=== PATIENT | female | born 1935 | race Caucasian/White ===

== ENCOUNTER 2016-05-22 21:12 | Inpatient (IN) ==
[2016-05-22] MEDS ORDERED: 0.9 % Sodium Chloride 500 ML IV ONE (21:53)
--- NOTE | 2016-05-22 22:15 | Emergency Department Note ---
Disposition Clinical Impression: Dehydration, Acute renal insufficiency Disposition: Admitted As Inpatient Referrals: Keyonna Giron MD [Primary Care Provider] - Forms: ED Satisfaction Letter, Work/School Release Nausea/Vomiting/Diarrhea HPI - General Chief complaint: ED Abdominal Pain Stated complaint: NVD Time Seen by Provider: 05/22/16 21:36 Source: patient Limitations: no limitations Nursing Notes Reviewed: Yes Vital Signs Reviewed: Yes - History of Present Illness HPI Narrative: Patient presents with complaint of nausea vomiting and diarrhea for a few days. Patient denies any sick contacts but she was recently started on Purinol which she feels is contributing to her symptoms. Patient has fevers or chills denies pain or shortness of breath. Patient denies any sick contacts. Patient states she took 4 doses allopurinol as well as been having the symptoms. Patient has not had any vomiting for the past 2 days but she continues to have about 4 bouts of diarrhea per day. Patient is able to tolerate by mouth currently. - Related Data Allergies Allergy/AdvReac Type Severity Reaction Status Date / Time Sulfa (Sulfonamide Allergy Hives Verified 05/22/16 21:28 Antibiotics) All systems ED: reviewed and negative except as stated. Past Medical History - Past Medical History Source: patient Medical history: Reports: hypertension Psychiatric history: Reports: anxiety - Social History Smoking Status: Never smoker Alcohol use: Reports: none Drug use: Reports: none Physical Exam - General Limitations: no limitations General appearance: alert - Head Head exam: atraumatic, normocephalic, normal inspection - Eye Eye exam: Present: normal appearance, PERRL, EOMI - ENT ENT exam: normal exam, normal oropharynx, mucous membranes moist - Neck Neck exam: Present: normal inspection, full ROM, trachea midline - Chest Chest inspection: Present: normal inspection, symmetric chest wall rise - Respiratory Respiratory exam: Present: normal lung sounds bilaterally - Cardiovascular Cardiovascular exam: Present: regular rate, normal rhythm, normal heart sounds - Abdominal Exam Abdominal exam: Present: soft, Non-Tender. Absent: tenderness, distention, guarding, rebound, rigidity - Extremities Exam Extremities exam: Present: normal inspection, full ROM. Absent: tenderness, pedal edema - Back Exam Back exam: Present: normal inspection, full ROM. Absent: tenderness - Neurological Exam Neurological exam: Present: alert, oriented X3 - Psychiatric Psychiatric exam: Present: normal affect, normal mood - Skin Skin exam: Present: warm, dry, intact, normal color Course Vital Signs Temperature 98.2 F 05/22/16 21:22 Pulse Rate 84 05/22/16 21:22 Respiratory Rate 16 05/22/16 21:22 Blood Pressure 87/48 05/22/16 21:22 O2 Sat by Pulse Oximetry 99 05/22/16 21:22 Temperature 98.2 F 05/22/16 21:22 Pulse Rate 69 05/22/16 22:17 Respiratory Rate 20 05/22/16 22:17 Blood Pressure 93/48 05/22/16 22:17 O2 Sat by Pulse Oximetry 94 L 05/22/16 22:17 Oxygen Delivery Oxygen Delivery Room Air Nausea/Vomiting/Diarrhea - Differential Diagnosis Likely: traveler's diarrhea, food poisoning, gastroenteritis, clostridium difficile infection, drug-induced nausea and vomitting, dehydration - Lab Data Lab results reviewed: Yes I reviewed the patient's lab results. Result diagrams: 05/22/16 22:11 05/22/16 22:11 Lab Results 05/22/16 05/22/16 Range/Units 22:11 22:11 WBC 9.4 (4.3-11.1) K/mcL RBC 4.34 (3.82-4.97) M/mcL Hgb 11.6 (11.5-15.4) g/dL Hct 36.1 (35.3-44.9) % MCV 83.2 (83.0-100.0) fL MCH 26.7 L (28.0-33.3) pg MCHC 32.1 (31.6-35.5) g/dL RDW 15.0 H (11.5-14.5) % Plt Count 319 (140-400) K/mcL MPV 10.3 (9.4-12.4) fL Immature Gran % 0.2 (0-4) % Seg Neutrophils % 69.3 % Lymphocytes % 15.5 % Monocytes % 13.2 % Eosinophils % 1.4 % Basophils % 0.4 % Neutrophils # 6.5 (1.6-8.9) K/mcL Lymphocytes # 1.5 (0.6-4.6) K/mcL Monocytes # 1.2 (0.0-1.3) K/mcL Eosinophils # 0.1 (0.0-0.6) K/mcL Basophils # 0.0 (0.0-0.2) K/mcL Sodium 131 L (136-145) mEq/L Potassium 3.8 (3.5-4.5) mEq/L Chloride 101 (98-109) mEq/L Carbon Dioxide 19 (19-29) mEq/L BUN 51 H (7-20) mg/dL Creatinine 2.25 H (0.57-1.11) mg/dL Est GFR ( Amer) 25 L (> 60) Est GFR (Non-Af Amer) 21 L (> 60) BUN/Creatinine Ratio 23 (6-26) Glucose 114 H (70-99) mg/dL Calculated Osmolality 287 (280-300) Calcium 8.9 (8.6-10.8) mg/dL Total Bilirubin 1.0 (0.2-1.2) mg/dL AST 26 (5-34) Units/L ALT 26 (0-55) Units/L Alkaline Phosphatase 78 (38-126) Units/L Serum Total Protein 7.3 (6.0-8.3) g/dL Albumin 3.7 (3.5-5.0) g/dL Globulin 3.6 H (2.4-3.5) g/dL Albumin/Globulin Ratio 1.0 L (1.1-2.2) Critical Care Time Total Critical Care Time: 30 Attestation: Critical care performed: Time is exclusive of separately billable procedures. Time includes: direct patient care, patient reassessment, coordination of patient care, interpretation of data (laboratory data, radiology data, and respiratory data), review of patient's medical records, medical consultation and documentation of patient care. Procedures included in critical care time: Procedures excluded from critical care time:
[2016-05-22 22:21] LABS: Basophils % 0.4 %; Eosinophils # 0.1 K/mcL (0.0-0.6); Eosinophils % 1.4 %; Hematocrit 36.1 % (35.3-44.9); Hemoglobin 11.6 g/dL (11.5-15.4); Immature Granulocytes % 0.2 % (0-4); Lymphocytes # 1.5 K/mcL (0.6-4.6); Lymphocytes % 15.5 %; Mean Corpuscular HGB Conc 32.1 g/dL (31.6-35.5); Mean Corpuscular Hemoglobin 26.7 pg (28.0-33.3); Mean Corpuscular Volume 83.2 fL (83.0-100.0); Mean Platelet Volume 10.3 fL (9.4-12.4); Monocytes # 1.2 K/mcL (0.0-1.3); Monocytes % 13.2 %; Neutrophils # 6.5 K/mcL (1.6-8.9); Platelet Count 319 K/mcL (140-400); Red Blood Count 4.34 M/mcL (3.82-4.97); Segmented Neutrophils % 69.3 %
[2016-05-22 22:32] LABS: Albumin 3.7 g/dL (3.5-5.0); Calcium 8.9 mg/dL (8.6-10.8); Globulin 3.6 g/dL (2.4-3.5); Potassium 3.8 mEq/L (3.5-4.5); Total Protein 7.3 g/dL (6.0-8.3)
[2016-05-23] MEDS ORDERED: Ondansetron 4 MG/2 ML VIAL IVP PRN (04:16)
[2016-05-23] MEDS ORDERED: Acetaminophen 325 MG TABLET PO PRN (04:16)
[2016-05-23] MEDS ORDERED: Naloxone 0.4 MG/ML INJ IVP PRN (04:16)
--- NOTE | 2016-05-23 04:27 | Internal Med History&Physical ---
Date of Encounter: 05/23/16 Time of Encounter: 04:27 Assessment and Plan (1) Dehydration Current visit: Yes Status: Acute 1. Will start IVF and allow oral hydration as patient tolerates. 2. Discharge will hinge upon patient 's ability to maintain hydration orally. 3. Monitor I/O. 4. Stop allopurinol for now. 5. Will check AAS given non-specific abdominal pain. (2) Acute kidney injury Current visit: Yes Status: Acute 1. Monitor renal function. 2. Consult nephrology if necessary. (3) DVT prophylaxis Current visit: Yes Status: Acute 1. Heparin SQ. Internal Medicine - H&P: HPI Chief complaint: vomitning and diarrhea Admitted From: Emergency Dept Plans for Post Hospital Care: Home History of present illness: Ms. Acevedo is an 80 year old female who presented to the ER with a five-day history of protracted nausea, vomiting, and liquid/watery diarrhea. She was hoping her symptoms would go away, but after 5 days of persistence, she came to the ER for evaluation. She was found to have evidence of acute kidney injury, moderate to severe dehydration, and generalized weakness. She was subsequently admitted to the hospitalist service. Upon my assessment of the patient, she looks dehydrated, but otherwise in no acute distress. She states she feels well other than some mild/vague abdominal pain. She denies any fevers, cough, congestion, body aches, headache, bloody stools, mucus in her stools, and/or dysuria. She denies any recent use of antibiotics and has not been hospitalized in many years. She recently started allopurinol for prevention of gout. She states that her GI symptoms started shortly after starting allopurinol. She denies any ill contacts, such as influenza. She lives alone and cares for herself. Other than the last 5 days, she has had no problems at home caring for herself. Past Med Surg Social Fam HX - Past Medical History Source: patient, old records reviewed Medical history: hypertension Psychiatric history: anxiety - Past Surgical History Surgical History: no surgical history - Social History Smoking Status: Never smoker Smokeless Tobacco Status: No Alcohol use: none Drug use: none Current living situation: Home - Independent Activity Level: Independent ambulation, Very active Recent Out of Country Travel Within the Last 8 Weeks: No - Family History Mother Living Status: Hx Family Musculoskeletal Disorders: Yes (arthritis) Hx Family Medical Disorders: Yes (CVA) Father History Unknown: Yes Living Status: Internal Medicine - H&P: Meds Allopurinol [Zyloprim 100 MG] 100 mg PO DAILY 05/23/16 [History] Amlodipine [Norvasc] 10 mg PO DAILY 05/23/16 [History] Atenolol [Tenormin] 50 mg PO BID 05/23/16 [History] LORazepam [Ativan] 1 mg PO TID 05/23/16 [History] Oxycodone HCl/Acetaminophen [Percocet 5-325 mg Tablet] 1 each PO TID PRN [History] Valsartan/Hydrochlorothiazide [Diovan Hct 320-12.5 mg Tab] 1 each PO DAILY 05/23 [History] Allergies Sulfa (Sulfonamide Antibiotics) Allergy (Verified 05/22/16 21:28) Hives - Constitutional Constitutional: no chills, no fever(s), no night sweats - EENT Eyes: no blurry vision, no change in vision Ears: no ear pain, no tinnitus Nose, mouth and throat: no nasal congestion, no sinus pressure, no sore throat - Cardiovascular Cardiovascular ROS IM: no chest pain, no diaphoresis, no dyspnea, no dyspnea on exertion, no edema - Respiratory Respiratory: no cough, no wheezing, no chest congestion, no excessive phlegm production, no change in phlegm color - Gastrointestinal Gastrointestinal: abdominal pain, diarrhea, nausea, vomiting, no heartburn, no hematemesis, no hematochezia - Genitourinary Genitourinary: no dysuria, no flank pain, no hematuria - Musculoskeletal Musculoskeletal ROS IM: no arthralgias, no back pain, no myalgias - Integumentary Integumentary IM: no rash, no unusual bruising, no jaundice - Neurological Neurological ROS: weakness, no dizziness, no focal weakness, no frequent falls - Psychiatric Psychiatric: no anxiety, no depression - Endocrine Endocrine IM: no polydipsia, no polyuria - Hematologic/Lymphatic Hematologic/Lymphatic: no lymphadenopathy - Allergic/Immunologic Allergic/Immunologic: GI upset with certain foods - Constitutional Vitals: Temp Pulse Resp BP Pulse Ox 97.8 F 79 16 122/54 95 05/23/16 00:08 05/23/16 00:08 05/23/16 00:08 05/23/16 00:08 05/23/16 00:58 General appearance: Present: cooperative, A&O X 3, pleasant, no acute distress, answers questions appropriately Exam: looks dry - Head Head exam: Present: atraumatic, normal inspection - Expanded Head Exam Head exam expanded: Absent: abrasion, contusion, general tenderness - Eye Eye exam: Present: EOMI, normal appearance, PERRL. Absent: scleral icterus Pupils: Present: normal accommodation - ENT ENT exam: Present: mucous membranes dry, normal exam, normal oropharynx - Neck Neck exam general surgery: Present: full ROM, supple. Absent: lymphadenopathy, tenderness, nuchal rigidity - Respiratory Respiratory exam: Present: CTAB. Absent: chest wall tenderness, rales, rhonchi , wheezes - Cardiovascular Cardiovascular exam: Present: RRR, +S1, +S2. Absent: diastolic murmur, systolic murmur - GI/Abdominal GI/Abdominal exam: Present: normal bowel sounds, soft, tenderness (mild diffuse tenderness; no rebound or guarding). Absent: guarding, hepatomegaly, mass, rebound, splenomegaly, no peritoneal signs - Extremities Exam Extremities exam: Present: full ROM, warm. Absent: calf tenderness, joint swelling, pedal edema - Back Exam Back exam: Present: normal inspection. Absent: CVA tenderness (L), CVA tenderness (R) - Neurological Exam Neurological exam: Present: alert, CN II-XII intact, oriented X3, no focal deficits - Psychiatric Psychiatric exam: Present: normal affect, normal mood - Skin Skin exam: Present: dry, warm. Absent: rash Additional comments: + skin tenting Internal Med - H&P Results - Labs CBC & Chem 7: 05/22/16 22:11 05/22/16 22:11
[2016-05-23] MEDS: 0.9 % Sodium Chloride 1,000 ML IVC SCH ×3 (04:45→22:36)
[2016-05-23 05:12] LABS: Basophils # 0.1 K/mcL (0.0-0.2); Basophils % 0.9 %; Eosinophils # 0.2 K/mcL (0.0-0.6); Eosinophils % 2.8 %; Hemoglobin 12.2 g/dL (11.5-15.4); Immature Granulocytes % 0.2 % (0-4); Lymphocytes # 2.7 K/mcL (0.6-4.6); Lymphocytes % 30.6 %; Mean Corpuscular HGB Conc 31.3 g/dL (31.6-35.5); Mean Corpuscular Hemoglobin 26.6 pg (28.0-33.3); Mean Corpuscular Volume 85.2 fL (83.0-100.0); Mean Platelet Volume 10.7 fL (9.4-12.4); Monocytes # 1.3 K/mcL (0.0-1.3); Monocytes % 14.6 %; Neutrophils # 4.4 K/mcL (1.6-8.9); Platelet Count 299 K/mcL (140-400); Red Blood Count 4.58 M/mcL (3.82-4.97); Red Cell Distribution Width 15.1 % (11.5-14.5); Segmented Neutrophils % 50.9 %
[2016-05-23 05:32] LABS: Albumin 3.7 g/dL (3.5-5.0); Bilirubin,Total 0.7 mg/dL (0.2-1.2); Calcium 8.6 mg/dL (8.6-10.8); Globulin 3.8 g/dL (2.4-3.5); Magnesium 1.9 mg/dL (1.6-2.6); Potassium 3.3 mEq/L (3.5-4.5); Total Protein 7.5 g/dL (6.0-8.3)
[2016-05-23] MEDS: *HR* Heparin 5,000 UNIT/ML VIAL SQ SCH ×2 (05:55→17:47)
[2016-05-23] MEDS: amLODIPine 5 MG TABLET PO SCH (09:11)
[2016-05-23] MEDS: Pantoprazole 40 MG VIAL IVP SCH (09:12)
[2016-05-23] MEDS: *HR* LORazepam 1 MG TABLET PO PRN ×2 (09:16→22:32)
[2016-05-23] MEDS: *HR* OxyCODONE/APAP 5/325 TABLET PO PRN ×2 (09:16→22:32)
--- NOTE | 2016-05-23 18:55 | Internal Med Progress Note ---
Date of Encounter: 05/23/16 Time of Encounter: 08:00 - Assessment and plan (1) Dehydration Current Visit: Yes Status: Acute Assessment and plan: Patient was admitted for dehydration from the ER after 6 day history of nausea vomiting and diarrhea. Diarrhea continues today however. On patient's arrival she was hypotensive and has CARMELINA from dehydration from nausea and vomiting. Patient's potassium and sodium were both low and were replenished during the day. Recheck labs in the morning Continue IV hydration Monitor vital signs Hold blood pressure medications for hypotension (2) Nausea vomiting and diarrhea Current Visit: Yes Status: Acute Assessment and plan: Patient has 6 day history of nausea vomiting and diarrhea. Plan as above. Anti-emetics when necessary nausea (3) Acute kidney injury Current Visit: Yes Status: Acute Assessment and plan: Creatinine 2.25 on arrival, after IV hydration 1.6. We will continue to hydrate and monitor labs in the morning. (4) DVT prophylaxis Current Visit: Yes Status: Acute Assessment and plan: Heparin SQ (5) Hypotension Current Visit: Yes Status: Acute Assessment and plan: Hypotension due to hypovolemia. Blood pressure medications have been held today due to continued hypotension. We will continue to monitor vital signs and medications as needed. We will also continue IV hydration. Qualifiers: Hypotension type: other hypotension type Qualified Code(s): I95.89 - Other hypotension - Time Spent With Patient less than 15 minutes - Subjective Interval history: Patient states that she has been having nausea, vomiting, and diarrhea for the last 6 days. She states that she could drinks Sprite and eat some crackers occasionally. Patient reports that she is still having diarrhea today. She also states that she did not take her home medications for 2 days due to dizziness and vomiting. Patient states the only way she made it here was her grandson found her and made her come to the hospital. Patient denies any abdominal pain and it is also nontender to palpation despite x-ray seeing there are moderately dilated bowel loops, potentially related to ileus or small partial bowel obstruction - Constitutional Vitals: Temp Pulse Resp BP Pulse Ox 97.6 F 74 16 96/58 95 05/23/16 15:15 05/23/16 15:15 05/23/16 15:15 05/23/16 15:15 05/23/16 15:15 General appearance: Present: cooperative, A&O X 3, pleasant, no acute distress, answers questions appropriately - Head Head exam: Present: normal inspection - Eye Eye exam: Present: normal appearance, conjuntiva pink - ENT ENT exam: Present: mucous membranes moist, normal exam - Neck Neck exam general surgery: Present: normal inspection. Absent: lymphadenopathy , tenderness - Respiratory Respiratory exam: Absent: chest wall tenderness, rales, respiratory distress, stridor, wheezes - Cardiovascular Cardiovascular exam: Present: RRR, +S1, +S2 - GI/Abdominal GI/Abdominal exam: Present: hyperactive bowel sounds, soft. Absent: distended, firm, mass, tenderness - Extremities Exam Extremities exam: Present: full ROM, normal inspection, mottling, warm, radial pulses palpable and symetrical. Absent: calf tenderness, pedal edema, tenderness - Neurological Exam Neurological exam: Present: alert, oriented X3, no focal deficits. Absent: facial droop, speech deficit Internal Medicine: Result - Labs CBC & Chem 7: 05/23/16 04:35 05/23/16 04:35 Labs: Short CBC 05/23/16 Range/Units 04:35 WBC 8.7 (4.3-11.1) K/mcL Hgb 12.2 (11.5-15.4) g/dL Hct 39.0 (35.3-44.9) % Plt Count 299 (140-400) K/mcL Neutrophils # 4.4 (1.6-8.9) K/mcL BMP 05/23/16 04:35 Sodium 135 L Potassium 3.3 L Chloride 103 Carbon Dioxide 18 L BUN 46 H Creatinine 1.60 H Glucose 88 Calcium 8.6 Liver Function 05/23/16 Range/Units 04:35 Total Bilirubin 0.7 (0.2-1.2) mg/dL AST 27 (5-34) Units/L ALT 23 (0-55) Units/L Alkaline Phosphatase 84 (38-126) Units/L Albumin 3.7 (3.5-5.0) g/dL - Impressions Impressions Chest/Abdomen X-ray 05/23/16 04:22 IMPRESSION: 1. Mildly to mildly dilated small bowel loops, potentially related to ileus or partial small bowel obstruction. 2. Pulmonary vascular congestion. D/ / Matt Bo MD / Matt Bo MD Interpreting Provider: Matt Bo MD Consult Discharge Plan - Plan Referrals: Keyonna Giron MD [Primary Care Provider] - 05/29/16 10:00 am
[2016-05-24] MEDS ORDERED: Potassium Chloride Elixir 20 MEQ/15 ML UDC PO ONE (00:49)
[2016-05-24 05:11] LABS: Basophils # 0.1 K/mcL (0.0-0.2); Basophils % 0.9 %; Eosinophils # 0.1 K/mcL (0.0-0.6); Hematocrit 33.1 % (35.3-44.9); Immature Granulocytes % 0.2 % (0-4); Lymphocytes # 1.4 K/mcL (0.6-4.6); Lymphocytes % 24.1 %; Mean Corpuscular HGB Conc 31.7 g/dL (31.6-35.5); Mean Corpuscular Hemoglobin 27.2 pg (28.0-33.3); Mean Corpuscular Volume 85.8 fL (83.0-100.0); Mean Platelet Volume 10.7 fL (9.4-12.4); Monocytes % 17.2 %; Neutrophils # 3.3 K/mcL (1.6-8.9); Platelet Count 231 K/mcL (140-400); Red Blood Count 3.86 M/mcL (3.82-4.97); Segmented Neutrophils % 56.6 %
[2016-05-24 05:26] LABS: BUN/Creatinine Ratio 28 (6-26); Calcium 8.6 mg/dL (8.6-10.8); Carbon Dioxide 18 mEq/L (19-29); Chloride 110 mEq/L (98-109); Glucose 107 mg/dL (70-99); Osmolality,Calculated 285 (280-300); Sodium 135 mEq/L (136-145); eGFR For African Americans > 60 (> 60); eGFR For Non-African Americans > 60 (> 60)
[2016-05-24 05:35] LABS: Blood Urea Nitrogen 24 mg/dL (7-20); Potassium 4.8 mEq/L (3.5-4.5)
[2016-05-24 05:40] LABS: Hemoglobin 10.5 g/dL (11.5-15.4)
[2016-05-24 05:45] LABS: Platelet Estimate Normal (Normal); Toxic Granulation Present (Not Present)
[2016-05-24] MEDS: *HR* Heparin 5,000 UNIT/ML VIAL SQ SCH ×2 (06:07→20:41)
[2016-05-24] MEDS: 0.9 % Sodium Chloride 1,000 ML IVC SCH ×3 (06:08→22:26)
[2016-05-24] MEDS: *HR* LORazepam 1 MG TABLET PO PRN ×2 (09:12→22:21)
[2016-05-24] MEDS: *HR* OxyCODONE/APAP 5/325 TABLET PO PRN ×2 (09:12→20:40)
[2016-05-24] MEDS: Pantoprazole 40 MG VIAL IVP SCH (09:13)
[2016-05-24] MEDS: amLODIPine 5 MG TABLET PO SCH (09:13)
--- NOTE | 2016-05-24 16:19 | Internal Med Progress Note ---
Date of Encounter: 05/24/16 Time of Encounter: 12:00 - Assessment and plan (1) Dehydration Current Visit: Yes Status: Acute Assessment and plan: Renal function has returned to baseline BUN/creatinine 0.87 today. Patient is slightly hyponatremic at 135 and slightly hyperkalemic at 4.8. Patient has had multiple episodes of diarrhea this morning, but no nausea or vomiting. We will redraw labs in the morning. We will continue to monitor patient and vital signs. (2) Nausea vomiting and diarrhea Current Visit: Yes Status: Acute Assessment and plan: Patient denies any nausea or vomiting today however she has had multiple episodes of diarrhea this morning. Dehydration has been corrected we will continue to monitor the patient. CT today does show small bowel obstruction. Patient has been made nothing by mouth and surgical consult has been made. (3) Acute kidney injury Current Visit: Yes Status: Resolved Assessment and plan: Creatinine has returned to baseline. (4) DVT prophylaxis Current Visit: Yes Status: Acute Assessment and plan: Heparin SQ (5) Hypotension Current Visit: Yes Status: Resolved Assessment and plan: Dehydration has been corrected patient's pressure has returned to within normal limits.We will continue to monitor patient's vitals. Qualifiers: Hypotension type: other hypotension type Qualified Code(s): I95.89 - Other hypotension (6) SBO (small bowel obstruction) Current Visit: Yes Status: Acute Assessment and plan: KUB done this morning showed progressive small bowel distention within the mid abdomen suggesting a worsening small bowel obstruction. CT scan showed acute distal small bowel obstruction with trace reactive interloop bowel fluid. Surgical consult entered, Dr. Frias will see patient today. Patient was made NPO. - Subjective Interval history: Patient still denies abdominal pain and states that she feels better today, but states that she has had diarrhea multiple times today. Patient denies nausea or vomiting today. Patient's abdomen is distended today however she states it is better than it was last night. - Constitutional Vitals: Temp Pulse Resp BP Pulse Ox 99.1 F 84 16 113/71 98 05/24/16 15:26 05/24/16 15:26 05/24/16 15:26 05/24/16 15:26 05/24/16 15:26 General appearance: Present: cooperative, A&O X 3, pleasant, no acute distress, answers questions appropriately - Head Head exam: Present: normal inspection - Eye Eye exam: Present: normal appearance, PERRL - ENT ENT exam: Present: mucous membranes moist, normal exam - Neck Neck exam general surgery: Present: normal inspection. Absent: lymphadenopathy , tenderness - Respiratory Respiratory exam: Present: CTAB. Absent: rales, rhonchi, wheezes - Cardiovascular Cardiovascular exam: Present: RRR, +S1, +S2 - Expanded Cardiovascular Exam Peripheral pulses: 2+: Dorsalis Pedis (L) PM, Dorsalis Pedis (R) PM - GI/Abdominal GI/Abdominal exam: Present: distended, hyperactive bowel sounds. Absent: hepatomegaly, tenderness Additional comments: Patient has hyper active bowel sounds in all quadrants, and denies abdominal tenderness with palpation - Extremities Exam Extremities exam: Present: full ROM, normal inspection, warm, radial pulses palpable and symetrical. Absent: joint swelling, pedal edema, tenderness - Neurological Exam Neurological exam: Present: alert, oriented X3 Internal Medicine: Result - Labs CBC & Chem 7: 05/24/16 04:30 05/24/16 04:30 Labs: Short CBC 05/24/16 Range/Units 04:30 WBC 5.8 (4.3-11.1) K/mcL Hgb 10.5 L D (11.5-15.4) g/dL Hct 33.1 L (35.3-44.9) % Plt Count 231 (140-400) K/mcL Neutrophils # 3.3 (1.6-8.9) K/mcL BMP 05/24/16 04:30 Sodium 135 L Potassium 4.8 H D Chloride 110 H Carbon Dioxide 18 L BUN 24 H D Creatinine 0.87 Glucose 107 H Calcium 8.6 - Impressions Impressions KUB X-Ray 05/24/16 09:30 IMPRESSION: Worsening small bowel distention suggesting a small bowel obstruction. Consider CT of the abdomen and pelvis further evaluation. The findings were sent to the Radiology Results Communication [facility] at 10:53 am on 05/24/2016to be communicated to a licensed caregiver. D/ / 05/24/2016 10:54:39 Irwin Hagen MD / [email or web address] Interpreting Provider: Irwin Hagen MD Abdomen/Pelvis CT 05/24/16 11:09 IMPRESSION: Findings of acute distal small-bowel obstruction with trace reactive interloop bowel fluid. D/ / Galo Camarena MD / Galo Camarena MD Interpreting Provider: Galo Camarena MD Consult Discharge Plan - Plan Referrals: Keyonna Giron MD [Primary Care Provider] - 05/29/16 10:00 am
--- NOTE | 2016-05-24 17:57 | General Surgery Progress Note ---
Date of Encounter: 05/24/16 Time of Encounter: 17:51 - Assessment and Plan (1) Partial small bowel obstruction Current Visit: Yes Status: Acute Mechanical SBO vs. Ileus Pt. with protracted nausea and vomiting x 7 days. She is also having persistent diarrhea CT abd/pel revealed dilated proximal small bowel and collapsed distal small bowel loops. NPO SBFT antiemetics IVF pain control NG to suction if persistent nausea or vomiting Subjective Patient reports: flatus, diarrhea Narrative: Ms. Acevedo is an 80 year old female who presented to the ER with a five-day history of protracted nausea, vomiting, and liquid/watery diarrhea. She was hoping her symptoms would go away, but after 5 days of persistence, she came to the ER for evaluation. She was found to have evidence of acute kidney injury, moderate to severe dehydration, and generalized weakness. She has continued to have diarrhea since admission. A c.diff screen was negative. A CT-Abd/pelvis revealed dilated small bowel loops in left upper quadrant with distal collapsed small bowel loops. These findings are consistent with a sbo. Objective Vital Signs - Last 8 Hours Temp Pulse Resp BP Pulse Ox 05/24/16 15:26 99.1 F 84 16 113/71 98 05/24/16 10:48 98.3 F 75 16 82/47 91 L Intake and Output 05/24/16 05/24/16 05/24/16 07:59 15:59 23:59 Intake Total 1005 / 1005 Output Total 240 / 240 Balance 1005 / 1005 -240 / -240 Intake: IV Fluids 1005 / 1005 0.9 % Sodium Chloride 1, 1000 / 1000 000 ML @ 125 mls/hr IVC . Q8H REID Rx#:[id number] Potassium Chloride 10 mEq 5 / 5 /100mL 10 meq In 100 ml @ 100 mls/hr IVPB Q1H RE[facility] Rx#:[id number] Output: Urine 140 / 140 Stool 100 / 100 Other: Meal Breakfast Percent of Meal Consumed 5% Stool Size Small Moderate Stool Consistency liquid loose soft Stool Color Yellow Yellow # Voids 1 # Bowel Movements 1 1 Weight 74.843 kg Patient Weight 05/24/16 23:59 Weight 74.843 kg - General physical appearance well nourished, moderate distress - Eyes normal ocular movement - Neck Neck exam: trachea midline - Respiratory normal expansion, clear to auscultation - Cardiovascular Cardiovascular exam: Present: RRR - Abdomen Abdomen: Present: bowel sounds present, soft, tender. Absent: guarding, rebound , rigid Abdominal Tenderness: diffusely - Neurologic CN 2-12 grossly intact - Psychiatric oriented to person, oriented to place - Labs 05/25/16 04:08 05/25/16 04:08 Diabetes panel 05/24/16 Range/Units 04:30 Sodium 135 L (136-145) mEq/L Potassium 4.8 H D (3.5-4.5) mEq/L Chloride 110 H (98-109) mEq/L Carbon Dioxide 18 L (19-29) mEq/L BUN 24 H D (7-20) mg/dL Creatinine 0.87 (0.57-1.11) mg/dL Glucose 107 H (70-99) mg/dL Calcium 8.6 (8.6-10.8) mg/dL Calcium panel 05/24/16 Range/Units 04:30 Calcium 8.6 (8.6-10.8) mg/dL Pituitary panel 05/24/16 Range/Units 04:30 Sodium 135 L (136-145) mEq/L Potassium 4.8 H D (3.5-4.5) mEq/L Chloride 110 H (98-109) mEq/L Carbon Dioxide 18 L (19-29) mEq/L BUN 24 H D (7-20) mg/dL Creatinine 0.87 (0.57-1.11) mg/dL Glucose 107 H (70-99) mg/dL Calcium 8.6 (8.6-10.8) mg/dL Adrenal panel 05/24/16 Range/Units 04:30 Sodium 135 L (136-145) mEq/L Potassium 4.8 H D (3.5-4.5) mEq/L Chloride 110 H (98-109) mEq/L Carbon Dioxide 18 L (19-29) mEq/L BUN 24 H D (7-20) mg/dL Creatinine 0.87 (0.57-1.11) mg/dL Glucose 107 H (70-99) mg/dL Calcium 8.6 (8.6-10.8) mg/dL Consult Discharge Plan - Plan Referrals: Keyonna Giron MD [Primary Care Provider] - 05/29/16 10:00 am - Attending Attestation I examined this patient and my medical decision-making was reviewed with the REGULATOR ASSEMBLER/PA/Advanced Practice Nurse/Resident Physician. I agree with the documented findings, disposition and treatment plan as described except to the extent set forth below. The patient is seen and evaluated with rest and on morning rounds. The patient clinically does not appear to have mechanical valve obstruction. We will glad to follow along with you as her bowel function improves. Continue supportive care and clinical surveillance. Xiang Frias MD FACS
[2016-05-25] MEDS: 0.9 % Sodium Chloride 1,000 ML IVC SCH ×2 (04:00→17:38)
[2016-05-25 04:49] LABS: Basophils # 0.1 K/mcL (0.0-0.2); Basophils % 1.2 %; Eosinophils # 0.1 K/mcL (0.0-0.6); Eosinophils % 1.5 %; Hematocrit 35.6 % (35.3-44.9); Immature Granulocytes % 0.5 % (0-4); Lymphocytes # 2.1 K/mcL (0.6-4.6); Lymphocytes % 34.8 %; Mean Corpuscular HGB Conc 30.9 g/dL (31.6-35.5); Mean Corpuscular Volume 87.5 fL (83.0-100.0); Mean Platelet Volume 10.6 fL (9.4-12.4); Monocytes # 1.3 K/mcL (0.0-1.3); Monocytes % 20.8 %; Neutrophils # 2.5 K/mcL (1.6-8.9); Platelet Count 233 K/mcL (140-400); Red Blood Count 4.07 M/mcL (3.82-4.97); Red Cell Distribution Width 15.3 % (11.5-14.5); Segmented Neutrophils % 41.2 %
[2016-05-25 05:03] LABS: BUN/Creatinine Ratio 24 (6-26); Blood Urea Nitrogen 19 mg/dL (7-20); Calcium 8.9 mg/dL (8.6-10.8); Carbon Dioxide 17 mEq/L (19-29); Chloride 112 mEq/L (98-109); Glucose 80 mg/dL (70-99); Osmolality,Calculated 289 (280-300); Sodium 139 mEq/L (136-145); eGFR For African Americans > 60 (> 60); eGFR For Non-African Americans > 60 (> 60)
[2016-05-25 05:15] LABS: Platelet Estimate Normal (Normal)
[2016-05-25 05:16] LABS: Reactive Lymphocytes Present (Not Present)
[2016-05-25] MEDS: *HR* Heparin 5,000 UNIT/ML VIAL SQ SCH ×2 (06:54→17:00)
[2016-05-25] MEDS: Pantoprazole 40 MG VIAL IVP SCH (09:43)
[2016-05-25] MEDS: *HR* OxyCODONE/APAP 5/325 TABLET PO PRN ×3 (09:43→23:47)
[2016-05-25] MEDS: *HR* LORazepam 1 MG TABLET PO PRN ×3 (09:43→23:48)
[2016-05-25] MEDS: amLODIPine 5 MG TABLET PO SCH (09:43)
--- NOTE | 2016-05-25 14:29 | Internal Med Progress Note ---
Date of Encounter: 05/25/16 Time of Encounter: 10:00 - Assessment and plan (1) SBO (small bowel obstruction) Current Visit: Yes Status: Acute Assessment and plan: Patient up walking around room this morning, states she feels better. Abdomen slightly distended, better than yesterday. Hyperactive bowel sounds 4 quadrants. Patient had small bowel follow-through last night, showed possible low-grade partial obstruction or possible adynamic ileus. There was no complete obstruction or perforation. Patient was seen by Dr. Frias this morning , she does not appear to have a mechanical valve obstruction, continue supportive care and clinical surveillance. Monitor labs Monitor patient condition Imaging as needed IV fluids as needed K (2) Dehydration Current Visit: Yes Status: Acute Assessment and plan: Labs have returned to normal values. Appears to be well hydrated and not in overload. Mucous membranes are moist skin is pink Continue to monitor labs I and O Monitor VS (3) Nausea vomiting and diarrhea Current Visit: Yes Status: Acute Assessment and plan: Patient denies nausea or vomiting, however she is still having diarrhea and some intermittent abdominal cramping. She remained nothing by mouth for today. Antiemetics when necessary IV fluids (4) Acute kidney injury Current Visit: Yes Status: Resolved Assessment and plan: Creatinine remains at baseline. (5) DVT prophylaxis Current Visit: Yes Status: Acute Assessment and plan: Heparin SQ (6) Hypotension Current Visit: Yes Status: Resolved Assessment and plan: Dehydration has been corrected patient's pressure has returned to within normal limits. Monitor vital signs Qualifiers: Hypotension type: other hypotension type Qualified Code(s): I95.89 - Other hypotension - Time Spent With Patient less than 15 minutes - Subjective Interval history: Today patient reports intermittent abdominal cramping. She states the diarrhea has continued today but is less in frequency than yesterday. Patient is up walking around in room and says she feels better. - Constitutional Vitals: Temp Pulse Resp BP Pulse Ox 97.6 F 67 16 92/51 92 L 05/25/16 11:57 05/25/16 11:57 05/25/16 11:57 05/25/16 11:57 05/25/16 11:57 General appearance: Present: cooperative, A&O X 3, pleasant, no acute distress, answers questions appropriately - Head Head exam: Present: normal inspection - Eye Eye exam: Present: normal appearance, conjuntiva pink - ENT ENT exam: Present: mucous membranes moist, normal exam - Neck Neck exam general surgery: Present: normal inspection. Absent: lymphadenopathy , tenderness - Respiratory Respiratory exam: Present: CTAB. Absent: chest wall tenderness, decreased breath sounds, respiratory distress, rhonchi, wheezes - Cardiovascular Cardiovascular exam: Present: RRR, +S1, +S2. Absent: diastolic murmur, systolic murmur - GI/Abdominal GI/Abdominal exam: Present: distended, hyperactive bowel sounds, soft, tenderness. Absent: hernia Additional comments: Patient reports tenderness to palpation in left lower quadrant - Extremities Exam Extremities exam: Present: full ROM, normal capillary refill, warm, radial pulses palpable and symetrical. Absent: pedal edema, tenderness - Neurological Exam Neurological exam: Present: alert, oriented X3, strengths equal and symetr throughout. Absent: no focal deficits, facial droop, speech deficit Internal Medicine: Result - Labs CBC & Chem 7: 05/25/16 04:08 05/25/16 04:08 Labs: Short CBC 05/25/16 Range/Units 04:08 WBC 6.1 (4.3-11.1) K/mcL Hgb 11.0 L (11.5-15.4) g/dL Hct 35.6 (35.3-44.9) % Plt Count 233 (140-400) K/mcL Neutrophils # 2.5 (1.6-8.9) K/mcL BMP 05/25/16 04:08 Sodium 139 Potassium 4.0 Chloride 112 H Carbon Dioxide 17 L BUN 19 Creatinine 0.80 Glucose 80 Calcium 8.9 Consult Discharge Plan - Plan Referrals: Keyonna Giron MD [Primary Care Provider] - 05/29/16 10:00 am
[2016-05-25] MEDS ORDERED: 0.9 % Sodium Chloride 500 ML IVC ONE (14:43)
--- NOTE | 2016-05-25 17:16 | General Surgery Progress Note ---
Date of Encounter: 05/25/16 Time of Encounter: 17:12 - Assessment and Plan (1) Partial small bowel obstruction Current Visit: Yes Status: Acute Mechanical SBO vs. Ileus CT abd/pel revealed dilated proximal small bowel and collapsed distal small bowel loops. Small bowel follow thru revealed low-grade partial obstruction vs. adynamic ileus. Pt. that is having high volume diarrhea correlates with a very low risk of a bowel obstruction. Surgery will sign off at this time. Thank you for allowing us to assist in the care of your patient. Please re-consult PRN. Subjective Patient reports: feels better, diarrhea Narrative: Patient seen and examined. Has had multiple watery and small formed bowel movements. Denies abdominal pain at this time. Objective Vital Signs - Last 8 Hours Temp Pulse Resp BP Pulse Ox 05/25/16 15:07 97.7 F 76 18 110/59 95 05/25/16 11:57 97.6 F 67 16 92/51 92 L Intake and Output 05/25/16 05/25/16 05/25/16 07:59 15:59 23:59 Other: Weight 72.348 kg Patient Weight 05/25/16 23:59 Weight 72.348 kg - Additional Exam - General physical appearance well nourished, moderate distress - Eyes normal ocular movement - Neck Neck exam: trachea midline - Respiratory normal expansion, clear to auscultation - Cardiovascular Cardiovascular exam: Present: RRR - Abdomen Abdomen: Present: bowel sounds present, soft, tender. Absent: guarding, rebound , rigid Abdominal Tenderness: diffusely - Neurologic CN 2-12 grossly intact - Psychiatric oriented to person, oriented to place - Labs 05/26/16 04:44 05/26/16 04:44 Diabetes panel 05/25/16 Range/Units 04:08 Sodium 139 (136-145) mEq/L Potassium 4.0 (3.5-4.5) mEq/L Chloride 112 H (98-109) mEq/L Carbon Dioxide 17 L (19-29) mEq/L BUN 19 (7-20) mg/dL Creatinine 0.80 (0.57-1.11) mg/dL Glucose 80 (70-99) mg/dL Calcium 8.9 (8.6-10.8) mg/dL Calcium panel 05/25/16 Range/Units 04:08 Calcium 8.9 (8.6-10.8) mg/dL Pituitary panel 05/25/16 Range/Units 04:08 Sodium 139 (136-145) mEq/L Potassium 4.0 (3.5-4.5) mEq/L Chloride 112 H (98-109) mEq/L Carbon Dioxide 17 L (19-29) mEq/L BUN 19 (7-20) mg/dL Creatinine 0.80 (0.57-1.11) mg/dL Glucose 80 (70-99) mg/dL Calcium 8.9 (8.6-10.8) mg/dL Adrenal panel 05/25/16 Range/Units 04:08 Sodium 139 (136-145) mEq/L Potassium 4.0 (3.5-4.5) mEq/L Chloride 112 H (98-109) mEq/L Carbon Dioxide 17 L (19-29) mEq/L BUN 19 (7-20) mg/dL Creatinine 0.80 (0.57-1.11) mg/dL Glucose 80 (70-99) mg/dL Calcium 8.9 (8.6-10.8) mg/dL Consult Discharge Plan - Plan Referrals: Keyonna Giron MD [Primary Care Provider] - 05/29/16 10:00 am - Attending Attestation I examined this patient and my medical decision-making was reviewed with the DIRECTOR [employer] SAL[employer]/PA/Advanced Practice Nurse/Resident Physician. I agree with the documented findings, disposition and treatment plan as described except to the extent set forth below. The patient is seen and evaluated on morning rounds with the resident. She appears to have had resolution of any consideration of bowel obstruction. Her abdominal examination is negative. Sign off at this point. Xiang Frias MD FACS
[2016-05-26] MEDS: 0.9 % Sodium Chloride 1,000 ML IVC SCH (02:04)
[2016-05-26 05:38] LABS: Hematocrit 32.9 % (35.3-44.9); Hemoglobin 10.4 g/dL (11.5-15.4); Mean Corpuscular HGB Conc 31.6 g/dL (31.6-35.5); Mean Corpuscular Hemoglobin 26.9 pg (28.0-33.3); Mean Corpuscular Volume 85.2 fL (83.0-100.0); Mean Platelet Volume 10.8 fL (9.4-12.4); Platelet Count 274 K/mcL (140-400); Red Blood Count 3.86 M/mcL (3.82-4.97); Red Cell Distribution Width 15.3 % (11.5-14.5)
[2016-05-26 05:50] LABS: BUN/Creatinine Ratio 19 (6-26); Blood Urea Nitrogen 14 mg/dL (7-20); Calcium 8.1 mg/dL (8.6-10.8); Carbon Dioxide 16 mEq/L (19-29); Chloride 111 mEq/L (98-109); Glucose 91 mg/dL (70-99); Osmolality,Calculated 282 (280-300); Potassium 3.6 mEq/L (3.5-4.5); Sodium 136 mEq/L (136-145); eGFR For African Americans > 60 (> 60); eGFR For Non-African Americans > 60 (> 60)
[2016-05-26 06:36] LABS: Eosinophils # 0.7 K/mcL (0.0-0.6); Lymphocytes # 2.6 K/mcL (0.6-4.6); Monocytes # 0.7 K/mcL (0.0-1.3); Neutrophils # 2.6 K/mcL (1.6-8.9); Platelet Estimate Normal (Normal)
--- NOTE | 2016-05-26 09:49 | Discharge Summary ---
Date of Encounter: 05/26/16 Time of Encounter: 09:48 - Discharge Diagnosis (1) Dehydration Priority: Primary Status: Resolved (2) Acute kidney injury Priority: Primary Status: Resolved (3) Nausea vomiting and diarrhea Priority: Secondary Status: Resolved (4) Hypotension Priority: Primary Status: Resolved Qualifiers: Hypotension type: other hypotension type Qualified Code(s): I95.89 - Other hypotension (5) Partial small bowel obstruction Priority: Primary Status: Resolved - Discharge Medications Home Medications: Allopurinol [Zyloprim 100 MG] 100 mg PO DAILY 05/23/16 [History] Amlodipine [Norvasc] 10 mg PO DAILY 05/23/16 [History] Atenolol [Tenormin] 50 mg PO BID 05/23/16 [History] Diclofenac Sodium [Voltaren] 1 appl TP QID 05/23/16 [History] LORazepam [Ativan] 1 mg PO TID PRN 05/23/16 [History] Oxycodone HCl/Acetaminophen [Percocet 5-325 mg Tablet] 1 tab PO TID PRN [History] Travoprost [Travatan Z] 1 drop OP HS 05/23/16 [History] Allergies/Adverse Reactions: Allergies Sulfa (Sulfonamide Antibiotics) Allergy (Verified 05/22/16 21:28) Hives Date of admission: 05/24/16 20:31 Primary care physician: Keyonna Giron, Consults: 05/25/16 18:29 Consult to Occupational Therapy [CONS] Routine Comment: Evaluate, develop and implement POC Consult to Physical Therapy [CONS] Routine Comment: Evaluate, develop and implement POC Consult to [employer] [CONS] Routine Reason for SW Consult: poss home health Discharging clinician: Chadwick Mauricio Anticipated date of discharge: 05/26/16 - Patient Status Disposition: Home, Self-Care Condition: Fair Functional capacity at discharge: independent ambulation Overall status at discharge: patient is progressing back to baseline - Discharge Instructions Follow Up With: Keyonna Giron MD [Primary Care Provider] - 05/29/16 10:00 am - Diet and Activity Activity: resume usual activities as tolerated Diet: low salt diet Interval History: Ms. Acevedo is an 80 year old female who presented to the ER with a five-day history of protracted nausea, vomiting, and liquid/watery diarrhea. She was hoping her symptoms would go away, but after 5 days of persistence, she came to the ER for evaluation. She was found to have evidence of acute kidney injury, moderate to severe dehydration, and generalized weakness. She was subsequently admitted to the hospitalist service. Hospital course: Ms. Acevedo is a 80 year old female with PMH of HTN who was admitted to the hospital for management of dehydration and CARMELINA secondary to Partial SBO with n/v /d She was managed conservatively with bowel rest, IVF hydration and antiemetics CT abd/pel revealed dilated proximal small bowel and collapsed distal small bowel loops. Chemistry revealed CARMELINA Small bowel follow thru revealed low-grade partial obstruction vs. adynamic ileus. Patient continued to have lose bowel movements and was evaluated by surgery Per surger, her SBO is most likely from adynamic ileus and is very low risk for high grade obstruction due to diarrhea Her CARMELINA and dehydration has resolved She is seen at bedside this morning, with no new complains She was given a regular diet for breakfast and lunch which she tolerated without any GI symptoms I have discontinued her home Valsartan-HCTZ due to her CARMELINA on presentation and her well-controlled blood pressure on only atenolol and Norvasc Patient is ambulatory and denies any social needs. her hyperchloremic acidosis is mild, and is fro saline infusion. she has no symptoms and her vitals are stable She is stable for discharge home to follow up with her PCP 05/29/16 - Time Spent with Patient Total time spent providing and/or coordinating discharge services: Less than 30 minutes - Constitutional Vitals: Temp Pulse Resp BP Pulse Ox 98.2 F 79 15 123/56 96 05/26/16 07:24 05/26/16 07:24 05/26/16 07:24 05/26/16 07:24 05/26/16 07:24 General appearance: Present: cooperative, A&O X 3, pleasant, no acute distress, answers questions appropriately - Head Head exam: Present: atraumatic, normocephalic - Eye Eye exam: Present: PERRL, conjuntiva pink, sclera anicteric Pupils: Present: PERRL - Neck Neck exam general surgery: Present: supple, trachea midline. Absent: lymphadenopathy - Respiratory Respiratory exam: Present: CTAB. Absent: accessory muscle use, rales, rhonchi, wheezes - Cardiovascular Cardiovascular exam: Present: RRR, +S1, +S2. Absent: diastolic murmur, gallop, rubs, systolic murmur - GI/Abdominal GI/Abdominal exam: Present: normal bowel sounds, soft, no peritoneal signs. Absent: distended, tenderness - Extremities Exam Extremities exam: Present: warm, radial pulses palpable and symetrical. Absent : calf tenderness, cyanotic, pedal edema - Neurological Exam Neurological exam: Present: alert, CN II-XII intact, oriented X3, no focal deficits. Absent: pronater drift, facial droop, speech deficit - Skin Skin exam: Present: dry, intact
[2016-05-26] MEDS: *HR* Heparin 5,000 UNIT/ML VIAL SQ SCH (10:08)
[2016-05-26] MEDS: amLODIPine 5 MG TABLET PO SCH (10:08)
[2016-05-26] MEDS: *HR* LORazepam 1 MG TABLET PO PRN ×2 (10:12→17:33)
[2016-05-26] MEDS: *HR* OxyCODONE/APAP 5/325 TABLET PO PRN ×2 (10:12→17:33)
[2016-05-26 14:37] VITALS: BP 105/59
--- NOTE | 2016-05-26 16:24 | Physician Discharge Referral ---
Home Health/Hosp Referral Info Transfer to: Home Health Attending Provider: Dr. Mauricio Provider in Charge Post Discharge: PCP - Diagnosis (1) Dehydration Priority: Primary Status: Resolved (2) Acute kidney injury Priority: Primary Status: Resolved (3) Nausea vomiting and diarrhea Priority: Primary Status: Resolved (4) Hypotension Priority: Primary Status: Resolved (5) Partial small bowel obstruction Priority: Secondary Status: Resolved - Respiratory Orders Smoking Cessation: Smoking cessation has been advised. For more information, call the [place] Tobacco Quit Line at 2-279-OQAN-NOW. - Services Needed Following services are medically necessary services: Home Health Aide, Physical Therapy - Transfer Medications Home Medications: Allopurinol [Zyloprim 100 MG] 100 mg PO DAILY 05/23/16 [History] Amlodipine [Norvasc] 10 mg PO DAILY 05/23/16 [History] Atenolol [Tenormin] 50 mg PO BID 05/23/16 [History] Diclofenac Sodium [Voltaren] 1 appl TP QID 05/23/16 [History] LORazepam [Ativan] 1 mg PO TID PRN 05/23/16 [History] Oxycodone HCl/Acetaminophen [Percocet 5-325 mg Tablet] 1 tab PO TID PRN [History] Travoprost [Travatan Z] 1 drop OP HS 05/23/16 [History] Allergies/Adverse Reactions: Allergies Sulfa (Sulfonamide Antibiotics) Allergy (Verified 05/22/16 21:28) Hives Certification: Further, I certify that my clinical findings support that this patient is homebound (i.e. absences from home require considerable and taxing effort and are for medical reasons or christian services or infrequently or short duration when for other reasons) because: Homebound Reason: Patient requires assistance of a person or device to safely leave home Attestation: My signature below is to certify that this patient is under my care and that I, or nurse practitioner, or a physician's fish hatchery assistant working with me, has a face-to -face encounter with this patient.
== END 2016-05-26 16:20 | disposition home or self-care (01) | DRG 389 ==
LOC: 3BNU 21:12 → EMEROO 21:12 → 3BNU 05-23 → SUATTDRO 05-24 20:31
PROVIDERS: ADMIT Pediatrics; ATTEND Internal Medicine

== ENCOUNTER 2017-08-26 22:51 | Inpatient (IN) ==
[2017-08-26] MEDS ORDERED: 0.9 % Sodium Chloride 1,000 ML IVC ONE (22:57)
[2017-08-26] MEDS ORDERED: Ondansetron 4 MG/2 ML VIAL IVP ONE (23:10)
--- NOTE | 2017-08-26 23:25 | Emergency Department Note ---
Disposition General Adult HPI - General Chief complaint: ED Abdominal Pain Stated complaint: vomiting,body aches,diarrhea Time Seen by Provider: 08/26/17 22:57 Nursing Notes Reviewed: Yes Vital Signs Reviewed: Yes - History of Present Illness Pain Scale: 8 - Related Data Home Medications Medication Instructions Recorded Confirmed Allopurinol [Zyloprim 100 MG] 100 mg PO DAILY 05/23/16 05/23/16 Atenolol [Tenormin] 50 mg PO BID 05/23/16 05/23/16 Diclofenac Sodium [Voltaren] 1 appl TP QID 05/23/16 05/23/16 LORazepam [Ativan] 1 mg PO TID PRN 05/23/16 05/23/16 Oxycodone HCl/Acetaminophen 1 tab PO TID PRN 05/23/16 05/23/16 [Percocet 5-325 mg Tablet] Travoprost [Travatan Z] 1 drop OP HS 05/23/16 05/23/16 amLODIPine [Norvasc] 10 mg PO DAILY 05/23/16 05/23/16 Previous Rx's Medication Instructions Recorded Azithromycin [Azithromycin 6-Tab 250 mg PO PER PKG DI #6 tab 03/27/17 Pack] Dextromethorphan Polistirex 5 ml PO BID PRN #118 ml 03/27/17 [12-Hour Cough Relief] Allergies Allergy/AdvReac Type Severity Reaction Status Date / Time codeine Allergy Rash Verified 03/27/17 14:48 nitrofurantoin Allergy Rash Verified 03/27/17 14:48 [From Macrodantin] Sulfa (Sulfonamide Allergy Hives Verified 03/27/17 14:48 Antibiotics) Past Medical History - Past Medical History Medical history: Reports: non-contributory Surgical history: Reports: no surgical history Psychiatric history: Reports: anxiety - Social History Smoking Status: Never smoker Smokeless Tobacco Status: No Alcohol use: Reports: none Drug use: Reports: none Course Vital Signs Temperature 98.5 F 08/26/17 22:52 Pulse Rate 65 08/26/17 22:52 Respiratory Rate 08/26/17 22:52 Blood Pressure 93/60 08/26/17 22:52 O2 Sat by Pulse Oximetry 96 08/26/17 22:52 Temperature 98.5 F 08/26/17 22:52 Pulse Rate 65 08/26/17 22:52 Respiratory Rate 20 08/26/17 22:52 Blood Pressure 93/60 08/26/17 22:52 O2 Sat by Pulse Oximetry 96 08/26/17 22:52 Oxygen Delivery Oxygen Delivery Room Air
--- NOTE | 2017-08-26 23:30 | Emergency Department Note ---
Disposition Clinical Impression: Elevated lipase Nausea & vomiting Qualifiers: Vomiting type: unspecified Vomiting Intractability: non-intractable Qualified Code(s): R11.2 - Nausea with vomiting, unspecified Abdominal pain Qualifiers: Abdominal location: generalized Qualified Code(s): R10.84 - Generalized abdominal pain Disposition: Admitted As Inpatient Condition: Good Referrals: Enedina Oates MD [Primary Care Provider] - Forms: ED Satisfaction Letter, Work/School Release Time of Disposition: 03:13 Abdominal Pain HPI - General Chief Complaint: ED Abdominal Pain Stated Complaint: vomiting,body aches,diarrhea Time Seen by Provider: 08/26/17 22:57 Nursing Notes Reviewed: Yes Vital Signs Reviewed: Yes - History of Present Illness Pt Subjective Complaint: abdominal pain Onset (ago): hour(s) Consistency: constant Location: RLQ Pain Scale: 8 Quality: aching Migration to: no migration Associated symptoms: Reports: nausea, vomiting, diarrhea. Denies: fever, chills - Related Data Home Medications Medication Instructions Recorded Confirmed Allopurinol [Zyloprim 100 MG] 100 mg PO DAILY 05/23/16 05/23/16 Atenolol [Tenormin] 50 mg PO BID 05/23/16 05/23/16 Diclofenac Sodium [Voltaren] 1 appl TP QID 05/23/16 05/23/16 LORazepam [Ativan] 1 mg PO TID PRN 05/23/16 05/23/16 Oxycodone HCl/Acetaminophen 1 tab PO TID PRN 05/23/16 05/23/16 [Percocet 5-325 mg Tablet] Travoprost [Travatan Z] 1 drop OP HS 05/23/16 05/23/16 amLODIPine [Norvasc] 10 mg PO DAILY 05/23/16 05/23/16 Previous Rx's Medication Instructions Recorded Azithromycin [Azithromycin 6-Tab 250 mg PO PER PKG DI #6 tab 03/27/17 Pack] Dextromethorphan Polistirex 5 ml PO BID PRN #118 ml 03/27/17 [12-Hour Cough Relief] Allergies Allergy/AdvReac Type Severity Reaction Status Date / Time codeine Allergy Rash Verified 03/27/17 14:48 nitrofurantoin Allergy Rash Verified 03/27/17 14:48 [From Macrodantin] Sulfa (Sulfonamide Allergy Hives Verified 03/27/17 14:48 Antibiotics) All systems ED: reviewed and negative except as stated. Review of Systems: As Per HPI Constitutional: Denies: fever, chills Eyes: Denies: vision change ENT ED: Denies: throat pain Cardiovascular: Denies: chest pain, palpitations Respiratory: Denies: cough, dyspnea, wheezes Gastrointestinal: Reports: as per HPI Genitourinary: Denies: urgency, dysuria, frequency, hematuria Musculoskeletal: Reports: back pain (chronic) Integumentary: Denies: rash Neurological: Denies: headache Endocrine: Denies: fatigue Hematological/Lymphatic: Denies: easy bleeding Allergic/Immunologic: Denies: facial swelling Abdominal Pain PMH - Past Medical History Medical history: Reports: non-contributory Female Surgical History: Reports: hysterectomy, Tonsillectomy Psychiatric history: Reports: anxiety - Social History Smoking status: Never smoker Alcohol use: Reports: none Drug use: Reports: none Physical Exam - General Limitations: no limitations General appearance: in no apparent distress - Head Head exam: atraumatic, normocephalic - Eye Eye exam: Present: normal appearance, EOMI - ENT ENT exam: mucous membranes moist - Neck Neck exam: Present: full ROM - Chest Chest inspection: Present: normal inspection, symmetric chest wall rise, tenderness (bialteral lateral chest wall) - Respiratory Respiratory exam: Present: normal lung sounds bilaterally. Absent: respiratory distress - Cardiovascular Cardiovascular exam: Present: regular rate - Abdominal Exam Abdominal exam: Present: soft, tenderness Abdominal tenderness: Present: RLQ - Extremities Exam Extremities exam: Present: normal inspection, full ROM - Back Exam Back exam: Present: normal inspection, full ROM. Absent: tenderness - Neurological Exam Neurological exam: Present: alert, oriented X3 - Psychiatric Psychiatric exam: Present: normal affect, normal mood - Skin Skin exam: Present: warm, dry, intact, normal color. Absent: rash, cyanosis, diaphoresis Course Course Narrative: Vomiting, accompanied with abdominal pain. She describes this as worsening over the past 7 hours, she describes 6 episodes. She mentions that she has bilateral rib pain which she associates with her vomiting. She does mention she has had diarrhea as well, but states that this has been something that she has been having for months and is no worse than normal. She denies any bloody stools, fever, confusion. She is accompanied by family members, who also relate that she has had complaints of diarrhea for months. They deny any recent illness or antibiotic use. Past medical history includes back surgery carpal tunnel surgery tonsillectomy hysterectomy, brain aneurysm surgery. Patient seen and examined. initial blood pressure at triage 93/60, this had improved on repeat assessment in exam room with 100/80. Patient is alert and oriented 3. She does have tenderness over right lower quadrant. Tenderness to palpation of her lateral/LUQ. Normal oropharynx. Antiemetics ordered. We will plan for fluids, analgesics. Blood work and likely CT scan. - Reevaluation(s) Reevaluation #1: Last BP reading 158/71. Analgesics ordered. Lab work does show elevated white count, as well as elevated lipase and liver enzymes. Lactic acid elevated at 2.6 . I did discuss with Dr. Gold, who agreed with admission, and CT scan. Pt hypotensive, elevated WBC and elevated Lactic acid. Zosyn ordered. Fluids running. Time: 00:55 Reevaluation #2: Patient CT scan with IV contrast is consistent with pancreatitis, as well as gallbladder dilation, and some inflammatory fat stranding throughout the anterior pararenal space. Patient is responding to analgesics. She no improvement after Zofran, Reglan was ordered since patient had also complained of some reflux symptoms. Patient was given Benadryl after Reglan after patient had some facial flushing, and mild chills. Symptoms had improved after Benadryl. Her vitals remained stable. Hospitalist was paged. Time: 02:44 Reevaluation #3: Pt discussed with and accepted by hospitalist Dr. Zaragoza. Time: 03:09 Vital Signs Temperature 98.5 F 08/26/17 22:52 Pulse Rate 65 08/26/17 22:52 Respiratory Rate 20 08/26/17 22:52 Blood Pressure 93/60 08/26/17 22:52 O2 Sat by Pulse Oximetry 96 08/26/17 22:52 Temperature 98.5 F 08/26/17 22:55 Pulse Rate 101 08/27/17 03:04 Respiratory Rate 17 08/27/17 03:04 Blood Pressure 150/72 08/27/17 03:04 O2 Sat by Pulse Oximetry 97 08/27/17 03:04 Oxygen Delivery Oxygen Delivery Oximizer Abdominal Pain - MDM Narrative Medical decision making narrative: Patient is a 81-year-old female presented with nausea and vomiting, and abdominal pain. She also described chronic diarrhea. Workup did show elevated lipase, liver enzymes. On exam she had tenderness of her right upper quadrant, and right lower quadrant. Patient was discussed with attending Dr. Gold who also had face time with patient and agreed with workup, and CT scan. CT scan did show evidence of pancreatitis, dilated gallbladder, and perirenal fat stranding. Patient is afebrile here as well as at home, however Initial blood pressure readings were hypotensive She did have a elevated white count, and lactic acid. She did receive a one-time dose of Zosyn here. Her blood pressure did respond to fluids, antinausea and pain did not to analgesics and antiemetics. Vitals remained stable. Patient was accepted by hospitalist. Abdomen/Pelvis CT 08/27/17 00:52 IMPRESSION: Localized inflammatory process in the upper abdomen most consistent with acute pancreatitis particularly in the region of the pancreatic head. Clinical correlation is recommended. There is inflammatory fat stranding throughout the anterior pararenal space with fluid extending into the lesser sac and inferiorly anterior to the right pararenal fascia. The gallbladder is mildly dilated. There are no calcified gallstones. D/ / Silas Servin MD / Silas Servin MD Interpreting Provider: Silas Servin MD Chest X-Ray 08/27/17 23:23 IMPRESSION: 1. No acute cardiopulmonary disease. D/ / David Dacosta MD / David Dacosta MD Interpreting Provider: Daivd Dacosta MD Laboratory Tests 08/26/17 08/26/17 08/26/17 22:57 22:57 22:57 WBC 22.0 H RBC 4.44 Hgb 12.2 Hct 38.2 MCV 86.0 MCH 27.5 L MCHC 31.9 RDW 15.0 H Plt Count 357 MPV 10.7 Immature Gran % 0.6 Seg Neutrophils % 87.2 Lymphocytes % 6.4 Monocytes % 5.2 Eosinophils % 0.2 Basophils % 0.4 Neutrophils # 19.2 H Lymphocytes # 1.4 Monocytes # 1.1 Eosinophils # 0.1 Basophils # 0.1 PT 11.5 INR 1.1 APTT 27.5 Sodium Potassium Chloride Carbon Dioxide BUN Creatinine Est GFR ( Amer) Est GFR (Non-Af Amer) BUN/Creatinine Ratio Glucose Calculated Osmolality Lactic Acid Calcium Total Bilirubin Direct Bilirubin Indirect Bilirubin AST ALT Alkaline Phosphatase Troponin I Serum Total Protein Albumin Globulin Albumin/Globulin Ratio Lipase Urine Color Yellow Urine Clarity Cloudy A Urine pH 5.5 Ur Specific [place] 1.021 Urine Protein 30 H Urine Glucose (UA) Normal Urine Ketones Negative Urine Blood Negative Urine Nitrite Negative Urine Bilirubin Negative Urine Urobilinogen Normal Ur Leukocyte Esterase Moderate H Urine Microscopic RBC 3-5 H Urine Microscopic WBC 5-15 H Ur Squamous Epith Cells Many H Urine Bacteria Many H Hyaline Casts None Seen Ur Culture Indicated? NO. A 08/26/17 08/26/17 22:57 23:26 WBC RBC Hgb Hct MCV MCH MCHC RDW Plt Count MPV Immature Gran % Seg Neutrophils % Lymphocytes % Monocytes % Eosinophils % Basophils % Neutrophils # Lymphocytes # Monocytes # Eosinophils # Basophils # PT INR APTT Sodium 139 Potassium 4.2 Chloride 108 H Carbon Dioxide 20 L BUN 22 Creatinine 0.99 Est GFR ( Amer) > 60 Est GFR (Non-Af Amer) 54 L BUN/Creatinine Ratio 22 Glucose 174 H Calculated Osmolality 296 Lactic Acid 2.6 H Calcium 9.4 Total Bilirubin 1.4 H Direct Bilirubin 0.8 H Indirect Bilirubin 0.6 AST 159 H ALT 75 H Alkaline Phosphatase 156 H Troponin I < 0.03 Serum Total Protein 7.1 Albumin 4.3 Globulin 2.8 Albumin/Globulin Ratio 1.5 Lipase > 1800 H Urine Color Urine Clarity Urine pH Ur Specific [place] Urine Protein Urine Glucose (UA) Urine Ketones Urine Blood Urine Nitrite Urine Bilirubin Urine Urobilinogen Ur Leukocyte Esterase Urine Microscopic RBC Urine Microscopic WBC Ur Squamous Epith Cells Urine Bacteria Hyaline Casts Ur Culture Indicated? - Lab Data Lab results reviewed: Yes I reviewed the patient's lab results. Result diagrams: 08/26/17 22:57 08/26/17 22:57 Lab Results 08/26/17 08/26/17 08/26/17 Range/Units 22:57 22:57 22:57 WBC 22.0 H (4.3-11.1) K/mcL RBC 4.44 (3.82-4.97) M/mcL Hgb 12.2 (11.5-15.4) g/dL Hct 38.2 (35.3-44.9) % MCV 86.0 (83.0-100.0) fL MCH 27.5 L (28.0-33.3) pg MCHC 31.9 (31.6-35.5) g/dL RDW 15.0 H (11.5-14.5) % Plt Count 357 (140-400) K/mcL MPV 10.7 (9.4-12.4) fL Immature Gran % 0.6 (0-4) % Seg Neutrophils % 87.2 % Lymphocytes % 6.4 % Monocytes % 5.2 % Eosinophils % 0.2 % Basophils % 0.4 % Neutrophils # 19.2 H (1.6-8.9) K/mcL Lymphocytes # 1.4 (0.6-4.6) K/mcL Monocytes # 1.1 (0.0-1.3) K/mcL Eosinophils # 0.1 (0.0-0.6) K/mcL Basophils # 0.1 (0.0-0.2) K/mcL PT 11.5 (9.4-12.1) Seconds INR 1.1 APTT 27.5 (26.0-36.0) Seconds Sodium (136-145) mEq/L Potassium (3.5-5.1) mEq/L Chloride (98-107) mEq/L Carbon Dioxide (23-29) mEq/L BUN (8-23) mg/dL Creatinine (0.60-1.20) mg/dL Est GFR ( Amer) (> 60) Est GFR (Non-Af Amer) (> 60) BUN/Creatinine Ratio (6-26) Glucose (70-105) mg/dL Calculated Osmolality (280-300) Lactic Acid (0.5-2.2) mmol/L Calcium (8.6-10.3) mg/dL Total Bilirubin (0.3-1.0) mg/dL Direct Bilirubin (0.0-0.2) mg/dL Indirect Bilirubin (0.0-1.2) mg/dL AST (13-39) Units/L ALT (7-52) Units/L Alkaline Phosphatase (34-104) Units/L Troponin I (< 0.04) ng/mL Serum Total Protein (6.4-8.9) g/dL Albumin (3.5-5.7) g/dL Globulin (2.4-3.5) g/dL Albumin/Globulin Ratio (1.1-2.2) Lipase (11-82) Units/L Urine Color Yellow (Yellow) Urine Clarity Cloudy A (Clear) Urine pH 5.5 (5.0-8.0) pH Units Ur Specific [place] 1.021 (1.010-1.025) Urine Protein 30 H (Neg-Trace) mg/dL Urine Glucose (UA) Normal (Normal) mg/dL Urine Ketones Negative (Negative) mg/dL Urine Blood Negative (Negative) Urine Nitrite Negative (Negative) Urine Bilirubin Negative (Negative) Urine Urobilinogen Normal (Normal) mg/dL Ur Leukocyte Esterase Moderate H (Negative) Urine Microscopic RBC 3-5 H (0-3) per hpf Urine Microscopic WBC 5-15 H (0-3) per hpf Ur Squamous Epith Cells Many H (None-Few) per lpf Urine Bacteria Many H (None-Few) per hpf Hyaline Casts None Seen (None-Few) per lpf Ur Culture Indicated? NO. A (NO) 08/26/17 08/26/17 Range/Units 22:57 23:26 WBC (4.3-11.1) K/mcL RBC (3.82-4.97) M/mcL Hgb (11.5-15.4) g/dL Hct (35.3-44.9) % MCV (83.0-100.0) fL MCH (28.0-33.3) pg MCHC (31.6-35.5) g/dL RDW (11.5-14.5) % Plt Count (140-400) K/mcL MPV (9.4-12.4) fL Immature Gran % (0-4) % Seg Neutrophils % % Lymphocytes % % Monocytes % % Eosinophils % % Basophils % % Neutrophils # (1.6-8.9) K/mcL Lymphocytes # (0.6-4.6) K/mcL Monocytes # (0.0-1.3) K/mcL Eosinophils # (0.0-0.6) K/mcL Basophils # (0.0-0.2) K/mcL PT (9.4-12.1) Seconds INR APTT (26.0-36.0) Seconds Sodium 139 (136-145) mEq/L Potassium 4.2 (3.5-5.1) mEq/L Chloride 108 H (98-107) mEq/L Carbon Dioxide 20 L (23-29) mEq/L BUN 22 (8-23) mg/dL Creatinine 0.99 (0.60-1.20) mg/dL Est GFR ( Amer) > 60 (> 60) Est GFR (Non-Af Amer) 54 L (> 60) BUN/Creatinine Ratio 22 (6-26) Glucose 174 H (70-105) mg/dL Calculated Osmolality 296 (280-300) Lactic Acid 2.6 H (0.5-2.2) mmol/L Calcium 9.4 (8.6-10.3) mg/dL Total Bilirubin 1.4 H (0.3-1.0) mg/dL Direct Bilirubin 0.8 H (0.0-0.2) mg/dL Indirect Bilirubin 0.6 (0.0-1.2) mg/dL AST 159 H (13-39) Units/L ALT 75 H (7-52) Units/L Alkaline Phosphatase 156 H (34-104) Units/L Troponin I < 0.03 (< 0.04) ng/mL Serum Total Protein 7.1 (6.4-8.9) g/dL Albumin 4.3 (3.5-5.7) g/dL Globulin 2.8 (2.4-3.5) g/dL Albumin/Globulin Ratio 1.5 (1.1-2.2) Lipase > 1800 H (11-82) Units/L Urine Color (Yellow) Urine Clarity (Clear) Urine pH (5.0-8.0) pH Units Ur Specific [place] (1.010-1.025) Urine Protein (Neg-Trace) mg/dL Urine Glucose (UA) (Normal) mg/dL Urine Ketones (Negative) mg/dL Urine Blood (Negative) Urine Nitrite (Negative) Urine Bilirubin (Negative) Urine Urobilinogen (Normal) mg/dL Ur Leukocyte Esterase (Negative) Urine Microscopic RBC (0-3) per hpf Urine Microscopic WBC (0-3) per hpf Ur Squamous Epith Cells (None-Few) per lpf Urine Bacteria (None-Few) per hpf Hyaline Casts (None-Few) per lpf Ur Culture Indicated? (NO) - Radiology Data Radiology results reviewed: Yes I reviewed the patient's radiology results. - EKG Data EKG attestation: Yes I reviewed and interpreted this EKG. EKG results narrative: Sinus rhythm, rate 69, MA interval 178, QRS duration 90, QT/qtc 420/429 EKG shows normal: sinus rhythm
[2017-08-26 23:49] LABS: Basophils # 0.1 K/mcL (0.0-0.2); Basophils % 0.4 %; Eosinophils # 0.1 K/mcL (0.0-0.6); Eosinophils % 0.2 %; Hematocrit 38.2 % (35.3-44.9); Hemoglobin 12.2 g/dL (11.5-15.4); Immature Granulocytes % 0.6 % (0-4); Lymphocytes # 1.4 K/mcL (0.6-4.6); Lymphocytes % 6.4 %; Mean Corpuscular HGB Conc 31.9 g/dL (31.6-35.5); Mean Corpuscular Hemoglobin 27.5 pg (28.0-33.3); Mean Platelet Volume 10.7 fL (9.4-12.4); Monocytes # 1.1 K/mcL (0.0-1.3); Monocytes % 5.2 %; Neutrophils # 19.2 K/mcL (1.6-8.9); Platelet Count 357 K/mcL (140-400); Red Blood Count 4.44 M/mcL (3.82-4.97); Segmented Neutrophils % 87.2 %
[2017-08-26 23:59] LABS: INR 1.1; Prothrombin Time 11.5 Seconds (9.4-12.1)
[2017-08-27 00:02] LABS: Activated Partial Thrombo Time 27.5 Seconds (26.0-36.0)
[2017-08-27 00:08] LABS: Troponin I < 0.03 ng/mL (< 0.04)
[2017-08-27 00:27] LABS: Alanine Aminotransferase 75 Units/L (7-52); Albumin 4.3 g/dL (3.5-5.7); Albumin/Globulin Ratio 1.5 (1.1-2.2); Alkaline Phosphatase 156 Units/L (34-104); Aspartate Amino Transferase 159 Units/L (13-39); BUN/Creatinine Ratio 22 (6-26); Bilirubin,Direct 0.8 mg/dL (0.0-0.2); Bilirubin,Indirect 0.6 mg/dL (0.0-1.2); Bilirubin,Total 1.4 mg/dL (0.3-1.0); Blood Urea Nitrogen 22 mg/dL (8-23); Calcium 9.4 mg/dL (8.6-10.3); Carbon Dioxide 20 mEq/L (23-29); Chloride 108 mEq/L (98-107); Globulin 2.8 g/dL (2.4-3.5); Glucose 174 mg/dL (70-105); Lipase > 1800 Units/L (11-82); Osmolality,Calculated 296 (280-300); Potassium 4.2 mEq/L (3.5-5.1); Sodium 139 mEq/L (136-145); Total Protein 7.1 g/dL (6.4-8.9); eGFR For African Americans > 60 (> 60); eGFR For Non-African Americans 54 (> 60)
[2017-08-27 00:45] LABS: Bilirubin,Urine Negative (Negative); Blood,Urine Negative (Negative); Clarity,Urine Cloudy (Clear); Color,Urine Yellow (Yellow); Glucose,Urine (UA) Normal (Normal); Ketones,Urine Negative (Negative); Leukocyte Esterase,Urine Moderate (Negative); Nitrite,Urine Negative (Negative); PH,Urine 5.5 pH Units (5.0-8.0); Protein,Urine 30 mg/dL (Neg-Trace); Specific Gravity,Urine 1.021 (1.010-1.025); Urobilinogen,Urine Normal (Normal)
[2017-08-27 00:50] LABS: Bacteria,Urine Many per hpf (None-Few); Hyaline Casts,Urine None Seen per lpf (None-Few); Squamous Epithelial Cell,Urine Many per lpf (None-Few)
[2017-08-27] MEDS ORDERED: Isovue-370 500 ML INFUS..BTL IV ONE (00:52)
[2017-08-27] MEDS ORDERED: *HR* FentaNYL (PF) 100 MCG/2 ML VIAL IVP ONE ×2 (00:52→01:56)
[2017-08-27] MEDS ORDERED: Piperacillin/Tazobactam 3.375 GM in 0.9 % Sodium Chloride Mini Bag 100 ML IVPB ONE (01:00)
[2017-08-27] MEDS: 0.9 % Sodium Chloride 1,000 ML IVC ONE ×2 (01:17→02:32)
[2017-08-27] MEDS ORDERED: Ondansetron 4 MG/2 ML VIAL IVP ONE (01:52)
[2017-08-27] MEDS ORDERED: Metoclopramide 10 MG/2 ML VIAL IVP ONE (01:56)
--- NOTE | 2017-08-27 03:16 | Emergency Department Note ---
Disposition Clinical Impression: Elevated lipase Nausea & vomiting Qualifiers: Vomiting type: unspecified Vomiting Intractability: non-intractable Qualified Code(s): R11.2 - Nausea with vomiting, unspecified Abdominal pain Qualifiers: Abdominal location: generalized Qualified Code(s): R10.84 - Generalized abdominal pain Acute pancreatitis Qualifiers: Pancreatitis type: unspecified pancreatitis type Acute pancreatitis complication: unspecified Qualified Code(s): K85.90 - Acute pancreatitis without necrosis or infection, unspecified Disposition: Admitted As Inpatient Condition: Good General Adult HPI - General Chief complaint: ED Abdominal Pain Stated complaint: vomiting,body aches,diarrhea Time Seen by Provider: 08/26/17 22:57 Source: patient, family Limitations: no limitations Nursing Notes Reviewed: Yes Vital Signs Reviewed: Yes - History of Present Illness Pain Scale: 8 - Related Data Home Medications Medication Instructions Recorded Confirmed Allopurinol [Zyloprim 100 MG] 100 mg PO DAILY 05/23/16 08/27/17 Atenolol [Tenormin] 50 mg PO BID 05/23/16 08/27/17 Diclofenac Sodium [Voltaren] 1 appl TP QID 05/23/16 08/27/17 LORazepam [Ativan] 1 mg PO TID PRN 05/23/16 08/27/17 Oxycodone HCl/Acetaminophen 1 tab PO TID PRN 05/23/16 08/27/17 [Percocet 5-325 mg Tablet] Travoprost [Travatan Z] 1 drop OP HS 05/23/16 08/27/17 amLODIPine [Norvasc] 10 mg PO DAILY 05/23/16 08/27/17 Previous Rx's Medication Instructions Recorded Azithromycin [Azithromycin 6-Tab 250 mg PO PER PKG DI #6 tab 03/27/17 Pack] Dextromethorphan Polistirex 5 ml PO BID PRN #118 ml 03/27/17 [12-Hour Cough Relief] Allergies Allergy/AdvReac Type Severity Reaction Status Date / Time codeine Allergy Rash Verified 03/27/17 14:48 nitrofurantoin Allergy Rash Verified 03/27/17 14:48 [From Macrodantin] Sulfa (Sulfonamide Allergy Hives Verified 03/27/17 14:48 Antibiotics) Constitutional: Denies: fever, chills Eyes: Denies: vision change ENT ED: Denies: throat pain Cardiovascular: Denies: chest pain, palpitations Respiratory: Denies: cough, dyspnea, wheezes Gastrointestinal: Reports: as per HPI Musculoskeletal: Reports: back pain (chronic) Integumentary: Denies: rash Neurological: Denies: headache Endocrine: Denies: fatigue Hematological/Lymphatic: Denies: easy bleeding Allergic/Immunologic: Denies: facial swelling Past Medical History - Past Medical History Medical history: Reports: non-contributory Surgical history: Reports: no surgical history Psychiatric history: Reports: anxiety - Social History Smoking Status: Never smoker Smokeless Tobacco Status: No Alcohol use: Reports: none Drug use: Reports: none Physical Exam - General Limitations: no limitations General appearance: in no apparent distress Course Vital Signs Temperature 98.5 F 08/26/17 22:52 Pulse Rate 65 08/26/17 22:52 Respiratory Rate 20 08/26/17 22:52 Blood Pressure 93/60 08/26/17 22:52 O2 Sat by Pulse Oximetry 96 08/26/17 22:52 Temperature 98.5 F 08/26/17 22:55 Pulse Rate 101 08/27/17 03:04 Respiratory Rate 19 08/27/17 04:29 Blood Pressure 140/65 08/27/17 04:29 O2 Sat by Pulse Oximetry 97 08/27/17 03:04 Oxygen Delivery Oxygen Delivery Oximizer Medical Decision Making - Lab Data Result diagrams: 08/26/17 22:57 08/26/17 22:57 Lab Results 08/26/17 08/26/17 08/26/17 Range/Units 22:57 22:57 22:57 WBC 22.0 H (4.3-11.1) K/mcL RBC 4.44 (3.82-4.97) M/mcL Hgb 12.2 (11.5-15.4) g/dL Hct 38.2 (35.3-44.9) % MCV 86.0 (83.0-100.0) fL MCH 27.5 L (28.0-33.3) pg MCHC 31.9 (31.6-35.5) g/dL RDW 15.0 H (11.5-14.5) % Plt Count 357 (140-400) K/mcL MPV 10.7 (9.4-12.4) fL Immature Gran % 0.6 (0-4) % Seg Neutrophils % 87.2 % Lymphocytes % 6.4 % Monocytes % 5.2 % Eosinophils % 0.2 % Basophils % 0.4 % Neutrophils # 19.2 H (1.6-8.9) K/mcL Lymphocytes # 1.4 (0.6-4.6) K/mcL Monocytes # 1.1 (0.0-1.3) K/mcL Eosinophils # 0.1 (0.0-0.6) K/mcL Basophils # 0.1 (0.0-0.2) K/mcL PT 11.5 (9.4-12.1) Seconds INR 1.1 APTT 27.5 (26.0-36.0) Seconds Sodium (136-145) mEq/L Potassium (3.5-5.1) mEq/L Chloride (98-107) mEq/L Carbon Dioxide (23-29) mEq/L BUN (8-23) mg/dL Creatinine (0.60-1.20) mg/dL Est GFR ( Amer) (> 60) Est GFR (Non-Af Amer) (> 60) BUN/Creatinine Ratio (6-26) Glucose (70-105) mg/dL Calculated Osmolality (280-300) Lactic Acid (0.5-2.2) mmol/L Calcium (8.6-10.3) mg/dL Total Bilirubin (0.3-1.0) mg/dL Direct Bilirubin (0.0-0.2) mg/dL Indirect Bilirubin (0.0-1.2) mg/dL AST (13-39) Units/L ALT (7-52) Units/L Alkaline Phosphatase (34-104) Units/L Troponin I (< 0.04) ng/mL Serum Total Protein (6.4-8.9) g/dL Albumin (3.5-5.7) g/dL Globulin (2.4-3.5) g/dL Albumin/Globulin Ratio (1.1-2.2) Lipase (11-82) Units/L Urine Color Yellow (Yellow) Urine Clarity Cloudy A (Clear) Urine pH 5.5 (5.0-8.0) pH Units Ur Specific [place] 1.021 (1.010-1.025) Urine Protein 30 H (Neg-Trace) mg/dL Urine Glucose (UA) Normal (Normal) mg/dL Urine Ketones Negative (Negative) mg/dL Urine Blood Negative (Negative) Urine Nitrite Negative (Negative) Urine Bilirubin Negative (Negative) Urine Urobilinogen Normal (Normal) mg/dL Ur Leukocyte Esterase Moderate H (Negative) Urine Microscopic RBC 3-5 H (0-3) per hpf Urine Microscopic WBC 5-15 H (0-3) per hpf Ur Squamous Epith Cells Many H (None-Few) per lpf Urine Bacteria Many H (None-Few) per hpf Hyaline Casts None Seen (None-Few) per lpf Ur Culture Indicated? NO. A (NO) 08/26/17 08/26/17 Range/Units 22:57 23:26 WBC (4.3-11.1) K/mcL RBC (3.82-4.97) M/mcL Hgb (11.5-15.4) g/dL Hct (35.3-44.9) % MCV (83.0-100.0) fL MCH (28.0-33.3) pg MCHC (31.6-35.5) g/dL RDW (11.5-14.5) % Plt Count (140-400) K/mcL MPV (9.4-12.4) fL Immature Gran % (0-4) % Seg Neutrophils % % Lymphocytes % % Monocytes % % Eosinophils % % Basophils % % Neutrophils # (1.6-8.9) K/mcL Lymphocytes # (0.6-4.6) K/mcL Monocytes # (0.0-1.3) K/mcL Eosinophils # (0.0-0.6) K/mcL Basophils # (0.0-0.2) K/mcL PT (9.4-12.1) Seconds INR APTT (26.0-36.0) Seconds Sodium 139 (136-145) mEq/L Potassium 4.2 (3.5-5.1) mEq/L Chloride 108 H (98-107) mEq/L Carbon Dioxide 20 L (23-29) mEq/L BUN 22 (8-23) mg/dL Creatinine 0.99 (0.60-1.20) mg/dL Est GFR ( Amer) > 60 (> 60) Est GFR (Non-Af Amer) 54 L (> 60) BUN/Creatinine Ratio 22 (6-26) Glucose 174 H (70-105) mg/dL Calculated Osmolality 296 (280-300) Lactic Acid 2.6 H (0.5-2.2) mmol/L Calcium 9.4 (8.6-10.3) mg/dL Total Bilirubin 1.4 H (0.3-1.0) mg/dL Direct Bilirubin 0.8 H (0.0-0.2) mg/dL Indirect Bilirubin 0.6 (0.0-1.2) mg/dL AST 159 H (13-39) Units/L ALT 75 H (7-52) Units/L Alkaline Phosphatase 156 H (34-104) Units/L Troponin I < 0.03 (< 0.04) ng/mL Serum Total Protein 7.1 (6.4-8.9) g/dL Albumin 4.3 (3.5-5.7) g/dL Globulin 2.8 (2.4-3.5) g/dL Albumin/Globulin Ratio 1.5 (1.1-2.2) Lipase > 1800 H (11-82) Units/L Urine Color (Yellow) Urine Clarity (Clear) Urine pH (5.0-8.0) pH Units Ur Specific [place] (1.010-1.025) Urine Protein (Neg-Trace) mg/dL Urine Glucose (UA) (Normal) mg/dL Urine Ketones (Negative) mg/dL Urine Blood (Negative) Urine Nitrite (Negative) Urine Bilirubin (Negative) Urine Urobilinogen (Normal) mg/dL Ur Leukocyte Esterase (Negative) Urine Microscopic RBC (0-3) per hpf Urine Microscopic WBC (0-3) per hpf Ur Squamous Epith Cells (None-Few) per lpf Urine Bacteria (None-Few) per hpf Hyaline Casts (None-Few) per lpf Ur Culture Indicated? (NO) Attestation Statement - Attestation Attestation: I, Pino Gold MD, personally evaluated this patient and discussed their management with the midlevel provicer, PAC/MYSQL DBA. I reviewed the midlevel provider 's note and agree with the documented findings, medical decision making, and plan of care. 81-year-old female presents to the emergency department with a complaint of nausea and vomiting and epigastric abdominal pain which started yesterday. The pain radiates to the back. There has also been some diarrhea. No fever. No melena, hematemesis, or hematochezia. On examination patient is a well-developed well-nourished elderly female in no acute distress but does appear to be in moderate discomfort. She is alert and oriented 3. There is no cyanosis or diaphoresis. Breath sounds are clear and equal bilaterally. Heart regular with a mild tachycardia. Abdomen soft with marked epigastric tenderness. Labs reviewed. Lipase greater than 1800. CT of the abdomen and pelvis shows: Localized inflammatory process in the upper abdomen most consistent with acute pancreatitis particularly in the region of the pancreatic head. Chest x- ray negative. The hospitalist, Dr. Zaragoza, was consulted and accepted admission of the patient.
--- NOTE | 2017-08-27 04:29 | Internal Med History&Physical ---
Date of Encounter: 08/27/17 Time of Encounter: 04:50 Internal Medicine - H&P: HPI Chief complaint: N/V and abdominal pain History of present illness: Ms. Acevedo is a 81 year old female with a past medical history of hypertension and anxiety who presented to the ED for vomiting and abdominal pain. On Thursday , pain was in her epigastric region. Then on Thursday afternoon pain worsened and spread to the right side and down her ribs. Worst with movement. Describes the pain as achy and constant. Denies hematemesis, fever,dizziness, SOB. Of note, Has noticed some bloating after meals, denies N/V. Denies falls. Has not taken steroid since December 2016. Patient's blood pressure has been running lower lately, diastolic 60s. Upon arrival to the ED patient's blood pressure was 93/60 with a heart rate of 65. Labs showed a WBC 22, lactic acid 2.6, total bili 1.4, AST 159, ALT 75, lipase >1800. CT abdomen shows localized inflammation consistent with acute pancreatitis at the pancreatic head. Chest x-ray shows no acute process. Patient was given 2 L bolus normal saline, Zofran, Reglan, fentanyl 100mcg IV, Zosyn and Benadryl. Patient was admitted to the floor for acute pancreatitis. Past Med Surg Social Fam HX - Past Medical History Medical history: hypertension Additional medical history: joint pain Psychiatric history: anxiety - Past Surgical History Surgical History: no surgical history Additional surgical history: carpel tunnel. annueysom in front of brain( balloon repair) - Social History Smoking Status: Never smoker Smokeless Tobacco Status: No Alcohol use: none Drug use: none - Family History Mother Living Status: Father Living Status: Internal Medicine - H&P: Meds Allopurinol [Zyloprim 100 MG] 100 mg PO DAILY 05/23/16 [History] Atenolol [Tenormin] 50 mg PO BID 05/23/16 [History] Diclofenac Sodium [Voltaren] 1 appl TP QID 05/23/16 [History] LORazepam [Ativan] 1 mg PO TID PRN 05/23/16 [History] Oxycodone HCl/Acetaminophen [Percocet 5-325 mg Tablet] 1 tab PO TID PRN [History] Travoprost [Travatan Z] 1 drop OP HS 05/23/16 [History] amLODIPine [Norvasc] 10 mg PO DAILY 05/23/16 [History] Azithromycin [Azithromycin 6-Tab Pack] 250 mg PO PER PKG DI #6 tab 03/27/17 [Rx] Dextromethorphan Polistirex [12-Hour Cough Relief] 5 ml PO BID PRN #118 ml 03/27 [Rx] 3 Allergy/AdvReac Type Severity Reaction Status Date / Time codeine Allergy Rash Verified 03/27/17 14:48 nitrofurantoin Allergy Rash Verified 03/27/17 14:48 [From Macrodantin] Sulfa (Sulfonamide Allergy Hives Verified 03/27/17 14:48 Antibiotics) All Systems PM: A 10-system review of systems was performed and is negative for pertinent findings except as documented above in the HPI. - Constitutional Vitals: Temp Pulse Resp BP Pulse Ox 98.5 F 101 17 150/72 97 08/26/17 22:55 08/27/17 03:04 08/27/17 03:04 08/27/17 03:04 08/27/17 03:04 Exam: Constitutional: Alert, in no acute distress, oxy mask present no acute respiratory distress Head: Normocephalic, atraumatic Heart: Normal, regular rate and rhythm, no murmurs Lungs: Clear to auscultation, no wheezes, rales, or rhonchi Abdomen: pain located along R flank and RUQ, no rebound tenderness, distension, Soft, bowel sounds present and normal, no guarding or rigidity. Extremities: No edema, No clubbing, radial pulse +2/4, capillary refill <2sec. Skin: Skin warm and dry, no lesions, no rashes, no jaundice Neurologic: strength 5/5 in all extremities Psych: Cooperative with exam, good eye contact, cognitive function intact, speech clear, thought process logical, and goal directed Internal Med - H&P Results - Labs CBC & Chem 7: 08/26/17 22:57 08/26/17 22:57 - Impressions ITS Impressions Chest X-Ray 08/27/17 23:23 IMPRESSION: 1. No acute cardiopulmonary disease. D/ / David Dacosta MD / David Dacosta MD Interpreting Provider: David Dacosta MD - Assessment and plan (1) Acute pancreatitis Current Visit: Yes Status: Acute Assessment and plan: Unknown etiology for pancreatitis. Clinical symptoms of N/V and abdominal pain. CT scan shows localized inflammatory process in the upper abdomen most consistent with acute pancreatitis particularly in the region of the pancreatic head. She denies alcohol use, last steroid use 12/23. She does state that her cholesterol is elevated and she can't take medications. No gallstone present on CT. Plan: - LR at 125ml/hr - Diet: NPO -lipid panel access triglycerides - repeat lactic acid -lactate dehydrogenase Qualifiers: Pancreatitis type: unspecified pancreatitis type Acute pancreatitis complication: no infection or necrosis Qualified Code(s): K85.90 - Acute pancreatitis without necrosis or infection, unspecified (2) HTN (hypertension) Current Visit: Yes Status: Acute Assessment and plan: In the ED she was hypotensive, now she is hypertensive. Holding PO meds will give hydralazine 10mg Q6H prn. Qualifiers: Hypertension type: essential hypertension Qualified Code(s): I10 - Essential (primary) hypertension (3) Transaminitis Current Visit: Yes Status: Acute Assessment and plan: Elevated AST and ALT most likely 2/2 to the pancreatitis. Will continue to monitor. (4) Hyperglycemia Current Visit: Yes Status: Acute Assessment and plan: Elevated glucoses, no hx of diabetes. Will monitor glucoses Q6H. (5) Lactic acidosis Current Visit: Yes Status: Acute Assessment and plan: Mild lactic acidosis = 2.6. 2L bolus and fluids currently running. Repeat Lactic acid pending. (6) Hyperlipidemia Current Visit: Yes Status: Acute Assessment and plan: Patient states that she has a hx of hyperlipidemia but has been unable to take the medications; therefore will check to see if elevated triglycerides may be contributing to the cause. Qualifiers: Hyperlipidemia type: unspecified Qualified Code(s): E78.5 - Hyperlipidemia , unspecified (7) DVT prophylaxis Current Visit: No Status: Acute Assessment and plan: Heparin SQ - Time Spent With Patient Total time spent is greater than 50% in coordination of care (as documented) at patient's floor/unit and/or counseling patient:
[2017-08-27] MEDS ORDERED: Ringers Solution, Lactated 1,000 ML IVC SCH (04:45)
[2017-08-27] MEDS ORDERED: Naloxone 0.4 MG/ML INJ IVP PRN (05:37)
[2017-08-27] MEDS ORDERED: Acetaminophen 325 MG TABLET PO PRN (05:37)
[2017-08-27] MEDS ORDERED: *HR* OxyCODONE Immed Rel 5 MG TABLET PO PRN (05:40)
[2017-08-27] MEDS ORDERED: *HR* Promethazine 25 MG/ML VIAL IVP PRN (05:40)
[2017-08-27] MEDS ORDERED: Ondansetron 4 MG/2 ML VIAL IVP PRN (05:40)
[2017-08-27] MEDS ORDERED: traMADol 50 MG TABLET PO PRN (05:40)
[2017-08-27] MEDS ORDERED: *HR* FentaNYL (PF) 100 MCG/2 ML VIAL IVP PRN (06:41)
[2017-08-27] MEDS: *HR* Heparin 5,000 UNIT/ML VIAL SQ SCH ×2 (06:58→17:29)
[2017-08-27 07:49] LABS: Hematocrit 40.8 % (35.3-44.9); Hemoglobin 12.9 g/dL (11.5-15.4); Mean Corpuscular HGB Conc 31.6 g/dL (31.6-35.5); Mean Corpuscular Hemoglobin 27.5 pg (28.0-33.3); Mean Platelet Volume 10.8 fL (9.4-12.4); Platelet Count 339 K/mcL (140-400); Red Blood Count 4.69 M/mcL (3.82-4.97); Red Cell Distribution Width 15.1 % (11.5-14.5)
[2017-08-27] MEDS: OXYCODONE Oral CONC 10 MG/0.5 ML ORAL.SYG SL PRN ×3 (07:56→20:33)
[2017-08-27] MEDS: (Diclofenac Sodium [Voltaren] 1 APPL) TP SCH ×4 (08:06→19:50)
[2017-08-27 08:07] LABS: Alanine Aminotransferase 63 Units/L (7-52); Albumin 3.7 g/dL (3.5-5.7); Albumin/Globulin Ratio 1.4 (1.1-2.2); Alkaline Phosphatase 101 Units/L (34-104); Aspartate Amino Transferase 87 Units/L (13-39); BUN/Creatinine Ratio 22 (6-26); Blood Urea Nitrogen 20 mg/dL (8-23); Calcium 8.1 mg/dL (8.6-10.3); Carbon Dioxide 18 mEq/L (23-29); Chloride 112 mEq/L (98-107); Chol/HDL Ratio 5.4 (0-4.9); Cholesterol 212 mg/dL (< 200); Globulin 2.6 g/dL (2.4-3.5); Glucose 174 mg/dL (70-105); HDL Cholesterol 39 mg/dL (40-59); LDL Cholesterol,Calculated 153 mg/dL (0-99); Magnesium 1.5 mg/dL (1.6-2.6); Osmolality,Calculated 297 (280-300); Phosphorous 3.1 mg/dL (2.7-4.5); Potassium 3.5 mEq/L (3.5-5.1); Sodium 140 mEq/L (136-145); Total Protein 6.3 g/dL (6.4-8.9); Triglycerides 100 mg/dL (< 150); eGFR For African Americans > 60 (> 60); eGFR For Non-African Americans 60 (> 60)
[2017-08-27 08:51] LABS: Eosinophils # 0.3 K/mcL (0.0-0.6); Lymphocytes # 0.3 K/mcL (0.6-4.6); Neutrophils # 13.9 K/mcL (1.6-8.9)
[2017-08-27 08:53] LABS: Platelet Estimate Normal (Normal)
[2017-08-27] MEDS ORDERED: amLODIPine 5 MG TABLET PO SCH (09:00)
--- NOTE | 2017-08-27 09:20 | Event Note ---
Date of Encounter: 08/27/17 Time of Encounter: 06:15 I saw and evaluated the patient. I reviewed the residents note and agree with findings and plan as documented in the residents note.
--- NOTE | 2017-08-27 10:08 | Internal Med Progress Note ---
Date of Encounter: 08/27/17 Time of Encounter: 10:04 - Assessment and plan (1) Acute pancreatitis Current Visit: Yes Status: Acute Assessment and plan: Acute onset with sepsis as raised lactic acid with leukocytosis therefore antibiotic is started. no previous history. Denies alcohol intake. Unknown etiology for pancreatitis. CT scan shows localized inflammatory process in the upper abdomen most consistent with acute pancreatitis particularly in the region of the pancreatic head. last steroid use 12/23. No gallstone present on CT. continue conservative management IV fluid normal sign 150 mL per hour, nothing by mouth, pain management with IV narcotics, repeat lipase. Fasting lipid profile report awaited. Repeat lactic acid. Consulted data processing consultant for further management and plan as patient is elderly with no obvious risk factor and presented with sepsis. Qualifiers: Pancreatitis type: unspecified pancreatitis type Acute pancreatitis complication: unspecified Qualified Code(s): K85.90 - Acute pancreatitis without necrosis or infection, unspecified (2) HTN (hypertension) Current Visit: Yes Status: Acute Assessment and plan: In the ED she was hypotensive, now normal blood pressure.. Holding PO meds will give hydralazine 10mg Q6H prn. Qualifiers: Hypertension type: essential hypertension Qualified Code(s): I10 - Essential (primary) hypertension (3) Transaminitis Current Visit: Yes Status: Acute Assessment and plan: Elevated AST and ALT most likely 2/2 to the pancreatitis. Trending down (4) Hyperglycemia Current Visit: Yes Status: Acute Assessment and plan: Elevated glucoses, no hx of diabetes. Accu-Chek, sliding scale insulin (5) Lactic acidosis Current Visit: Yes Status: Acute Assessment and plan: Mild lactic acidosis = 2.6. 2L bolus and fluids currently running. Repeat Lactic acid site urease. Increase fluid rate 150 mL per hour and will repeat lactate 4-6 hour. Continue antibiotic. (6) Hyperlipidemia Current Visit: Yes Status: Acute Assessment and plan: Patient states that she has a hx of hyperlipidemia but has been unable to take the medications; lipid panel revealed with normal triglyceride Qualifiers: Hyperlipidemia type: unspecified Qualified Code(s): E78.5 - Hyperlipidemia , unspecified (7) DVT prophylaxis Current Visit: No Status: Acute Assessment and plan: SCDs - Time Spent With Patient Total time spent is greater than 50% in coordination of care (as documented) at patient's floor/unit and/or counseling patient: 25 - 35 minutes - Subjective Interval history: Abdominal pain slight better after restarting sublingual.normal for dates. Denies nausea and diarrhea but has fever chills vomiting diarrhea chest pain shortness of breath headache dizziness. Complained of nausea - Constitutional Vitals: Temp Pulse Resp BP Pulse Ox 99.8 F H 87 15 145/69 98 08/27/17 07:21 08/27/17 07:21 08/27/17 07:21 08/27/17 07:21 08/27/17 07:21 Exam: General appearance: Mild distress due to pain, daughter at bedside, A&O X 3 Head exam: Atraumatic Eye exam: EOMI, PERRLA ENT exam: Moist oral mucosa Neck nontender, supple Respiratory exam: Clear to auscultation bilaterally Cardiovascular exam: Regular rate and rhythm, no systolic murmur Abdominal exam: Soft, tender right flank and right upper quadrant, no rebound tenderness, no guarding or rigidity, nondistended, slight diminished bowel sounds Extremities exam: No calf tenderness, no pedal edema Present: Skin-warm, dry, intact Neurological exam: Alert, awake, oriented 3, CN II-XII intact, no focal deficits. No facial droop. Normal speech. Internal Medicine: Result - Labs CBC & Chem 7: 08/27/17 07:24 08/27/17 07:24 - ABG Interpretation ABG results: PT/INR, D-dimer PT 11.5 Seconds (9.4-12.1) 08/26/17 22:57 - Impressions Impressions Chest X-Ray 08/27/17 23:23 IMPRESSION: 1. No acute cardiopulmonary disease. D/ / David Dacosta MD / David Dacosta MD Interpreting Provider: David Dacosta MD Consult Discharge Plan - Plan Referrals: Enedina Oates MD [Primary Care Provider] -
[2017-08-27] MEDS ORDERED: Dextrose Gel 15 GM/37.5 ML TUBE PO PRN ×2 (10:22)
[2017-08-27] MEDS ORDERED: D5% in Water 1,000 ML IVC PRN (10:22)
[2017-08-27] MEDS ORDERED: *HR* Dextrose 50 % in Water (Syg) 50 ML SYRINGE IVP PRN (10:22)
[2017-08-27] MEDS: 0.9 % Sodium Chloride 1,000 ML IVC SCH ×2 (10:45→19:55)
--- NOTE | 2017-08-27 13:51 | Gastroenterology Consult Note ---
<BrunoMatt henson Jesus - Last Filed: 08/27/17 13:49> Date of Encounter: 08/27/17 Time of Encounter: 10:50 - Assessment and plan (1) Acute pancreatitis Current Visit: Yes Status: Acute Assessment and plan: CT A/P shows localized inflammation in region of pancreatic head consistent with acute pancreatitis, mildly dilated gallbladder, no gallstones. Labs on admission revealed WBC 22, TB 1.4, AST 159, ALT 75, alk phos 156, and lipase > 1800. Today, WBC 14.5, TB 1, AST 87, ALT 63, alk phos 101, triglycerides 100. Check IgG 4, ionized calcium, ÓSCAR, and MRCP. Continue IV fluids at 150 ml/hr, pain control, and anti-emetics. Keep patient NPO. Qualifiers: Pancreatitis type: unspecified pancreatitis type Acute pancreatitis complication: unspecified Qualified Code(s): K85.90 - Acute pancreatitis without necrosis or infection, unspecified - Time Spent With Patient Total time spent is greater than 50% in coordination of care (as documented) at patient's floor/unit and/or counseling patient: GI History of Present Illness - Data of Consult Patient: new to practice Consult date: 08/27/17 Requesting Physician: Noe Zaragoza MD - Consult Narrative Reason for consult: Pancreatitis History of present illness: Ms. Acevedo is a 81 year old female with PMHx of HTn and anxiety who presented to the ED for vomiting and abdominal pain. On Thursday, pain was in her epigastric region. Then on Thursday afternoon pain worsened and spread to the right side and down her ribs. Pain worsened with movement. She reports some nausea and vomiting. No hematemesis, hematochezia, or melena. CT A/P shows localized inflammation in region of pancreatic head consistent with acute pancreatitis, mildly dilated gallbladder, no gallstones. She denies any alcohol use. Labs on admission revealed WBC 22, TB 1.4, AST 159, ALT 75, alk phos 156, and lipase > 1800. Procedures: EGD 11/04/2007 Dr. Wiseman: No active inflammation NSAIDs: None Anticoagulation: None Past Med Surg Social Fam HX - Past Medical History Medical history: hypertension Additional medical history: joint pain Psychiatric history: anxiety - Past Surgical History Surgical History: no surgical history Additional surgical history: carpel tunnel. annueysom in front of brain( balloon repair) - Social History Smoking Status: Never smoker Smokeless Tobacco Status: No Alcohol use: none Drug use: none - Family History Mother Living Status: Father Living Status: - Gastrointestinal Gastrointestinal: Present: as per HPI - Constitutional Constitutional: as per HPI - EENT Eyes: as per HPI Ears: Present: as per HPI Nose, mouth and throat: Present: as per HPI - Cardiovascular Cardiovascular ROS: Present: as per HPI - Respiratory Respiratory IM: Present: as per HPI - Genitourinary Genitourinary: Absent: change in color, Urinary frequency - Neurological ROS Neurological GI: Present: as per HPI - Hematologic/Lymphatic Hematologic/Lymphatic pediatric: Present: as per HPI - Musculoskeletal Musculoskeletal ROS GI: Present: as per HPI - Integumentary Integumentary GI: Present: as per HPI - Psychiatric ROS Psychiatric GI: Present: as per HPI - Endocrine Endocrine IM: Present: as per HPI - Constitutional Vitals: Temp Pulse Resp BP Pulse Ox 98.8 F 89 18 95/57 95 08/27/17 10:15 08/27/17 10:15 08/27/17 10:15 08/27/17 10:15 08/27/17 10:15 General appearance: Present: cooperative, A&O X 3, no acute distress, answers questions appropriately - Head Head exam: Present: atraumatic, normocephalic - Eye Eye exam: Present: normal appearance, sclera anicteric - ENT ENT exam: Present: mucous membranes dry - Neck Neck exam general surgery: Present: normal inspection, trachea midline - Respiratory Respiratory exam: Present: CTAB. Absent: rales, rhonchi - Cardiovascular Cardiovascular exam: Present: RRR, +S1, +S2 - GI/Abdominal GI/Abdominal exam: Present: guarding, normal bowel sounds, soft, tenderness ( upper abdomen), no peritoneal signs. Absent: distended, firm - Rectal Rectal exam: Present: deferred - Extremities Exam Extremities exam: Present: warm - Neurological Exam Neurological exam: Present: no focal deficits - Psychiatric Psychiatric exam: Present: normal affect, normal mood - Skin Skin exam: Present: dry, intact, normal color, warm Results - Labs CBC & Chem 7: 08/27/17 07:24 08/27/17 07:24 Labs: Last Result Calcium 8.1 mg/dL (8.6-10.3) L 08/27/17 07:24 Troponin I < 0.03 ng/mL (< 0.04) 08/26/17 22:57 Triglycerides 100 mg/dL (< 150) 08/27/17 07:24 Entire Visit Hgb 12.9 g/dL (11.5-15.4) 08/27/17 07:24 Hct 40.8 % (35.3-44.9) 08/27/17 07:24 PT 11.5 Seconds (9.4-12.1) 08/26/17 22:57 Total Bilirubin 1.0 mg/dL (0.3-1.0) 08/27/17 07:24 AST 87 Units/L (13-39) H 08/27/17 07:24 ALT 63 Units/L (7-52) H 08/27/17 07:24 Lipase > 1800 Units/L (11-82) H 08/26/17 22:57 - ABG ABG results: PT/INR, D-dimer PT 11.5 Seconds (9.4-12.1) 08/26/17 22:57 - Impressions Impressions Chest X-Ray 08/27/17 23:23 IMPRESSION: 1. No acute cardiopulmonary disease. D/ / David Dacosta MD / David Dacosta MD Interpreting Provider: David Dacosta MD Consult Discharge Plan - Plan Referrals: Enedina Oates MD [Primary Care Provider] - <Fiordaliza Hampton - Last Filed: 08/27/17 18:12> Date of Encounter: 08/27/17 Time of Encounter: 13:00 - Time Spent With Patient Total time spent is greater than 50% in coordination of care (as documented) at patient's floor/unit and/or counseling patient: GI History of Present Illness - Data of Consult Requesting Physician: Noe Zaragoza MD - Consult Narrative History of present illness: Ms. Acevedo is a 81 year old female - Constitutional Vitals: Temp Pulse Resp BP Pulse Ox 99.5 F 93 15 100/53 94 08/27/17 15:13 08/27/17 15:13 08/27/17 15:13 08/27/17 15:13 08/27/17 15:13 Results - Labs CBC & Chem 7: 08/27/17 07:24 08/27/17 07:24 Labs: Last Result Calcium 8.1 mg/dL (8.6-10.3) L 08/27/17 07:24 Troponin I < 0.03 ng/mL (< 0.04) 08/26/17 22:57 Triglycerides 100 mg/dL (< 150) 08/27/17 07:24 Entire Visit Hgb 12.9 g/dL (11.5-15.4) 08/27/17 07:24 Hct 40.8 % (35.3-44.9) 08/27/17 07:24 PT 11.5 Seconds (9.4-12.1) 08/26/17 22:57 Total Bilirubin 1.0 mg/dL (0.3-1.0) 08/27/17 07:24 AST 87 Units/L (13-39) H 08/27/17 07:24 ALT 63 Units/L (7-52) H 08/27/17 07:24 Lipase > 1800 Units/L (11-82) H 08/26/17 22:57 - ABG ABG results: PT/INR, D-dimer PT 11.5 Seconds (9.4-12.1) 08/26/17 22:57 - Impressions Impressions Abdomen MRI 08/27/17 12:47 IMPRESSION: 1. Cholelithiasis with a couple of tiny gallstones noted. 2. Minimal intrahepatic biliary ductal dilatation. No choledocholithiasis. 3. Extensive peripancreatic edema and free fluid tracking in the anterior pararenal space and along the flanks consistent with the history of acute pancreatitis. No discrete localized fluid collection. D/ / Juno Cifuentes MD / Juno Cifuentes MD Interpreting Provider: Juno Cifuentes MD Chest X-Ray 08/27/17 23:23 IMPRESSION: 1. No acute cardiopulmonary disease. D/ / Davdi Dacosta MD / David Dacosta MD Interpreting Provider: David Dacosta MD - Attending Attestation I have personally performed a face to face evaluation on this patient. I have reviewed and agree with the care plan. History and Exam by me shows: Patient seen patient with the acute pancreatitis due to most probably gallstone. MRCP is done and that is negative for any CBD stone. Recommendation: IV fluid pain control and once pancreatitis is doing better then she will need gallbladder removed before being discharged from the hospital
--- NOTE | 2017-08-27 17:51 | Electrocardiograph Report ---
[place] [id number] Test Date: 2017-08-26 Pat Name: Ghada Acevedo Department: 102 Room: 3A12 Gender: F Chef'S Assistant: Feliberto : 1935 Requested By: Luis Alfredo Lopez Order Number: [id number] Reading MD: Adam Grant Measurements Intervals [place] Rate: 69 P: 60 SC: 178 QRS: 7 QRSD: 90 T: 44 QT: 420 QTc: 439 Interpretive Statements SINUS RHYTHM LOW QRS VOLTAGE IN PRECORDIAL LEADS Electronically Signed On 08-27-2017 17:49:25 EDT by Adam Grant
[2017-08-27 18:54] LABS: Acinetobacter baumannii by PCR Not Detected (Not Detect); Candida albicans by PCR Not Detected (Not Detect); Candida glabrata by PCR Not Detected (Not Detect); Candida krusei by PCR Not Detected (Not Detect); Candida parapsilosis by PCR Not Detected (Not Detect); Candida tropicalis by PCR Not Detected (Not Detect); Enterococcus by PCR ***DETECTED*** (Not Detect); Escherichia coli by PCR Not Detected (Not Detect); Klebsiella oxytoca by PCR Not Detected (Not Detect); Klebsiella pneumoniae by PCR Not Detected (Not Detect); Pseudomonas aeruginosa by PCR Not Detected (Not Detect); Serratia marcescens by PCR Not Detected (Not Detect); Staphylococcus aureus by PCR Not Detected (Not Detect); Streptococcus agalactiae(B)PCR Not Detected (Not Detect); Streptococcus by PCR Not Detected (Not Detect); Streptococcus pneumoniae PCR Not Detected (Not Detect); Streptococcus pyogenes (A) PCR Not Detected (Not Detect); blaKPC Carbapenem-Resist Gene Not Detected (Not Detect); mecA Methicillin-Resist Gene Not Detected (Not Detect); vanA/B Vancomycin-Resist Genes Not Detected (Not Detect)
[2017-08-27] MEDS: Latanoprost 2.5 ML BOTTLE BOTH EYES SCH (19:50)
[2017-08-28] MEDS: Piperacillin/Tazobactam 3.375 GM in 0.9 % Sodium Chloride Mini Bag 100 ML IVPB SCH ×4 (00:15→23:34)
[2017-08-28] MEDS: 0.9 % Sodium Chloride 1,000 ML IVC SCH ×4 (02:49→23:33)
[2017-08-28] MEDS: *HR* Heparin 5,000 UNIT/ML VIAL SQ SCH ×2 (05:42→17:34)
[2017-08-28] MEDS: OXYCODONE Oral CONC 10 MG/0.5 ML ORAL.SYG SL PRN ×3 (05:45→21:04)
[2017-08-28 05:56] LABS: Basophils # 0.1 K/mcL (0.0-0.2); Basophils % 0.6 %; Eosinophils % 0.1 %; Hematocrit 32.4 % (35.3-44.9); Immature Granulocytes % 0.2 % (0-4); Lymphocytes # 1.4 K/mcL (0.6-4.6); Lymphocytes % 11.5 %; Mean Corpuscular HGB Conc 31.5 g/dL (31.6-35.5); Mean Corpuscular Hemoglobin 27.3 pg (28.0-33.3); Mean Corpuscular Volume 86.9 fL (83.0-100.0); Mean Platelet Volume 11.3 fL (9.4-12.4); Monocytes # 0.7 K/mcL (0.0-1.3); Monocytes % 5.8 %; Platelet Count 291 K/mcL (140-400); Red Blood Count 3.73 M/mcL (3.82-4.97); Red Cell Distribution Width 15.7 % (11.5-14.5); Segmented Neutrophils % 81.8 %
[2017-08-28 05:59] LABS: Neutrophils # 10.2 K/mcL (1.6-8.9)
[2017-08-28 06:00] LABS: Hemoglobin 10.2 g/dL (11.5-15.4)
[2017-08-28 06:21] LABS: Albumin/Globulin Ratio 1.4 (1.1-2.2); Bilirubin,Total 0.9 mg/dL (0.3-1.0); Calcium 7.1 mg/dL (8.6-10.3); Globulin 2.2 g/dL (2.4-3.5); Phosphorous 3.9 mg/dL (2.7-4.5); Potassium 3.6 mEq/L (3.5-5.1); Total Protein 5.2 g/dL (6.4-8.9)
[2017-08-28 06:47] LABS: Platelet Estimate Normal (Normal)
--- NOTE | 2017-08-28 09:06 | Internal Med Progress Note ---
Date of Encounter: 08/28/17 Time of Encounter: 09:03 - Assessment and plan (1) Acute pancreatitis Current Visit: Yes Status: Acute Assessment and plan: Acute onset with sepsis as raised lactic acid with leukocytosis therefore antibiotic is started. no previous history. Denies alcohol intake. Unknown etiology for pancreatitis. CT scan shows localized inflammatory process in the upper abdomen most consistent with acute pancreatitis particularly in the region of the pancreatic head. last steroid use 12/23. No gallstone present on CT. continue conservative management IV fluid, nothing by mouth, pain management with IV narcotics, repeat lipase better. Fasting lipid profile report reviewed. Repeat lactic acid within normal limits. Consulted independent trader who order MRCP with finding of cholelithiasis and confirmed pancreatitis but no gallstone and common bile duct. His abdominal pain is better will try ice chips if is okay with independent trader. Qualifiers: Pancreatitis type: unspecified pancreatitis type Acute pancreatitis complication: unspecified Qualified Code(s): K85.90 - Acute pancreatitis without necrosis or infection, unspecified (2) CARMELINA (acute kidney injury) Current Visit: Yes Status: Acute Assessment and plan: Onset most likely prerenal. Increase IV fluid 175 mL with a strict I&O's. No documentation of urine output on chart but as per patient she has been making urine but dark in color and low volume compared to normal baseline. Will consult hair salon manager if needed. Avoid Nephrotoxic drug. Stopped valtran gel (3) HTN (hypertension) Current Visit: Yes Status: Acute Assessment and plan: In the ED she was hypotensive, now normal blood pressure. Holding PO meds will give hydralazine 10mg Q6H prn. Qualifiers: Hypertension type: essential hypertension Qualified Code(s): I10 - Essential (primary) hypertension (4) Transaminitis Current Visit: Yes Status: Acute Assessment and plan: Now normal but initially Elevated AST and ALT most likely 2/2 to the pancreatitis. (5) Hyperglycemia Current Visit: Yes Status: Acute Assessment and plan: Better controlled glucose after starting sliding scale insulin. Continue Accu- Chek. Hemoglobin A1c will be ordered no history of diabetes. (6) Lactic acidosis Current Visit: Yes Status: Acute Assessment and plan: Sepsis but now normal lactic acid after restarting IV fluid and antibiotic. (7) Hyperlipidemia Current Visit: Yes Status: Acute Assessment and plan: Patient states that she has a hx of hyperlipidemia but has been unable to take the medications; lipid panel revealed with normal triglyceride Qualifiers: Hyperlipidemia type: unspecified Qualified Code(s): E78.5 - Hyperlipidemia , unspecified (8) DVT prophylaxis Current Visit: No Status: Acute Assessment and plan: SCDs. Patient is ambulating to the bathroom. - Time Spent With Patient Total time spent is greater than 50% in coordination of care (as documented) at patient's floor/unit and/or counseling patient: - Subjective Interval history: Abdominal pain vomiting, diarrhea. Passing flatus but no bowel movement. Noticed decrease urine output with concentrated urine.review of the lab with trending down white count and lipase but raised creatinine. Blood culture positive for Enterobacter but no sensitivity available. Denies chest pain shortness of breath headache dizziness. Had low-grade fever last night. - Constitutional Vitals: Temp Pulse Resp BP Pulse Ox 99.4 F 90 16 113/50 95 08/28/17 06:35 08/28/17 06:35 08/28/17 06:35 08/28/17 06:35 08/28/17 06:35 Exam: General appearance: No acute distress, A&O X 3 Head exam: Atraumatic Eye exam: EOMI, PERRLA ENT exam: Moist oral mucosa Neck nontender, supple Respiratory exam: Clear to auscultation bilaterally Cardiovascular exam: Regular rate and rhythm, no systolic murmur Abdominal exam: Soft, mild tenderness in right flank and right upper quadrant but better, nondistended, positive bowel sounds Extremities exam: No calf tenderness, no pedal edema Present: Skin-no rash, warm, dry, intact Neurological exam: Alert, awake, oriented 3, CN II-XII intact, no focal deficits. No facial droop. Normal speech. Normal gait. Internal Medicine: Result - Labs CBC & Chem 7: 08/28/17 03:45 08/28/17 03:45 Labs: Short CBC 08/28/17 Range/Units 03:45 WBC 12.5 H (4.3-11.1) K/mcL Hgb 10.2 L D (11.5-15.4) g/dL Hct 32.4 L (35.3-44.9) % Plt Count 291 (140-400) K/mcL Neutrophils # 10.2 H (1.6-8.9) K/mcL BMP 08/28/17 03:45 Sodium 143 Potassium 3.6 Chloride 115 H Carbon Dioxide 17 L BUN 34 H Creatinine 1.47 H Glucose 141 H Calcium 7.1 L Liver Function 08/28/17 Range/Units 03:45 Total Bilirubin 0.9 (0.3-1.0) mg/dL AST 35 (13-39) Units/L ALT 32 (7-52) Units/L Alkaline Phosphatase 66 (34-104) Units/L Albumin 3.0 L (3.5-5.7) g/dL - ABG Interpretation ABG results: PT/INR, D-dimer PT 11.5 Seconds (9.4-12.1) 08/26/17 22:57 - Impressions Impressions Abdomen MRI 08/27/17 12:47 IMPRESSION: 1. Cholelithiasis with a couple of tiny gallstones noted. 2. Minimal intrahepatic biliary ductal dilatation. No choledocholithiasis. 3. Extensive peripancreatic edema and free fluid tracking in the anterior pararenal space and along the flanks consistent with the history of acute pancreatitis. No discrete localized fluid collection. D/ / Juno Cifuentes MD / Juno Cifuentes MD Interpreting Provider: Juno Cifuentes MD Consult Discharge Plan - Plan Referrals: Enedina Oates MD [Primary Care Provider] -
[2017-08-28] MEDS: Latanoprost 2.5 ML BOTTLE BOTH EYES SCH (21:01)
[2017-08-28 21:31] LABS: Hematocrit 31.6 % (35.3-44.9); Hemoglobin 9.9 g/dL (11.5-15.4)
[2017-08-29] MEDS: OXYCODONE Oral CONC 10 MG/0.5 ML ORAL.SYG SL PRN ×3 (03:47→16:09)
[2017-08-29 04:53] LABS: Hematocrit 28.7 % (35.3-44.9); Hemoglobin 8.9 g/dL (11.5-15.4)
[2017-08-29 04:55] LABS: VBG Ionized Calcium 1.06 mmol/L (1.15-1.35)
[2017-08-29] MEDS: 0.9 % Sodium Chloride 1,000 ML IVC SCH (04:58)
[2017-08-29] MEDS: *HR* Heparin 5,000 UNIT/ML VIAL SQ SCH (05:00)
[2017-08-29 07:36] LABS: Basophils # 0.1 K/mcL (0.0-0.2); Mean Corpuscular HGB Conc 30.7 g/dL (31.6-35.5); Mean Corpuscular Hemoglobin 27.1 pg (28.0-33.3); Mean Corpuscular Volume 88.3 fL (83.0-100.0); Mean Platelet Volume 10.9 fL (9.4-12.4); Platelet Count 271 K/mcL (140-400); Red Blood Count 3.25 M/mcL (3.82-4.97); Red Cell Distribution Width 15.8 % (11.5-14.5)
[2017-08-29 07:47] LABS: Alanine Aminotransferase 23 Units/L (7-52); Albumin/Globulin Ratio 1.2 (1.1-2.2); Alkaline Phosphatase 59 Units/L (34-104); Aspartate Amino Transferase 30 Units/L (13-39); BUN/Creatinine Ratio 35 (6-26); Bilirubin,Total 0.8 mg/dL (0.3-1.0); Blood Urea Nitrogen 27 mg/dL (8-23); Calcium 7.3 mg/dL (8.6-10.3); Carbon Dioxide 14 mEq/L (23-29); Chloride 121 mEq/L (98-107); Globulin 2.5 g/dL (2.4-3.5); Glucose 119 mg/dL (70-105); Osmolality,Calculated 306 (280-300); Potassium 3.1 mEq/L (3.5-5.1); Sodium 145 mEq/L (136-145); Total Protein 5.5 g/dL (6.4-8.9); eGFR For African Americans > 60 (> 60); eGFR For Non-African Americans > 60 (> 60)
[2017-08-29] MEDS ORDERED: Potassium Chloride 40 MEQ, Lidocaine 1% 2 ML in D5% in Water 500 ML IVPB ONE (08:02)
[2017-08-29 08:08] LABS: Lymphocytes # 0.7 K/mcL (0.6-4.6); Monocytes # 0.3 K/mcL (0.0-1.3); Neutrophils # 9.6 K/mcL (1.6-8.9); Platelet Estimate Normal (Normal)
[2017-08-29] MEDS: Piperacillin/Tazobactam 3.375 GM in 0.9 % Sodium Chloride Mini Bag 100 ML IVPB SCH (08:12)
[2017-08-29] MEDS ORDERED: Ipratropium/Albuterol Neb 3 ML IH PRN ×2 (08:26→20:30)
[2017-08-29] MEDS ORDERED: 0.9 % Sodium Chloride 1,000 ML IVC SCH (08:30)
--- NOTE | 2017-08-29 08:30 | Internal Med Progress Note ---
Date of Encounter: 08/29/17 Time of Encounter: 08:27 - Assessment and plan (1) Acute pancreatitis Current Visit: Yes Status: Acute Assessment and plan: Improving symptomatically and also trending down lipase. Patient has shortness of breath with finding crackles there is concern for volume overload therefore decrease IV fluid 75 mL per hour with a strict I&O's. Chest x-ray also ordered. If no improvement in symptoms and will stop IV fluid. Will also allow ice chips today. Blood culture with VRE therefore will consult ID specialist for further management of care. Talk to ID specialist who advised to his start daptomycin 6 mg/kg 483 g every 24 hours with baseline CPK and is stopped Zosyn. He also informed there could be a spiking temperature meanwhile. Will also repeat blood culture today. Acute onset with sepsis as raised lactic acid with leukocytosis therefore antibiotic is started. no previous history. Denies alcohol intake. Unknown etiology for pancreatitis. CT scan shows localized inflammatory process in the upper abdomen most consistent with acute pancreatitis particularly in the region of the pancreatic head. last steroid use 12/23. No gallstone present on CT. continue conservative management IV fluid, nothing by mouth, pain management with IV narcotics, repeat lipase better. Fasting lipid profile report reviewed. Repeat lactic acid within normal limits. Consulted switch engineer who order MRCP with finding of cholelithiasis and confirmed pancreatitis but no gallstone and common bile duct. Qualifiers: Pancreatitis type: unspecified pancreatitis type Acute pancreatitis complication: unspecified Qualified Code(s): K85.90 - Acute pancreatitis without necrosis or infection, unspecified (2) Bacteremia Current Visit: Yes Status: Acute Assessment and plan: Gram-positive bacteremia. Change antibiotic and consulted ID specialist as above. Follow repeat blood culture report as ordered today (3) Anemia Current Visit: Yes Status: Acute Assessment and plan: Trending down hemoglobin since admission. No active bleeding. Could be dilutional due to IV fluid continuously since admission but also r/o gi bleed. Stool Hemoccult, serial hemoglobin, IV PPI twice a day ordered, hold blood thinner. GI specialist on board. Qualifiers: Anemia type: unspecified type Qualified Code(s): D64.9 - Anemia, unspecified (4) CARMELINA (acute kidney injury) Current Visit: Yes Status: Acute Assessment and plan: Resolve. Continue to monitor BMP. Onset most likely prerenal. A strict I&O's. Stopped valtran gel (5) HTN (hypertension) Current Visit: Yes Status: Acute Assessment and plan: In the ED she was hypotensive, now normal blood pressure. Holding PO meds will give hydralazine 10mg Q6H prn. Qualifiers: Hypertension type: essential hypertension Qualified Code(s): I10 - Essential (primary) hypertension (6) Transaminitis Current Visit: Yes Status: Acute Assessment and plan: Now normal but initially Elevated AST and ALT most likely 2/2 to the pancreatitis. (7) Hyperglycemia Current Visit: Yes Status: Acute Assessment and plan: Better controlled glucose after starting sliding scale insulin. Continue Accu- Chek. Hemoglobin A1c report is pending (8) Lactic acidosis Current Visit: Yes Status: Acute Assessment and plan: Sepsis but now normal lactic acid after addressing underlying cause (9) Hyperlipidemia Current Visit: Yes Status: Acute Assessment and plan: Patient states that she has a hx of hyperlipidemia but has been unable to take the medications; lipid panel revealed with normal triglyceride Qualifiers: Hyperlipidemia type: unspecified Qualified Code(s): E78.5 - Hyperlipidemia , unspecified (10) DVT prophylaxis Current Visit: No Status: Acute Assessment and plan: SCDs. Patient is ambulating to the bathroom. - Time Spent With Patient Total time spent is greater than 50% in coordination of care (as documented) at patient's floor/unit and/or counseling patient: Greater than 35 minutes (More than 35 minute inpatient care. Communication with patient, nursing staff and ID specialist and microbiology) - Subjective Interval history: Getting short of breath on ambulation. Patient has baseline chronic dyspnea but slight better since yesterday. Abdominal pain better. Passing flatus. Denies fever overnight, chills, nausea, chest pain, headache, dizziness vomiting, diarrhea. Good urine output but not documented appropriately. review of the lab with normal white count, normal creatinine level but low ionized calcium and low potassium. Trending down hemoglobin on admission 12.2 now 8.9 but no active bleeding. Blood culture positive for VRE - Constitutional Vitals: Temp Pulse Resp BP Pulse Ox 98.1 F 96 20 131/76 93 08/29/17 07:32 08/29/17 07:32 08/29/17 07:32 08/29/17 07:32 08/29/17 07:32 Exam: General appearance: No acute distress at rest but becomes dyspneic on ambulation , A&O X 3 Head exam: Atraumatic Eye exam: EOMI, PERRLA ENT exam: Dry oral mucosa Neck nontender, supple Respiratory exam: Minimal finding crackles bibasilar Cardiovascular exam: Regular rate and rhythm, no systolic murmur Abdominal exam: Soft, better tenderness in right flank and no tenderness in right upper quadrant , nondistended, positive bowel sounds Extremities exam: No calf tenderness, no pedal edema Present: Skin-no rash, warm, dry, intact Neurological exam: Alert, awake, oriented 3, CN II-XII intact, no focal deficits. No facial droop. Normal speech. Normal gait. Internal Medicine: Result - Labs CBC & Chem 7: 08/29/17 04:39 08/29/17 03:44 Labs: Short CBC 08/28/17 08/29/17 Range/Units 21:23 04:39 WBC 11.1 (4.3-11.1) K/mcL Hgb 9.9 L 8.9 L (11.5-15.4) g/dL Hct 31.6 L 28.7 L (35.3-44.9) % Plt Count 271 (140-400) K/mcL Neutrophils # 9.6 H (1.6-8.9) K/mcL BMP 08/29/17 03:44 Sodium 145 Potassium 3.1 L Chloride 121 H Carbon Dioxide 14 L BUN 27 H Creatinine 0.78 Glucose 119 H Calcium 7.3 L Liver Function 08/29/17 Range/Units 03:44 Total Bilirubin 0.8 (0.3-1.0) mg/dL AST 30 (13-39) Units/L ALT 23 (7-52) Units/L Alkaline Phosphatase 59 (34-104) Units/L Albumin 3.0 L (3.5-5.7) g/dL - ABG Interpretation ABG results: PT/INR, D-dimer PT 11.5 Seconds (9.4-12.1) 08/26/17 22:57 Consult Discharge Plan - Plan Referrals: Enedina Oates MD [Primary Care Provider] - 09/07/17 4:30 pm
[2017-08-29 08:52] LABS: Hematocrit 28.7 % (35.3-44.9); Hemoglobin 8.8 g/dL (11.5-15.4)
[2017-08-29 09:11] LABS: Creatine Kinase 279 Units/L (30-223); Lipase 174 Units/L (11-82)
[2017-08-29] MEDS: DAPTOmycin 480 MG in 0.9 % Sodium Chloride 100 ML IVPB SCH (10:55)
[2017-08-29 15:09] LABS: Hematocrit 32.2 % (35.3-44.9); Hemoglobin 10.1 g/dL (11.5-15.4)
[2017-08-29] MEDS ORDERED: Furosemide 20 MG/2 ML VIAL IVP ONE (16:11)
[2017-08-29] MEDS ORDERED: OXYCODONE Oral CONC 10 MG/0.5 ML ORAL.SYG SL PRN (17:03)
[2017-08-29 17:14] LABS: ABG Base Excess -9 mEq/L (-2 to 3); ABG HCO3 15 mEq/L (21-27); ABG Oxygen Saturation 96 % (95-98); ABG PCO2 27 mmHg (35-45); ABG PH 7.36 pH Units (7.32-7.45); ABG PO2 86 mmHg (85-104); ABG TCO2 16 mEq/L (20-26)
--- NOTE | 2017-08-29 17:24 | Event Note ---
Date of Encounter: 08/29/17 Time of Encounter: 17:14 Patient became dyspneic and afternoon again therefore nurse called. Examined the patient vitals tachycardic SPO2 93% on 2 L oxygen by nasal cannula, raise blood pressure 180s over 70s and are appear in respiratory distress. Lung with scattered wheezing. Breathing treatment was given stat and reexamined the patient with no wheezing but bibasilar fine crepitation. Patient felt a lot better after the breathing treatment. He stopped IV fluid. Patient denies any chest pain, nausea vomiting headache dizziness. Her abdomen pain is better and she required pain medicine twice. Family at bedside. Her daughter is very anxious and asking repetitively to give more pain medicine to help her symptoms but other family member patient's grandson and [id number] seems like understandable. I also talked to GI specialist Dr. Hampton and updated about the clinical condition of the patient. He is okay stopping IV fluid and agreed low-dose Lasix trial if needed. He also advised to get CT abdomen, pelvis and also chest with IV contrast to rule out if any new pathology. Troponin, BNP, d-dimer , echocardiogram, telemetry also ordered. Will transfer patient to [facility] for close monitoring. Will also decrease the dose of narcotic 5 mL every 6 hours instead 10 mL every 6 hours. I again examined the patient and explained to the family in patient about further plan of care and transferring to high acuity floor.
[2017-08-29] MEDS ORDERED: Isovue-370 500 ML INFUS..BTL IV ONE ×2 (17:44→18:50)
[2017-08-29 18:00] LABS: Thyroid Stimulating Hormone 1.215 mcIU/mL (0.340-5.600)
[2017-08-29] MEDS ORDERED: *HR* Heparin 5,000 UNIT/ML VIAL IVP PRN ×2 (18:10)
[2017-08-29] MEDS ORDERED: *HR* Heparin 5,000 UNIT/ML VIAL IVP ONE (18:10)
[2017-08-29] MEDS ORDERED: Heparin 25,000 UNIT/500 ML D5W 25,000 UNIT/500 ML BAG IVC SCH (18:15)
[2017-08-29] MEDS: Pantoprazole 40 MG VIAL IVP SCH (19:40)
[2017-08-29 19:57] LABS: INR 1.2; Prothrombin Time 12.9 Seconds (9.4-12.1)
[2017-08-29] MEDS: Latanoprost 2.5 ML BOTTLE BOTH EYES SCH (20:16)
[2017-08-29] MEDS: Aspirin 81 MG TAB.CHEW PO SCH (20:24)
[2017-08-29] MEDS ORDERED: Ipratropium/Albuterol Neb 3 ML ONE (20:39)
[2017-08-29] MEDS: Ipratropium/Albuterol Neb 3 ML IH PRN (20:40)
[2017-08-30] MEDS: Ipratropium/Albuterol Neb 3 ML IH PRN ×2 (00:28→21:59)
[2017-08-30] MEDS: OXYCODONE Oral CONC 10 MG/0.5 ML ORAL.SYG SL PRN ×5 (02:41→23:14)
[2017-08-30] MEDS: Pantoprazole 40 MG VIAL IVP SCH ×2 (05:45→16:39)
[2017-08-30 05:51] LABS: Basophils # 0.1 K/mcL (0.0-0.2); Basophils % 0.7 %; Eosinophils % 0.2 %; Hematocrit 30.4 % (35.3-44.9); Hemoglobin 9.3 g/dL (11.5-15.4); Immature Granulocytes % 0.9 % (0-4); Lymphocytes # 0.8 K/mcL (0.6-4.6); Lymphocytes % 5.1 %; Mean Corpuscular HGB Conc 30.6 g/dL (31.6-35.5); Mean Corpuscular Hemoglobin 26.1 pg (28.0-33.3); Mean Corpuscular Volume 85.4 fL (83.0-100.0); Mean Platelet Volume 10.1 fL (9.4-12.4); Monocytes # 1.3 K/mcL (0.0-1.3); Monocytes % 8.9 %; Neutrophils # 12.6 K/mcL (1.6-8.9); Platelet Count 323 K/mcL (140-400); Red Blood Count 3.56 M/mcL (3.82-4.97); Red Cell Distribution Width 15.7 % (11.5-14.5); Segmented Neutrophils % 84.2 %
[2017-08-30 06:18] LABS: Platelet Estimate Normal (Normal)
[2017-08-30] MEDS: Aspirin 81 MG TAB.CHEW PO SCH ×2 (07:38→07:40)
--- NOTE | 2017-08-30 09:43 | Cardiology Consult Note ---
Date of Encounter: 08/30/17 Time of Encounter: 09:00 Assessment and Plan (1) Elevated troponin Current Visit: Yes Status: Acute Mild, adynamic troponin elevation in the setting of acute pancreatitis, anemia. Doubt ACS. No discrete chest pain reported. ECG without acute ischemic changes. No prior CV history. Significant abdominal distention noted on exam, CT shows ascites. Was given IV lasix without symptom improvement. On heparin gtt, anticipate will stop due to declining H/H, will further discuss with Dr. Grant. Continue asa, resume home BB when taking PO. Consider statin upon discharge if LFT's remain stable. Check echocardiogram, if no significant abnormalities identified, no further testing necessary. (2) Acute pancreatitis Current Visit: Yes Status: Acute Confirmed by MRI. Mgmt per GI/primary service. Qualifiers: Pancreatitis type: unspecified pancreatitis type Acute pancreatitis complication: unspecified Qualified Code(s): K85.90 - Acute pancreatitis without necrosis or infection, unspecified (3) Anemia Current Visit: Yes Status: Acute H/H downtrending. Patient denies melena, hematochezia. Occult blood pending. Mgmt per GI/primary service. Qualifiers: Anemia type: unspecified type Qualified Code(s): D64.9 - Anemia, unspecified (4) Bacteremia Current Visit: Yes Status: Acute VRE + On IV atb. Mgmt per primary service. Discussion w patient/family: The assessment and plan as outlined above was discussed with the patient and/or family members who expressed understanding and agreement. All questions were answered. Thank you for involving us in the care of your patient. Please call with any questions. The patient will be discussed and reviewed with Dr. Grant; changes to be made accordingly. History of Present Illness Consult date: 08/30/17 Requesting physician: Chel Bates Consult reason: Elevated troponin Chief complaint: Abdominal pain, shortness of breath History of present illness: Ms. Acevedo is a 81 year old female with PMHx significant of HTN, remote brain aneurysm, chronic pain, and HLD who presented to the ED on 08/26/17 with complaints of severe abdominal pain that had been ongoing that day. Labs and imaging confirmed acute pancreatitis. Cardiology consulted today due to elevated troponin--0.11, 0.22, 0.20. Family reports that she developed worsening shortness of breath yesterday evening which prompted additional work- up. Given hx of brain aneurysm s/p clipping (~10 years ago), Neurology was consulted and agreed with IV heparin gtt. No prior CV history reported. Reports remote stress test that was reportedly normal. Denies chest pain upon exam today. No ST/T wave abnormalities noted on ECG. Reports ongoing severe abdominal pain. Past Med Surg Social Fam HX - Past Medical History Attestation: Yes The following information was validated with the patient. Source: patient, obtained from family Medical history: hypertension Additional medical history: joint pain Psychiatric history: anxiety - Past Surgical History Surgical History: no surgical history Additional surgical history: carpel tunnel. annueysom in front of brain( balloon repair) - Social History Smoking Status: Never smoker Smokeless Tobacco Status: No Alcohol use: none Drug use: none - Family History Mother Living Status: Father Living Status: Medications and Allergies Atenolol [Tenormin] 50 mg PO BID 05/23/16 [History] Travoprost [Travatan Z] 1 drop OP HS 05/23/16 [History] amLODIPine [Norvasc] 5 mg PO DAILY 05/23/16 [History] Dorzolamide/Timolol [Cosopt] 1 drop BOTH EYES BID 08/27/17 [History] Escitalopram [Lexapro] 5 mg PO DAILY 08/27/17 [History] Valsartan/Hydrochlorothiazide [Diovan Hct 320-12.5 mg Tab] 1 tab PO DAILY [History] 3 Allergy/AdvReac Type Severity Reaction Status Date / Time codeine Allergy Rash Verified 03/27/17 14:48 nitrofurantoin Allergy Rash Verified 03/27/17 14:48 [From Macrodantin] Sulfa (Sulfonamide Allergy Hives Verified 03/27/17 14:48 Antibiotics) All Systems Review: The remainder of the systems were reviewed and are negative - Cardiovascular Cardiovascular: as per HPI Physical Examination Vital Signs, Last 4 Hours Temp Pulse Resp BP Pulse Ox 08/30/17 08:00 101 08/30/17 07:35 98.6 F 105 19 154/71 97 08/30/17 07:00 97 General: Conversant, Other (appears acutely ill) HEENT: Atraumatic, Normocephaly Cardiac: Reg Rate and Rhythm, Normal S1 and S2 Lungs: Other (Decreased breath sounds bibasilar) Neuro: Alert and responsive Abdomen: Other (abdominal distention present) Skin: No rashes noted on visualized skin Musculoskeletal: No Chest Wall Tenderness Extremities: No Edema, Normal Pulses Results 08/30/17 05:35 08/29/17 03:44 Lab Results 08/29/17 08/29/17 08/29/17 15:00 17:10 17:10 WBC Hgb 10.1 L Hct 32.2 L Plt Count INR 1.2 APTT 27.0 D-Dimer 6767 H Troponin I B-Natriuretic Peptide 482 H Lipase TSH 08/29/17 08/29/17 08/29/17 17:10 17:10 22:50 WBC Hgb Hct Plt Count INR APTT D-Dimer Troponin I 0.15 H* 0.22 H* B-Natriuretic Peptide Lipase TSH 1.215 08/30/17 08/30/17 08/30/17 01:46 05:35 05:35 WBC 15.0 H Hgb 9.3 L Hct 30.4 L Plt Count 323 INR APTT 30.5 D-Dimer Troponin I B-Natriuretic Peptide Lipase 94 H TSH 08/30/17 05:35 WBC Hgb Hct Plt Count INR APTT D-Dimer Troponin I 0.26 H* B-Natriuretic Peptide Lipase TSH Active Medications Albuterol/Ipratropium (Duoneb) 3 ml IH [id number] PRN PRN Reason: Shortness Of Breath/Wheezing Stop: 02/28/18 20:36 Last Admin: 08/30/17 00:28 Dose: 3 ml Aspirin (Aspirin) 81 mg PO DAILY REID Stop: 02/28/18 19:16 Last Admin: 08/30/17 07:40 Dose: Not Given Dextrose/Water (Dextrose 50% (Syg)) 25 ml IVP AD PRN PRN Reason: Hypoglycemia Stop: 02/26/18 10:23 Glucagon (Glucagen) 1 mg IM ONCE PRN PRN Reason: Hypoglycemia Stop: 02/26/18 10:23 Glucose (Gluctose) 15 gm PO ONCE PRN PRN Reason: Hypoglycemia Stop: 02/26/18 10:23 Glucose (Gluctose) 30 gm PO ONCE PRN PRN Reason: Hypoglycemia Stop: 02/26/18 10:23 Heparin Sodium (Porcine) (Heparin) 4,000 unit IVP Q6HR PRN PRN Reason: SEE COMMENTS Stop: 02/28/18 18:11 Last Admin: 08/30/17 03:35 Dose: 4,000 unit Heparin Sodium (Porcine) (Heparin) 2,000 unit IVP Q6H PRN PRN Reason: SEE COMMENTS Stop: 02/28/18 18:11 Hydralazine HCl (Hydralazine) 10 mg IVP Q6HR PRN PRN Reason: Hypertension Stop: 02/26/18 06:43 Last Admin: 08/29/17 23:31 Dose: 10 mg Dextrose (Dextrose 5%) 1,000 mls @ 100 mls/hr IVC .Q10H PRN PRN Reason: HYPOGLYCEMIA Stop: 02/26/18 10:23 Daptomycin 480 mg/ Sodium (Chloride) 100 mls @ 200 mls/hr IVPB Q24H REID Stop: 02/28/18 09:01 Last Infusion: 08/29/17 13:43 Dose: Infused Heparin Sodium/Dextrose (Heparin 25,000 Unit/500 Ml D5w) 25,000 unit in 500 mls @ 19.344 mls/hr IVC .Q24H REID; 12 UNIT/KG/HR PRN Reason: Protocol Stop: 02/28/18 18:16 Last Titration: 08/30/17 03:32 Dose: 16 unit/kg/hr, 25.792 mls/hr Latanoprost (Xalatan) 1 drop BOTH EYES HS REID Stop: 02/26/18 21:01 Last Admin: 08/29/17 20:16 Dose: 1 drop Naloxone HCl (Narcan) 0.4 mg IVP Q2MIN PRN PRN Reason: SEE COMMENTS Stop: 02/26/18 05:38 Ondansetron HCl (Zofran) 4 mg IVP Q8HR PRN PRN Reason: Nausea And Vomiting Stop: 02/26/18 05:41 Oxycodone HCl (Oxycodone Oral Conc) 5 mg SL Q4HR PRN; Protocol PRN Reason: moderate to severe pain Stop: 03/01/18 04:01 Last Admin: 08/30/17 07:48 Dose: 5 mg Pantoprazole Sodium (Protonix) 40 mg IVP Q12HR REID Stop: 02/28/18 18:01 Last Admin: 08/30/17 05:45 Dose: 40 mg Promethazine HCl (Phenergan) 12.5 mg IVP Q6H PRN PRN Reason: Nausea And Vomiting Stop: 02/26/18 05:41 - Imaging and Cardiology Echo: pending Other Results: 12 hour tele: avg MB=437 ST. No acute events noted. - EKG Interpretation EKG results cardiology: personally reviewed Consult Discharge Plan - Plan Referrals: Enedina Oates MD [Primary Care Provider] - 09/07/17 4:30 pm
[2017-08-30] MEDS: DAPTOmycin 480 MG in 0.9 % Sodium Chloride 100 ML IVPB SCH (10:15)
[2017-08-30] MEDS ORDERED: Furosemide 20 MG/2 ML VIAL IVP ONE (10:41)
--- NOTE | 2017-08-30 12:54 | Internal Med Progress Note ---
Date of Encounter: 08/30/17 Time of Encounter: 12:51 - Assessment and plan (1) SOB (shortness of breath) Current Visit: Yes Status: Acute Assessment and plan: Most likely due to volume overload Patient develop shortness of breath with wheezing yesterday therefore initial lab troponin with positive finding, raised d-dimer ordered. CT angiogram chest and abdomen order with finding of bibasilar pleural effusion and bursitis. IV fluid was just stopped and IV Lasix was given. (2) Pleural effusion Current Visit: Yes Status: Acute Assessment and plan: Due to IV fluid secondary to pancreatitis treatment. A stop IV fluid, a strict I&O, gentle diuresis (3) Troponin level elevated Current Visit: Yes Status: Acute Assessment and plan: No active chest pain. EKG with no acute ST-T changes. Consulted cardiologists and decided to his start heparin drip without bolus after discussing with neurologist as patient had history of vein aneurysm. CT angiogram of brain was done with no aneurysm. Echocardiogram report is awaited. Further recommendation as per traffic workforce representative. (4) Acute pancreatitis Current Visit: Yes Status: Acute Assessment and plan: Improving significantly with almost normal lipase. Developed volume overload therefore IV fluid stop. Advanced the diet as tolerated. GI specialist on board. Patient has cholelithiasis therefore will consult general surgeon when clinically stable for possible cholecystectomy. No gallstone present on CT. Fasting lipid profile report reviewed. Repeat lactic acid within normal limits. Consulted winding lathe operator who order MRCP with finding of cholelithiasis and confirmed pancreatitis . Qualifiers: Pancreatitis type: unspecified pancreatitis type Acute pancreatitis complication: unspecified Qualified Code(s): K85.90 - Acute pancreatitis without necrosis or infection, unspecified (5) Bacteremia Current Visit: Yes Status: Acute Assessment and plan: Blood culture with VRE therefore consulted ID specialist who advised to his start daptomycin 6 mg/kg 483 g every 24 hours with baseline CPK and is stopped Zosyn. repeat blood culture with no growth yet (6) Anemia Current Visit: Yes Status: Acute Assessment and plan: low but stable hemoglobin since admission. No active bleeding. Could be dilutional due to IV fluid continuously since admission but also r/o gi bleed. GI specialist on board. Qualifiers: Anemia type: unspecified type Qualified Code(s): D64.9 - Anemia, unspecified (7) CARMELINA (acute kidney injury) Current Visit: Yes Status: Acute Assessment and plan: Resolved. Continue to monitor BMP. Onset most likely prerenal. A strict I&O's. Stopped valtran gel (8) HTN (hypertension) Current Visit: Yes Status: Acute Assessment and plan: In the ED she was hypotensive, now normal blood pressure. Holding PO meds will give hydralazine 10mg Q6H prn. Qualifiers: Hypertension type: essential hypertension Qualified Code(s): I10 - Essential (primary) hypertension (9) Transaminitis Current Visit: Yes Status: Acute Assessment and plan: Now normal but initially Elevated AST and ALT most likely 2/2 to the pancreatitis. (10) Hyperglycemia Current Visit: Yes Status: Acute Assessment and plan: Better controlled glucose after starting sliding scale insulin. Continue Accu- Chek. (11) Lactic acidosis Current Visit: Yes Status: Acute Assessment and plan: Sepsis but now normal lactic acid after addressing underlying cause (12) Hyperlipidemia Current Visit: Yes Status: Acute Assessment and plan: Patient states that she has a hx of hyperlipidemia but has been unable to take the medications; lipid panel revealed with normal triglyceride Qualifiers: Hyperlipidemia type: unspecified Qualified Code(s): E78.5 - Hyperlipidemia , unspecified (13) DVT prophylaxis Current Visit: No Status: Acute Assessment and plan: SCDs. Patient is ambulating to the bathroom. - Time Spent With Patient Total time spent is greater than 50% in coordination of care (as documented) at patient's floor/unit and/or counseling patient: 25 - 35 minutes - Subjective Interval history: Patient denied chest pain, better shortness of breath. Patient had 1 dose of Lasix last night and had good diuresis. Complained of abdominal pain better. Denies fever overnight, chills, nausea, chest pain, headache, dizziness vomiting, diarrhea. review of the lab with high white count, normal creatinine level . Trending up hemoglobin Blood culture positive for VRE - Constitutional Vitals: Temp Pulse Resp BP Pulse Ox 98.1 F 103 22 152/74 95 08/30/17 12:18 08/30/17 12:18 08/30/17 12:18 08/30/17 12:18 08/30/17 12:18 Exam: General appearance: No acute distress, A&O X 3, lying comfortably in bed with nasal cannula oxygen. Head exam: Atraumatic Eye exam: EOMI, PERRLA ENT exam: Moist oral mucosa Neck nontender, supple Respiratory exam: Basal crepitation bilaterally Cardiovascular exam: Regular rate and rhythm, no systolic murmur Abdominal exam: Soft, mild diffuse tenderness, nondistended, positive bowel sounds Extremities exam: No calf tenderness, no pedal edema Present: Skin- warm, dry, intact Neurological exam: Alert, awake, oriented 3, CN II-XII intact, no focal deficits. No facial droop. Normal speech. Internal Medicine: Result - Labs CBC & Chem 7: 08/30/17 05:35 08/29/17 03:44 Labs: Short CBC 08/29/17 08/30/17 Range/Units 15:00 05:35 WBC 15.0 H (4.3-11.1) K/mcL Hgb 10.1 L 9.3 L (11.5-15.4) g/dL Hct 32.2 L 30.4 L (35.3-44.9) % Plt Count 323 (140-400) K/mcL Neutrophils # 12.6 H (1.6-8.9) K/mcL Cardiac Enzymes 08/29/17 08/29/17 08/30/17 Range/Units 17:10 22:50 05:35 Troponin I 0.15 H* 0.22 H* 0.26 H* (< 0.04) ng/mL - ABG Interpretation ABG results: ABG ABG pH 7.36 pH Units (7.32-7.45) 08/29/17 17:10 ABG pCO2 27 mmHg (35-45) L 08/29/17 17:10 ABG pO2 86 mmHg (85-104) 08/29/17 17:10 ABG O2 Saturation 96 % (95-98) 08/29/17 17:10 PT/INR, D-dimer PT 12.9 Seconds (9.4-12.1) H 08/29/17 17:10 D-Dimer 6767 ng/mLFEU (0-500) H 08/29/17 17:10 - Impressions Impressions Chest X-Ray 08/29/17 08:22 IMPRESSION: 1. Mild vascular congestive changes have developed. 2. Under aeration of the lung bases. D/ / 08/29/2017 09:22:17 Bryce Sawant MD / wilmer Interpreting Provider: Bryce Sawant MD Abdomen/Pelvis CT 08/29/17 17:44 IMPRESSION: 1. Re-demonstration of changes of pancreatitis. No evidence of pancreatic necrosis, or significant pseudocyst formation. Increase in ascites and inflammatory changes within the retroperitoneum and root of the mesentery. 2. Moderate gallbladder distention. No significant biliary dilatation or pericholecystic inflammatory changes. 3. New trace right and small left pleural effusion with dependent bibasilar atelectasis. D/ / 08/29/2017 20:15:29 Bryce Gonzales MD / Josselyn Mccabe Interpreting Provider: Bryce Gonzales MD Chest CTA 08/29/17 17:44 IMPRESSION: No findings diagnostic of pulmonary embolus Multifocal airspace disease bilaterally along with small effusions. Pulmonary edema is favored however pneumonia is not excluded Ascites Multiple upper abdominal lymph nodes. Correlate with recent CT abdomen and pelvis D/ / Silas Goddard / Silas Goddard Interpreting Provider: Silas Goddard Head CTA 08/29/17 18:50 IMPRESSION: No focal significant narrowing. No aneurysm. D/ / Silas Goddard / Silas Goddard Interpreting Provider: Silas Goddard Consult Discharge Plan - Plan Referrals: Enedina Oates MD [Primary Care Provider] - 09/07/17 4:30 pm
--- NOTE | 2017-08-30 14:37 | Event Note ---
Date of Encounter: 08/30/17 Time of Encounter: 14:34 Echocardiogram reviewed, which demonstrates sinus tachycardia with hyperdynamic LV function. No segmental wall motion abnormalities were noted. Moderate mitral stenosis noted, but likely worsened by tachycardia. Mild troponin elevation is not appear to represent ACS. It is likely related to demand ischemia from tachycardia, respiratory insufficiency, etc. No indication for further cardiac testing at this time. Your medical management regarding pancreatitis. Cautious diuresis as needed for small pleural effusions. No further inpatient cardiology recommendations. Please call with any questions or concerns. Thanks, Adam Grant DO, FACC
--- NOTE | 2017-08-30 14:56 | Neurology - Consult Note ---
Date of Encounter: 08/30/17 Time of Encounter: 14:54 Assessment and Plan (1) History of cerebral aneurysm repair Current Visit: Yes Status: Acute I do not feel that the patient's prior history of an obliterated cerebral aneurysm has any bearing on her current situation as a candidate for anticoagulation. My only recommendation would be not to bolus for heparin, however I would start a drip and titrated to therapeutic. Otherwise her neurologic examination is normal. I will reevaluate her at your request. History of Present Illness HPI: The chart was reviewed, the patient was seen and examined personally. Ms. Acevedo is a 81 year old female who was admitted secondary to abdominal pain. During her admission she became dyspneic and tachycardic. Cardiac workup was performed which revealed elevated troponins. The hospitalist wanted to give heparin however I was contacted because she has a prior history of cerebral aneurysm which was previously obliterated. The question for neurology was whether or not anticoagulation would be a problem in light of this history. She had no neurologic symptoms. She denies headache, denies confusion. She states that she "hurts all over" Past Med Surg Social Fam HX - Past Medical History Medical history: hypertension Additional medical history: joint pain Psychiatric history: anxiety - Past Surgical History Surgical History: no surgical history Additional surgical history: carpel tunnel. annueysom in front of brain( balloon repair) - Social History Smoking Status: Never smoker Smokeless Tobacco Status: No Alcohol use: none Drug use: none - Family History Mother Living Status: Father Living Status: Medications and Allergies Atenolol [Tenormin] 50 mg PO BID 05/23/16 [History] Travoprost [Travatan Z] 1 drop OP HS 05/23/16 [History] amLODIPine [Norvasc] 5 mg PO DAILY 05/23/16 [History] Dorzolamide/Timolol [Cosopt] 1 drop BOTH EYES BID 08/27/17 [History] Escitalopram [Lexapro] 5 mg PO DAILY 08/27/17 [History] Valsartan/Hydrochlorothiazide [Diovan Hct 320-12.5 mg Tab] 1 tab PO DAILY [History] 3 Allergy/AdvReac Type Severity Reaction Status Date / Time codeine Allergy Rash Verified 03/27/17 14:48 nitrofurantoin Allergy Rash Verified 03/27/17 14:48 [From Macrodantin] Sulfa (Sulfonamide Allergy Hives Verified 03/27/17 14:48 Antibiotics) All Systems: The remainder of the systems were reviewed and are negative Review of Systems: Patient does complain of generalized muscle aches. She denies headache, denies confusion, denies visual changes. Denies numbness tingling or weakness of the face arms or legs. The balance of the systems review is negative. Physical Examination - Vital Signs Vital Signs: Initial Vital Signs Temp Pulse Resp BP Pulse Ox 98.5 F 65 20 93/60 96 08/26/17 22:52 08/26/17 22:52 08/26/17 22:52 08/26/17 22:52 08/26/17 22:52 - Neurologic Detailed motor examination: grossly full strength in all extremities Reflexes: Biceps: 2+ (Symmetrically), Triceps: 2+ (Symmetrically), Brachioradialis: 2+ (Symmetrically), Patella: 2+ (Symmetrically), Achilles: 1+ ( Symmetrically) Mental Status Examination: awake, alert, oriented to person, oriented to place, oriented to time, follows commands appropriately, answers questions appropriately, no agnosia, no aphasia, no aproxia Cranial nerve examination: PERRL, EOMI, sensory to face intact, mastication intact, no facial asymmetry is present, no dysarthria, hearing is intact symmetrically, soft palate elevates bilaterally upon phonation, gag reflex intact, tongue protrudes midline, no atrophy or facial fasiculations present Results - Laboratory Findings CBC and BMP: 08/30/17 05:35 08/29/17 03:44 Abnormal lab findings: Abnormal lab results WBC 15.0 K/mcL (4.3-11.1) H 08/30/17 05:35 RBC 3.56 M/mcL (3.82-4.97) L 08/30/17 05:35 Hgb 9.3 g/dL (11.5-15.4) L 08/30/17 05:35 Hct 30.4 % (35.3-44.9) L 08/30/17 05:35 MCH 26.1 pg (28.0-33.3) L 08/30/17 05:35 MCHC 30.6 g/dL (31.6-35.5) L 08/30/17 05:35 RDW 15.7 % (11.5-14.5) H 08/30/17 05:35 Band Neutrophils % 14.0 % (0-4) H 08/29/17 04:39 Metamyelocytes % 4.0 % (0) H 08/29/17 04:39 Neutrophils # 12.6 K/mcL (1.6-8.9) H 08/30/17 05:35 PT 12.9 Seconds (9.4-12.1) H 08/29/17 17:10 APTT 56.6 Seconds (26.0-36.0) H D 08/30/17 09:19 D-Dimer 6767 ng/mLFEU (0-500) H 08/29/17 17:10 ABG pCO2 27 mmHg (35-45) L 08/29/17 17:10 ABG HCO3 15 mEq/L (21-27) L 08/29/17 17:10 ABG Total CO2 16 mEq/L (20-26) L 08/29/17 17:10 ABG Base Excess -9 mEq/L (-2 to 3) L 08/29/17 17:10 Potassium 3.1 mEq/L (3.5-5.1) L 08/29/17 03:44 Chloride 121 mEq/L (98-107) H 08/29/17 03:44 Carbon Dioxide 14 mEq/L (23-29) L 08/29/17 03:44 BUN 27 mg/dL (8-23) H 08/29/17 03:44 BUN/Creatinine Ratio 35 (6-26) H 08/29/17 03:44 Glucose 119 mg/dL (70-105) H 08/29/17 03:44 POC Glucose 144 mg/dL (70-99) H 08/30/17 07:36 Calculated Osmolality 306 (280-300) H 08/29/17 03:44 Calcium 7.3 mg/dL (8.6-10.3) L 08/29/17 03:44 Venous Ioniz Calcium 1.06 mmol/L (1.15-1.35) L 08/29/17 04:53 Direct Bilirubin 0.8 mg/dL (0.0-0.2) H 08/26/17 22:57 Troponin I 0.26 ng/mL (< 0.04) H* 08/30/17 05:35 B-Natriuretic Peptide 482 pg/mL (Less than 100) H 08/29/17 17:10 Serum Total Protein 5.5 g/dL (6.4-8.9) L 08/29/17 03:44 Albumin 3.0 g/dL (3.5-5.7) L 08/29/17 03:44 Cholesterol 212 mg/dL (< 200) H 08/27/17 07:24 LDL Cholesterol, Calc 153 mg/dL (0-99) H 08/27/17 07:24 HDL Cholesterol 39 mg/dL (40-59) L 08/27/17 07:24 Cholesterol/HDL Ratio 5.4 (0-4.9) H 08/27/17 07:24 Lipase 94 Units/L (11-82) H 08/30/17 05:35 Urine Clarity Cloudy (Clear) A 08/26/17 22:57 Urine Protein 30 mg/dL (Neg-Trace) H 08/26/17 22:57 Ur Leukocyte Esterase Moderate (Negative) H 08/26/17 22:57 Urine Microscopic RBC 3-5 per hpf (0-3) H 08/26/17 22:57 Urine Microscopic WBC 5-15 per hpf (0-3) H 08/26/17 22:57 Ur Squamous Epith Cells Many per lpf (None-Few) H 08/26/17 22:57 Urine Bacteria Many per hpf (None-Few) H 08/26/17 22:57 Ur Culture Indicated? NO. (NO) A 08/26/17 22:57 Enterococcus sp PCR DETECTED (Not Detect) A 08/26/17 23:20 Consult Discharge Plan - Plan Referrals: Enedina Oates MD [Primary Care Provider] - 09/07/17 4:30 pm
[2017-08-30] MEDS: Latanoprost 2.5 ML BOTTLE BOTH EYES SCH (21:13)
[2017-08-30] MEDS: *HR* Heparin 5,000 UNIT/ML VIAL SQ SCH (21:13)
[2017-08-31 02:17] LABS: Mean Corpuscular Hemoglobin 26.9 pg (28.0-33.3); Mean Corpuscular Volume 86.6 fL (83.0-100.0); Mean Platelet Volume 10.3 fL (9.4-12.4); Platelet Count 328 K/mcL (140-400); Red Blood Count 3.35 M/mcL (3.82-4.97); Red Cell Distribution Width 15.5 % (11.5-14.5)
[2017-08-31 02:40] LABS: Lymphocytes # 1.2 K/mcL (0.6-4.6); Monocytes # 1.2 K/mcL (0.0-1.3); Neutrophils # 12.4 K/mcL (1.6-8.9); Platelet Estimate Normal (Normal)
[2017-08-31 02:43] LABS: BUN/Creatinine Ratio 21 (6-26); Blood Urea Nitrogen 12 mg/dL (8-23); Calcium 8.3 mg/dL (8.6-10.3); Carbon Dioxide 20 mEq/L (23-29); Chloride 110 mEq/L (98-107); Glucose 104 mg/dL (70-105); Osmolality,Calculated 294 (280-300); Potassium 2.5 mEq/L (3.5-5.1); Sodium 142 mEq/L (136-145); eGFR For African Americans > 60 (> 60); eGFR For Non-African Americans > 60 (> 60)
[2017-08-31] MEDS ORDERED: Potassium Chloride 40 MEQ, Lidocaine 1% 2 ML in D5% in Water 500 ML IVPB ONE ×2 (02:48→07:39)
[2017-08-31] MEDS: Ipratropium/Albuterol Neb 3 ML IH PRN (03:25)
[2017-08-31] MEDS: Pantoprazole 40 MG VIAL IVP SCH ×2 (06:07→18:02)
[2017-08-31] MEDS: *HR* Heparin 5,000 UNIT/ML VIAL SQ SCH ×3 (06:07→21:06)
[2017-08-31] MEDS: OXYCODONE Oral CONC 10 MG/0.5 ML ORAL.SYG SL PRN ×4 (06:56→21:12)
[2017-08-31 08:11] LABS: Lipase 59 Units/L (11-82); Magnesium 1.9 mg/dL (1.6-2.6)
[2017-08-31] MEDS: Aspirin 81 MG TAB.CHEW PO SCH (08:24)
[2017-08-31] MEDS: DAPTOmycin 480 MG in 0.9 % Sodium Chloride 100 ML IVPB SCH (08:24)
[2017-08-31 08:37] LABS: Alanine Aminotransferase 17 Units/L (7-52); Albumin 3.1 g/dL (3.5-5.7); Albumin/Globulin Ratio 1.1 (1.1-2.2); Alkaline Phosphatase 66 Units/L (34-104); Aspartate Amino Transferase 24 Units/L (13-39); Bilirubin,Direct 0.4 mg/dL (0.0-0.2); Bilirubin,Indirect 0.3 mg/dL (0.0-1.2); Bilirubin,Total 0.7 mg/dL (0.3-1.0); Globulin 2.8 g/dL (2.4-3.5); Total Protein 5.9 g/dL (6.4-8.9)
[2017-08-31 10:23] LABS: ANA IgG by ELISA NONE DETECTED (None Detected); Immunoglobulin G Subclass 4 12 mg/dL (1-123)
--- NOTE | 2017-08-31 11:32 | Infectious Disease Consult ---
Date of Encounter: 08/31/17 Time of Encounter: 11:10 Assessment and Plan (1) Sepsis Status: Acute Assessment and plan: Patient initially had 2 SIRS criteria and is currently tachycardic, tachypneic and has white count of 14.8 Source is likely intra-abdominal Blood cultures 2/2 positive for VRE Qualifiers: Sepsis type: sepsis due to unspecified organism Qualified Code(s): A41.9 - Sepsis, unspecified organism (2) VRE bacteremia Status: Acute Assessment and plan: Blood cultures initially 2/2 for VRE Repeat cultures on 08/29 negative so far Source likely intra-abdominal in setting of acute pancreatitis Patient has had 3 doses of Zosyn and currently on Daptomycin Will discontinue Daptomycin and start with Unasyn Duration depends on clinical picture, but likely 2 weeks from negative culture (3) Multifocal pneumonia Status: Acute Assessment and plan: CTA demonstrated multifocal airspace disease Will start on Unasyn as above Obtain sputum culture, RIP, and Legionella/pneuococcal urinary antigens Depending on clinical course, consider repeat CXR in 48 hrs (4) Acute pancreatitis Status: Acute Qualifiers: Pancreatitis type: biliary Acute pancreatitis complication: unspecified Qualified Code(s): K85.10 - Biliary acute pancreatitis without necrosis or infection (5) Cholelithiasis Status: Acute Qualifiers: Cholelithiasis location: other site Biliary obstruction: without biliary obstruction Qualified Code(s): K80.80 - Other cholelithiasis without obstruction (6) Pleural effusion Status: Acute (7) Troponin level elevated Status: Acute (8) History of cerebral aneurysm repair Status: Acute Infectious Disease HPI - Data of Consult Patient: new to practice Consult date: 08/31/17 Requesting Physician: Noe Zaragoza MD Primary Care Provider: Enedina Oates MD - Consult Narrative Reason for consult: VRE bacteremia History of present illness: Ms. Acevedo is a 81 year old female with past medical history of hypertension, anxiety, with history of obliterated cerebral aneurysm who was admitted on August 27 for acute pancreatitis. We have been consulted today for VRE bacteremia. In brief, patient is 81-year-old female was past medical history as above who presented with 2 day history of epigastric abdominal pain associated with nausea and vomiting. Upon presentation to the emergency department, patient had temperature of 98.5, heart rate of 65, respiratory rate of 20, blood pressure 93/60. Her initial white count was 22 and lactic acid was 2.6. Her lipase was over 1800 and she had mild elevation of liver enzymes. Abdominal CT did show inflammation along head of the pancreas concerning for acute pancreatitis. GI was consulted and recommended MRCP, which showed cholelithiasis with minimal ductal dilation. They have advised a cholecystectomy prior to discharge. She was started on Zosyn and initial blood cultures x2 did come back positive for VRE and this was switched to daptomycin on the . Patient became acutely dyspneic on the , and troponin and d- dimer were both elevated. CTA showed multifocal airspace disease with no evidence of PE. Cardiology did recommend starting on heparin drip and neurology was also consulted due to history of aneurysm and felt heparin drip without bolus was appropriate. During today's exam, patient is still tachycardic with heart rate in the 110s but has been afebrile since the . She remains tachypneic and her white count is still elevated at 14.8. She states her breathing has improved mildly since yesterday but she still complains of right-sided abdominal pain. She is still nauseous but has not vomited in the last several days. She denies any recent fevers, chills, diarrhea or chest pain. CC: Noe Zaragoza MD Past Med Surg Social Fam HX - Past Medical History Medical history: hypertension Additional medical history: joint pain Psychiatric history: anxiety - Past Surgical History Surgical History: no surgical history Additional surgical history: carpel tunnel. annueysom in front of brain( balloon repair) - Social History Smoking Status: Never smoker Smokeless Tobacco Status: No Alcohol use: none Drug use: none - Family History Mother Living Status: Father Living Status: Infectious Disease-CN:Meds Atenolol [Tenormin] 50 mg PO BID 05/23/16 [History] Travoprost [Travatan Z] 1 drop OP HS 05/23/16 [History] amLODIPine [Norvasc] 5 mg PO DAILY 05/23/16 [History] Dorzolamide/Timolol [Cosopt] 1 drop BOTH EYES BID 08/27/17 [History] Escitalopram [Lexapro] 5 mg PO DAILY 08/27/17 [History] Valsartan/Hydrochlorothiazide [Diovan Hct 320-12.5 mg Tab] 1 tab PO DAILY [History] 3 Allergy/AdvReac Type Severity Reaction Status Date / Time codeine Allergy Rash Verified 03/27/17 14:48 nitrofurantoin Allergy Rash Verified 03/27/17 14:48 [From Macrodantin] Sulfa (Sulfonamide Allergy Hives Verified 03/27/17 14:48 Antibiotics) Review of systems: 10 point review of systems done, negative other for what mentioned in the history of present illness. - Constitutional Constitutional: Present: fever(s), headache(s), lethargy, weakness - Cardiovascular Cardiovascular: Present: dyspnea on exertion. Absent: chest pain, chest pain with activity, edema, pedal edema, rapid heart rate - Respiratory Respiratory: Present: cough, dyspnea, dyspnea on exertion. Absent: hemoptysis, wheezing, excessive phlegm production - Gastrointestinal Gastrointestinal: Present: abdominal pain (right sided). Absent: nausea, vomiting - Genitourinary Genitourinary: Present: flank pain. Absent: dysuria, urinary frequency, urinary urgency - Integumentary Integumentary: Absent: new lesions, non-healing lesions, skin ulcer Exam - Constitutional Vitals: Temp Pulse Resp BP Pulse Ox 98.0 F 115 20 154/73 94 08/31/17 07:41 08/31/17 07:41 08/31/17 07:41 08/31/17 07:41 08/31/17 07:41 General appearance: cooperative, no acute distress, no febrile Exam: somnolent, just took pain meds - Head Head exam: Present: atraumatic, normocephalic - Eye Eye exam: Present: EOMI, PERRL, sclera anicteric. Absent: conjunctival injection - ENT ENT exam: Present: mucous membranes dry Additional comments: No oral thrush. No oral lesions. - Neck Neck exam: Present: full ROM. Absent: tenderness - Respiratory Respiratory exam: Present: rales. Absent: accessory muscle use, respiratory distress, rhonchi - Cardiovascular Cardiovascular exam: Present: tachycardia. Absent: irregular rhythm, systolic murmur - GI/Abdominal GI/Abdominal exam: Present: normal bowel sounds, soft, tenderness (RUQ) - Extremities Exam Extremities exam: Absent: pedal edema, tenderness - Neurological Exam Neurological exam: Present: alert Additional comments: Answers simple questions and follows simple command. - Psychiatric Psychiatric exam: Present: depressed - Skin Skin exam: Present: normal color. Absent: rash Additional comments: No endocarditis stigmata Infectious Disease CN: Results - Labs CBC & Chem 7: 08/31/17 01:19 08/31/17 15:07 Cultures: Cultures 08/29/17 08:46 Blood Culture - Preliminary Peripheral Venipuncture Culture is incubating and being continuously monitored for growth. Final report to follow. 08/29/17 08:46 Blood Culture - Preliminary Peripheral Venipuncture Culture is incubating and being continuously monitored for growth. Final report to follow. Consult Discharge Plan - Plan Referrals: Enedina Oates MD [Primary Care Provider] - 09/07/17 4:30 pm - Attending Attestation I examined this patient and my medical decision-making was reviewed with the Resident Physician. I agree with the documented findings, disposition and treatment plan as described except to the extent set forth below. This is an addendum to original report dictated by resident physician. Please refer to residents note for full detail. Patient is an 81-year-old woman who home has been having nausea vomiting and abdominal pain and altered mental status. Patient came into the hospital for evaluation. During the hospital stay patient was noted to have pancreatitis and severe sepsis. MRI of the abdomen revealed cholelithiasis with a couple of tiny gallstones. Patient also was noted to be bacteremic with VRE. I did receive a phone call and the patient on Thursday when he was at home and I recommended to start daptomycin. Patient on 08/29 had a CTA of the chest which revealed multifocal airspace disease likely secondary to pulmonary congestion but pneumonia could not ruled out. Review of systems patient really has no signs of pneumonia and no pleuritic chest pain no cough no sputum production or shortness of breath. We were asked to evaluate the patient and make further recommendations. Assessment and plan: Severe sepsis Bacteremia with VRE likely source intra-abdominal Pneumonia questionable at best versus pulmonary congestion. I reviewed the CT scan myself and looks to me more like pulmonary congestion. Pancreatitis improving likely secondary: 2 cholelithiasis Troponin leak History of cerebral aneurysm Recommendations: Continue daptomycin. Checks CK level weekly while on daptomycin. Duration of treatment likely 2 weeks. I question if the patient has pneumonia but we will check respiratory infectious panel, urine legionella and pneumococcal antigen and blood cultures. If pulmonary workup was positive for pneumonia and will either DC the daptomycin or switch it or add something that covers the lungs. Monitor labs and for drug toxicity Discussed with daughter at length. Daughter was concerned that surgery is recommending surgery to remove the gallbladder and she thinks her moms frail and not ready for surgery at this time.
[2017-08-31] MEDS ORDERED: Furosemide 20 MG/2 ML VIAL IVP ONE ×2 (13:53→17:46)
--- NOTE | 2017-08-31 13:55 | Internal Med Progress Note ---
Date of Encounter: 08/31/17 Time of Encounter: 13:49 - Assessment and plan (1) SOB (shortness of breath) Current Visit: Yes Status: Acute Assessment and plan: better on low dose lasix prn. Most likely due to volume overload CT angiogram chest and abdomen order with finding of bibasilar pleural effusion and ascites. IV fluid was stopped and IV Lasix was given. strict I/O (2) Pleural effusion Current Visit: Yes Status: Acute Assessment and plan: lungs sound better. no IV fluid, a strict I&O, gentle diuresis (3) Troponin level elevated Current Visit: Yes Status: Acute Assessment and plan: No active chest pain. as per cardio- nonischeamic and further intervention advised. stopped IV heparin drip. EKG with no acute ST-T changes. Consulted cardiologists and decided to his start heparin drip without bolus after discussing with neurologist as patient had history of brain aneurysm. CT angiogram of brain was done with no aneurysm. Echocardiogram EF 70% with no acute finding. Further recommendation as per systems development consultant. (4) Acute pancreatitis Current Visit: Yes Status: Acute Assessment and plan: normal lipase. Developed volume overload therefore IV fluid stop. GI specialist on board. Patient has cholelithiasis therefore consulted general surgeon when clinically stable for possible cholecystectomy. No gallstone present on CT. Fasting lipid profile report reviewed. Repeat lactic acid within normal limits. Consulted palliative care nurse who order MRCP with finding of cholelithiasis and confirmed pancreatitis . Qualifiers: Pancreatitis type: biliary Acute pancreatitis complication: unspecified Qualified Code(s): K85.10 - Biliary acute pancreatitis without necrosis or infection (5) Bacteremia Current Visit: Yes Status: Acute Assessment and plan: Blood culture with VRE therefore consulted ID specialist who advised to his start daptomycin 6 mg/kg 483 g every 24 hours with baseline CPK and stopped Zosyn. repeat blood culture with no growth yet (6) Anemia Current Visit: Yes Status: Acute Assessment and plan: stable hemoglobin since admission. No active bleeding. Qualifiers: Anemia type: unspecified type Qualified Code(s): D64.9 - Anemia, unspecified (7) CARMELINA (acute kidney injury) Current Visit: Yes Status: Acute Assessment and plan: Resolved. Continue to monitor BMP. Onset most likely prerenal. A strict I&O's. Stopped valtran gel (8) HTN (hypertension) Current Visit: Yes Status: Acute Assessment and plan: In the ED she was hypotensive, now normal blood pressure. Holding PO meds will give hydralazine 10mg Q6H prn. Qualifiers: Hypertension type: essential hypertension Qualified Code(s): I10 - Essential (primary) hypertension (9) Transaminitis Current Visit: Yes Status: Acute Assessment and plan: Now normal but initially Elevated AST and ALT most likely 2/2 to the pancreatitis. (10) Hyperglycemia Current Visit: Yes Status: Acute Assessment and plan: Better controlled glucose after starting sliding scale insulin. Continue Accu- Chek. (11) Lactic acidosis Current Visit: Yes Status: Acute (12) Hyperlipidemia Current Visit: Yes Status: Acute Assessment and plan: Patient states that she has a hx of hyperlipidemia but has been unable to take the medications; lipid panel revealed with normal triglyceride Qualifiers: Hyperlipidemia type: unspecified Qualified Code(s): E78.5 - Hyperlipidemia , unspecified (13) Weakness generalized Current Visit: Yes Status: Acute Assessment and plan: due to above. PT ordered. for d/c plan (14) DVT prophylaxis Current Visit: No Status: Acute - Time Spent With Patient Total time spent is greater than 50% in coordination of care (as documented) at patient's floor/unit and/or counseling patient: 25 - 35 minutes - Subjective Interval history: Patient denied chest pain, better shortness of breath.still c/o RUQ abdomen pain and better with pain med. Patient had 1 dose of Lasix yesterday and had good diuresis. Complained of abdominal pain better. Denies fever overnight, chills, nausea, chest pain, headache, dizziness vomiting, diarrhea. review of the lab with high white count, normal creatinine level . low K level, stable hemoglobin Blood culture positive for VRE - Constitutional Vitals: Temp Pulse Resp BP Pulse Ox 98.2 F 104 20 171/87 94 08/31/17 11:40 08/31/17 11:40 08/31/17 11:40 08/31/17 11:40 08/31/17 07:41 Exam: General appearance: No acute distress, A&O X 3, lying comfortably in bed with nasal cannula oxygen. Head exam: Atraumatic Eye exam: EOMI, PERRLA ENT exam: Moist oral mucosa Neck nontender, supple Respiratory exam: Basal crepitation bilaterally-better Cardiovascular exam: Regular rate and rhythm, no systolic murmur Abdominal exam: Soft, RUQ tenderness,ascites, positive bowel sounds Extremities exam: No calf tenderness, no pedal edema Present: Skin- warm, dry, intact Neurological exam: Alert, awake, oriented 3, CN II-XII intact, no focal deficits. No facial droop. Normal speech. Internal Medicine: Result - Labs CBC & Chem 7: 08/31/17 01:19 08/31/17 01:19 Labs: Short CBC 08/31/17 Range/Units 01:19 WBC 14.8 H (4.3-11.1) K/mcL Hgb 9.0 L (11.5-15.4) g/dL Hct 29.0 L (35.3-44.9) % Plt Count 328 (140-400) K/mcL Neutrophils # 12.4 H (1.6-8.9) K/mcL BMP 08/31/17 01:19 Sodium 142 Potassium 2.5 L* Chloride 110 H Carbon Dioxide 20 L BUN 12 Creatinine 0.57 L Glucose 104 Calcium 8.3 L Liver Function 08/31/17 Range/Units 01:19 Total Bilirubin 0.7 (0.3-1.0) mg/dL Direct Bilirubin 0.4 H (0.0-0.2) mg/dL AST 24 (13-39) Units/L ALT 17 (7-52) Units/L Alkaline Phosphatase 66 (34-104) Units/L Albumin 3.1 L (3.5-5.7) g/dL - ABG Interpretation ABG results: ABG ABG pH 7.36 pH Units (7.32-7.45) 08/29/17 17:10 ABG pCO2 27 mmHg (35-45) L 08/29/17 17:10 ABG pO2 86 mmHg (85-104) 08/29/17 17:10 ABG O2 Saturation 96 % (95-98) 08/29/17 17:10 PT/INR, D-dimer PT 12.9 Seconds (9.4-12.1) H 08/29/17 17:10 D-Dimer 6767 ng/mLFEU (0-500) H 08/29/17 17:10 - Impressions Impressions Abdomen/Pelvis CT 08/29/17 17:44 IMPRESSION: 1. Re-demonstration of changes of pancreatitis. No evidence of pancreatic necrosis, or significant pseudocyst formation. Increase in ascites and inflammatory changes within the retroperitoneum and root of the mesentery. 2. Moderate gallbladder distention. No significant biliary dilatation or pericholecystic inflammatory changes. 3. New trace right and small left pleural effusion with dependent bibasilar atelectasis. D/ / 08/29/2017 20:15:29 Bryce Gonzales MD / Josselyn Mccabe Interpreting Provider: Bryce Gonzales MD Echocardiogram 08/30/17 16:46 Impressions: LVEF >70%. Normal LV chamber size and hyperdynamic function. Mild concentric left ventricular hypertrophy. Mild left ventricular diastolic dysfunction. Normal right ventricular structure and function. Mild aortic sclerosis. Mean gradient 8 mmHg. Mild mitral annular calcification. Moderate mitral stenosis by Doppler. Mean gradient 7 mmHg (HR 104). Suspect severity of mitral stenosis is worsened by tachycardia. Mild tricuspid regurgitation. Moderate pulmonary hypertension. Estimated RVSP is 50 mmHg. Left Ventricular Wall Motion: Rest Echo Findings The apex, apical inferior, mid inferior, basal inferior, apical anterior, mid anterior, basal anterior, apical septal, mid inferior septal, basal inferior septal, apical lateral, mid anterior lateral, basal anterior lateral, mid anterior septal, mid inferior lateral, basal anterior septal and basal inferior lateral chan were hyperkinetic. Findings: Study Quality * Technically sub-optimal due to clinical status. ECG Findings * Sinus tachycardia. Left Ventricle * LVEF >70%. * Normal LV chamber size and hyperdynamic function. * Mild concentric left ventricular hypertrophy. * Mild left ventricular diastolic dysfunction. Right Ventricle * Normal right ventricular structure and function. Left Atrium * Mildly dilated left atrium. Right Atrium * Normal right atrial size. Aortic Valve * Aortic valve not well visualized. Grossly appears to be trileaflet. * Mildly calcified aortic valve leaflets. * No aortic regurgitation. * Mild aortic sclerosis. Mean gradient 8 mmHg. Mitral Valve * Mild mitral annular calcification. * No mitral regurgitation. * Moderate mitral stenosis by Doppler. Mean gradient 7 mmHg (HR 104). Suspect severity of mitral stenosis is worsened by tachycardia. Tricuspid Valve * Normal tricuspid valve structure. * Mild tricuspid regurgitation. * Moderate pulmonary hypertension. * Estimated RVSP is 50 mmHg. * Estimated RA pressure is 5 mmHg. Pulmonic Valve * Normal pulmonic valve structure and function. * No pulmonic regurgitation. Aorta * Normally sized aortic root. Pericardium * The pericardium appears normal. IVC * Normal IVC dimensions and inspiratory collapse. Pulmonary Artery * Normal visualized portions of the main pulmonary artery. Consult Discharge Plan - Plan Referrals: Enednia Oates MD [Primary Care Provider] - 09/07/17 4:30 pm
--- NOTE | 2017-08-31 14:05 | General Surgery Progress Note ---
<Bhumika Avelar - Last Filed: 08/31/17 16:09> Date of Encounter: 08/31/17 Time of Encounter: 14:05 - Assessment and Plan (1) Transaminitis Current Visit: Yes Status: Acute Pt states abd pain that started Thursday and was accompanied by n/v. She denies history of occurrence. MRCP with dilated gallbladder, no choledocolithiasis. Pt and daughter, Yazmin, state they will not consider surgery until son is at bedside and is able to review with them. No surgical intervention today pending family discussion, hypokalemia, and pulmonary status Plan: IVF and electrolyte replacement per primary team optimize pulmonary status per primary team surgical intervention timing pending above and attending discussion with family continue IV antibiotics as indicated NPO at midnight for possible surgical intervention Final recommendations pending attestation statement. (2) Hypokalemia Current Visit: Yes Status: Acute Potassium 2.5 today. Replacement per primary team. (3) SOB (shortness of breath) Current Visit: Yes Status: Acute Resp rate 25 per my count. Able to speak in 2-32 word sentences. Would recommend that pulmonary status be optimized prior to surgical intervention Subjective Narrative: Progress note was selected in Error. This should be a consult note. Consulted Surgeon: Dr. Rosario Umaña Consulting MD: Dr. Bates 08/31/2017 Reason for consult: gallstone pancreatitis Ghada is in 81-year-old female who presented for right upper quadrant pain, nausea, and vomiting on 08/27/2017. She stated her symptoms had began on 08/26/2017 with a sudden onset of vomiting and abdominal pain. She denies any history of this occurrence. She denies headache, dizziness, syncope or near syncope, chest pain, black, bloody, or tarry stool. She reports she had intermittent diarrhea at home. Currently, she reports feeling increased shortness of breath at rest (which is nuisance this admission). Her daughter, Yazmin, is at bedside and endorses the reported symptoms but also states that her mom typically did not let anybody know that she was not feeling well and until she "was really sick." Her clinical course has been consistent with pancreatitis. An MRCP was completed which noted a dilated gallbladder. Her lipase has returned to normal. Surgery has been asked to see this patient for evaluation of gallstone pancreatitis. Objective Vital Signs - Last 8 Hours Temp Pulse Resp BP Pulse Ox 08/31/17 11:40 98.2 F 104 20 171/87 08/31/17 07:41 98.0 F 115 20 154/73 94 Intake and Output 08/30/17 08/31/17 08/31/17 23:59 07:59 15:59 Intake Total 240 / 240 522 / 522 Output Total 530 / 530 350 / 350 725 / 725 Balance -290 / -290 -350 / -350 -203 / -203 Intake: IV Fluids 522 / 522 KCl 40 MEQ Xylocaine 2 ML In 522 / 522 Dextrose 5% 500 ML @ 130.5 mls/ hr IVPB ONCE ONE Rx#:[id number] Oral 240 / 240 Output: Urine 725 / 725 Catheter 530 / 530 350 / 350 0 / 0 Urethral (Mejia) 0 / 0 Other: Meal Breakfast Percent of Meal Consumed 0% Weight 81.3 kg Blood Glucose* 111 142 Patient Weight 08/31/17 23:59 Weight 81.3 kg VITAL SIGNS: Reviewed. See [facility] GENERAL: In no apparent distress. Short of breath at rest. HEENT: Normocephalic, atraumatic, pupils are equal and reactive, extraocular motions intact, oropharynx is pink and moist, there is no neck adenopathy or JVD noted. CHEST/RESPIRATORY: The thorax is free from signs of trauma. Lung sounds: decreased and wheezing bilateral CARDIAC: distant heart tones. Tachycardic. VASCULAR: generalized lower extremity Edema. 2+ peripheral pulses. ABDOMEN: soft, obese, tender to palpation in the right upper quadrant and epigastric area, hypoactive bowel sounds MUSCULOSKELETAL: Good range of motion of all major joints. Extremities without clubbing, cyanosis or edema. NEUROLOGIC EXAM: Alert and oriented x 3. Speech normal. Follows commands. PSYCHIATRIC: Mood normal. SKIN: ecchymosis to the left arm. Stage I pressure ulcer to the left upper outer arm. - Labs 08/31/17 01:19 08/31/17 15:07 Diabetes panel 08/31/17 Range/Units 01:19 Sodium 142 (136-145) mEq/L Potassium 2.5 L* (3.5-5.1) mEq/L Chloride 110 H (98-107) mEq/L Carbon Dioxide 20 L (23-29) mEq/L BUN 12 (8-23) mg/dL Creatinine 0.57 L (0.60-1.20) mg/dL Glucose 104 (70-105) mg/dL Calcium 8.3 L (8.6-10.3) mg/dL AST 24 (13-39) Units/L ALT 17 (7-52) Units/L Alkaline Phosphatase 66 (34-104) Units/L Albumin 3.1 L (3.5-5.7) g/dL Calcium panel 08/31/17 Range/Units 01:19 Calcium 8.3 L (8.6-10.3) mg/dL Albumin 3.1 L (3.5-5.7) g/dL Pituitary panel 08/31/17 Range/Units 01:19 Sodium 142 (136-145) mEq/L Potassium 2.5 L* (3.5-5.1) mEq/L Chloride 110 H (98-107) mEq/L Carbon Dioxide 20 L (23-29) mEq/L BUN 12 (8-23) mg/dL Creatinine 0.57 L (0.60-1.20) mg/dL Glucose 104 (70-105) mg/dL Calcium 8.3 L (8.6-10.3) mg/dL Adrenal panel 08/31/17 Range/Units 01:19 Sodium 142 (136-145) mEq/L Potassium 2.5 L* (3.5-5.1) mEq/L Chloride 110 H (98-107) mEq/L Carbon Dioxide 20 L (23-29) mEq/L BUN 12 (8-23) mg/dL Creatinine 0.57 L (0.60-1.20) mg/dL Glucose 104 (70-105) mg/dL Calcium 8.3 L (8.6-10.3) mg/dL Total Bilirubin 0.7 (0.3-1.0) mg/dL AST 24 (13-39) Units/L ALT 17 (7-52) Units/L Alkaline Phosphatase 66 (34-104) Units/L Albumin 3.1 L (3.5-5.7) g/dL Consult Discharge Plan - Plan Referrals: Enedina Oates MD [Primary Care Provider] - 09/07/17 4:30 pm <Rosario Umaña - Last Filed: 09/03/17 13:22> Date of Encounter: 08/31/17 - Assessment and Plan (1) Gallstone pancreatitis Current Visit: Yes Status: Acute patient with resolved pancreatitis MRI abdomen showed gallstones, no duct dilation, pancreatitis presumably from gallstones recommend cholecystectomy,at some point in future patient not ready for OR from respiratory standpoint ordered IS scheduled aerosols lasix x 1 will reassess respiratory status tomorrow Objective Vital Signs - Last 8 Hours Temp Pulse Resp BP Pulse Ox 08/31/17 11:40 98.2 F 104 20 171/87 08/31/17 07:41 98.0 F 115 20 154/73 94 Intake and Output 08/30/17 08/31/17 08/31/17 23:59 07:59 15:59 Intake Total 240 / 240 522 / 522 Output Total 530 / 530 350 / 350 725 / 725 Balance -290 / -290 -350 / -350 -203 / -203 Intake: IV Fluids 522 / 522 KCl 40 MEQ Xylocaine 2 ML In 522 / 522 Dextrose 5% 500 ML @ 130.5 mls/ hr IVPB ONCE ONE Rx#:[id number] Oral 240 / 240 Output: Urine 725 / 725 Catheter 530 / 530 350 / 350 0 / 0 Urethral (Mejia) 0 / 0 Other: Meal Breakfast Percent of Meal Consumed 0% Weight 81.3 kg Blood Glucose* 111 142 Patient Weight 08/31/17 23:59 Weight 81.3 kg - Labs 09/03/17 00:36 09/03/17 00:36 Diabetes panel 08/31/17 Range/Units 01:19 Sodium 142 (136-145) mEq/L Potassium 2.5 L* (3.5-5.1) mEq/L Chloride 110 H (98-107) mEq/L Carbon Dioxide 20 L (23-29) mEq/L BUN 12 (8-23) mg/dL Creatinine 0.57 L (0.60-1.20) mg/dL Glucose 104 (70-105) mg/dL Calcium 8.3 L (8.6-10.3) mg/dL AST 24 (13-39) Units/L ALT 17 (7-52) Units/L Alkaline Phosphatase 66 (34-104) Units/L Albumin 3.1 L (3.5-5.7) g/dL Calcium panel 06/25/18 Range/Units 01:19 Calcium 8.3 L (8.6-10.3) mg/dL Albumin 3.1 L (3.5-5.7) g/dL Pituitary panel 08/31/17 Range/Units 01:19 Sodium 142 (136-145) mEq/L Potassium 2.5 L* (3.5-5.1) mEq/L Chloride 110 H (98-107) mEq/L Carbon Dioxide 20 L (23-29) mEq/L BUN 12 (8-23) mg/dL Creatinine 0.57 L (0.60-1.20) mg/dL Glucose 104 (70-105) mg/dL Calcium 8.3 L (8.6-10.3) mg/dL Adrenal panel 08/31/17 Range/Units 01:19 Sodium 142 (136-145) mEq/L Potassium 2.5 L* (3.5-5.1) mEq/L Chloride 110 H (98-107) mEq/L Carbon Dioxide 20 L (23-29) mEq/L BUN 12 (8-23) mg/dL Creatinine 0.57 L (0.60-1.20) mg/dL Glucose 104 (70-105) mg/dL Calcium 8.3 L (8.6-10.3) mg/dL Total Bilirubin 0.7 (0.3-1.0) mg/dL AST 24 (13-39) Units/L ALT 17 (7-52) Units/L Alkaline Phosphatase 66 (34-104) Units/L Albumin 3.1 L (3.5-5.7) g/dL - Attending Attestation I have personally performed a face to face evaluation on this patient. I have reviewed and agree with the care plan. History and Exam by me shows:
[2017-08-31 15:45] LABS: BUN/Creatinine Ratio 18 (6-26); Blood Urea Nitrogen 9 mg/dL (8-23); Calcium 8.4 mg/dL (8.6-10.3); Carbon Dioxide 24 mEq/L (23-29); Chloride 105 mEq/L (98-107); Glucose 138 mg/dL (70-105); Osmolality,Calculated 287 (280-300); Potassium 2.8 mEq/L (3.5-5.1); Sodium 138 mEq/L (136-145); eGFR For African Americans > 60 (> 60); eGFR For Non-African Americans > 60 (> 60)
[2017-08-31] MEDS: Ampicillin/Sulbactam 3,000 MG in 0.9 % Sodium Chloride Mini Bag 100 ML IVPB SCH ×2 (18:03→23:19)
[2017-08-31 19:15] LABS: Estimated Average Glucose 126 mg/dl
[2017-08-31] MEDS: Ipratropium/Albuterol Neb 3 ML IH SCH ×2 (20:02→22:34)
[2017-08-31] MEDS: Latanoprost 2.5 ML BOTTLE BOTH EYES SCH (21:07)
[2017-08-31] MEDS: Dorzolamide/Timolol OPTH 10 ML BOTTLE BOTH EYES SCH (21:07)
[2017-09-01] MEDS: Ipratropium/Albuterol Neb 3 ML IH SCH ×4 (04:19→22:42)
[2017-09-01] MEDS: OXYCODONE Oral CONC 10 MG/0.5 ML ORAL.SYG SL PRN ×3 (04:22→20:25)
[2017-09-01] MEDS: Ampicillin/Sulbactam 3,000 MG in 0.9 % Sodium Chloride Mini Bag 100 ML IVPB SCH ×3 (05:35→23:14)
[2017-09-01] MEDS: Pantoprazole 40 MG VIAL IVP SCH ×2 (05:35→17:32)
[2017-09-01] MEDS: *HR* Heparin 5,000 UNIT/ML VIAL SQ SCH ×2 (05:36→17:33)
[2017-09-01 07:26] LABS: Eosinophils # 0.3 K/mcL (0.0-0.6); Hematocrit 26.8 % (35.3-44.9); Hemoglobin 8.8 g/dL (11.5-15.4); Mean Corpuscular HGB Conc 32.8 g/dL (31.6-35.5); Mean Corpuscular Hemoglobin 27.2 pg (28.0-33.3); Mean Platelet Volume 9.8 fL (9.4-12.4); Monocytes # 1.1 K/mcL (0.0-1.3); Nucleated Red Blood Cells 0.2 /100 WBC (0); Platelet Count 319 K/mcL (140-400); Red Blood Count 3.23 M/mcL (3.82-4.97); Red Cell Distribution Width 15.3 % (11.5-14.5)
[2017-09-01 07:33] LABS: Adenovirus Not Detected (Not Detect); Bordetella Pertussis Not Detected (Not Detect); Chlamydophila pneumoniae Not Detected (Not Detect); Coronavirus 229E Not Detected (Not Detect); Coronavirus HKU1 Not Detected (Not Detect); Coronavirus NL63 Not Detected (Not Detect); Coronavirus OC43 Not Detected (Not Detect); Human Metapneumovirus Not Detected (Not Detect); Human Rhinovirus/Enterovirus Not Detected (Not Detect); Influenza A Subtype 2009 H1 Not Detected (Not Detect); Influenza A Untypeable Not Detected (Not Detect); Influenza B Not Detected (Not Detect); Mycoplasma pneumoniae Not Detected (Not Detect); Parainfluenza Virus 1 Not Detected (Not Detect); Parainfluenza Virus 2 Not Detected (Not Detect); Parainfluenza Virus 3 Not Detected (Not Detect); Parainfluenza Virus 4 Not Detected (Not Detect); Respiratory Syncytial Virus Not Detected (Not Detect)
[2017-09-01 07:36] LABS: INR 1.4; Prothrombin Time 14.7 Seconds (9.4-12.1)
[2017-09-01 07:50] LABS: Alanine Aminotransferase 14 Units/L (7-52); Albumin 2.7 g/dL (3.5-5.7); Alkaline Phosphatase 58 Units/L (34-104); Aspartate Amino Transferase 19 Units/L (13-39); BUN/Creatinine Ratio 23 (6-26); Bilirubin,Direct 0.4 mg/dL (0.0-0.2); Bilirubin,Indirect 0.3 mg/dL (0.0-1.2); Bilirubin,Total 0.7 mg/dL (0.3-1.0); Blood Urea Nitrogen 12 mg/dL (8-23); Calcium 7.8 mg/dL (8.6-10.3); Carbon Dioxide 25 mEq/L (23-29); Chloride 105 mEq/L (98-107); Globulin 2.7 g/dL (2.4-3.5); Glucose 108 mg/dL (70-105); Lipase 53 Units/L (11-82); Osmolality,Calculated 288 (280-300); Potassium 2.7 mEq/L (3.5-5.1); Sodium 139 mEq/L (136-145); Total Protein 5.4 g/dL (6.4-8.9); eGFR For African Americans > 60 (> 60); eGFR For Non-African Americans > 60 (> 60)
--- NOTE | 2017-09-01 08:09 | General Surgery Progress Note ---
<Bhumika Avelar - Last Filed: 09/01/17 08:07> Date of Encounter: 09/01/17 Time of Encounter: 07:30 - Assessment and Plan (1) Transaminitis Current Visit: Yes Status: Acute As noted per Dr. Umaña yesterday, patient with resolved pancreatitis. MRI abdomen showed gallstones, no duct dilation, pancreatitis presumably from gallstones recommend cholecystectomy, patient was cautiously added to OR schedule for 09/01; however given her continued hypokalemia and respiratory status, this has been canceled. Reviewed with patient and family that timing of surgical intervention would be dependent upon this. All verbalized understanding. Plan: No surgical intervention today pending family discussion, hypokalemia, and pulmonary status; may return to previous diet IVF and electrolyte replacement per primary team optimize pulmonary status per primary team surgical intervention timing pending above and attending discussion with family continue IV antibiotics as indicated Final recommendations pending attestation statement. (2) Hypokalemia Current Visit: Yes Status: Acute Management per primary team Surgery did replace potassium this am as we had ordered the labs, but she will likely need rechecked and replaced this afternoon per primary team. (3) SOB (shortness of breath) Current Visit: Yes Status: Acute Resp rate remains 25 per my count. Able to speak in 2-32 word sentences at rest , becomes increasingly labored with prolonged conversation. Would recommend that pulmonary status be optimized prior to surgical intervention Subjective Patient reports: feels better, still having pain, pain is less, tolerating liquids well, voiding w/o difficulty, flatus, shortness of breath, afebrile Objective Vital Signs - Last 8 Hours Temp Pulse Resp BP Pulse Ox 09/01/17 07:46 98.7 F 79 22 129/51 94 09/01/17 04:19 18 131/48 94 09/01/17 04:08 98.8 F 84 18 131/48 94 Intake and Output 08/31/17 09/01/17 09/01/17 23:59 07:59 15:59 Intake Total 200 / 200 Output Total 2530 / 2530 400 / 400 Balance -2330 / -2330 -400 / -400 Intake: IV Fluids 200 / 200 Unasyn 3,000 MG In 0.9 % Sodium 200 / 200 Chloride (Mini-Bag +) 100 ML @ 200 mls/hr IVPB Q6HR [facility] Rx#: [id number] Output: Catheter 2530 / 2530 400 / 400 Other: Weight 75.8 kg Blood Glucose* 135 102 Patient Weight 09/01/17 23:59 Weight 75.8 kg VITAL SIGNS: Reviewed. See [facility] GENERAL: In no apparent distress. Remains Short of breath at rest. HEENT: Normocephalic, atraumatic, pupils are equal and reactive, extraocular motions intact, oropharynx is pink and moist, there is no neck adenopathy or JVD noted. CHEST/RESPIRATORY: The thorax is free from signs of trauma. Lung sounds: decreased and tight, BLUL wheezing on inspiration CARDIAC: distant heart tones. RRR. VASCULAR: generalized lower extremity Edema. 2+ peripheral pulses. ABDOMEN: soft, obese, tender to palpation in the right upper quadrant and epigastric area, hypoactive bowel sounds MUSCULOSKELETAL: Good range of motion of all major joints. Extremities without clubbing, cyanosis or edema. NEUROLOGIC EXAM: Alert and oriented x 3. Speech normal. Follows commands. PSYCHIATRIC: Mood normal. SKIN: ecchymosis to the left arm. Stage I pressure ulcer to the left upper outer arm. - Labs 09/01/17 07:14 09/01/17 07:14 Diabetes panel 08/28/17 08/31/17 08/31/17 Range/Units 03:45 01:19 15:07 Sodium 142 138 (136-145) mEq/L Potassium 2.5 L* 2.8 L (3.5-5.1) mEq/L Chloride 110 H 105 (98-107) mEq/L Carbon Dioxide 20 L 24 (23-29) mEq/L BUN 12 9 (8-23) mg/dL Creatinine 0.57 L 0.51 L (0.60-1.20) mg/dL Glucose 104 138 H (70-105) mg/dL Hemoglobin A1c 6.0 H ( - 5.6) % Calcium 8.3 L 8.4 L (8.6-10.3) mg/dL AST 24 (13-39) Units/L ALT 17 (7-52) Units/L Alkaline Phosphatase 66 (34-104) Units/L Albumin 3.1 L (3.5-5.7) g/dL 09/01/17 Range/Units 07:14 Sodium 139 (136-145) mEq/L Potassium 2.7 L (3.5-5.1) mEq/L Chloride 105 (98-107) mEq/L Carbon Dioxide 25 (23-29) mEq/L BUN 12 (8-23) mg/dL Creatinine 0.53 L (0.60-1.20) mg/dL Glucose 108 H (70-105) mg/dL Hemoglobin A1c ( - 5.6) % Calcium 7.8 L (8.6-10.3) mg/dL AST 19 (13-39) Units/L ALT 14 (7-52) Units/L Alkaline Phosphatase 58 (34-104) Units/L Albumin 2.7 L (3.5-5.7) g/dL Calcium panel 08/31/17 08/31/17 09/01/17 Range/Units 01:19 15:07 07:14 Calcium 8.3 L 8.4 L 7.8 L (8.6-10.3) mg/dL Albumin 3.1 L 2.7 L (3.5-5.7) g/dL Pituitary panel 08/31/17 08/31/17 09/01/17 Range/Units 01:19 15:07 07:14 Sodium 142 138 139 (136-145) mEq/L Potassium 2.5 L* 2.8 L 2.7 L (3.5-5.1) mEq/L Chloride 110 H 105 105 (98-107) mEq/L Carbon Dioxide 20 L 24 25 (23-29) mEq/L BUN 12 9 12 (8-23) mg/dL Creatinine 0.57 L 0.51 L 0.53 L (0.60-1.20) mg/dL Glucose 104 138 H 108 H (70-105) mg/dL Calcium 8.3 L 8.4 L 7.8 L (8.6-10.3) mg/dL Adrenal panel 08/31/17 08/31/17 09/01/17 Range/Units 01:19 15:07 07:14 Sodium 142 138 139 (136-145) mEq/L Potassium 2.5 L* 2.8 L 2.7 L (3.5-5.1) mEq/L Chloride 110 H 105 105 (98-107) mEq/L Carbon Dioxide 20 L 24 25 (23-29) mEq/L BUN 12 9 12 (8-23) mg/dL Creatinine 0.57 L 0.51 L 0.53 L (0.60-1.20) mg/dL Glucose 104 138 H 108 H (70-105) mg/dL Calcium 8.3 L 8.4 L 7.8 L (8.6-10.3) mg/dL Total Bilirubin 0.7 0.7 (0.3-1.0) mg/dL AST 24 19 (13-39) Units/L ALT 17 14 (7-52) Units/L Alkaline Phosphatase 66 58 (34-104) Units/L Albumin 3.1 L 2.7 L (3.5-5.7) g/dL Consult Discharge Plan - Plan Referrals: Enedina Oates MD [Primary Care Provider] - 09/07/17 4:30 pm <Rosario Umaña - Last Filed: 09/03/17 13:27> Date of Encounter: 09/01/17 - Assessment and Plan (1) Gallstone pancreatitis Current Visit: Yes Status: Acute patient oxygen requirements increasing daily congtinue aggressive pulmonary toilet not a surgical candidate at this time will continue to assess daily patient may need to be discharged to rehab and allowed to regain strength and resolve pneumonia before surgery is option (2) Pneumonia Current Visit: Yes Status: Acute patient being treated for pneumonia Qualifiers: Pneumonia type: due to unspecified organism Laterality: right Lung location: lower lobe of lung Qualified Code(s): J18.1 - Lobar pneumonia, unspecified organism Subjective Patient reports: feels better, still having pain, pain is less, tolerating liquids well, flatus, shortness of breath Objective Vital Signs - Last 8 Hours Temp Pulse Resp BP Pulse Ox 09/03/17 11:36 98.7 F 69 19 124/57 95 09/03/17 10:31 18 98 09/03/17 06:48 98.5 F 72 18 138/62 97 Intake and Output 09/02/17 09/03/17 09/03/17 23:59 07:59 15:59 Intake Total 100 / 100 720 / 720 120 / 120 Output Total 50 / 50 200 / 200 Balance 50 / 50 520 / 520 120 / 120 Intake: IV Fluids 100 / 100 720 / 720 Unasyn 3,000 MG In 0.9 % Sodium 100 / 100 200 / 200 Chloride (Mini-Bag +) 100 ML @ 200 mls/hr IVPB Q6HR [facility] Rx#: [id number] Calcium Gluconate 1,000 MG In 0 0 / 0 220 / 220 .9 % Sodium Chloride 100 ML @ 220 mls/hr IVPB Q6HR [facility] Rx#: [id number] Potassium Chloride 10 mEq/100mL 300 / 300 10 meq In 100 ml @ 100 mls/hr IVPB Q1H [facility] Rx#:[id number] Oral 120 / 120 Output: Catheter 50 / 50 200 / 200 Other: Meal Breakfast Percent of Meal Consumed 25% Weight 75.5 kg Blood Glucose* 98 Patient Weight 09/03/17 23:59 Weight 75.5 kg - General physical appearance well nourished, no distress, obese, other (deconditioned) - Eyes normal ocular movement - ENT normal mucosa, normocephalic - Neck Neck exam: trachea midline - Respiratory normal expansion, clear to auscultation, other (improved conversational dyspnea but not resolved) - Cardiovascular Cardiovascular exam: Present: RRR - Abdomen Abdomen: Present: soft, tender. Absent: guarding, rebound - Integumentary no rash, no growths - Neurologic normal sensation - Musculoskeletal normal posture - Psychiatric oriented to time, oriented to person, oriented to place, speech is normal, memory intact - Labs 09/03/17 00:36 09/03/17 00:36 Diabetes panel 09/02/17 09/02/17 09/03/17 Range/Units 09:44 09:44 00:36 Sodium Cancelled 137 138 Potassium Cancelled 3.5 D 3.2 L Chloride Cancelled 102 104 Carbon Dioxide Cancelled 24 26 BUN Cancelled 16 16 Creatinine Cancelled 0.55 L 0.54 L Glucose Cancelled 172 H 109 H Calcium Cancelled 8.1 L 8.1 L Calcium panel 09/02/17 09/02/17 09/03/17 Range/Units 09:44 09:44 00:36 Calcium Cancelled 8.1 L 8.1 L Phosphorus 2.7 2.8 (2.7-4.5) mg/dL Pituitary panel 09/02/17 09/02/17 09/03/17 Range/Units 09:44 09:44 00:36 Sodium Cancelled 137 138 Potassium Cancelled 3.5 D 3.2 L Chloride Cancelled 102 104 Carbon Dioxide Cancelled 24 26 BUN Cancelled 16 16 Creatinine Cancelled 0.55 L 0.54 L Glucose Cancelled 172 H 109 H Calcium Cancelled 8.1 L 8.1 L Adrenal panel 09/02/17 09/02/17 09/03/17 Range/Units 09:44 09:44 00:36 Sodium Cancelled 137 138 Potassium Cancelled 3.5 D 3.2 L Chloride Cancelled 102 104 Carbon Dioxide Cancelled 24 26 BUN Cancelled 16 16 Creatinine Cancelled 0.55 L 0.54 L Glucose Cancelled 172 H 109 H Calcium Cancelled 8.1 L 8.1 L - Attending Attestation I have personally performed a face to face evaluation on this patient. I have reviewed and agree with the care plan. History and Exam by me shows:
[2017-09-01 08:10] LABS: Anisocytosis 1+ (Not Present); Lymphocytes # 1.3 K/mcL (0.6-4.6); Neutrophils # 10.4 K/mcL (1.6-8.9); Toxic Granulation Present (Not Present)
[2017-09-01 08:11] LABS: Polychromasia 1+ (Not Present)
[2017-09-01 08:12] LABS: Platelet Estimate Normal (Normal)
[2017-09-01] MEDS ORDERED: Potassium Chloride 40 MEQ, Lidocaine 1% 2 ML in D5% in Water 500 ML IVPB ONE (08:15)
[2017-09-01] MEDS: Aspirin 81 MG TAB.CHEW PO SCH (08:53)
[2017-09-01] MEDS: Dorzolamide/Timolol OPTH 10 ML BOTTLE BOTH EYES SCH ×2 (08:54→21:03)
--- NOTE | 2017-09-01 09:31 | Infectious Disease Progress No ---
Date of Encounter: 09/01/17 Time of Encounter: 09:29 - Assessment and Plan (1) Sepsis Current Visit: Yes Status: Acute Patient initially had 2 SIRS criteria and is currently tachypneic Source is likely intra-abdominal Blood cultures 2/2 positive for VRE Qualifiers: Sepsis type: sepsis due to unspecified organism Qualified Code(s): A41.9 - Sepsis, unspecified organism (2) VRE bacteremia Current Visit: Yes Status: Acute Blood cultures initially 2/2 for VRE Repeat cultures on 08/29 negative so far Source likely intra-abdominal in setting of acute pancreatitis Patient has had 3 doses of Zosyn and Daptomycin Discontinued Daptomycin and start with Unasyn 08/31 Duration depends on clinical picture, but likely 2 weeks from negative culture (3) Multifocal pneumonia Current Visit: Yes Status: Acute CTA demonstrated multifocal airspace disease Will continue on Unasyn as above RIP negative Awaiting sputum culture and Legionella/pneuococcal urinary antigens Depending on clinical course, consider repeat CXR in 48 hrs (4) Acute pancreatitis Current Visit: Yes Status: Acute Qualifiers: Pancreatitis type: biliary Acute pancreatitis complication: unspecified Qualified Code(s): K85.10 - Biliary acute pancreatitis without necrosis or infection (5) Cholelithiasis Current Visit: Yes Status: Acute Qualifiers: Cholelithiasis location: gallbladder Cholecystitis presence: with cholecystitis Cholecystitis acuity: chronic Biliary obstruction: without biliary obstruction Qualified Code(s): K80.10 - Calculus of gallbladder with chronic cholecystitis without obstruction (6) Pleural effusion Current Visit: Yes Status: Acute (7) Troponin level elevated Current Visit: Yes Status: Acute (8) History of cerebral aneurysm repair Current Visit: Yes Status: Acute - Subjective Interval history: Pt seen and examined. She states her breathing is slightly better today but still has a non-productive cough. Her abdominal pain has improved as well and she has not had any episodes of nausea, vomiting, or diarrhea. No fever or chest pain. Infect Dis PN-Objective Data - Labs CBC & Chem 7: 09/01/17 07:14 09/01/17 07:14 Labs: Laboratory Results - last 24 hr 08/27/17 08/28/17 08/31/17 14:05 03:45 05:44 WBC RBC Hgb Hct MCV MCH MCHC RDW Plt Count MPV Seg Neutrophils % Band Neutrophils % Lymphocytes % Monocytes % Eosinophils % Metamyelocytes % Neutrophils # Lymphocytes # Monocytes # Eosinophils # Nucleated RBCs/100 WBC Toxic Granulation Platelet Estimate Polychromasia Anisocytosis PT INR Sodium Potassium Chloride Carbon Dioxide BUN Creatinine Est GFR ( Amer) Est GFR (Non-Af Amer) BUN/Creatinine Ratio Glucose POC Glucose 142 H Est Mean Plasma Glucose 126 Hemoglobin A1c 6.0 H Calculated Osmolality Calcium Total Bilirubin Direct Bilirubin Indirect Bilirubin AST ALT Alkaline Phosphatase Serum Total Protein Albumin Globulin Albumin/Globulin Ratio Lipase IgG4 12 ÓSCAR Screen NONE DETECTED Chlamy pneumoniae PCR Adenovirus (PCR) B. pertussis DNA (PCR) B.parapertussis DNA PCR Coronavirus OC43 (PCR) Coronavirus HKU1 (PCR) Coronavirus 229E (PCR) Coronavirus NL63 (PCR) Human Metapneumovir PCR Influenza A (H1) PCR Influ A (H1N1) PCR Influenza A (H3) PCR Influenza A Untype (PCR) Influenza Type B (PCR) M.pneumoniae DNA (PCR) Parainfluenza 1 (PCR) Parainfluenza 2 (PCR) Parainfluenza 3 (PCR) Parainfluenza 4 (PCR) RSV (PCR) Entero/Rhino (PCR) Specimen Rejected 08/31/17 08/31/17 08/31/17 11:36 14:46 15:07 WBC RBC Hgb Hct MCV MCH MCHC RDW Plt Count MPV Seg Neutrophils % Band Neutrophils % Lymphocytes % Monocytes % Eosinophils % Metamyelocytes % Neutrophils # Lymphocytes # Monocytes # Eosinophils # Nucleated RBCs/100 WBC Toxic Granulation Platelet Estimate Polychromasia Anisocytosis PT INR Sodium 138 Potassium 2.8 L Chloride 105 Carbon Dioxide 24 BUN 9 Creatinine 0.51 L Est GFR ( Amer) > 60 Est GFR (Non-Af Amer) > 60 BUN/Creatinine Ratio 18 Glucose 138 H POC Glucose 152 H Est Mean Plasma Glucose Hemoglobin A1c Calculated Osmolality 287 Calcium 8.4 L Total Bilirubin Direct Bilirubin Indirect Bilirubin AST ALT Alkaline Phosphatase Serum Total Protein Albumin Globulin Albumin/Globulin Ratio Lipase IgG4 ÓSCAR Screen Chlamy pneumoniae PCR Adenovirus (PCR) B. pertussis DNA (PCR) B.parapertussis DNA PCR Coronavirus OC43 (PCR) Coronavirus HKU1 (PCR) Coronavirus 229E (PCR) Coronavirus NL63 (PCR) Human Metapneumovir PCR Influenza A (H1) PCR Influ A (H1N1/) PCR Influenza A (H3) PCR Influenza A Untype (PCR) Influenza Type B (PCR) M.pneumoniae DNA (PCR) Parainfluenza 1 (PCR) Parainfluenza 2 (PCR) Parainfluenza 3 (PCR) Parainfluenza 4 (PCR) RSV (PCR) Entero/Rhino (PCR) Specimen Rejected Hemolyzed 08/31/17 09/01/17 09/01/17 17:00 00:12 06:26 WBC RBC Hgb Hct MCV MCH MCHC RDW Plt Count MPV Seg Neutrophils % Band Neutrophils % Lymphocytes % Monocytes % Eosinophils % Metamyelocytes % Neutrophils # Lymphocytes # Monocytes # Eosinophils # Nucleated RBCs/100 WBC Toxic Granulation Platelet Estimate Polychromasia Anisocytosis PT INR Sodium Potassium Chloride Carbon Dioxide BUN Creatinine Est GFR ( Amer) Est GFR (Non-Af Amer) BUN/Creatinine Ratio Glucose POC Glucose 135 H 102 H Est Mean Plasma Glucose Hemoglobin A1c Calculated Osmolality Calcium Total Bilirubin Direct Bilirubin Indirect Bilirubin AST ALT Alkaline Phosphatase Serum Total Protein Albumin Globulin Albumin/Globulin Ratio Lipase IgG4 ÓSCAR Screen Chlamy pneumoniae PCR Not Detected Adenovirus (PCR) Not Detected B. pertussis DNA (PCR) Not Detected B.parapertussis DNA PCR Not Detected Coronavirus OC43 (PCR) Not Detected Coronavirus HKU1 (PCR) Not Detected Coronavirus 229E (PCR) Not Detected Coronavirus NL63 (PCR) Not Detected Human Metapneumovir PCR Not Detected Influenza A (H1) PCR Not Detected Influ A (H1N1/09) PCR Not Detected Influenza A (H3) PCR Not Detected Influenza A Untype (PCR) Not Detected Influenza Type B (PCR) Not Detected M.pneumoniae DNA (PCR) Not Detected Parainfluenza 1 (PCR) Not Detected Parainfluenza 2 (PCR) Not Detected Parainfluenza 3 (PCR) Not Detected Parainfluenza 4 (PCR) Not Detected RSV (PCR) Not Detected Entero/Rhino (PCR) Not Detected Specimen Rejected 09/01/17 09/01/17 09/01/17 07:14 07:14 07:14 WBC 13.1 H RBC 3.23 L Hgb 8.8 L Hct 26.8 L MCV 83.0 MCH 27.2 L MCHC 32.8 RDW 15.3 H Plt Count 319 MPV 9.8 Seg Neutrophils % 74.0 Band Neutrophils % 5.0 H Lymphocytes % 10.0 Monocytes % 8.0 Eosinophils % 2.0 Metamyelocytes % 1.0 H Neutrophils # 10.4 H Lymphocytes # 1.3 Monocytes # 1.1 Eosinophils # 0.3 Nucleated RBCs/100 WBC 0.2 H Toxic Granulation Present A Platelet Estimate Normal Polychromasia 1+ A Anisocytosis 1+ A PT 14.7 H INR 1.4 Sodium 139 Potassium 2.7 L Chloride 105 Carbon Dioxide 25 BUN 12 Creatinine 0.53 L Est GFR ( Amer) > 60 Est GFR (Non-Af Amer) > 60 BUN/Creatinine Ratio 23 Glucose 108 H POC Glucose Est Mean Plasma Glucose Hemoglobin A1c Calculated Osmolality 288 Calcium 7.8 L Total Bilirubin 0.7 Direct Bilirubin 0.4 H Indirect Bilirubin 0.3 AST 19 ALT 14 Alkaline Phosphatase 58 Serum Total Protein 5.4 L Albumin 2.7 L Globulin 2.7 Albumin/Globulin Ratio 1.0 L Lipase 53 IgG4 ÓSCAR Screen Chlamy pneumoniae PCR Adenovirus (PCR) B. pertussis DNA (PCR) B.parapertussis DNA PCR Coronavirus OC43 (PCR) Coronavirus HKU1 (PCR) Coronavirus 229E (PCR) Coronavirus NL63 (PCR) Human Metapneumovir PCR Influenza A (H1) PCR Influ A (H1N1/09) PCR Influenza A (H3) PCR Influenza A Untype (PCR) Influenza Type B (PCR) M.pneumoniae DNA (PCR) Parainfluenza 1 (PCR) Parainfluenza 2 (PCR) Parainfluenza 3 (PCR) Parainfluenza 4 (PCR) RSV (PCR) Entero/Rhino (PCR) Specimen Rejected Cultures: Cultures 08/29/17 08:46 Blood Culture - Preliminary Peripheral Venipuncture Culture is incubating and being continuously monitored for growth. Final report to follow. 08/29/17 08:46 Blood Culture - Preliminary Peripheral Venipuncture Culture is incubating and being continuously monitored for growth. Final report to follow. Serology 09/01/17 Range/Units 06:26 Chlamy pneumoniae PCR Not Detected (Not Detect) Adenovirus (PCR) Not Detected (Not Detect) B. pertussis DNA (PCR) Not Detected (Not Detect) B.parapertussis DNA PCR Not Detected (Not Detect) Coronavirus OC43 (PCR) Not Detected (Not Detect) Coronavirus HKU1 (PCR) Not Detected (Not Detect) Coronavirus 229E (PCR) Not Detected (Not Detect) Coronavirus NL63 (PCR) Not Detected (Not Detect) Human Metapneumovir PCR Not Detected (Not Detect) Influenza A (H1) PCR Not Detected (Not Detect) Influ A (H1N1/09) PCR Not Detected (Not Detect) Influenza A (H3) PCR Not Detected (Not Detect) Influenza A Untype (PCR) Not Detected (Not Detect) Influenza Type B (PCR) Not Detected (Not Detect) M.pneumoniae DNA (PCR) Not Detected (Not Detect) Parainfluenza 1 (PCR) Not Detected (Not Detect) Parainfluenza 2 (PCR) Not Detected (Not Detect) Parainfluenza 3 (PCR) Not Detected (Not Detect) Parainfluenza 4 (PCR) Not Detected (Not Detect) RSV (PCR) Not Detected (Not Detect) Entero/Rhino (PCR) Not Detected (Not Detect) Exam - Constitutional Vitals: Temp Pulse Resp BP Pulse Ox 98.7 F 79 22 129/51 94 09/01/17 07:46 09/01/17 07:46 09/01/17 07:46 09/01/17 07:46 09/01/17 07:46 General appearance: cooperative, no acute distress, no febrile - Head Head exam: Present: atraumatic, normocephalic - Respiratory Respiratory exam: Present: rales. Absent: accessory muscle use, decreased breath sounds, wheezes - Cardiovascular Cardiovascular exam: Present: RRR. Absent: irregular rhythm, systolic murmur, tachycardia - Extremities Exam Extremities exam: Present: normal inspection. Absent: pedal edema Consult Discharge Plan - Plan Referrals: Enedina Oates MD [Primary Care Provider] - 09/07/17 4:30 pm - Attending Attestation I examined this patient and my medical decision-making was reviewed with the Resident Physician. I agree with the documented findings, disposition and treatment plan as described except to the extent set forth below.
[2017-09-01] MEDS ORDERED: Furosemide 20 MG/2 ML VIAL IVP ONE (09:59)
--- NOTE | 2017-09-01 10:06 | Internal Med Progress Note ---
Date of Encounter: 09/01/17 Time of Encounter: 09:58 - Assessment and plan (1) Cholelithiasis Current Visit: Yes Status: Acute Assessment and plan: Contributing pancreatitis most likely. Sterile persistent right upper quadrant pain. Surgeon on board and there was planned to get surgery today but canceled due to electrolyte imbalance and pulmonary status. Therefore will resume the diet as recommended by speech therapist, correct underlying electrolyte imbalance. Ordered magnesium level. Repeat BMP later today. Also consulted bunch breaker machine operator to assess lung status Qualifiers: Cholelithiasis location: gallbladder Biliary obstruction: without biliary obstruction Qualified Code(s): K80.20 - Calculus of gallbladder without cholecystitis without obstruction (2) SOB (shortness of breath) Current Visit: Yes Status: Acute Assessment and plan: Still getting dyspneic spells even on rest. Have been diuresing her gently with good urine output. Continue breathing treatment. Repeat chest x-ray. Consulted bunch breaker machine operator for further evaluation. Lasix 20 mg IV 1 given now. Will correct electrolyte imbalance with close monitoring. CT angiogram chest and abdomen order with finding of bibasilar pleural effusion and ascites. IV fluid was stopped and IV Lasix was given. strict I/O (3) Pleural effusion Current Visit: Yes Status: Acute Assessment and plan: lungs sound better. no IV fluid, a strict I&O, gentle diuresis (4) Acute pancreatitis Current Visit: Yes Status: Acute Assessment and plan: resolved. normal lipase. Developed volume overload therefore IV fluid stop. GI specialist on board. Patient has cholelithiasis therefore consulted general surgeon when clinically stable for possible cholecystectomy. No gallstone present on CT. Fasting lipid profile report reviewed. Repeat lactic acid within normal limits. Consulted information writer who ordered MRCP with finding of cholelithiasis and confirmed pancreatitis . Qualifiers: Pancreatitis type: biliary Acute pancreatitis complication: unspecified Qualified Code(s): K85.10 - Biliary acute pancreatitis without necrosis or infection (5) Bacteremia Current Visit: Yes Status: Acute Assessment and plan: Blood culture with VRE therefore consulted ID specialist who advised to his start daptomycin 6 mg/kg 483 g every 24 hours with baseline CPK and stopped Zosyn. repeat blood culture with no growth yet (6) Anemia Current Visit: Yes Status: Acute Assessment and plan: stable hemoglobin since admission. No active bleeding. Qualifiers: Anemia type: unspecified type Qualified Code(s): D64.9 - Anemia, unspecified (7) CARMELINA (acute kidney injury) Current Visit: Yes Status: Acute Assessment and plan: Resolved. Continue to monitor BMP. Onset most likely prerenal. (8) HTN (hypertension) Current Visit: Yes Status: Acute Assessment and plan: In the ED she was hypotensive, now normal blood pressure. Holding PO meds will give hydralazine 10mg Q6H prn. Qualifiers: Hypertension type: essential hypertension Qualified Code(s): I10 - Essential (primary) hypertension (9) Transaminitis Current Visit: Yes Status: Acute Assessment and plan: Now normal but initially Elevated AST and ALT most likely 2/2 to the pancreatitis. (10) Hyperglycemia Current Visit: Yes Status: Acute Assessment and plan: Better controlled glucose after starting sliding scale insulin. Continue Accu- Chek. (11) Lactic acidosis Current Visit: Yes Status: Acute Assessment and plan: Sepsis but now normal lactic acid after addressing underlying cause (12) Hyperlipidemia Current Visit: Yes Status: Acute Assessment and plan: Patient states that she has a hx of hyperlipidemia but has been unable to take the medications; lipid panel revealed with normal triglyceride Qualifiers: Hyperlipidemia type: unspecified Qualified Code(s): E78.5 - Hyperlipidemia , unspecified (13) Weakness generalized Current Visit: Yes Status: Acute Assessment and plan: due to above. PT ordered. sw for d/c plan (14) Troponin level elevated Current Visit: Yes Status: Acute (15) Dysphagia Current Visit: Yes Status: Acute Assessment and plan: Evaluated by speech therapist and recommended honey thickened diet and advised for modified barium swallow study that is scheduled for today. Qualifiers: Dysphagia type: unspecified Qualified Code(s): R13.10 - Dysphagia, unspecified (16) DVT prophylaxis Current Visit: No Status: Acute - Time Spent With Patient Total time spent is greater than 50% in coordination of care (as documented) at patient's floor/unit and/or counseling patient: - Subjective Interval history: Patient still dyspneic spells even on rest. Dry cough intermittently. Plan for modified barium swallow study as recommended by speech therapist. denied chest pain. still c/o RUQ abdomen pain and better with pain med. Patient had 1 dose of Lasix yesterday and had good diuresis. Complained of abdominal pain better. Denies fever overnight, chills, nausea, chest pain, headache, dizziness vomiting. review of the lab with trending down white count, normal creatinine level . low K level, stable hemoglobin Blood culture positive for VRE but repeat blood culture no growth yet. - Constitutional Vitals: Temp Pulse Resp BP Pulse Ox 98.7 F 79 22 129/51 94 09/01/17 07:46 09/01/17 07:46 09/01/17 07:46 09/01/17 07:46 09/01/17 07:46 Exam: General appearance: No acute distress, A&O X 3, and has difficulty in completing whole sentence. nasal cannula oxygen. Head exam: Atraumatic Eye exam: EOMI, PERRLA ENT exam: Moist oral mucosa Neck nontender, supple Respiratory exam: Basal crepitation bilaterally-better Cardiovascular exam: Regular rate and rhythm, no systolic murmur Abdominal exam: Soft, RUQ tenderness,ascites, positive bowel sounds Extremities exam: No calf tenderness, no pedal edema Present: Skin- warm, dry, intact Neurological exam: Alert, awake, oriented 3, CN II-XII intact, no focal deficits. No facial droop. Internal Medicine: Result - Labs CBC & Chem 7: 09/01/17 07:14 09/01/17 07:14 Labs: Short CBC 09/01/17 Range/Units 07:14 WBC 13.1 H (4.3-11.1) K/mcL Hgb 8.8 L (11.5-15.4) g/dL Hct 26.8 L (35.3-44.9) % Plt Count 319 (140-400) K/mcL Neutrophils # 10.4 H (1.6-8.9) K/mcL BMP 08/31/17 09/01/17 15:07 07:14 Sodium 138 139 Potassium 2.8 L 2.7 L Chloride 105 105 Carbon Dioxide 24 25 BUN 9 12 Creatinine 0.51 L 0.53 L Glucose 138 H 108 H Calcium 8.4 L 7.8 L Liver Function 09/01/17 Range/Units 07:14 Total Bilirubin 0.7 (0.3-1.0) mg/dL Direct Bilirubin 0.4 H (0.0-0.2) mg/dL AST 19 (13-39) Units/L ALT 14 (7-52) Units/L Alkaline Phosphatase 58 (34-104) Units/L Albumin 2.7 L (3.5-5.7) g/dL - ABG Interpretation ABG results: ABG ABG pH 7.36 pH Units (7.32-7.45) 08/29/17 17:10 ABG pCO2 27 mmHg (35-45) L 08/29/17 17:10 ABG pO2 86 mmHg (85-104) 08/29/17 17:10 ABG O2 Saturation 96 % (95-98) 08/29/17 17:10 PT/INR, D-dimer PT 14.7 Seconds (9.4-12.1) H 09/01/17 07:14 D-Dimer 6767 ng/mLFEU (0-500) H 08/29/17 17:10 Consult Discharge Plan - Plan Referrals: Enedina Oates MD [Primary Care Provider] - 09/07/17 4:30 pm
--- NOTE | 2017-09-01 10:51 | Pulmonology Consult Note ---
Date of Encounter: 09/01/17 Time of Encounter: 10:30 Assessment and Plan (1) Acute respiratory failure with hypoxia Current Visit: Yes Status: Acute Patient is lying in the bed all the time will need to sit up patient needs to use incentive spirometry and flutter valve . Optimization before surgery to achieve as much euvolemia and complete the course of antibiotics . Patient will have shortness of breadth because of her underlying pathophysiology shortness of breadth can be better . Patient before surgery will need ABG that will helps us characterize post operative respiratoru failure risk . If he surgery is urgent which can be life saving patient should be considered for surgery under higher post operative respiratory failure risk . (2) CHF (congestive heart failure) Current Visit: Yes Status: Acute Patient has findings of Acute on chronic diastolic heart failure patient will need Blood pressure control , diuresis . Qualifiers: Heart failure type: diastolic Heart failure chronicity: acute on chronic Qualified Code(s): I50.33 - Acute on chronic diastolic (congestive) heart failure (3) Pneumonia Current Visit: Yes Status: Acute Patient has multifocal airspace disease more in favor of Pulmonary edema than pneumonia . It is reasonable to continue antibiotics . 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 To continue diuresis as per primary team . History of Present Illness Consult date: 09/01/17 Requesting physician: Chel Bates Reason for consult: dyspnea, abnormal CXR/CT Chief complaint: shortness of breadth and hypoxic respiratory failure History of present illness: 81 year old female with past medical history of HTN came with pancreatitis and also has gallbladder disease was fluid resuscitated developed pulmonary edema / Multifocal pneumonia which developed during the hospital course the main symptom is shortness of breadth denies any much cough or sputum production , denies any fever or chills , denies any much chest pain or tightness , denies any much Neuro or GERD symptoms . CTA showed multifocal airspace disease more consistent with pulmonary edema rather than pneumonia no evidence of PE , ECHO shows diastolic dysfunction with LA and dilated RA with Moderate Pulmonary Hypertension . Pulmonary consulted for the evaluation of Shortness of breadth with hypoxic respiratory failure for preoperative optimization before her potential gall bladder surgery . Past Med Surg Social Fam HX - Past Medical History Medical history: hypertension Additional medical history: joint pain Psychiatric history: anxiety - Past Surgical History Surgical History: no surgical history Additional surgical history: carpel tunnel. annueysom in front of brain( balloon repair) - Social History Smoking Status: Never smoker Smokeless Tobacco Status: No Alcohol use: none Drug use: none - Family History Mother Living Status: Father Living Status: Medications and Allergies Atenolol [Tenormin] 50 mg PO BID 05/23/16 [History] Travoprost [Travatan Z] 1 drop OP HS 05/23/16 [History] amLODIPine [Norvasc] 5 mg PO DAILY 05/23/16 [History] Dorzolamide/Timolol [Cosopt] 1 drop BOTH EYES BID 08/27/17 [History] Escitalopram [Lexapro] 5 mg PO DAILY 08/27/17 [History] Valsartan/Hydrochlorothiazide [Diovan Hct 320-12.5 mg Tab] 1 tab PO DAILY [History] 3 Allergy/AdvReac Type Severity Reaction Status Date / Time codeine Allergy Rash Verified 03/27/17 14:48 nitrofurantoin Allergy Rash Verified 03/27/17 14:48 [From Macrodantin] Sulfa (Sulfonamide Allergy Hives Verified 03/27/17 14:48 Antibiotics) All Systems: The remainder of the systems were reviewed and are negative Physical Examination Vital Signs: Vital Signs, Last 4 Hours Temp Pulse Resp BP Pulse Ox 09/01/17 10:03 22 94 09/01/17 07:46 98.7 F 79 22 129/51 94 Auscultation: bilateral: diminished breath sounds (bibasilar diminshed breadth sounds ) Gastrointestinal: hypoactive bowel sounds, other (RUQ tenderness ) Extremities: no edema Results - Laboratory Findings CBC and BMP: 09/01/17 07:14 09/01/17 16:45 ABG ABG pH 7.36 pH Units (7.32-7.45) 08/29/17 17:10 ABG pCO2 27 mmHg (35-45) L 08/29/17 17:10 ABG pO2 86 mmHg (85-104) 08/29/17 17:10 ABG O2 Saturation 96 % (95-98) 08/29/17 17:10 PT/INR, D-dimer PT 14.7 Seconds (9.4-12.1) H 09/01/17 07:14 D-Dimer 6767 ng/mLFEU (0-500) H 08/29/17 17:10 Abnormal lab findings: Abnormal lab results WBC 13.1 K/mcL (4.3-11.1) H 09/01/17 07:14 RBC 3.23 M/mcL (3.82-4.97) L 09/01/17 07:14 Hgb 8.8 g/dL (11.5-15.4) L 09/01/17 07:14 Hct 26.8 % (35.3-44.9) L 09/01/17 07:14 MCH 27.2 pg (28.0-33.3) L 09/01/17 07:14 RDW 15.3 % (11.5-14.5) H 09/01/17 07:14 Band Neutrophils % 5.0 % (0-4) H 09/01/17 07:14 Metamyelocytes % 1.0 % (0) H 09/01/17 07:14 Neutrophils # 10.4 K/mcL (1.6-8.9) H 09/01/17 07:14 Nucleated RBCs/100 WBC 0.2 /100 WBC (0) H 09/01/17 07:14 Toxic Granulation Present (Not Present) A 09/01/17 07:14 Polychromasia 1+ (Not Present) A 09/01/17 07:14 Anisocytosis 1+ (Not Present) A 09/01/17 07:14 PT 14.7 Seconds (9.4-12.1) H 09/01/17 07:14 APTT 56.6 Seconds (26.0-36.0) H D 08/30/17 09:19 D-Dimer 6767 ng/mLFEU (0-500) H 08/29/17 17:10 ABG pCO2 27 mmHg (35-45) L 08/29/17 17:10 ABG HCO3 15 mEq/L (21-27) L 08/29/17 17:10 ABG Total CO2 16 mEq/L (20-26) L 08/29/17 17:10 ABG Base Excess -9 mEq/L (-2 to 3) L 08/29/17 17:10 Potassium 2.7 mEq/L (3.5-5.1) L 09/01/17 07:14 Creatinine 0.53 mg/dL (0.60-1.20) L 09/01/17 07:14 Glucose 108 mg/dL (70-105) H 09/01/17 07:14 POC Glucose 102 mg/dL (70-99) H 09/01/17 00:12 Hemoglobin A1c 6.0 % (-5.6) H 08/28/17 03:45 Calcium 7.8 mg/dL (8.6-10.3) L 09/01/17 07:14 Venous Ioniz Calcium 1.06 mmol/L (1.15-1.35) L 08/29/17 04:53 Direct Bilirubin 0.4 mg/dL (0.0-0.2) H 09/01/17 07:14 Troponin I 0.26 ng/mL (< 0.04) H* 08/30/17 05:35 B-Natriuretic Peptide 482 pg/mL (Less than 100) H 08/29/17 17:10 Serum Total Protein 5.4 g/dL (6.4-8.9) L 09/01/17 07:14 Albumin 2.7 g/dL (3.5-5.7) L 09/01/17 07:14 Albumin/Globulin Ratio 1.0 (1.1-2.2) L 09/01/17 07:14 Cholesterol 212 mg/dL (< 200) H 08/27/17 07:24 LDL Cholesterol, Calc 153 mg/dL (0-99) H 08/27/17 07:24 HDL Cholesterol 39 mg/dL (40-59) L 08/27/17 07:24 Cholesterol/HDL Ratio 5.4 (0-4.9) H 08/27/17 07:24 Urine Clarity Cloudy (Clear) A 08/26/17 22:57 Urine Protein 30 mg/dL (Neg-Trace) H 08/26/17 22:57 Ur Leukocyte Esterase Moderate (Negative) H 08/26/17 22:57 Urine Microscopic RBC 3-5 per hpf (0-3) H 08/26/17 22:57 Urine Microscopic WBC 5-15 per hpf (0-3) H 08/26/17 22:57 Ur Squamous Epith Cells Many per lpf (None-Few) H 08/26/17 22:57 Urine Bacteria Many per hpf (None-Few) H 08/26/17 22:57 Ur Culture Indicated? NO. (NO) A 08/26/17 22:57 Enterococcus sp PCR DETECTED (Not Detect) A 08/26/17 23:20 - Clinical Findings Intake & Output: Intake & Output 08/31/17 09/01/17 09/01/17 23:59 07:59 15:59 Intake Total 200 / 200 Output Total 2530 / 2530 400 / 400 Balance -2330 / -2330 -400 / -400 Weight 76.2 kg Consult Discharge Plan - Plan Referrals: Enedina Oates MD [Primary Care Provider] - 09/07/17 4:30 pm
--- NOTE | 2017-09-01 16:49 | Electrocardiograph Report ---
[address] [place], [place] [address] Test Date: 2017-08-29 Pat Name: Ghada Acevedo Department: 115 Room: 2N01 Gender: F Foundation Relations Manager: : [id number] Requested By: Chel Bates Order Number: [id number] Reading MD: Radha Joy Measurements Intervals [place] Rate: 111 P: 50 [place]: 159 QRS: 5 QRSD: 93 T: 17 QT: 331 QTc: 396 Interpretive Statements SINUS TACHYCARDIA LOW QRS VOLTAGE IN PRECORDIAL LEADS POSSIBLE ANTERIOR MYOCARDIAL INFARCTION, PROBABLY OLD ABNORMAL RHYTHM ECG Electronically Signed On 09-01-2017 16:47:43 EDT by Radha Joy
[2017-09-01 17:52] LABS: BUN/Creatinine Ratio 25 (6-26); Blood Urea Nitrogen 14 mg/dL (8-23); Carbon Dioxide 29 mEq/L (23-29); Chloride 102 mEq/L (98-107); Glucose 126 mg/dL (70-105); Osmolality,Calculated 288 (280-300); Potassium 2.8 mEq/L (3.5-5.1); Sodium 138 mEq/L (136-145); eGFR For African Americans > 60 (> 60); eGFR For Non-African Americans > 60 (> 60)
[2017-09-01] MEDS: Latanoprost 2.5 ML BOTTLE BOTH EYES SCH (21:03)
[2017-09-01 21:14] LABS: Magnesium 1.7 mg/dL (1.6-2.6); Phosphorous 1.8 mg/dL (2.7-4.5); Potassium 2.7 mEq/L (3.5-5.1)
[2017-09-01 21:18] LABS: VBG Ionized Calcium 1.05 mmol/L (1.15-1.35)
[2017-09-01] MEDS: Potassium Phosphate 44 MEQ in 0.9 % Sodium Chloride 250 ML IVPB PRN (22:04)
[2017-09-02] MEDS: OXYCODONE Oral CONC 10 MG/0.5 ML ORAL.SYG SL PRN ×3 (02:17→22:27)
[2017-09-02] MEDS: Ipratropium/Albuterol Neb 3 ML IH SCH ×4 (04:34→21:56)
[2017-09-02] MEDS: Pantoprazole 40 MG VIAL IVP SCH ×2 (05:02→17:46)
[2017-09-02] MEDS: Ampicillin/Sulbactam 3,000 MG in 0.9 % Sodium Chloride Mini Bag 100 ML IVPB SCH ×3 (05:03→17:47)
[2017-09-02] MEDS: *HR* Heparin 5,000 UNIT/ML VIAL SQ SCH ×2 (05:48→17:46)
[2017-09-02] MEDS: Aspirin 81 MG TAB.CHEW PO SCH (08:35)
[2017-09-02] MEDS: Dorzolamide/Timolol OPTH 10 ML BOTTLE BOTH EYES SCH ×2 (08:37→20:59)
--- NOTE | 2017-09-02 09:39 | Infectious Disease Progress No ---
Date of Encounter: 09/02/17 Time of Encounter: 09:10 - Assessment and Plan (1) Sepsis Current Visit: Yes Status: Acute Patient initially had 2 SIRS criteria and is currently tachypneic Source is likely intra-abdominal Blood cultures 2/2 positive for VRE Qualifiers: Sepsis type: sepsis due to unspecified organism Qualified Code(s): A41.9 - Sepsis, unspecified organism (2) VRE bacteremia Current Visit: Yes Status: Acute Blood cultures initially 2/2 for VRE Repeat cultures on 08/29 negative so far Source likely intra-abdominal in setting of acute pancreatitis Patient has had 3 doses of Zosyn and Daptomycin Discontinued Daptomycin and start with Unasyn 08/31 Duration depends on clinical picture, but likely 2 weeks from negative culture (3) Multifocal pneumonia Current Visit: Yes Status: Acute CTA demonstrated multifocal airspace disease Will continue on Unasyn as above RIP and Legionella/pneuococcal urinary antigens negative Awaiting sputum culture Depending on clinical course, consider repeat CXR if no improvement (4) Acute pancreatitis Current Visit: Yes Status: Acute Qualifiers: Pancreatitis type: biliary Acute pancreatitis complication: unspecified Qualified Code(s): K85.10 - Biliary acute pancreatitis without necrosis or infection (5) Cholelithiasis Current Visit: Yes Status: Acute Qualifiers: Cholelithiasis location: gallbladder Cholecystitis presence: with cholecystitis Cholecystitis acuity: chronic Biliary obstruction: without biliary obstruction Qualified Code(s): K80.10 - Calculus of gallbladder with chronic cholecystitis without obstruction (6) Pleural effusion Current Visit: Yes Status: Acute (7) Troponin level elevated Current Visit: Yes Status: Acute (8) History of cerebral aneurysm repair Current Visit: Yes Status: Acute - Subjective Interval history: Pt seen and examined. She states her breathing is better and she feels better overall now that her belly pain has improved as well. Denies any fever, chest pain, nausea, vomiting, or diarrhea. Infect Dis PN-Objective Data - Labs CBC & Chem 7: 09/02/17 15:58 09/02/17 09:44 Labs: Laboratory Results - last 24 hr 09/01/17 09/01/17 09/01/17 05:53 10:41 11:44 Sodium Potassium Chloride Carbon Dioxide BUN Creatinine Est GFR ( Amer) Est GFR (Non-Af Amer) BUN/Creatinine Ratio Glucose POC Glucose 102 H 164 H Calculated Osmolality Calcium Venous Ioniz Calcium Phosphorus Magnesium 1.7 Stool Occult Blood 09/01/17 09/01/17 09/01/17 13:05 16:45 17:51 Sodium 138 Potassium 2.8 L Chloride 102 Carbon Dioxide 29 BUN 14 Creatinine 0.55 L Est GFR ( Amer) > 60 Est GFR (Non-Af Amer) > 60 BUN/Creatinine Ratio 25 Glucose 126 H POC Glucose 135 H Calculated Osmolality 288 Calcium 8.0 L Venous Ioniz Calcium Phosphorus Magnesium Stool Occult Blood Positive A 09/01/17 09/01/17 09/01/17 20:39 21:15 23:40 Sodium Potassium 2.7 L Chloride Carbon Dioxide BUN Creatinine Est GFR ( Amer) Est GFR (Non-Af Amer) BUN/Creatinine Ratio Glucose POC Glucose 121 H Calculated Osmolality Calcium Venous Ioniz Calcium 1.05 L Phosphorus 1.8 L Magnesium 1.7 Stool Occult Blood 09/02/17 05:48 Sodium Potassium Chloride Carbon Dioxide BUN Creatinine Est GFR ( Amer) Est GFR (Non-Af Amer) BUN/Creatinine Ratio Glucose POC Glucose 116 H Calculated Osmolality Calcium Venous Ioniz Calcium Phosphorus Magnesium Stool Occult Blood Cultures: Cultures 09/01/17 10:45 Legionella Antigen - Final Urine,Catheterized Streptococcus pneumoniae Antigen (M - Final 08/29/17 08:46 Blood Culture - Preliminary Peripheral Venipuncture Culture is incubating and being continuously monitored for growth. Final report to follow. 08/29/17 08:46 Blood Culture - Preliminary Peripheral Venipuncture Culture is incubating and being continuously monitored for growth. Final report to follow. Serology 09/01/17 09/01/17 Range/Units 13:05 06:26 Stool Occult Blood Positive A (Negative) Chlamy pneumoniae PCR Not Detected (Not Detect) Adenovirus (PCR) Not Detected (Not Detect) B. pertussis DNA (PCR) Not Detected (Not Detect) B.parapertussis DNA PCR Not Detected (Not Detect) Coronavirus OC43 (PCR) Not Detected (Not Detect) Coronavirus HKU1 (PCR) Not Detected (Not Detect) Coronavirus 229E (PCR) Not Detected (Not Detect) Coronavirus NL63 (PCR) Not Detected (Not Detect) Human Metapneumovir PCR Not Detected (Not Detect) Influenza A (H1) PCR Not Detected (Not Detect) Influ A (H1N1/09) PCR Not Detected (Not Detect) Influenza A (H3) PCR Not Detected (Not Detect) Influenza A Untype (PCR) Not Detected (Not Detect) Influenza Type B (PCR) Not Detected (Not Detect) M.pneumoniae DNA (PCR) Not Detected (Not Detect) Parainfluenza 1 (PCR) Not Detected (Not Detect) Parainfluenza 2 (PCR) Not Detected (Not Detect) Parainfluenza 3 (PCR) Not Detected (Not Detect) Parainfluenza 4 (PCR) Not Detected (Not Detect) RSV (PCR) Not Detected (Not Detect) Entero/Rhino (PCR) Not Detected (Not Detect) - Impressions Impressions Chest X-Ray 09/01/17 10:02 IMPRESSION: Worsening airspace opacities within the right lung. D/ / Paula Grimm MD / Paula Grimm MD Interpreting Provider: Paula Grimm MD Videofluoroscopic Swallow 09/01/17 11:24 IMPRESSION: Flash laryngeal penetration of thin barium. No evidence of aspiration. Please see separate speech pathology report for full discussion of findings and recommendations. D/ / 09/01/2017 14:44:33 Chato Grimm MD / [email or web address] Interpreting Provider: Chato Grimm MD Exam - Constitutional Vitals: Temp Pulse Resp BP Pulse Ox 98.4 F 71 18 105/48 95 09/02/17 07:13 09/02/17 07:13 09/02/17 07:13 09/02/17 07:13 09/02/17 07:13 General appearance: cooperative, no acute distress, no febrile - Head Head exam: Present: atraumatic, normocephalic - Respiratory Respiratory exam: Present: decreased breath sounds. Absent: accessory muscle use, rales, stridor, wheezes - Cardiovascular Cardiovascular exam: Present: RRR. Absent: irregular rhythm, systolic murmur, tachycardia - GI/Abdominal GI/Abdominal exam: Present: normal bowel sounds, soft. Absent: tenderness - Extremities Exam Extremities exam: Present: normal inspection. Absent: pedal edema, tenderness Consult Discharge Plan - Plan Referrals: Enedina Oates MD [Primary Care Provider] - 09/07/17 4:30 pm - Attending Attestation I examined this patient and my medical decision-making was reviewed with the Resident Physician. I agree with the documented findings, disposition and treatment plan as described except to the extent set forth below.
--- NOTE | 2017-09-02 09:45 | Pulmonology Progress Note ---
Date of Encounter: 09/02/17 Time of Encounter: 09:30 Assessment and Plan (1) Acute respiratory failure with hypoxia Current Visit: Yes Status: Acute Multifactorial Pulmonary edema with atelectasis less likely due to pneumonia. Patient didnt get his Incentive Spirometry and Flutter valve . To continue O2 supplementation will need O2 on discharge Will need the incentive Spirometry and flutter valve on discharge (2) CHF (congestive heart failure) Current Visit: Yes Status: Acute To continue diuresis will need education about and salt water restriction . Will need some outpatient diuretic regimen if she develops exacerbation of heart failure Qualifiers: Heart failure type: diastolic Heart failure chronicity: acute on chronic Qualified Code(s): I50.33 - Acute on chronic diastolic (congestive) heart failure (3) Pneumonia Current Visit: Yes Status: Acute To complete 7 day course of antibiotic. 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 Subjective Principal diagnosis: CHF and pneumonia with atelectasis Interval history: Patient is sitting says her shortness of breadth is lot better . Denies any chest pain or tightness Objective PUL Vital signs: Last Vital Signs Temp 98.4 F 09/02/17 07:13 Pulse 71 09/02/17 07:13 Resp 18 09/02/17 07:13 BP 105/48 09/02/17 07:13 Pulse Ox 95 09/02/17 07:13 Auscultation: bilateral: diminished breath sounds (bilateral basilar diminshed breadth sounds ) Gastrointestinal: other (RUQ tenderness) Extremities: other Results - Laboratory Findings CBC and BMP: 09/01/17 07:14 09/02/17 09:44 ABG ABG pH 7.36 pH Units (7.32-7.45) 08/29/17 17:10 ABG pCO2 27 mmHg (35-45) L 08/29/17 17:10 ABG pO2 86 mmHg (85-104) 08/29/17 17:10 ABG O2 Saturation 96 % (95-98) 08/29/17 17:10 PT/INR, D-dimer PT 14.7 Seconds (9.4-12.1) H 09/01/17 07:14 D-Dimer 6767 ng/mLFEU (0-500) H 08/29/17 17:10 Abnormal lab findings: Abnormal lab results WBC 13.1 K/mcL (4.3-11.1) H 09/01/17 07:14 RBC 3.23 M/mcL (3.82-4.97) L 09/01/17 07:14 Hgb 8.8 g/dL (11.5-15.4) L 09/01/17 07:14 Hct 26.8 % (35.3-44.9) L 09/01/17 07:14 MCH 27.2 pg (28.0-33.3) L 09/01/17 07:14 RDW 15.3 % (11.5-14.5) H 09/01/17 07:14 Band Neutrophils % 5.0 % (0-4) H 09/01/17 07:14 Metamyelocytes % 1.0 % (0) H 09/01/17 07:14 Neutrophils # 10.4 K/mcL (1.6-8.9) H 09/01/17 07:14 Nucleated RBCs/100 WBC 0.2 /100 WBC (0) H 09/01/17 07:14 Toxic Granulation Present (Not Present) A 09/01/17 07:14 Polychromasia 1+ (Not Present) A 09/01/17 07:14 Anisocytosis 1+ (Not Present) A 09/01/17 07:14 PT 14.7 Seconds (9.4-12.1) H 09/01/17 07:14 APTT 56.6 Seconds (26.0-36.0) H D 08/30/17 09:19 D-Dimer 6767 ng/mLFEU (0-500) H 08/29/17 17:10 ABG pCO2 27 mmHg (35-45) L 08/29/17 17:10 ABG HCO3 15 mEq/L (21-27) L 08/29/17 17:10 ABG Total CO2 16 mEq/L (20-26) L 08/29/17 17:10 ABG Base Excess -9 mEq/L (-2 to 3) L 08/29/17 17:10 Potassium 2.7 mEq/L (3.5-5.1) L 09/01/17 20:39 Creatinine 0.55 mg/dL (0.60-1.20) L 09/01/17 16:45 Glucose 126 mg/dL (70-105) H 09/01/17 16:45 POC Glucose 116 mg/dL (70-99) H 09/02/17 05:48 Hemoglobin A1c 6.0 % (-5.6) H 08/28/17 03:45 Calcium 8.0 mg/dL (8.6-10.3) L 09/01/17 16:45 Venous Ioniz Calcium 1.05 mmol/L (1.15-1.35) L 09/01/17 21:15 Phosphorus 1.8 mg/dL (2.7-4.5) L 09/01/17 20:39 Direct Bilirubin 0.4 mg/dL (0.0-0.2) H 09/01/17 07:14 Troponin I 0.26 ng/mL (< 0.04) H* 08/30/17 05:35 B-Natriuretic Peptide 482 pg/mL (Less than 100) H 08/29/17 17:10 Serum Total Protein 5.4 g/dL (6.4-8.9) L 09/01/17 07:14 Albumin 2.7 g/dL (3.5-5.7) L 09/01/17 07:14 Albumin/Globulin Ratio 1.0 (1.1-2.2) L 09/01/17 07:14 Cholesterol 212 mg/dL (< 200) H 08/27/17 07:24 LDL Cholesterol, Calc 153 mg/dL (0-99) H 08/27/17 07:24 HDL Cholesterol 39 mg/dL (40-59) L 08/27/17 07:24 Cholesterol/HDL Ratio 5.4 (0-4.9) H 08/27/17 07:24 Urine Clarity Cloudy (Clear) A 08/26/17 22:57 Urine Protein 30 mg/dL (Neg-Trace) H 08/26/17 22:57 Ur Leukocyte Esterase Moderate (Negative) H 08/26/17 22:57 Urine Microscopic RBC 3-5 per hpf (0-3) H 08/26/17 22:57 Urine Microscopic WBC 5-15 per hpf (0-3) H 08/26/17 22:57 Ur Squamous Epith Cells Many per lpf (None-Few) H 08/26/17 22:57 Urine Bacteria Many per hpf (None-Few) H 08/26/17 22:57 Ur Culture Indicated? NO. (NO) A 08/26/17 22:57 Stool Occult Blood Positive (Negative) A 09/01/17 13:05 Enterococcus sp PCR DETECTED (Not Detect) A 08/26/17 23:20 - Microbiology Findings Microbiology Findings: Microbiology, Last 48 Hours 09/01/17 10:45 Legionella Antigen - Final Urine,Catheterized Streptococcus pneumoniae Antigen (M - Final - Clinical Findings Intake & Output: Intake & Output 09/01/17 09/02/17 09/02/17 23:59 07:59 15:59 Intake Total 570 / 570 300 / 300 Output Total 800 / 800 200 / 200 Balance -230 / -230 100 / 100 Weight 77 kg Consult Discharge Plan - Plan Referrals: Enedina Oates MD [Primary Care Provider] - 09/07/17 4:30 pm
[2017-09-02 10:13] LABS: VBG Ionized Calcium 1.05 mmol/L (1.15-1.35)
[2017-09-02 10:22] LABS: Magnesium 2.5 mg/dL (1.6-2.6); Phosphorous 2.7 mg/dL (2.7-4.5)
[2017-09-02 10:33] LABS: Potassium 3.5 mEq/L (3.5-5.1)
[2017-09-02 15:20] LABS: BUN/Creatinine Ratio 29 (6-26); Blood Urea Nitrogen 16 mg/dL (8-23); Calcium 8.1 mg/dL (8.6-10.3); Carbon Dioxide 24 mEq/L (23-29); Chloride 102 mEq/L (98-107); Glucose 172 mg/dL (70-105); Osmolality,Calculated 289 (280-300); Sodium 137 mEq/L (136-145); eGFR For African Americans > 60 (> 60); eGFR For Non-African Americans > 60 (> 60)
[2017-09-02 16:14] LABS: Hemoglobin 8.6 g/dL (11.5-15.4); Mean Corpuscular HGB Conc 31.9 g/dL (31.6-35.5); Mean Corpuscular Hemoglobin 26.8 pg (28.0-33.3); Mean Corpuscular Volume 84.1 fL (83.0-100.0); Nucleated Red Blood Cells 0.1 /100 WBC (0); Platelet Count 385 K/mcL (140-400); Red Blood Count 3.21 M/mcL (3.82-4.97); Red Cell Distribution Width 15.7 % (11.5-14.5)
[2017-09-02 16:48] LABS: Lymphocytes # 0.5 K/mcL (0.6-4.6); Monocytes # 0.8 K/mcL (0.0-1.3); Neutrophils # 14.7 K/mcL (1.6-8.9); Platelet Estimate Normal (Normal)
--- NOTE | 2017-09-02 18:33 | Internal Med Progress Note ---
Date of Encounter: 09/02/17 Time of Encounter: 18:27 - Assessment and plan (1) Cholelithiasis Current Visit: Yes Status: Acute Assessment and plan: Contributing pancreatitis most likely. Sterile persistent right upper quadrant pain. Surgery consulted; appreciate input. Looks to be stable from respiratory and electrolyte perspective; will check with surgery about plan for surgery. Continue diet as recommended by speech therapist. Repeat BMP in AM. Qualifiers: Cholelithiasis location: gallbladder Cholecystitis presence: with cholecystitis Cholecystitis acuity: chronic Biliary obstruction: without biliary obstruction Qualified Code(s): K80.10 - Calculus of gallbladder with chronic cholecystitis without obstruction (2) Transaminitis Current Visit: Yes Status: Resolved Assessment and plan: Resolved. (3) Acute pancreatitis Current Visit: Yes Status: Acute Assessment and plan: Resolved. Normal lipase. GI consulted; appreciate input. Patient has cholelithiasis and general surgery consulted for possible cholecystectomy. Qualifiers: Pancreatitis type: biliary Acute pancreatitis complication: unspecified Qualified Code(s): K85.10 - Biliary acute pancreatitis without necrosis or infection (4) HTN (hypertension) Current Visit: Yes Status: Chronic Assessment and plan: Normotensive. Continue PRN hydralazine. Qualifiers: Hypertension type: essential hypertension Qualified Code(s): I10 - Essential (primary) hypertension (5) Hyperglycemia Current Visit: Yes Status: Resolved Assessment and plan: Resolved. Discontinue accuchecks. (6) Lactic acidosis Current Visit: Yes Status: Resolved Assessment and plan: Resolved. (7) Hyperlipidemia Current Visit: Yes Status: Ruled-out Assessment and plan: Normal lipid panel. Qualifiers: Hyperlipidemia type: unspecified Qualified Code(s): E78.5 - Hyperlipidemia , unspecified (8) CARMELINA (acute kidney injury) Current Visit: Yes Status: Resolved Assessment and plan: Resolved. Recheck BMP in AM. (9) Anemia Current Visit: Yes Status: Chronic Assessment and plan: H/H stable. No active bleeding. Check CBC in AM. Qualifiers: Anemia type: unspecified type Qualified Code(s): D64.9 - Anemia, unspecified (10) Bacteremia Current Visit: Yes Status: Acute Assessment and plan: Blood culture with VRE. ID consulted; appreciate input. Continue IV unasyn. Repeat blood cultures no growth preliminary x 2. (11) SOB (shortness of breath) Current Visit: Yes Status: Acute Assessment and plan: Resolved. Hold diuresis for now. Continue nebs. Pulmonology consulted; appreciate input. Continue strict I/Os and daily weights. (12) Pleural effusion Current Visit: Yes Status: Acute Assessment and plan: Management as per above. (13) Troponin level elevated Current Visit: Yes Status: Acute Assessment and plan: No active chest pain. Cardiology consulted; appreciate input. As per cardiology, nonischemic and further intervention advised. Echocardiogram EF 70 % with no acute finding. Further recommendations as per shuttle car operator. (14) Weakness generalized Current Visit: Yes Status: Acute Assessment and plan: PT ordered. SW for discharge planning. (15) Dysphagia Current Visit: Yes Status: Acute Assessment and plan: Evaluated by speech therapist and recommended honey thickened diet. Qualifiers: Dysphagia type: unspecified Qualified Code(s): R13.10 - Dysphagia, unspecified (16) DVT prophylaxis Current Visit: No Status: Acute Assessment and plan: Continue SQ heparin and SCDs. - Time Spent With Patient Total time spent is greater than 50% in coordination of care (as documented) at patient's floor/unit and/or counseling patient: less than 15 minutes - Subjective Interval history: Patient had no acute events overnight. She states that she feels "much better" today. She denies any fever, chills, SOB, chest pain, nausea, vomiting, or abdominal pain. She has no complaints at this time. - Constitutional Vitals: Temp Pulse Resp BP Pulse Ox 98.6 F 66 14 125/74 97 09/02/17 16:57 09/02/17 16:57 09/02/17 16:57 09/02/17 16:57 09/02/17 16:57 General appearance: Present: cooperative, A&O X 3, pleasant, no acute distress, answers questions appropriately - Respiratory Respiratory exam: Present: CTAB. Absent: accessory muscle use, rales, rhonchi, wheezes Additional comments: Normal WOB - Cardiovascular Cardiovascular exam: Present: RRR, +S1, +S2. Absent: diastolic murmur, gallop, rubs, systolic murmur Additional comments: No BLE edema - GI/Abdominal GI/Abdominal exam: Present: normal bowel sounds, soft. Absent: distended, hepatomegaly, mass, splenomegaly, tenderness - Psychiatric Psychiatric exam: Present: normal affect, normal mood. Absent: agitated, anxious, depressed - Skin Skin exam: Present: dry, intact, warm. Absent: cyanosis, rash Internal Medicine: Result - Labs CBC & Chem 7: 09/02/17 15:58 09/02/17 09:44 Labs: Short CBC 09/02/17 Range/Units 15:58 WBC 16.0 H (4.3-11.1) K/mcL Hgb 8.6 L (11.5-15.4) g/dL Hct 27.0 L (35.3-44.9) % Plt Count 385 (140-400) K/mcL Neutrophils # 14.7 H (1.6-8.9) K/mcL BMP 09/01/17 09/02/17 09/02/17 20:39 09:44 09:44 Sodium Cancelled 137 Potassium 2.7 L Cancelled 3.5 D Chloride Cancelled 102 Carbon Dioxide Cancelled 24 BUN Cancelled 16 Creatinine Cancelled 0.55 L Glucose Cancelled 172 H Calcium Cancelled 8.1 L - ABG Interpretation ABG results: ABG ABG pH 7.36 pH Units (7.32-7.45) 08/29/17 17:10 ABG pCO2 27 mmHg (35-45) L 08/29/17 17:10 ABG pO2 86 mmHg (85-104) 08/29/17 17:10 ABG O2 Saturation 96 % (95-98) 08/29/17 17:10 PT/INR, D-dimer PT 14.7 Seconds (9.4-12.1) H 09/01/17 07:14 D-Dimer 6767 ng/mLFEU (0-500) H 08/29/17 17:10 Consult Discharge Plan - Plan Referrals: Enedina Oates MD [Primary Care Provider] - 09/07/17 4:30 pm
[2017-09-02] MEDS: Latanoprost 2.5 ML BOTTLE BOTH EYES SCH (20:59)
[2017-09-03 00:44] LABS: Basophils # 0.1 K/mcL (0.0-0.2); Basophils % 0.4 %; Eosinophils # 0.5 K/mcL (0.0-0.6); Eosinophils % 2.8 %; Hematocrit 27.3 % (35.3-44.9); Hemoglobin 8.6 g/dL (11.5-15.4); Immature Platelets 2.3 % (1.1-6.1); Lymphocytes % 11.3 %; Mean Corpuscular HGB Conc 31.5 g/dL (31.6-35.5); Mean Corpuscular Volume 85.8 fL (83.0-100.0); Monocytes # 1.4 K/mcL (0.0-1.3); Monocytes % 8.1 %; Neutrophils # 12.8 K/mcL (1.6-8.9); Nucleated Red Blood Cells 0.2 /100 WBC (0); Platelet Count 384 K/mcL (140-400); Red Blood Count 3.18 M/mcL (3.82-4.97); Red Cell Distribution Width 15.4 % (11.5-14.5); Segmented Neutrophils % 73.4 %
[2017-09-03 00:56] LABS: VBG Ionized Calcium 1.05 mmol/L (1.15-1.35); VBG PH 7.36 pH Units (7.32-7.42)
[2017-09-03 01:05] LABS: BUN/Creatinine Ratio 30 (6-26); Blood Urea Nitrogen 16 mg/dL (8-23); Calcium 8.1 mg/dL (8.6-10.3); Carbon Dioxide 26 mEq/L (23-29); Chloride 104 mEq/L (98-107); Glucose 109 mg/dL (70-105); Osmolality,Calculated 288 (280-300); Potassium 3.2 mEq/L (3.5-5.1); Sodium 138 mEq/L (136-145); eGFR For African Americans > 60 (> 60); eGFR For Non-African Americans > 60 (> 60)
[2017-09-03 01:16] LABS: Platelet Estimate Normal (Normal)
[2017-09-03] MEDS: Ampicillin/Sulbactam 3,000 MG in 0.9 % Sodium Chloride Mini Bag 100 ML IVPB SCH ×4 (03:05→17:39)
[2017-09-03 03:28] LABS: Magnesium 2.1 mg/dL (1.6-2.6); Phosphorous 2.8 mg/dL (2.7-4.5)
[2017-09-03] MEDS: Ipratropium/Albuterol Neb 3 ML IH SCH ×4 (03:57→22:56)
[2017-09-03] MEDS: *HR* Heparin 5,000 UNIT/ML VIAL SQ SCH ×2 (06:56→17:38)
[2017-09-03] MEDS: Pantoprazole 40 MG VIAL IVP SCH ×2 (06:56→17:39)
--- NOTE | 2017-09-03 08:16 | General Surgery Progress Note ---
Date of Encounter: 09/02/17 Time of Encounter: 12:55 - Assessment and Plan (1) Gallstone pancreatitis Current Visit: Yes Status: Acute patient doing much better from pancreatitis standpoint I do not feel at this point she is a good surgical candidate from a respiratory and physical deconditioning standpoint she is taking antibiotics for a pneumonia would hold off on surgery currently (imaging showed no duct dilation and no choledocholithiasis) and allow patient to physically become stronger and allow lungs to heal and bring back as maybe bring back as outpatient in future Subjective Patient reports: feels better, pain is less, tolerating liquids well, flatus, afebrile, other (still feels SOB) Objective Vital Signs - Last 8 Hours Temp Pulse Resp BP Pulse Ox 09/03/17 06:48 98.5 F 72 18 138/62 97 09/03/17 04:35 74 09/03/17 03:57 16 99 09/03/17 03:40 99.6 F 73 16 120/56 99 Intake and Output 09/02/17 09/03/17 09/03/17 23:59 07:59 15:59 Intake Total 100 / 100 720 / 720 Output Total 50 / 50 200 / 200 Balance 50 / 50 520 / 520 Intake: IV Fluids 100 / 100 720 / 720 Unasyn 3,000 MG In 0.9 % Sodium 100 / 100 200 / 200 Chloride (Mini-Bag +) 100 ML @ 200 mls/hr IVPB Q6HR [facility] Rx#: [id number] Calcium Gluconate 1,000 MG In 0 0 / 0 220 / 220 .9 % Sodium Chloride 100 ML @ 220 mls/hr IVPB Q6HR PRN Rx#: [id number] Potassium Chloride 10 mEq/100mL 300 / 300 10 meq In 100 ml @ 100 mls/hr IVPB Q1H PRN Rx#:[id number] Output: Catheter 50 / 50 200 / 200 Other: Weight 75.5 kg Blood Glucose* 98 Patient Weight 09/03/17 23:59 Weight 75.5 kg - General physical appearance well developed, no distress - Eyes normal ocular movement - ENT normal mucosa, normocephalic - Respiratory normal expansion, clear to auscultation, other (conversational dyspnea improved) - Abdomen Abdomen: Present: soft, tender (minimally, improved, less distended). Absent: guarding, rebound - Integumentary no abnormal pigmentation - Neurologic CN 2-12 grossly intact - Musculoskeletal normal posture - Psychiatric oriented to time, oriented to person, speech is normal, memory intact - Labs 09/03/17 00:36 09/03/17 00:36 Diabetes panel 09/02/17 09/02/17 09/03/17 Range/Units 09:44 09:44 00:36 Sodium Cancelled 137 138 Potassium Cancelled 3.5 D 3.2 L Chloride Cancelled 102 104 Carbon Dioxide Cancelled 24 26 BUN Cancelled 16 16 Creatinine Cancelled 0.55 L 0.54 L Glucose Cancelled 172 H 109 H Calcium Cancelled 8.1 L 8.1 L Calcium panel 09/02/17 09/02/17 09/03/17 Range/Units 09:44 09:44 00:36 Calcium Cancelled 8.1 L 8.1 L Phosphorus 2.7 2.8 (2.7-4.5) mg/dL Pituitary panel 09/02/17 09/02/17 09/03/17 Range/Units 09:44 09:44 00:36 Sodium Cancelled 137 138 Potassium Cancelled 3.5 D 3.2 L Chloride Cancelled 102 104 Carbon Dioxide Cancelled 24 26 BUN Cancelled 16 16 Creatinine Cancelled 0.55 L 0.54 L Glucose Cancelled 172 H 109 H Calcium Cancelled 8.1 L 8.1 L Adrenal panel 09/02/17 09/02/17 09/03/17 Range/Units 09:44 09:44 00:36 Sodium Cancelled 137 138 Potassium Cancelled 3.5 D 3.2 L Chloride Cancelled 102 104 Carbon Dioxide Cancelled 24 26 BUN Cancelled 16 16 Creatinine Cancelled 0.55 L 0.54 L Glucose Cancelled 172 H 109 H Calcium Cancelled 8.1 L 8.1 L Consult Discharge Plan - Plan Referrals: Enedina Oates MD [Primary Care Provider] - 09/07/17 4:30 pm
[2017-09-03] MEDS: Aspirin 81 MG TAB.CHEW PO SCH (08:19)
[2017-09-03] MEDS: Dorzolamide/Timolol OPTH 10 ML BOTTLE BOTH EYES SCH ×2 (08:19→21:02)
[2017-09-03] MEDS: OXYCODONE Oral CONC 10 MG/0.5 ML ORAL.SYG SL PRN ×3 (08:19→21:01)
--- NOTE | 2017-09-03 09:11 | Pulmonology Progress Note ---
Date of Encounter: 09/03/17 Time of Encounter: 09:10 Assessment and Plan (1) Acute respiratory failure with hypoxia Current Visit: Yes Status: Acute Multifactorial Pulmonary edema with atelectasis less likely due to pneumonia. Patient didnt get his Incentive Spirometry and Flutter valve . To continue O2 supplementation will need O2 on discharge Will need the incentive Spirometry and flutter valve on discharge (2) CHF (congestive heart failure) Current Visit: Yes Status: Acute To continue diuresis will need education about and salt water restriction . Will need some outpatient diuretic regimen if she develops exacerbation of heart failure Qualifiers: Heart failure type: diastolic Heart failure chronicity: acute on chronic Qualified Code(s): I50.33 - Acute on chronic diastolic (congestive) heart failure (3) Pneumonia Current Visit: Yes Status: Acute To complete 7-10 day course of antibiotic for suspected pneumonia since she is growing VRE in the blood most likely intraabdomial source ID is following will follow ID recs for home going antibiotic regimen Qualifiers: Pneumonia type: due to unspecified organism Laterality: right Lung location: lower lobe of lung Qualified Code(s): J18.1 - Lobar pneumonia, unspecified organism (4) Pulmonary HTN Current Visit: Yes Status: Chronic 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 Will sign off please call with questions Subjective Principal diagnosis: CHF and pneumonia with atelectasis Interval history: Patient is sitting says her shortness of breadth is lot better . Denies any chest pain or tightness . Patient is eating and drinking says she has not walked yet Objective PUL Vital signs: Last Vital Signs Temp 98.5 F 09/03/17 06:48 Pulse 72 09/03/17 06:48 Resp 18 09/03/17 06:48 BP 138/62 09/03/17 06:48 Pulse Ox 97 09/03/17 06:48 Auscultation: right: wheezes, other (scattered crackles ) Results - Laboratory Findings CBC and BMP: 09/03/17 00:36 09/03/17 00:36 ABG ABG pH 7.36 pH Units (7.32-7.45) 08/29/17 17:10 ABG pCO2 27 mmHg (35-45) L 08/29/17 17:10 ABG pO2 86 mmHg (85-104) 08/29/17 17:10 ABG O2 Saturation 96 % (95-98) 08/29/17 17:10 PT/INR, D-dimer PT 14.7 Seconds (9.4-12.1) H 09/01/17 07:14 D-Dimer 6767 ng/mLFEU (0-500) H 08/29/17 17:10 Abnormal lab findings: Abnormal lab results WBC 17.4 K/mcL (4.3-11.1) H 09/03/17 00:36 RBC 3.18 M/mcL (3.82-4.97) L 09/03/17 00:36 Hgb 8.6 g/dL (11.5-15.4) L 09/03/17 00:36 Hct 27.3 % (35.3-44.9) L 09/03/17 00:36 MCH 27.0 pg (28.0-33.3) L 09/03/17 00:36 MCHC 31.5 g/dL (31.6-35.5) L 09/03/17 00:36 RDW 15.4 % (11.5-14.5) H 09/03/17 00:36 Band Neutrophils % 5.0 % (0-4) H 09/02/17 15:58 Metamyelocytes % 1.0 % (0) H 09/01/17 07:14 Neutrophils # 12.8 K/mcL (1.6-8.9) H 09/03/17 00:36 Monocytes # 1.4 K/mcL (0.0-1.3) H 09/03/17 00:36 Nucleated RBCs/100 WBC 0.2 /100 WBC (0) H 09/03/17 00:36 Toxic Granulation Present (Not Present) A 09/01/17 07:14 Polychromasia 1+ (Not Present) A 09/01/17 07:14 Anisocytosis 1+ (Not Present) A 09/01/17 07:14 PT 14.7 Seconds (9.4-12.1) H 09/01/17 07:14 APTT 56.6 Seconds (26.0-36.0) H D 08/30/17 09:19 D-Dimer 6767 ng/mLFEU (0-500) H 08/29/17 17:10 ABG pCO2 27 mmHg (35-45) L 08/29/17 17:10 ABG HCO3 15 mEq/L (21-27) L 08/29/17 17:10 ABG Total CO2 16 mEq/L (20-26) L 08/29/17 17:10 ABG Base Excess -9 mEq/L (-2 to 3) L 08/29/17 17:10 Potassium 3.2 mEq/L (3.5-5.1) L 09/03/17 00:36 Creatinine 0.54 mg/dL (0.60-1.20) L 09/03/17 00:36 BUN/Creatinine Ratio 30 (6-26) H 09/03/17 00:36 Glucose 109 mg/dL (70-105) H 09/03/17 00:36 Hemoglobin A1c 6.0 % (-5.6) H 08/28/17 03:45 Calcium 8.1 mg/dL (8.6-10.3) L 09/03/17 00:36 Venous Ioniz Calcium 1.05 mmol/L (1.15-1.35) L 09/03/17 00:53 Direct Bilirubin 0.4 mg/dL (0.0-0.2) H 09/01/17 07:14 Troponin I 0.26 ng/mL (< 0.04) H* 08/30/17 05:35 B-Natriuretic Peptide 482 pg/mL (Less than 100) H 08/29/17 17:10 Serum Total Protein 5.4 g/dL (6.4-8.9) L 09/01/17 07:14 Albumin 2.7 g/dL (3.5-5.7) L 09/01/17 07:14 Albumin/Globulin Ratio 1.0 (1.1-2.2) L 09/01/17 07:14 Cholesterol 212 mg/dL (< 200) H 08/27/17 07:24 LDL Cholesterol, Calc 153 mg/dL (0-99) H 08/27/17 07:24 HDL Cholesterol 39 mg/dL (40-59) L 08/27/17 07:24 Cholesterol/HDL Ratio 5.4 (0-4.9) H 08/27/17 07:24 Urine Clarity Cloudy (Clear) A 08/26/17 22:57 Urine Protein 30 mg/dL (Neg-Trace) H 08/26/17 22:57 Ur Leukocyte Esterase Moderate (Negative) H 08/26/17 22:57 Urine Microscopic RBC 3-5 per hpf (0-3) H 08/26/17 22:57 Urine Microscopic WBC 5-15 per hpf (0-3) H 08/26/17 22:57 Ur Squamous Epith Cells Many per lpf (None-Few) H 08/26/17 22:57 Urine Bacteria Many per hpf (None-Few) H 08/26/17 22:57 Ur Culture Indicated? NO. (NO) A 08/26/17 22:57 Stool Occult Blood Positive (Negative) A 09/01/17 13:05 Enterococcus sp PCR DETECTED (Not Detect) A 08/26/17 23:20 - Microbiology Findings Microbiology Findings: Microbiology, Last 48 Hours 09/01/17 10:45 Legionella Antigen - Final Urine,Catheterized Streptococcus pneumoniae Antigen (M - Final - Clinical Findings Intake & Output: Intake & Output 09/02/17 09/03/17 09/03/17 23:59 07:59 15:59 Intake Total 100 / 100 720 / 720 Output Total 50 / 50 200 / 200 Balance 50 / 50 520 / 520 Weight 75.5 kg Consult Discharge Plan - Plan Referrals: Enedina Oates MD [Primary Care Provider] - 09/07/17 4:30 pm
--- NOTE | 2017-09-03 09:24 | Infectious Disease Progress No ---
Date of Encounter: 09/03/17 Time of Encounter: 09:10 - Assessment and Plan (1) Sepsis Current Visit: Yes Status: Acute Patient initially had 2 SIRS criteria and white count continues to increase to 17 Source is likely intra-abdominal Blood cultures 2/2 positive for VRE Will order repeat blood culture, CXR as patient's white count is worsening without any steroids Qualifiers: Sepsis type: sepsis due to unspecified organism Qualified Code(s): A41.9 - Sepsis, unspecified organism (2) VRE bacteremia Current Visit: Yes Status: Acute Blood cultures initially 2/2 for VRE Repeat cultures on 08/29 negative so far Source likely intra-abdominal in setting of acute pancreatitis Patient has had 3 doses of Zosyn and Daptomycin Discontinued Daptomycin and start with Unasyn 08/31 Duration depends on clinical picture, but likely 2 weeks from negative culture (3) Multifocal pneumonia Current Visit: Yes Status: Acute CTA demonstrated multifocal airspace disease Will continue on Unasyn as above RIP and Legionella/pneuococcal urinary antigens negative Awaiting sputum culture Repeat CXR (4) Acute pancreatitis Current Visit: Yes Status: Resolved Obtain repeat lipase, amylase, CMP Qualifiers: Pancreatitis type: biliary Acute pancreatitis complication: unspecified Qualified Code(s): K85.10 - Biliary acute pancreatitis without necrosis or infection (5) Cholelithiasis Current Visit: Yes Status: Acute Qualifiers: Cholelithiasis location: gallbladder Cholecystitis presence: with cholecystitis Cholecystitis acuity: chronic Biliary obstruction: without biliary obstruction Qualified Code(s): K80.10 - Calculus of gallbladder with chronic cholecystitis without obstruction (6) Pleural effusion Current Visit: Yes Status: Acute (7) Troponin level elevated Current Visit: Yes Status: Acute (8) History of cerebral aneurysm repair Current Visit: Yes Status: Acute - Subjective Interval history: Pt seen and examined. She states her breathing is about the same as yesterday and still not at her baseline as she is still on oxygen. States her bowel movement have improved as she has not had any overnight. Still has some right sided abdominal pain that radiates to her right chest. Denies any fever, chills , nausea, vomiting, diarrhea. Infect Dis PN-Objective Data - Labs CBC & Chem 7: 09/04/17 03:09 09/04/17 03:09 Labs: Laboratory Results - last 24 hr 06/09/02/17 09/02/17 09:44 09:44 10:09 WBC RBC Hgb Hct MCV MCH MCHC RDW Plt Count MPV Immature Gran % Seg Neutrophils % Band Neutrophils % Lymphocytes % Monocytes % Eosinophils % Basophils % Neutrophils # Lymphocytes # Monocytes # Eosinophils # Basophils # Nucleated RBCs/100 WBC Platelet Estimate Immature Plt Fraction VBG pH Sodium Cancelled 137 Potassium Cancelled 3.5 D Chloride Cancelled 102 Carbon Dioxide Cancelled 24 BUN Cancelled 16 Creatinine Cancelled 0.55 L Est GFR ( Amer) Cancelled > 60 Est GFR (Non-Af Amer) Cancelled > 60 BUN/Creatinine Ratio Cancelled 29 H Glucose Cancelled 172 H POC Glucose Calculated Osmolality Cancelled 289 Calcium Cancelled 8.1 L Venous Ioniz Calcium 1.05 L Phosphorus 2.7 Magnesium 2.5 09/02/17 09/02/17 09/02/17 12:13 15:58 16:51 WBC 16.0 H RBC 3.21 L Hgb 8.6 L Hct 27.0 L MCV 84.1 MCH 26.8 L MCHC 31.9 RDW 15.7 H Plt Count 385 MPV 10.0 Immature Gran % Seg Neutrophils % 87.0 Band Neutrophils % 5.0 H Lymphocytes % 3.0 Monocytes % 5.0 Eosinophils % Basophils % Neutrophils # 14.7 H Lymphocytes # 0.5 L Monocytes # 0.8 Eosinophils # Basophils # Nucleated RBCs/100 WBC 0.1 H Platelet Estimate Normal Immature Plt Fraction VBG pH Sodium Potassium Chloride Carbon Dioxide BUN Creatinine Est GFR ( Amer) Est GFR (Non-Af Amer) BUN/Creatinine Ratio Glucose POC Glucose 140 H 98 Calculated Osmolality Calcium Venous Ioniz Calcium Phosphorus Magnesium 09/03/17 09/03/17 09/03/17 00:36 00:36 00:53 WBC 17.4 H RBC 3.18 L Hgb 8.6 L Hct 27.3 L MCV 85.8 MCH 27.0 L MCHC 31.5 L RDW 15.4 H Plt Count 384 MPV 10.0 Immature Gran % 4.0 Seg Neutrophils % 73.4 Band Neutrophils % Lymphocytes % 11.3 Monocytes % 8.1 Eosinophils % 2.8 Basophils % 0.4 Neutrophils # 12.8 H Lymphocytes # 2.0 Monocytes # 1.4 H Eosinophils # 0.5 Basophils # 0.1 Nucleated RBCs/100 WBC 0.2 H Platelet Estimate Normal Immature Plt Fraction 2.3 VBG pH 7.36 Sodium 138 Potassium 3.2 L Chloride 104 Carbon Dioxide 26 BUN 16 Creatinine 0.54 L Est GFR ( Amer) > 60 Est GFR (Non-Af Amer) > 60 BUN/Creatinine Ratio 30 H Glucose 109 H POC Glucose Calculated Osmolality 288 Calcium 8.1 L Venous Ioniz Calcium 1.05 L Phosphorus 2.8 Magnesium 2.1 Cultures: Cultures 09/01/17 10:45 Legionella Antigen - Final Urine,Catheterized Streptococcus pneumoniae Antigen (M - Final 08/29/17 08:46 Blood Culture - Preliminary Peripheral Venipuncture Culture is incubating and being continuously monitored for growth. Final report to follow. 08/29/17 08:46 Blood Culture - Preliminary Peripheral Venipuncture Culture is incubating and being continuously monitored for growth. Final report to follow. Serology 09/01/17 09/01/17 Range/Units 13:05 06:26 Stool Occult Blood Positive A (Negative) Chlamy pneumoniae PCR Not Detected (Not Detect) Adenovirus (PCR) Not Detected (Not Detect) B. pertussis DNA (PCR) Not Detected (Not Detect) B.parapertussis DNA PCR Not Detected (Not Detect) Coronavirus OC43 (PCR) Not Detected (Not Detect) Coronavirus HKU1 (PCR) Not Detected (Not Detect) Coronavirus 229E (PCR) Not Detected (Not Detect) Coronavirus NL63 (PCR) Not Detected (Not Detect) Human Metapneumovir PCR Not Detected (Not Detect) Influenza A (H1) PCR Not Detected (Not Detect) Influ A (H1N1/09) PCR Not Detected (Not Detect) Influenza A (H3) PCR Not Detected (Not Detect) Influenza A Untype (PCR) Not Detected (Not Detect) Influenza Type B (PCR) Not Detected (Not Detect) M.pneumoniae DNA (PCR) Not Detected (Not Detect) Parainfluenza 1 (PCR) Not Detected (Not Detect) Parainfluenza 2 (PCR) Not Detected (Not Detect) Parainfluenza 3 (PCR) Not Detected (Not Detect) Parainfluenza 4 (PCR) Not Detected (Not Detect) RSV (PCR) Not Detected (Not Detect) Entero/Rhino (PCR) Not Detected (Not Detect) Exam - Constitutional Vitals: Temp Pulse Resp BP Pulse Ox 98.5 F 72 18 138/62 97 09/03/17 06:48 09/03/17 06:48 09/03/17 06:48 09/03/17 06:48 09/03/17 06:48 General appearance: cooperative, no acute distress, no febrile - Head Head exam: Present: atraumatic, normocephalic - Respiratory Respiratory exam: Present: CTAB. Absent: rales, respiratory distress, wheezes, tachypnea - Cardiovascular Cardiovascular exam: Present: RRR. Absent: irregular rhythm, systolic murmur, tachycardia - GI/Abdominal GI/Abdominal exam: Present: normal bowel sounds, soft, tenderness - Extremities Exam Extremities exam: Absent: pedal edema, tenderness Consult Discharge Plan - Plan Additional Instructions: Follow up with ECF physician in 1-2 days after discharge. Recheck BMP and CBC at that time. Adjust potassium and electrolyte supplementation as needed. Follow up on final hospital blood cultures. Follow up with general surgery as directed for possible outpatient cholecystectomy. Referrals: Enedina Oates MD [Primary Care Provider] - (This patient is going to [facility] no PCP appointment is needed) Prescriptions: Ampicillin/Sulbactam [Unasyn] 3,000 mg IVPB Q6HR 9 Days #36 vial Aspirin 81 mg PO DAILY 4 Days #4 tab.chew Omeprazole [PriLOSEC] 40 mg PO DAILY 4 Days #4 cap Potassium Chloride 40 meq PO DAILY PRN 4 Days #4 tab.er.prt PRN Reason: Hypokalemia - Attending Attestation I examined this patient and my medical decision-making was reviewed with the Resident Physician. I agree with the documented findings, disposition and treatment plan as described except to the extent set forth below.
--- NOTE | 2017-09-03 14:56 | Discharge Summary ---
- NOTES TO OUTPATIENT PROVIDER Notes to Outpatient Provider: Follow up with ECF physician in 1-2 days after discharge. Recheck BMP and CBC at that time. Adjust potassium and electrolyte supplementation as needed. Follow up on final hospital blood cultures. Follow up with general surgery as directed for possible outpatient cholecystectomy. Orders not resulted at time of discharge: Pending orders 08/31/17 14:13 Culture,Sputum with Gram Stain [RM] Routine 09/01/17 11:57 Bedside Spirometry Evaluation [EVAL] Routine 09/03/17 11:52 XR chest 1V portable [XR] Routine 09/03/17 12:03 Culture,Blood [BC] Routine 09/03/17 16:00 Calcium Routine Phosphorous Routine Potassium Timed 09/04/17 04:00 Amylase AM 0400 Comprehensive Metabolic Panel AM 0400 Lipase AM 0400 Date of Encounter: 09/03/17 Time of Encounter: 14:53 - Discharge Diagnosis (1) Cholelithiasis Priority: Primary Status: Acute Qualifiers: Cholelithiasis location: gallbladder Cholecystitis presence: with cholecystitis Cholecystitis acuity: chronic Biliary obstruction: without biliary obstruction Qualified Code(s): K80.10 - Calculus of gallbladder with chronic cholecystitis without obstruction (2) Transaminitis Priority: Secondary Status: Resolved (3) Acute pancreatitis Priority: Secondary Status: Resolved Qualifiers: Pancreatitis type: biliary Acute pancreatitis complication: unspecified Qualified Code(s): K85.10 - Biliary acute pancreatitis without necrosis or infection (4) HTN (hypertension) Priority: Secondary Status: Chronic Qualifiers: Hypertension type: essential hypertension Qualified Code(s): I10 - Essential (primary) hypertension (5) Hyperglycemia Priority: Secondary Status: Resolved (6) Lactic acidosis Priority: Secondary Status: Resolved (7) Hyperlipidemia Priority: Secondary Status: Chronic Qualifiers: Hyperlipidemia type: unspecified Qualified Code(s): E78.5 - Hyperlipidemia , unspecified (8) CARMELINA (acute kidney injury) Priority: Secondary Status: Resolved (9) Anemia Priority: Secondary Status: Chronic Qualifiers: Anemia type: unspecified type Qualified Code(s): D64.9 - Anemia, unspecified (10) Bacteremia Priority: Secondary Status: Acute (11) SOB (shortness of breath) Priority: Secondary Status: Acute (12) Pleural effusion Priority: Secondary Status: Acute (13) Troponin level elevated Priority: Secondary Status: Acute (14) Weakness generalized Priority: Secondary Status: Acute (15) Dysphagia Priority: Secondary Status: Acute Qualifiers: Dysphagia type: unspecified Qualified Code(s): R13.10 - Dysphagia, unspecified (16) DVT prophylaxis Priority: Secondary Status: Acute Hospital course: Ms. Acevedo is a 81 year old female admitted for abdominal pain and vomiting likely secondary to acute pancreatitis, cholecystitis, and transaminitis. She was admitted to general medical floor with telemetry. She was made NPO with IVF. BP medications held due to some hypotension. She had elevated lactic acid and met sepsis, so IV zosyn was started. MRI abdomen showed cholelithiasis without choledocholithiasis. GI was consulted. MRCP was done and was negative for any CBD stone. They suggested cholecystecomy once stable. She had some CARMELINA which resolved with continued hydration. Abdominal pain continued to improve, but she developed SOB with likely volume overload. She was gently diuresed. Pulmonology was consulted, and they agreed with gentle diuresis. Blood cultures came back positive for VRE. ID was consulted. She was placed on daptomycin and discontinued zosyn. She had acute respiratory decompensation. Troponin and d-dimer were elevated. Cardiology was consulted and started heparin drip. They felt mild troponin elevation was likely demand ischemia in the setting of pancreatitis and respiratory insufficiency. ECHO showed EF of 70% with no other new major abnormalities. Once stabilized from respiratory and cardiac perspective, surgery was consulted regarding possible cholecystecomy. They did not feel she was a good candidate yet. She continued to improve with her mental status, electrolyte abnormalities, and respiratory distress. Repeat blood cultures are negative on day 5 today. ID switched to IV unasyn for bacteremia and pneumonia. She will need 9 more days of IV antibiotics to complete 2 weeks of therapy post negative blood cultures. She was started on KCl 40 mEq daily for hypokalemia. She states that she is feeling good today, but still weak. PT/OT were consulted. SW still working on ECF placement. Patient will be discharged today pending ECF placement. She will follow up with ECF physician in 1-2 days after discharge. They can check BMP and CBC at that time. They can adjust potassium and electrolyte supplementation as needed. They can follow up on final hospital blood cultures. She will follow up with general surgery as directed for possible outpatient cholecystectomy. Patient has met maximum benefit of this hospitalization and will be discharged to ECF in stable condition. Discharge discussed with: patient, nurse, case management, other (Pharmacist) - Time Spent with Patient Total time spent providing and/or coordinating discharge services: Greater than 30 minutes - Discharge Medications Prescriptions: Ampicillin/Sulbactam [Unasyn] 3,000 mg IVPB Q6HR 9 Days #36 vial Aspirin 81 mg PO DAILY 4 Days #4 tab.chew Omeprazole [PriLOSEC] 40 mg PO DAILY 4 Days #4 cap Potassium Chloride 40 meq PO DAILY PRN 4 Days #4 tab.er.prt PRN Reason: Hypokalemia Home Medications: Atenolol [Tenormin] 50 mg PO BID 05/23/16 [History] Travoprost [Travatan Z] 1 drop OP HS 05/23/16 [History] Dorzolamide/Timolol [Cosopt] 1 drop BOTH EYES BID 08/27/17 [History] Escitalopram [Lexapro] 5 mg PO DAILY 08/27/17 [History] Valsartan/Hydrochlorothiazide [Diovan Hct 320-12.5 mg Tab] 1 tab PO DAILY [History] Ampicillin/Sulbactam [Unasyn] 3,000 mg IVPB Q6HR 9 Days #36 vial 09/03/17 [Rx] Aspirin 81 mg PO DAILY 4 Days #4 tab.chew 09/03/17 [Rx] Omeprazole [PriLOSEC] 40 mg PO DAILY 4 Days #4 cap 09/03/17 [Rx] Potassium Chloride 40 meq PO DAILY PRN 4 Days #4 tab.er.prt 09/03/17 [Rx] Allergies/Adverse Reactions: 3 Allergy/AdvReac Type Severity Reaction Status Date / Time codeine Allergy Rash Verified 03/27/17 14:48 nitrofurantoin Allergy Rash Verified 03/27/17 14:48 [From Macrodantin] Sulfa (Sulfonamide Allergy Hives Verified 03/27/17 14:48 Antibiotics) Date of admission: 08/27/17 09:20 Primary care physician: Enedina Oates MD Consults: 08/27/17 10:14 Consult to Gastroenterology [CONS] Routine Consulting Provider: Gastroenterology [facility] Reason for Consult: Pancreatitis with sepsis Call Completed: Yes 08/28/17 16:53 Consult to Invasive Line Access Team [CONS] Routine Reason for Consult: limited vascular access Line Type: EPIV 08/29/17 08:36 Consult to Infectious Diseases [CONS] Routine Consulting Provider: Infectious Disease [facility] Reason for Consult: VRE bacteremia Call Completed: Yes 08/29/17 18:09 Consult to Cardiology [CONS] Stat Comment: Consulting Provider: Cardiology [facility] Reason for Consult: raised Trop Call Completed: Yes 08/29/17 18:41 Consult to Neurology [CONS] Stat Consulting Provider: [facility] Reason for Consult: Opinion about starting blood thinner with h/o brain aneurysm 10 years ago Call Completed: Yes 08/30/17 09:49 Consult to Speech Therapy [CONS] Routine Comment: Evaluate, develop and implement POC Reason for Consult: evaluation of diet advancement Time Notified: 09:50 Call Completed: No 08/31/17 13:53 Consult to Surgery [CONS] Routine Consulting Provider: Surgery [facility] Reason for Consult: GB stone Call Completed: Yes 08/31/17 13:57 Consult to Physical Therapy [CONS] Routine Comment: Evaluate, develop and implement POC Reason for Consult: physiotherapy Does patient have active BEDREST order?: No Is patient medically & hemodynamically stable?: Yes Patient assessed for mobility or mobilized this visit?: No 08/31/17 14:05 Consult to Furniture Installer [CONS] Routine Reason for SW Consult: d/c plan 08/31/17 17:47 OT [Consult to Occupational Therapy] [CONS] Routine Comment: Evaluate, develop and implement POC Reason for Consult: deconditioning Does patient have active BEDREST order?: Yes Is patient medically & hemodynamically stable?: Yes Patient assessed for mobility or mobilized this visit?: Yes 09/01/17 10:00 Consult to Pulmonology [CONS] Routine Consulting Provider: [facility] Reason for Consult: pleural effusion Call Completed: Yes 09/03/17 13:45 Consult to Furniture Installer [CONS] Stat Reason for SW Consult: ECF Placement? Plan for discharge today/tomorrow. Discharging clinician: Joby Cavanaugh Anticipated date of discharge: 09/03/17 - Constitutional Vitals: Temp Pulse Resp BP Pulse Ox 98.7 F 69 19 124/57 95 09/03/17 11:36 09/03/17 11:36 09/03/17 11:36 09/03/17 11:36 09/03/17 11:36 General appearance: Present: cooperative, A&O X 3, pleasant, no acute distress, answers questions appropriately - Respiratory Respiratory exam: Present: CTAB. Absent: accessory muscle use, rales, rhonchi, wheezes Additional comments: Normal WOB - Cardiovascular Cardiovascular exam: Present: RRR, +S1, +S2. Absent: diastolic murmur, gallop, rubs, systolic murmur Additional comments: No BLE edema - GI/Abdominal GI/Abdominal exam: Present: normal bowel sounds, soft. Absent: distended, hepatomegaly, mass, splenomegaly, tenderness - Psychiatric Psychiatric exam: Present: normal affect, normal mood. Absent: agitated, anxious, depressed - Skin Skin exam: Present: dry, intact, warm. Absent: cyanosis, rash - Patient Status Disposition: Transfer SNF Condition: Good Overall status at discharge: patient is progressing back to baseline - Discharge Instructions Follow Up With: Enedina Oates MD [Primary Care Provider] - 09/07/17 4:30 pm Additional Instructions: Follow up with ECF physician in 1-2 days after discharge. Recheck BMP and CBC at that time. Adjust potassium and electrolyte supplementation as needed. Follow up on final hospital blood cultures. Follow up with general surgery as directed for possible outpatient cholecystectomy. - Diet and Activity Activity: as per physical therapy Diet: low fat, low cholesterol, low salt diet, other (Cardiac Diet, Pureed and [place] Thickened Diet, Magic Cup Supplementation BID)
--- NOTE | 2017-09-03 15:26 | Physician Discharge Referral ---
ExtendedCare Referral Info Transfer To: F Provider in Charge after Transfer: Other (ECF Physician) Institutional Level of Care: Skilled - Diagnosis (1) Cholelithiasis Priority: Primary Status: Acute (2) Transaminitis Priority: Secondary Status: Resolved (3) Acute pancreatitis Priority: Secondary Status: Resolved (4) HTN (hypertension) Priority: Secondary Status: Chronic (5) Hyperglycemia Priority: Secondary Status: Resolved (6) Lactic acidosis Priority: Secondary Status: Resolved (7) Hyperlipidemia Priority: Secondary Status: Chronic (8) CARMELINA (acute kidney injury) Priority: Secondary Status: Resolved (9) Anemia Priority: Secondary Status: Chronic (10) Bacteremia Priority: Secondary Status: Acute (11) SOB (shortness of breath) Priority: Secondary Status: Acute (12) Pleural effusion Priority: Secondary Status: Acute (13) Troponin level elevated Priority: Secondary Status: Acute (14) Weakness generalized Priority: Secondary Status: Acute (15) Dysphagia Priority: Secondary Status: Acute (16) DVT prophylaxis Priority: Secondary Status: Acute Prognosis: Good Aware of Diagnosis: Patient Aware of Prognosis: Patient - Transfer Medications Prescriptions: Ampicillin/Sulbactam [Unasyn] 3,000 mg IVPB Q6HR 9 Days #36 vial Aspirin 81 mg PO DAILY 4 Days #4 tab.chew Omeprazole [PriLOSEC] 40 mg PO DAILY 4 Days #4 cap Potassium Chloride 40 meq PO DAILY PRN 4 Days #4 tab.er.prt PRN Reason: Hypokalemia Home Medications: Atenolol [Tenormin] 50 mg PO BID 05/23/16 [History] Travoprost [Travatan Z] 1 drop OP HS 05/23/16 [History] Dorzolamide/Timolol [Cosopt] 1 drop BOTH EYES BID 08/27/17 [History] Escitalopram [Lexapro] 5 mg PO DAILY 08/27/17 [History] Valsartan/Hydrochlorothiazide [Diovan Hct 320-12.5 mg Tab] 1 tab PO DAILY [History] Ampicillin/Sulbactam [Unasyn] 3,000 mg IVPB Q6HR 9 Days #36 vial 09/03/17 [Rx] Aspirin 81 mg PO DAILY 4 Days #4 tab.chew 09/03/17 [Rx] Omeprazole [PriLOSEC] 40 mg PO DAILY 4 Days #4 cap 09/03/17 [Rx] Potassium Chloride 40 meq PO DAILY PRN 4 Days #4 tab.er.prt 09/03/17 [Rx] Allergies/Adverse Reactions: 3 Allergy/AdvReac Type Severity Reaction Status Date / Time codeine Allergy Rash Verified 03/27/17 14:48 nitrofurantoin Allergy Rash Verified 03/27/17 14:48 [From Macrodantin] Sulfa (Sulfonamide Allergy Hives Verified 03/27/17 14:48 Antibiotics) - Respiratory Orders Oxygen / L per min (2L NC PRN; wean to room air as tolerated) Smoking Cessation: Smoking cessation has been advised. For more information, call the [place] Tobacco Quit Line at 2-090-USUE-NOW. - Lab Orders Lab Orders: CBC (in 1-2 days after discharge), Other (include drug levels w/ frequency) (BMP in 1-2 days after discharge) - Advance Directives Code Status: Full Code - Mobility Orders Other (Per physical therapy) - Rehabiliation Orders Rehab Potential: Good Rehab Orders: Evaluation for Physical Therapy, Evaluation for Occupational Therapy - Diet Orders No Added Salt (RED), Pureed ([place] Thickened), Cardiac House Supplement per Dietary: Magic Cup supplementation BID CERTIFICATION: I certify that the transfer of the above named patient to an Extended Care Facility is necessary for the continuing treatment of the diagnosis listed. The above information is true and accurate reflection of patient's current condition. Confidential - Redisclosure prohibited without a patient's written consent.
[2017-09-03 16:30] LABS: Calcium 8.1 mg/dL (8.6-10.3); Phosphorous 2.8 mg/dL (2.7-4.5)
[2017-09-03] MEDS: Potassium Phosphate 44 MEQ in 0.9 % Sodium Chloride 250 ML IVPB PRN (18:48)
[2017-09-03] MEDS: Latanoprost 2.5 ML BOTTLE BOTH EYES SCH (21:02)
[2017-09-04] MEDS: Ampicillin/Sulbactam 3,000 MG in 0.9 % Sodium Chloride Mini Bag 100 ML IVPB SCH ×3 (01:32→11:31)
[2017-09-04] MEDS: Ipratropium/Albuterol Neb 3 ML IH SCH ×3 (03:49→15:17)
[2017-09-04 03:52] LABS: Alanine Aminotransferase 14 Units/L (7-52); Albumin/Globulin Ratio 0.9 (1.1-2.2); Alkaline Phosphatase 70 Units/L (34-104); Amylase 51 Units/L (29-103); Aspartate Amino Transferase 21 Units/L (13-39); BUN/Creatinine Ratio 19 (6-26); Bilirubin,Total 0.5 mg/dL (0.3-1.0); Blood Urea Nitrogen 11 mg/dL (8-23); Calcium 8.6 mg/dL (8.6-10.3); Carbon Dioxide 25 mEq/L (23-29); Chloride 103 mEq/L (98-107); Globulin 3.5 g/dL (2.4-3.5); Glucose 109 mg/dL (70-105); Lipase 86 Units/L (11-82); Osmolality,Calculated 284 (280-300); Potassium 4.4 mEq/L (3.5-5.1); Sodium 137 mEq/L (136-145); Total Protein 6.5 g/dL (6.4-8.9); eGFR For African Americans > 60 (> 60); eGFR For Non-African Americans > 60 (> 60)
[2017-09-04 03:55] LABS: Basophils # 0.1 K/mcL (0.0-0.2); Basophils % 0.6 %; Eosinophils # 0.5 K/mcL (0.0-0.6); Eosinophils % 2.7 %; Hematocrit 29.8 % (35.3-44.9); Hemoglobin 9.2 g/dL (11.5-15.4); Immature Granulocytes % 4.4 % (0-4); Lymphocytes # 1.9 K/mcL (0.6-4.6); Lymphocytes % 10.7 %; Mean Corpuscular HGB Conc 30.9 g/dL (31.6-35.5); Mean Corpuscular Hemoglobin 27.4 pg (28.0-33.3); Mean Corpuscular Volume 88.7 fL (83.0-100.0); Mean Platelet Volume 10.4 fL (9.4-12.4); Monocytes # 1.2 K/mcL (0.0-1.3); Monocytes % 7.1 %; Neutrophils # 12.9 K/mcL (1.6-8.9); Nucleated Red Blood Cells 0.2 /100 WBC (0); Platelet Count 405 K/mcL (140-400); Red Blood Count 3.36 M/mcL (3.82-4.97); Red Cell Distribution Width 15.7 % (11.5-14.5); Segmented Neutrophils % 74.5 %
[2017-09-04 04:37] LABS: Platelet Estimate Normal (Normal); Reactive Lymphocytes Present (Not Present)
[2017-09-04 05:06] LABS: VBG Ionized Calcium 1.04 mmol/L (1.15-1.35)
[2017-09-04 05:26] LABS: Phosphorous 3.7 mg/dL (2.7-4.5)
[2017-09-04] MEDS: Pantoprazole 40 MG VIAL IVP SCH (06:51)
[2017-09-04] MEDS: *HR* Heparin 5,000 UNIT/ML VIAL SQ SCH (06:52)
[2017-09-04] MEDS: Dorzolamide/Timolol OPTH 10 ML BOTTLE BOTH EYES SCH (09:17)
[2017-09-04] MEDS: Aspirin 81 MG TAB.CHEW PO SCH (09:17)
--- NOTE | 2017-09-04 09:29 | Infectious Disease Progress No ---
Date of Encounter: 09/04/17 Time of Encounter: 09:28 - Assessment and Plan (1) Sepsis Current Visit: Yes Status: Acute Patient initially had 2 SIRS criteria and white count continues to increase to 17 Source is likely intra-abdominal Blood cultures 2/2 positive for VRE Will order repeat blood culture, CXR as patient's white count is worsening without any steroids Qualifiers: Sepsis type: sepsis due to unspecified organism Qualified Code(s): A41.9 - Sepsis, unspecified organism (2) VRE bacteremia Current Visit: Yes Status: Acute Blood cultures initially 2/2 for VRE Repeat cultures on 08/29 negative so far Source likely intra-abdominal in setting of acute pancreatitis Patient has had 3 doses of Zosyn and Daptomycin Discontinued Daptomycin and start with Unasyn 08/31 Duration depends on clinical picture, but likely 2 weeks from negative culture (3) Multifocal pneumonia Current Visit: Yes Status: Acute CTA demonstrated multifocal airspace disease Will continue on Unasyn as above RIP and Legionella/pneuococcal urinary antigens negative Awaiting sputum culture Repeat CXR (4) Acute pancreatitis Current Visit: Yes Status: Resolved Obtain repeat lipase, amylase, CMP Qualifiers: Pancreatitis type: biliary Acute pancreatitis complication: unspecified Qualified Code(s): K85.10 - Biliary acute pancreatitis without necrosis or infection (5) Cholelithiasis Current Visit: Yes Status: Acute Qualifiers: Cholelithiasis location: gallbladder Cholecystitis presence: with cholecystitis Cholecystitis acuity: chronic Biliary obstruction: without biliary obstruction Qualified Code(s): K80.10 - Calculus of gallbladder with chronic cholecystitis without obstruction (6) Pleural effusion Current Visit: Yes Status: Acute (7) Troponin level elevated Current Visit: Yes Status: Acute (8) History of cerebral aneurysm repair Current Visit: Yes Status: Acute - Subjective Interval history: Pt seen and examined. She is doing better with her breathing this morning after coughing up a large amount of phlegm. Still feels mild abdominal pain but states this has improved as well. Denies any fever, nausea, vomiting. She did have 1 episode of loose stool this morning. Infect Dis PN-Objective Data - Labs CBC & Chem 7: 09/04/17 03:09 09/04/17 03:09 Labs: Laboratory Results - last 24 hr 09/03/17 09/03/17 09/04/17 15:50 15:50 03:09 WBC RBC Hgb Hct MCV MCH MCHC RDW Plt Count MPV Immature Gran % Seg Neutrophils % Lymphocytes % Monocytes % Eosinophils % Basophils % Neutrophils # Lymphocytes # Monocytes # Eosinophils # Basophils # Nucleated RBCs/100 WBC Reactive Lymphocytes Platelet Estimate Sodium 137 Potassium 3.6 4.4 Chloride 103 Carbon Dioxide 25 BUN 11 Creatinine 0.58 L Est GFR ( Amer) > 60 Est GFR (Non-Af Amer) > 60 BUN/Creatinine Ratio 19 Glucose 109 H Calculated Osmolality 284 Calcium 8.1 L 8.6 Venous Ioniz Calcium Phosphorus 2.8 Magnesium Total Bilirubin 0.5 AST 21 ALT 14 Alkaline Phosphatase 70 Serum Total Protein 6.5 Albumin 3.0 L Globulin 3.5 Albumin/Globulin Ratio 0.9 L Amylase 51 Lipase 86 H 09/04/17 09/04/17 09/04/17 03:09 04:46 05:03 WBC 17.3 H RBC 3.36 L Hgb 9.2 L Hct 29.8 L MCV 88.7 MCH 27.4 L MCHC 30.9 L RDW 15.7 H Plt Count 405 H MPV 10.4 Immature Gran % 4.4 H Seg Neutrophils % 74.5 Lymphocytes % 10.7 Monocytes % 7.1 Eosinophils % 2.7 Basophils % 0.6 Neutrophils # 12.9 H Lymphocytes # 1.9 Monocytes # 1.2 Eosinophils # 0.5 Basophils # 0.1 Nucleated RBCs/100 WBC 0.2 H Reactive Lymphocytes Present A Platelet Estimate Normal Sodium Potassium Chloride Carbon Dioxide BUN Creatinine Est GFR ( Amer) Est GFR (Non-Af Amer) BUN/Creatinine Ratio Glucose Calculated Osmolality Calcium Venous Ioniz Calcium 1.04 L Phosphorus 3.7 Magnesium 2.0 Total Bilirubin AST ALT Alkaline Phosphatase Serum Total Protein Albumin Globulin Albumin/Globulin Ratio Amylase Lipase Cultures: Cultures 09/03/17 12:03 Blood Culture - Preliminary Peripheral Venipuncture Culture is incubating and being continuously monitored for growth. Final report to follow. 09/03/17 12:03 Blood Culture - Preliminary Peripheral Venipuncture Culture is incubating and being continuously monitored for growth. Final report to follow. 08/29/17 08:46 Blood Culture - Final Peripheral Venipuncture No growth. Final report. 08/29/17 08:46 Blood Culture - Final Peripheral Venipuncture No growth. Final report. 09/01/17 10:45 Legionella Antigen - Final Urine,Catheterized Streptococcus pneumoniae Antigen (M - Final Serology 09/01/17 09/01/17 Range/Units 13:05 06:26 Stool Occult Blood Positive A (Negative) Chlamy pneumoniae PCR Not Detected (Not Detect) Adenovirus (PCR) Not Detected (Not Detect) B. pertussis DNA (PCR) Not Detected (Not Detect) B.parapertussis DNA PCR Not Detected (Not Detect) Coronavirus OC43 (PCR) Not Detected (Not Detect) Coronavirus HKU1 (PCR) Not Detected (Not Detect) Coronavirus 229E (PCR) Not Detected (Not Detect) Coronavirus NL63 (PCR) Not Detected (Not Detect) Human Metapneumovir PCR Not Detected (Not Detect) Influenza A (H1) PCR Not Detected (Not Detect) Influ A (H1N1/09) PCR Not Detected (Not Detect) Influenza A (H3) PCR Not Detected (Not Detect) Influenza A Untype (PCR) Not Detected (Not Detect) Influenza Type B (PCR) Not Detected (Not Detect) M.pneumoniae DNA (PCR) Not Detected (Not Detect) Parainfluenza 1 (PCR) Not Detected (Not Detect) Parainfluenza 2 (PCR) Not Detected (Not Detect) Parainfluenza 3 (PCR) Not Detected (Not Detect) Parainfluenza 4 (PCR) Not Detected (Not Detect) RSV (PCR) Not Detected (Not Detect) Entero/Rhino (PCR) Not Detected (Not Detect) - Impressions Impressions Chest X-Ray 09/03/17 11:52 IMPRESSION: In this patient with cardiomegaly, there is improved aeration in the right lung and improved vascular congestion. Pattern favored to represent resolving edema. Rapid improvement and pneumonitis may also be considered. D/ / Jayme Sheehan MD / Jayme Sheehan MD Interpreting Provider: Jayme Sheehan MD Exam - Constitutional Vitals: Temp Pulse Resp BP Pulse Ox 99.0 F 74 16 130/52 95 09/04/17 07:57 09/04/17 07:57 09/04/17 07:57 09/04/17 07:57 09/04/17 07:57 General appearance: cooperative, no acute distress, no febrile - Head Head exam: Present: atraumatic, normocephalic - Respiratory Respiratory exam: Present: CTAB. Absent: accessory muscle use, decreased breath sounds, respiratory distress, wheezes - Cardiovascular Cardiovascular exam: Present: RRR. Absent: irregular rhythm, systolic murmur, tachycardia - GI/Abdominal GI/Abdominal exam: Present: normal bowel sounds, soft, tenderness - Extremities Exam Extremities exam: Present: pedal edema (trace) Consult Discharge Plan - Plan Additional Instructions: Follow up with ECF physician in 1-2 days after discharge. Recheck BMP and CBC at that time. Adjust potassium and electrolyte supplementation as needed. Follow up on final hospital blood cultures. Follow up with general surgery as directed for possible outpatient cholecystectomy. Referrals: Enedina Oates MD [Primary Care Provider] - ([facility] appointment [facility]) Prescriptions: Ampicillin/Sulbactam [Unasyn] 3,000 mg IVPB Q6HR 9 Days #36 vial Aspirin 81 mg PO DAILY 4 Days #4 tab.chew Omeprazole [PriLOSEC] 40 mg PO DAILY 4 Days #4 cap Potassium Chloride 40 meq PO DAILY PRN 4 Days #4 tab.er.prt PRN Reason: Hypokalemia - Attending Attestation I examined this patient and my medical decision-making was reviewed with the Resident Physician. I agree with the documented findings, disposition and treatment plan as described except to the extent set forth below.
--- NOTE | 2017-09-04 11:09 | Internal Med Progress Note ---
Date of Encounter: 09/04/17 Time of Encounter: 11:06 - Assessment and plan (1) Cholelithiasis Current Visit: Yes Status: Acute Assessment and plan: Discharge to [facility] today unless ID says otherwise. Pain now mild and controlled. Follow up with surgery as outpatient for possible cholecystectomy. Qualifiers: Cholelithiasis location: gallbladder Cholecystitis presence: with cholecystitis Cholecystitis acuity: chronic Biliary obstruction: without biliary obstruction Qualified Code(s): K80.10 - Calculus of gallbladder with chronic cholecystitis without obstruction (2) Transaminitis Current Visit: Yes Status: Resolved Assessment and plan: Resolved. (3) Acute pancreatitis Current Visit: Yes Status: Resolved Assessment and plan: Resolved. Qualifiers: Pancreatitis type: biliary Acute pancreatitis complication: unspecified Qualified Code(s): K85.10 - Biliary acute pancreatitis without necrosis or infection (4) HTN (hypertension) Current Visit: Yes Status: Chronic Assessment and plan: Continue home medications. Qualifiers: Hypertension type: essential hypertension Qualified Code(s): I10 - Essential (primary) hypertension (5) Hyperglycemia Current Visit: Yes Status: Resolved Assessment and plan: Resolved. (6) Lactic acidosis Current Visit: Yes Status: Resolved Assessment and plan: Resolved. (7) Hyperlipidemia Current Visit: Yes Status: Chronic Assessment and plan: Normal lipid panel. Qualifiers: Hyperlipidemia type: unspecified Qualified Code(s): E78.5 - Hyperlipidemia , unspecified (8) CARMELINA (acute kidney injury) Current Visit: Yes Status: Resolved Assessment and plan: Resolved. (9) Anemia Current Visit: Yes Status: Chronic Assessment and plan: H/H stable. No active bleeding. Monitor at [facility] followup. Qualifiers: Anemia type: unspecified type Qualified Code(s): D64.9 - Anemia, unspecified (10) Bacteremia Current Visit: Yes Status: Acute Assessment and plan: Blood culture with VRE. ID consulted; appreciate input. Continue IV unasyn for 2 weeks post-negative culture. (11) SOB (shortness of breath) Current Visit: Yes Status: Resolved Assessment and plan: Resolved. (12) Pleural effusion Current Visit: Yes Status: Acute Assessment and plan: Management as per above. (13) Troponin level elevated Current Visit: Yes Status: Acute Assessment and plan: No active chest pain. As per cardiology, nonischemic and further intervention advised. Echocardiogram EF 70% with no acute finding. (14) Weakness generalized Current Visit: Yes Status: Acute Assessment and plan: Continue PT/OT at ECF. (15) Dysphagia Current Visit: Yes Status: Acute Assessment and plan: Evaluated by speech therapist and recommended honey thickened diet. Qualifiers: Dysphagia type: unspecified Qualified Code(s): R13.10 - Dysphagia, unspecified (16) DVT prophylaxis Current Visit: No Status: Acute Assessment and plan: Continue SQ heparin and SCDs until discharge. - Time Spent With Patient Total time spent is greater than 50% in coordination of care (as documented) at patient's floor/unit and/or counseling patient: less than 15 minutes - Subjective Interval history: Patient had no acute events overnight. She states that she feels "good" today. She wants some pain medicine for right-sided abdominal pain. She denies any fever, chills, SOB, chest pain, nausea, or vomiting. She has no complaints at this time. - Constitutional Vitals: Temp Pulse Resp BP Pulse Ox 99.0 F 74 16 130/52 95 09/04/17 07:57 09/04/17 07:57 09/04/17 07:57 09/04/17 07:57 09/04/17 09:15 General appearance: Present: cooperative, A&O X 3, pleasant, no acute distress, answers questions appropriately - Respiratory Respiratory exam: Present: CTAB. Absent: accessory muscle use, rales, rhonchi, wheezes Additional comments: Normal WOB - Cardiovascular Cardiovascular exam: Present: RRR, +S1, +S2. Absent: diastolic murmur, gallop, rubs, systolic murmur Additional comments: No BLE edema - GI/Abdominal GI/Abdominal exam: Present: normal bowel sounds, soft, tenderness (Mild TTP diffusely across right abdomen). Absent: distended, guarding, hepatomegaly, mass, rebound, splenomegaly - Psychiatric Psychiatric exam: Present: normal affect, normal mood. Absent: agitated, anxious, depressed - Skin Skin exam: Present: dry, intact, warm. Absent: cyanosis, rash Internal Medicine: Result - Labs CBC & Chem 7: 09/04/17 03:09 09/04/17 03:09 Labs: Short CBC 09/04/17 Range/Units 03:09 WBC 17.3 H (4.3-11.1) K/mcL Hgb 9.2 L (11.5-15.4) g/dL Hct 29.8 L (35.3-44.9) % Plt Count 405 H (140-400) K/mcL Neutrophils # 12.9 H (1.6-8.9) K/mcL BMP 09/03/17 09/03/17 09/04/17 15:50 15:50 03:09 Sodium 137 Potassium 3.6 4.4 Chloride 103 Carbon Dioxide 25 BUN 11 Creatinine 0.58 L Glucose 109 H Calcium 8.1 L 8.6 Liver Function 09/04/17 Range/Units 03:09 Total Bilirubin 0.5 (0.3-1.0) mg/dL AST 21 (13-39) Units/L ALT 14 (7-52) Units/L Alkaline Phosphatase 70 (34-104) Units/L Albumin 3.0 L (3.5-5.7) g/dL - ABG Interpretation ABG results: ABG ABG pH 7.36 pH Units (7.32-7.45) 08/29/17 17:10 ABG pCO2 27 mmHg (35-45) L 08/29/17 17:10 ABG pO2 86 mmHg (85-104) 08/29/17 17:10 ABG O2 Saturation 96 % (95-98) 08/29/17 17:10 PT/INR, D-dimer PT 14.7 Seconds (9.4-12.1) H 09/01/17 07:14 D-Dimer 6767 ng/mLFEU (0-500) H 08/29/17 17:10 - Impressions Impressions Chest X-Ray 09/03/17 11:52 IMPRESSION: In this patient with cardiomegaly, there is improved aeration in the right lung and improved vascular congestion. Pattern favored to represent resolving edema. Rapid improvement and pneumonitis may also be considered. D/ / Jayme Sheehan MD / Jayme Sheehan MD Interpreting Provider: Jayme Sheehan MD Consult Discharge Plan - Plan Additional Instructions: Follow up with ECF physician in 1-2 days after discharge. Recheck BMP and CBC at that time. Adjust potassium and electrolyte supplementation as needed. Follow up on final hospital blood cultures. Follow up with general surgery as directed for possible outpatient cholecystectomy. Referrals: Enedina Oates MD [Primary Care Provider] - 09/07/17 4:30 pm Prescriptions: Ampicillin/Sulbactam [Unasyn] 3,000 mg IVPB Q6HR 9 Days #36 vial Aspirin 81 mg PO DAILY 4 Days #4 tab.chew Omeprazole [PriLOSEC] 40 mg PO DAILY 4 Days #4 cap Potassium Chloride 40 meq PO DAILY PRN 4 Days #4 tab.er.prt PRN Reason: Hypokalemia
[2017-09-04 11:30] VITALS: BP 138/64
[2017-09-04] MEDS: OXYCODONE Oral CONC 10 MG/0.5 ML ORAL.SYG SL PRN (11:30)
== END 2017-09-04 15:50 | DRG 871 ==
LOC: EMEROO 22:51 → 3ANU 22:51 → 2NNU 08-29 19:18
PROVIDERS: ADMIT Internal Medicine; ATTEND Internal Medicine

== ENCOUNTER 2017-09-21 14:33 | Observation (INO) ==
[2017-09-21 15:15] LABS: Basophils # 0.1 K/mcL (0.0-0.2); Basophils % 1.2 %; Eosinophils # 0.3 K/mcL (0.0-0.6); Eosinophils % 2.8 %; Hematocrit 34.6 % (35.3-44.9); Hemoglobin 10.6 g/dL (11.5-15.4); Immature Granulocytes % 0.7 % (0-4); Lymphocytes # 1.5 K/mcL (0.6-4.6); Lymphocytes % 15.1 %; Mean Corpuscular HGB Conc 30.6 g/dL (31.6-35.5); Mean Corpuscular Hemoglobin 26.2 pg (28.0-33.3); Mean Corpuscular Volume 85.6 fL (83.0-100.0); Mean Platelet Volume 9.5 fL (9.4-12.4); Monocytes # 0.7 K/mcL (0.0-1.3); Monocytes % 7.2 %; Platelet Count 576 K/mcL (140-400); Red Blood Count 4.04 M/mcL (3.82-4.97); Red Cell Distribution Width 15.9 % (11.5-14.5)
--- NOTE | 2017-09-21 15:35 | Emergency Department Note ---
Disposition Clinical Impression: Right upper quadrant abdominal pain, Nausea & vomiting, Abdominal pain, Elevated lipase, HTN (hypertension) Disposition: Admitted As Inpatient Condition: Good General Adult HPI - General Chief complaint: ED Recheck/Abnormal Lab/Rx Stated complaint: Low Hemoglobin Time Seen by Provider: 09/21/17 14:56 Source: patient, family Limitations: no limitations Nursing Notes Reviewed: Yes Vital Signs Reviewed: Yes - History of Present Illness HPI Narrative: The patient is an 81-year-old female who presents to the ED today with a 1 month history of generalized malaise, weakness, and right upper quadrant abdominal pain. The patient states that she was seen at the [facility] ED on 08/27/2017 for generalized weakness. At that time she was found to have anemia, along with cholelithiasis and acute pancreatitis. The patient was found to have a positive culture for vancomycin-resistant enterococcus, and was admitted to the hospital service for a 10 day period. Since this time the patient has been in the care of the [facility], and was sent to the ER today due to a low hemoglobin reading of 8.1 at that facility. Pt Subjective Complaint: weakness, general malaise, RUQ pain Onset (ago): day(s) (Current episode has been occurring for 2 days) Location: other (Right upper quadrant) Radiation: back Pain Severity: severe, similar to prior episodes Pain Scale: 8 Quality: stabbing Consistency: intermittent Improves with: nothing Worsens with: nothing Associated symptoms: Reports: malaise, nausea/vomiting, weakness Treatments Prior to Arrival: none - Related Data Home Medications Medication Instructions Recorded Confirmed Atenolol [Tenormin] 50 mg PO BID 05/23/16 09/21/17 Travoprost [Travatan Z] 1 drop OP HS 05/23/16 09/21/17 Dorzolamide/Timolol [Cosopt] 1 drop BOTH EYES BID 08/27/17 09/21/17 Escitalopram [Lexapro] 5 mg PO DAILY 08/27/17 09/21/17 Valsartan/Hydrochlorothiazide 1 tab PO DAILY 08/27/17 09/21/17 [Diovan Hct 320-12.5 mg Tab] amLODIPine [Norvasc] 5 mg PO DAILY 09/21/17 09/21/17 Previous Rx's Medication Instructions Recorded Aspirin 81 mg PO DAILY 4 Days #4 tab.chew 06/28/18 Omeprazole [PriLOSEC] 40 mg PO DAILY 4 Days #4 cap 09/03/17 Potassium Chloride 40 meq PO DAILY PRN 4 Days #4 09/03/17 tab.er.prt Allergies Allergy/AdvReac Type Severity Reaction Status Date / Time codeine Allergy Rash Verified 03/27/17 14:48 nitrofurantoin Allergy Rash Verified 03/27/17 14:48 [From Macrodantin] Sulfa (Sulfonamide Allergy Hives Verified 03/27/17 14:48 Antibiotics) All systems ED: reviewed and negative except as stated. Review of Systems: As Per HPI Constitutional: Reports: weakness. Denies: fever, chills Eyes: Denies: vision change Cardiovascular: Denies: chest pain, palpitations, syncope Respiratory: Denies: cough, wheezes, hemoptysis, stridor, sputum production Gastrointestinal: Reports: abdominal pain (Patient describes this as right upper quadrant pain which radiates into the right lateral aspect of her chest and right shoulder.), nausea, vomiting, diarrhea. Denies: hematemesis, hematochezia Genitourinary: Denies: hematuria Musculoskeletal: Reports: joint swelling, arthralgia Neurological: Reports: headache, weakness. Denies: numbness, paresthesias Past Medical History - Past Medical History Medical history: Reports: glaucoma, hypertension Surgical history: Reports: no surgical history Psychiatric history: Reports: anxiety - Social History Smoking Status: Never smoker Smokeless Tobacco Status: No Alcohol use: Reports: none Drug use: Reports: none Physical Exam - General Limitations: no limitations General appearance: alert, in no apparent distress - Head Head exam: atraumatic, normocephalic - Eye Eye exam: Present: normal appearance, PERRL, EOMI. Absent: scleral icterus, conjunctival injection, nystagmus, periorbital swelling - Neck Neck exam: Present: normal inspection, trachea midline - Chest Chest inspection: Present: normal inspection, symmetric chest wall rise - Respiratory Respiratory exam: Present: normal lung sounds bilaterally. Absent: respiratory distress, wheezes, stridor, accessory muscle use, prolonged expiratory phase - Cardiovascular Cardiovascular exam: Present: regular rate, normal rhythm, normal heart sounds, +S1, +S2. Absent: irregular rhythm, systolic murmur, diastolic murmur, rubs, gallop, clicks, JVD, +S3, +S4 - Abdominal Exam Abdominal exam: Present: soft, tenderness (There is tenderness to palpation in the upper right quadrant.), normal bowel sounds, Ruiz's sign. Absent: distention, guarding, rebound, organomegaly, Rovsing's sign, tenderness at McBurney's Point, ascites, mass, bruit, pulsatile mass Abdominal tenderness: Present: RUQ - Neurological Exam Neurological exam: Present: alert, oriented X3 - Psychiatric Psychiatric exam: Present: normal affect, normal mood - Skin Skin exam: Present: warm, dry, intact, normal color. Absent: cyanosis, diaphoresis, pallor Course Course Narrative: The patient's history, review of systems, and physical exam is consistent with her chronic history of cholelithiasis and pancreatitis in conjunction with anemia. Patient to receive CBC, BMP, BNP, troponins, EKG, urinalysis, chest x- ray, and type and screen. The patient's hemoglobin and hematocrit are at 10.6, and 34.6 respectively. These values are generally consistent with previous and higher than her average values for the past month. - Consultations Consultation #1: Dr. Bowden - Medicine Time: 17:43 (Medicine consult requested ED to contact surgery for consideration of cholecystectomy) Consultation #2: Dr. Frias Time: 17:55 Vital Signs Temperature 97.6 F 09/21/17 14:37 Pulse Rate 61 09/21/17 14:37 Respiratory Rate 18 09/21/17 14:37 Blood Pressure 100/64 09/21/17 14:37 O2 Sat by Pulse Oximetry 98 09/21/17 14:37 Temperature 97.9 F 09/23/17 10:57 Pulse Rate 73 09/23/17 10:57 Respiratory Rate 16 09/23/17 10:57 Blood Pressure 143/77 09/23/17 10:57 O2 Sat by Pulse Oximetry 95 09/23/17 10:57 Oxygen Delivery Oxygen Delivery Room Air Medical Decision Making - Lab Data Result diagrams: 09/23/17 07:00 09/23/17 07:00 Lab Results 09/21/17 09/21/17 09/21/17 Range/Units 14:44 14:44 14:44 WBC 9.7 (4.3-11.1) K/mcL RBC 4.04 (3.82-4.97) M/mcL Hgb 10.6 L (11.5-15.4) g/dL Hct 34.6 L (35.3-44.9) % MCV 85.6 (83.0-100.0) fL MCH 26.2 L (28.0-33.3) pg MCHC 30.6 L (31.6-35.5) g/dL RDW 15.9 H (11.5-14.5) % Plt Count 576 H (140-400) K/mcL MPV 9.5 (9.4-12.4) fL Immature Gran % 0.7 (0-4) % Seg Neutrophils % 73.0 % Lymphocytes % 15.1 % Monocytes % 7.2 % Eosinophils % 2.8 % Basophils % 1.2 % Neutrophils # 7.0 (1.6-8.9) K/mcL Lymphocytes # 1.5 (0.6-4.6) K/mcL Monocytes # 0.7 (0.0-1.3) K/mcL Eosinophils # 0.3 (0.0-0.6) K/mcL Basophils # 0.1 (0.0-0.2) K/mcL Sodium 131 L (136-145) mEq/L Potassium 4.9 (3.5-5.1) mEq/L Chloride 108 H (98-107) mEq/L Carbon Dioxide 21 L (23-29) mEq/L BUN 18 (8-23) mg/dL Creatinine 1.02 (0.60-1.20) mg/dL Est GFR ( Amer) > 60 (> 60) Est GFR (Non-Af Amer) 52 L (> 60) BUN/Creatinine Ratio 18 (6-26) Glucose 132 H (70-105) mg/dL Calculated Osmolality 276 L (280-300) Lactic Acid (0.5-2.2) mmol/L Calcium 9.1 (8.6-10.3) mg/dL Total Bilirubin 0.5 (0.3-1.0) mg/dL Direct Bilirubin 0.2 (0.0-0.2) mg/dL Indirect Bilirubin 0.3 (0.0-1.2) mg/dL AST 31 (13-39) Units/L ALT 10 (7-52) Units/L Alkaline Phosphatase 95 (34-104) Units/L Troponin I < 0.03 (< 0.04) ng/mL B-Natriuretic Peptide 89 (Less than 100) pg/mL Serum Total Protein 7.9 (6.4-8.9) g/dL Albumin 3.6 (3.5-5.7) g/dL Globulin 4.3 H (2.4-3.5) g/dL Albumin/Globulin Ratio 0.8 L (1.1-2.2) Lipase 190 H (11-82) Units/L Urine Color (Yellow) Urine Clarity (Clear) Urine pH (5.0-8.0) pH Units Ur Specific Gause (1.010-1.025) Urine Protein (Neg-Trace) mg/dL Urine Glucose (UA) (Normal) mg/dL Urine Ketones (Negative) mg/dL Urine Blood (Negative) Urine Nitrite (Negative) Urine Bilirubin (Negative) Urine Urobilinogen (Normal) mg/dL Ur Leukocyte Esterase (Negative) Urine Microscopic RBC (0-3) per hpf Urine Microscopic WBC (0-3) per hpf Ur Squamous Epith Cells (None-Few) per lpf Urine Bacteria (None-Few) per hpf Hyaline Casts (None-Few) per lpf Urine Yeast (None Seen) per hpf Ur Culture Indicated? (NO) Blood Type Antibody Screen 09/21/17 09/21/17 09/21/17 Range/Units 14:59 14:59 18:33 WBC (4.3-11.1) K/mcL RBC (3.82-4.97) M/mcL Hgb (11.5-15.4) g/dL Hct (35.3-44.9) % MCV (83.0-100.0) fL MCH (28.0-33.3) pg MCHC (31.6-35.5) g/dL RDW (11.5-14.5) % Plt Count (140-400) K/mcL MPV (9.4-12.4) fL Immature Gran % (0-4) % Seg Neutrophils % % Lymphocytes % % Monocytes % % Eosinophils % % Basophils % % Neutrophils # (1.6-8.9) K/mcL Lymphocytes # (0.6-4.6) K/mcL Monocytes # (0.0-1.3) K/mcL Eosinophils # (0.0-0.6) K/mcL Basophils # (0.0-0.2) K/mcL Sodium (136-145) mEq/L Potassium (3.5-5.1) mEq/L Chloride (98-107) mEq/L Carbon Dioxide (23-29) mEq/L BUN (8-23) mg/dL Creatinine (0.60-1.20) mg/dL Est GFR ( Amer) (> 60) Est GFR (Non-Af Amer) (> 60) BUN/Creatinine Ratio (6-26) Glucose (70-105) mg/dL Calculated Osmolality (280-300) Lactic Acid 1.9 (0.5-2.2) mmol/L Calcium (8.6-10.3) mg/dL Total Bilirubin (0.3-1.0) mg/dL Direct Bilirubin (0.0-0.2) mg/dL Indirect Bilirubin (0.0-1.2) mg/dL AST (13-39) Units/L ALT (7-52) Units/L Alkaline Phosphatase (34-104) Units/L Troponin I (< 0.04) ng/mL B-Natriuretic Peptide (Less than 100) pg/mL Serum Total Protein (6.4-8.9) g/dL Albumin (3.5-5.7) g/dL Globulin (2.4-3.5) g/dL Albumin/Globulin Ratio (1.1-2.2) Lipase (11-82) Units/L Urine Color Yellow (Yellow) Urine Clarity Clear (Clear) Urine pH 5.5 (5.0-8.0) pH Units Ur Specific Gause 1.025 (1.010-1.025) Urine Protein 30 H (Neg-Trace) mg/dL Urine Glucose (UA) Normal (Normal) mg/dL Urine Ketones Negative (Negative) mg/dL Urine Blood Negative (Negative) Urine Nitrite Negative (Negative) Urine Bilirubin Negative (Negative) Urine Urobilinogen Normal (Normal) mg/dL Ur Leukocyte Esterase Small H (Negative) Urine Microscopic RBC 0-3 (0-3) per hpf Urine Microscopic WBC 15-30 H (0-3) per hpf Ur Squamous Epith Cells Many H (None-Few) per lpf Urine Bacteria None Seen (None-Few) per hpf Hyaline Casts Moderate H (None-Few) per lpf Urine Yeast Moderate H (None Seen) per hpf Ur Culture Indicated? NO. A (NO) Blood Type O POSITIVE Antibody Screen NEGATIVE Attestation Statement - Attestation Attestation: I examined this patient and my medical decision-making was reviewed with the Resident Physician, Dr. Chadwick. I agree with the documented findings, disposition and treatment plan as described except to the extent set forth below. Patient is an 81-year-old female who was sent in for evaluation of abnormal hemoglobin 3 days ago at the [facility] where she is been rehabilitating from a long hospitalization. Patient complains of generalized weakness and fatigue as well as some right upper quadrant abdominal pain. Patient had a long hospitalization secondary to pancreatitis and tells us here on arrival that there planing to take out her gallbladder but they were waiting for her to recover from some infection. Patient denies any fevers or chills, no history of falls or trauma, no lightheadedness dizziness or syncope. Patient denies any chest pain pressure or heaviness, no shortness of breath, does complain of decreased appetite and by mouth intake but no nausea or vomiting. I agree with patient's physical exam findings as documented. Vital signs stable on arrival. Patient's hemoglobin today is actually quite improved from her prior hemoglobin. Patient's lipase is trending up again and in association with the right upper quadrant pain concerning for recurrent pancreatitis. IV fluids been initiated pain control patient will be admitted in surgeries been consulate.
[2017-09-21 15:37] LABS: BUN/Creatinine Ratio 18 (6-26); Blood Urea Nitrogen 18 mg/dL (8-23); Calcium 9.1 mg/dL (8.6-10.3); Carbon Dioxide 21 mEq/L (23-29); Chloride 108 mEq/L (98-107); Glucose 132 mg/dL (70-105); Osmolality,Calculated 276 (280-300); Potassium 4.9 mEq/L (3.5-5.1); Sodium 131 mEq/L (136-145); Troponin I < 0.03 ng/mL (< 0.04); eGFR For African Americans > 60 (> 60); eGFR For Non-African Americans 52 (> 60)
[2017-09-21 16:13] LABS: Alanine Aminotransferase 10 Units/L (7-52); Albumin 3.6 g/dL (3.5-5.7); Albumin/Globulin Ratio 0.8 (1.1-2.2); Alkaline Phosphatase 95 Units/L (34-104); Aspartate Amino Transferase 31 Units/L (13-39); Bilirubin,Direct 0.2 mg/dL (0.0-0.2); Bilirubin,Indirect 0.3 mg/dL (0.0-1.2); Bilirubin,Total 0.5 mg/dL (0.3-1.0); Globulin 4.3 g/dL (2.4-3.5); Lipase 190 Units/L (11-82); Total Protein 7.9 g/dL (6.4-8.9)
[2017-09-21] MEDS ORDERED: 0.9 % Sodium Chloride 500 ML IVC ONE (16:49)
[2017-09-21] MEDS ORDERED: Ondansetron 4 MG/2 ML VIAL IVP ONE (16:49)
[2017-09-21] MEDS ORDERED: *HR* FentaNYL (PF) 100 MCG/2 ML VIAL IVP ONE (16:50)
[2017-09-21 18:47] LABS: Bilirubin,Urine Negative (Negative); Blood,Urine Negative (Negative); Clarity,Urine Clear (Clear); Color,Urine Yellow (Yellow); Glucose,Urine (UA) Normal (Normal); Ketones,Urine Negative (Negative); Leukocyte Esterase,Urine Small (Negative); Nitrite,Urine Negative (Negative); PH,Urine 5.5 pH Units (5.0-8.0); Protein,Urine 30 mg/dL (Neg-Trace); Specific Gravity,Urine 1.025 (1.010-1.025); Urobilinogen,Urine Normal (Normal)
[2017-09-21 18:56] LABS: Bacteria,Urine None Seen per hpf (None-Few); Squamous Epithelial Cell,Urine Many per lpf (None-Few); WBC,Urine 15-30 per hpf (0-3)
[2017-09-21 19:04] LABS: Hyaline Casts,Urine Moderate per lpf (None-Few)
[2017-09-21 19:05] LABS: RBC,Urine 0-3 per hpf (0-3); Yeast,Urine Moderate per hpf (None Seen)
[2017-09-21] MEDS ORDERED: Naloxone 0.4 MG/ML INJ IVP PRN (21:36)
--- NOTE | 2017-09-21 21:52 | Internal Med History&Physical ---
Date of Encounter: 09/22/17 Time of Encounter: 21:00 Internal Medicine - H&P: HPI Chief complaint: Cholethiasis, Chronic anemia Admitted From: Home Plans for Post Hospital Care: Home History of present illness: Ms. Acevedo is a 81 year old female Patient presented to the ER after her doctor called her at her home urging her to go to the ER. Lab work that had been drawn last week showed that her hemoglobin was low. She had recently be discharged from the hospital a few weeks ago and was treated for adominal pain and VRE bacteremia, discharged on 09/14/17. She had completed her antibiotics out patient and was following up with her PCP as was arranged. Upon arrival to the ER, recheck of her hemoglobin was 10.6, Lactic acid was 1.9 and her lipase was 190. She has had a history of pancreatitis, thought to be related to cholethiasis. She has continued right upper quadrant pain, but has been able to eat with out issue. Due to her low hemoglobin and abdominal pain, she was admitted for continued management, and surgery consultation. Of note, she has been experiencing multiple episodes of diarrhea since completing her antibiotic therapy from previous admission. Past Med Surg Social Fam HX - Past Medical History Medical history: CHF, glaucoma, hypertension Additional medical history: brain aneurysm, gout Psychiatric history: anxiety - Past Surgical History Surgical History: no surgical history Additional surgical history: balloon repair - Social History Smoking Status: Never smoker Smokeless Tobacco Status: No Alcohol use: none Drug use: none - Family History Mother Adopted: No Living Status: Age at : 75 Cause of : Stroke Hx Family Cardiac Disorders: Yes Hx Family Respiratory Disorders: No Hx Family Cancer: No Hx Family GI Disorders: No Hx Family Genitourinary Disorders: No Hx Family Endocrine Disorder: No Hx Family Musculoskeletal Disorders: Yes (arthritis) Hx Family Neuromuscular Disorders: No Hx Family Neurologic Disorders: No Hx Family HEENT Disorders: No Hx Family Autoimmune Disorders: No Hx Family Reproductive Disorders: No Hx Family Psychosocial Disorders: No Hx Family Medical Disorders: No Father Living Status: Internal Medicine - H&P: Meds Atenolol [Tenormin] 50 mg PO BID 05/23/16 [History] Travoprost [Travatan Z] 1 drop OP HS 05/23/16 [History] Dorzolamide/Timolol [Cosopt] 1 drop BOTH EYES BID 08/27/17 [History] Escitalopram [Lexapro] 5 mg PO DAILY 08/27/17 [History] Valsartan/Hydrochlorothiazide [Diovan Hct 320-12.5 mg Tab] 1 tab PO DAILY [History] Aspirin 81 mg PO DAILY 4 Days #4 tab.chew 09/03/17 [Rx] Omeprazole [PriLOSEC] 40 mg PO DAILY 4 Days #4 cap 09/03/17 [Rx] Potassium Chloride 40 meq PO DAILY PRN 4 Days #4 tab.er.prt 09/03/17 [Rx] amLODIPine [Norvasc] 5 mg PO DAILY 09/21/17 [History] 3 Allergy/AdvReac Type Severity Reaction Status Date / Time codeine Allergy Rash Verified 03/27/17 14:48 nitrofurantoin Allergy Rash Verified 03/27/17 14:48 [From Macrodantin] Sulfa (Sulfonamide Allergy Hives Verified 03/27/17 14:48 Antibiotics) All Systems PM: A 10-system review of systems was performed and is negative for pertinent findings except as documented above in the HPI. - Constitutional Vitals: Temp Pulse Resp BP Pulse Ox 97.9 F 63 15 134/52 97 09/21/17 20:21 09/21/17 20:21 09/21/17 20:21 09/21/17 20:21 09/21/17 20:21 General appearance: Present: cooperative, A&O X 3, pleasant, no acute distress, answers questions appropriately - Head Head exam: Present: normal inspection - Eye Eye exam: Present: EOMI, normal appearance - Neck Neck exam general surgery: Present: full ROM - Respiratory Respiratory exam: Present: CTAB. Absent: chest wall tenderness, respiratory distress, wheezes - Cardiovascular Cardiovascular exam: Present: RRR. Absent: diastolic murmur, systolic murmur - GI/Abdominal GI/Abdominal exam: Present: normal bowel sounds, soft, tenderness. Absent: guarding Additional comments: Mild right upper quadrant pain with palpation, no guarding or rigidity. - Extremities Exam Extremities exam: Present: warm, radial pulses palpable and symmetrical. Absent : tenderness - Neurological Exam Neurological exam: Present: strengths equal and symetr throughout. Absent: facial droop, speech deficit - Skin Skin exam: Present: dry, normal color, warm Internal Med - H&P Results - Labs CBC & Chem 7: 09/21/17 22:08 09/21/17 14:44 - Assessment and plan (1) Anemia Current Visit: Yes Status: Chronic Assessment and plan: Patient has a chronic anemia, likely of chronic disease related to her gallbladder and pancreatitis. MCV is 85.2, so likely not related to a low iron level. Her current hemoglobin is actually about her baseline. Continue to monitor, no active bleeding identified. Qualifiers: Anemia type: unspecified type Qualified Code(s): D64.9 - Anemia, unspecified (2) Right upper quadrant abdominal pain Current Visit: Yes Status: Acute Assessment and plan: Mild on exam, she has tenderness with palpation over the gallbladder. She is known to have cholelithiasis, her CT of her abdomen showed increased distention of the gallbladder, but non significant gallbladder wall thickening or biliary dilatation. She had no calcified gallstones on a previous CT before that. However on abdominal MRI cholelithiasis was identified, with 'a couple of tiny gallstones noted.' Surgery consulted, appreciate recommendations. Continue to monitor. (3) Elevated lipase Current Visit: Yes Status: Acute Assessment and plan: Patient has had elevated lipase, starting back 08/26/17. Today it was 190. Could be related to her gallbladder. Surgery consult this morning Patient NPO, but did not have pain with food prior to her arrival to the ER. (4) Cholelithiasis Current Visit: No Status: Acute Qualifiers: Cholelithiasis location: gallbladder Cholecystitis presence: with cholecystitis Cholecystitis acuity: chronic Biliary obstruction: without biliary obstruction Qualified Code(s): K80.10 - Calculus of gallbladder with chronic cholecystitis without obstruction (5) Diarrhea Current Visit: Yes Status: Acute Assessment and plan: Patient has had multiple episodes of diarrhea since being on antibiotics from her previous admission. Checking for C. Diff Contact precautions until cleared. Qualifiers: Qualified Code(s): R19.7 - Diarrhea, unspecified - Time Spent With Patient Total time spent is greater than 50% in coordination of care (as documented) at patient's floor/unit and/or counseling patient: Greater than 35 minutes
[2017-09-21 22:16] LABS: Hematocrit 32.8 % (35.3-44.9); Hemoglobin 9.8 g/dL (11.5-15.4); Mean Corpuscular HGB Conc 29.9 g/dL (31.6-35.5); Mean Corpuscular Hemoglobin 25.5 pg (28.0-33.3); Mean Corpuscular Volume 85.2 fL (83.0-100.0); Mean Platelet Volume 9.2 fL (9.4-12.4); Platelet Count 500 K/mcL (140-400); Red Blood Count 3.85 M/mcL (3.82-4.97); Red Cell Distribution Width 15.9 % (11.5-14.5)
[2017-09-22 07:04] LABS: Hematocrit 29.9 % (35.3-44.9); Hemoglobin 9.1 g/dL (11.5-15.4); Mean Corpuscular HGB Conc 30.4 g/dL (31.6-35.5); Mean Corpuscular Hemoglobin 25.9 pg (28.0-33.3); Mean Corpuscular Volume 84.9 fL (83.0-100.0); Mean Platelet Volume 9.2 fL (9.4-12.4); Platelet Count 423 K/mcL (140-400); Red Blood Count 3.52 M/mcL (3.82-4.97); Red Cell Distribution Width 15.9 % (11.5-14.5)
[2017-09-22 07:24] LABS: BUN/Creatinine Ratio 22 (6-26); Blood Urea Nitrogen 18 mg/dL (8-23); Calcium 8.8 mg/dL (8.6-10.3); Carbon Dioxide 20 mEq/L (23-29); Chloride 107 mEq/L (98-107); Glucose 97 mg/dL (70-105); Osmolality,Calculated 284 (280-300); Potassium 3.9 mEq/L (3.5-5.1); Sodium 136 mEq/L (136-145); eGFR For African Americans > 60 (> 60); eGFR For Non-African Americans > 60 (> 60)
--- NOTE | 2017-09-22 08:42 | Electrocardiograph Report ---
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
[2017-09-22] MEDS: 0.9 % Sodium Chloride 1,000 ML IVC SCH (09:42)
[2017-09-22] MEDS: Dorzolamide/Timolol OPTH 10 ML BOTTLE BOTH EYES SCH ×2 (09:43→22:03)
--- NOTE | 2017-09-22 10:15 | General Surgery Consult Note ---
<CatrachitoJadenJeovanny W - Last Filed: 09/22/17 10:13> Date of Encounter: 09/22/17 Time of Encounter: 10:13 Assessment and Plan (4) Cholelithiasis Current Visit: No Status: Acute Abd CT showed cholelithiasis RUQ US ordered Cardiology consult for cardiovascular risk stratification ECHO ordered If surgery is indicated we will plan for surgical intervention within the next 24-48 hours continue monitoring IVF and antibiotics per medicine follow C. Diff culture Qualifiers: Cholelithiasis location: gallbladder Cholecystitis presence: with cholecystitis Cholecystitis acuity: chronic Biliary obstruction: without biliary obstruction Qualified Code(s): K80.10 - Calculus of gallbladder with chronic cholecystitis without obstruction History of Present Illness Consult date: 09/22/17 Reason for consult: abdominal pain Requesting physician: Jayro Olivo History of present illness: Ms. Acevedo is an 81 yo female with a PMH of pulmonary HTN and congestive heart failure. Patient presented to the ED because of abnormal lab results from her PCP stating her hemoglobin was low. Patient was discharge from the hospital a few weeks prior due to abdominal pain and VRE bacteremia, discharge on 09/14/17. Azam currently has RUQ pain. pain is dull and constant worse with palpation. Patient states she has had diarrhea for the last several days. No increased pain with food but has had a decreased appetite. Denies vomiting but has been " a little" nauseous. Past Med Surg Social Fam HX - Past Medical History Medical history: CHF, glaucoma, hypertension Additional medical history: brain aneurysm, gout Psychiatric history: anxiety - Past Surgical History Surgical History: no surgical history Additional surgical history: balloon repair - Social History Smoking Status: Never smoker Smokeless Tobacco Status: No Alcohol use: none Drug use: none - Family History Mother Adopted: No Living Status: Age at : 75 Cause of : Stroke Hx Family Cardiac Disorders: Yes Hx Family Respiratory Disorders: No Hx Family Cancer: No Hx Family GI Disorders: No Hx Family Genitourinary Disorders: No Hx Family Endocrine Disorder: No Hx Family Musculoskeletal Disorders: Yes (arthritis) Hx Family Neuromuscular Disorders: No Hx Family Neurologic Disorders: No Hx Family HEENT Disorders: No Hx Family Autoimmune Disorders: No Hx Family Reproductive Disorders: No Hx Family Psychosocial Disorders: No Hx Family Medical Disorders: No Father Living Status: Medications and Allergies Atenolol [Tenormin] 50 mg PO BID 03/17/17 [History] Travoprost [Travatan Z] 1 drop OP HS 05/23/16 [History] Dorzolamide/Timolol [Cosopt] 1 drop BOTH EYES BID 08/27/17 [History] Escitalopram [Lexapro] 5 mg PO DAILY 08/27/17 [History] Valsartan/Hydrochlorothiazide [Diovan Hct 320-12.5 mg Tab] 1 tab PO DAILY [History] Aspirin 81 mg PO DAILY 4 Days #4 tab.chew 09/03/17 [Rx] Omeprazole [PriLOSEC] 40 mg PO DAILY 4 Days #4 cap 09/03/17 [Rx] Potassium Chloride 40 meq PO DAILY PRN 4 Days #4 tab.er.prt 09/03/17 [Rx] amLODIPine [Norvasc] 5 mg PO DAILY 09/21/17 [History] 3 Allergy/AdvReac Type Severity Reaction Status Date / Time codeine Allergy Rash Verified 03/27/17 14:48 nitrofurantoin Allergy Rash Verified 03/27/17 14:48 [From Macrodantin] Sulfa (Sulfonamide Allergy Hives Verified 03/27/17 14:48 Antibiotics) Review of Systems All systems PM: The remainder of the systems were reviewed and are negative - Constitutional anorexia, weakness, no fever(s), no increased appetite, no night sweats - Cardiovascular no chest pain, no dyspnea - Gastrointestinal as per HPI - Genitourinary Genitourinary: no change in urinary stream, no difficulty urinating, no dysuria - Musculoskeletal muscle weakness General Surgery Exam Initial Vital Signs Temp Pulse Resp BP Pulse Ox 97.6 F 61 18 100/64 98 09/21/17 14:37 09/21/17 14:37 09/21/17 14:37 09/21/17 14:37 09/21/17 14:37 - General physical appearance well developed, well nourished, no distress - Eyes normal ocular movement - Neck no masses - Respiratory normal expansion, normal respiratory effort, clear to percussion, clear to auscultation - Cardiovascular Cardiovascular exam: Present: RRR, no murmurs/rubs/gallops - Abdomen Abdomen general surgery: Present: bowel sounds present, tender Abdominal Tenderness: Present: RUQ (+ murphys) - Integumentary Integumentary general surgery: Present: warm and dry, no abnormal pigmentation - Musculoskeletal Present: normal gait, normal posture - Psychiatric Psychiatric general surgery: Present: appropriate, speech is normal, memory intact Exam Initial Vital Signs Temp Pulse Resp BP Pulse Ox 97.6 F 61 18 100/64 98 09/21/17 14:37 09/21/17 14:37 09/21/17 14:37 09/21/17 14:37 09/21/17 14:37 Results - Labs 09/22/17 06:42 09/22/17 06:42 Abnormal lab results RBC 3.52 M/mcL (3.82-4.97) L 09/22/17 06:42 Hgb 9.1 g/dL (11.5-15.4) L 09/22/17 06:42 Hct 29.9 % (35.3-44.9) L 09/22/17 06:42 MCH 25.9 pg (28.0-33.3) L 09/22/17 06:42 MCHC 30.4 g/dL (31.6-35.5) L 09/22/17 06:42 RDW 15.9 % (11.5-14.5) H 09/22/17 06:42 Plt Count 423 K/mcL (140-400) H 09/22/17 06:42 MPV 9.2 fL (9.4-12.4) L 09/22/17 06:42 Carbon Dioxide 20 mEq/L (23-29) L 09/22/17 06:42 Globulin 4.3 g/dL (2.4-3.5) H 09/21/17 14:44 Albumin/Globulin Ratio 0.8 (1.1-2.2) L 09/21/17 14:44 Lipase 190 Units/L (11-82) H 09/21/17 14:44 Urine Protein 30 mg/dL (Neg-Trace) H 09/21/17 18:33 Ur Leukocyte Esterase Small (Negative) H 09/21/17 18:33 Urine Microscopic WBC 15-30 per hpf (0-3) H 09/21/17 18:33 Ur Squamous Epith Cells Many per lpf (None-Few) H 09/21/17 18:33 Hyaline Casts Moderate per lpf (None-Few) H 09/21/17 18:33 Urine Yeast Moderate per hpf (None Seen) H 09/21/17 18:33 Ur Culture Indicated? NO. (NO) A 09/21/17 18:33 Diabetes panel 09/22/17 Range/Units 06:42 Sodium 136 (136-145) mEq/L Potassium 3.9 (3.5-5.1) mEq/L Chloride 107 (98-107) mEq/L Carbon Dioxide 20 L (23-29) mEq/L BUN 18 (8-23) mg/dL Creatinine 0.81 (0.60-1.20) mg/dL Glucose 97 (70-105) mg/dL Calcium 8.8 (8.6-10.3) mg/dL Calcium panel 09/22/17 Range/Units 06:42 Calcium 8.8 (8.6-10.3) mg/dL Pituitary panel 09/22/17 Range/Units 06:42 Sodium 136 (136-145) mEq/L Potassium 3.9 (3.5-5.1) mEq/L Chloride 107 (98-107) mEq/L Carbon Dioxide 20 L (23-29) mEq/L BUN 18 (8-23) mg/dL Creatinine 0.81 (0.60-1.20) mg/dL Glucose 97 (70-105) mg/dL Calcium 8.8 (8.6-10.3) mg/dL Adrenal panel 09/22/17 Range/Units 06:42 Sodium 136 (136-145) mEq/L Potassium 3.9 (3.5-5.1) mEq/L Chloride 107 (98-107) mEq/L Carbon Dioxide 20 L (23-29) mEq/L BUN 18 (8-23) mg/dL Creatinine 0.81 (0.60-1.20) mg/dL Glucose 97 (70-105) mg/dL Calcium 8.8 (8.6-10.3) mg/dL All other labs normal. Consult Discharge Plan - Plan Referrals: Enedina Oates MD [Primary Care Provider] - <Xiang Frias - Last Filed: 09/23/17 11:24> Date of Encounter: 09/22/17 Review of Systems All systems PM: The remainder of the systems were reviewed and are negative General Surgery Exam Initial Vital Signs Temp Pulse Resp BP Pulse Ox 97.6 F 61 18 100/64 98 09/21/17 14:37 09/21/17 14:37 09/21/17 14:37 09/21/17 14:37 09/21/17 14:37 Exam Initial Vital Signs Temp Pulse Resp BP Pulse Ox 97.6 F 61 18 100/64 98 09/21/17 14:37 09/21/17 14:37 09/21/17 14:37 09/21/17 14:37 09/21/17 14:37 Results - Labs 09/23/17 07:00 09/23/17 07:00 Abnormal lab results RBC 3.55 M/mcL (3.82-4.97) L 09/23/17 07:00 Hgb 8.8 g/dL (11.5-15.4) L 09/23/17 07:00 Hct 29.5 % (35.3-44.9) L 09/23/17 07:00 MCH 24.8 pg (28.0-33.3) L 09/23/17 07:00 MCHC 29.8 g/dL (31.6-35.5) L 09/23/17 07:00 RDW 15.7 % (11.5-14.5) H 09/23/17 07:00 MPV 9.3 fL (9.4-12.4) L 09/23/17 07:00 Sodium 133 mEq/L (136-145) L 09/23/17 07:00 Carbon Dioxide 20 mEq/L (23-29) L 09/23/17 07:00 Calculated Osmolality 275 (280-300) L 09/23/17 07:00 Globulin 4.3 g/dL (2.4-3.5) H 09/21/17 14:44 Albumin/Globulin Ratio 0.8 (1.1-2.2) L 09/21/17 14:44 Lipase 190 Units/L (11-82) H 09/21/17 14:44 Urine Protein 30 mg/dL (Neg-Trace) H 09/21/17 18:33 Ur Leukocyte Esterase Small (Negative) H 09/21/17 18:33 Urine Microscopic WBC 15-30 per hpf (0-3) H 09/21/17 18:33 Ur Squamous Epith Cells Many per lpf (None-Few) H 09/21/17 18:33 Hyaline Casts Moderate per lpf (None-Few) H 09/21/17 18:33 Urine Yeast Moderate per hpf (None Seen) H 09/21/17 18:33 Ur Culture Indicated? NO. (NO) A 09/21/17 18:33 Diabetes panel 09/23/17 Range/Units 07:00 Sodium 133 L (136-145) mEq/L Potassium 4.1 (3.5-5.1) mEq/L Chloride 106 (98-107) mEq/L Carbon Dioxide 20 L (23-29) mEq/L BUN 12 (8-23) mg/dL Creatinine 0.65 (0.60-1.20) mg/dL Glucose 90 (70-105) mg/dL Calcium 8.7 (8.6-10.3) mg/dL Calcium panel 09/23/17 Range/Units 07:00 Calcium 8.7 (8.6-10.3) mg/dL Pituitary panel 09/23/17 Range/Units 07:00 Sodium 133 L (136-145) mEq/L Potassium 4.1 (3.5-5.1) mEq/L Chloride 106 (98-107) mEq/L Carbon Dioxide 20 L (23-29) mEq/L BUN 12 (8-23) mg/dL Creatinine 0.65 (0.60-1.20) mg/dL Glucose 90 (70-105) mg/dL Calcium 8.7 (8.6-10.3) mg/dL Adrenal panel 09/23/17 Range/Units 07:00 Sodium 133 L (136-145) mEq/L Potassium 4.1 (3.5-5.1) mEq/L Chloride 106 (98-107) mEq/L Carbon Dioxide 20 L (23-29) mEq/L BUN 12 (8-23) mg/dL Creatinine 0.65 (0.60-1.20) mg/dL Glucose 90 (70-105) mg/dL Calcium 8.7 (8.6-10.3) mg/dL All other labs normal. - Attending Attestation I examined this patient and my medical decision-making was reviewed with the Resident Physician. I agree with the documented findings, disposition and treatment plan as described except to the extent set forth below. The patient is an 81-year-old female that presented with generalized malaise and anemia. She is been told that she had gallbladder disease in the past. I personally reviewed the CAT scan images of her abdomen from several months ago. I did not see any cholelithiasis. She may have a small amount of sludge in the gallbladder and a very slight amount of pericholecystic inflammation. This does not appear to be cholelithiasis, choledocholithiasis, or acute cholecystitis. I would like to get an ultrasound right upper quadrant to confirm the interpretation of the CAT scan. Her abdominal discomfort is very mild on the right side of the abdomen. We will plan ultrasound right upper quadrant with further testing based on these findings. I am not convinced that she has a primary gallbladder problem at this point. She will require EGD and colonoscopy as workup for her anemia. Xiang Frias MD FACS
--- NOTE | 2017-09-22 14:25 | Cardiology Consult Note ---
<Ridge Armijo - Last Filed: 09/22/17 14:53> Date of Encounter: 09/22/17 Time of Encounter: 14:30 Assessment and Plan (1) Cholelithiasis Current Visit: No Status: Acute Per Cardiology: Surgery note reviewed. Qualifiers: Cholelithiasis location: gallbladder Cholecystitis presence: with cholecystitis Cholecystitis acuity: chronic Biliary obstruction: without biliary obstruction Qualified Code(s): K80.10 - Calculus of gallbladder with chronic cholecystitis without obstruction (2) Preop cardiovascular exam Current Visit: Yes Status: Acute Per Cardiology: Echo pending. ECG SR, no signs of ischemia. No previous history of CAD. Further risk stratification to be provided once Echo complete. Discussed and reviewed with Dr. Jonse. Wanda w patient/family: The assessment and plan as outlined above was discussed with the patient who expressed understanding and agreement. All questions were answered. Thank you for involving us in the care of your patient. Please call with any questions. History of Present Illness Consult date: 09/22/17 Requesting physician: Jeovanny Winston Consult reason: Preop Chief complaint: Abdominal Pain History of present illness: Ms. Acevedo is a 81 year old female with relevant past mental history of hypertension, anxiety. Cardiology consult for preoperative risk stratification for cholelithiasis. Patient reports generalized abdominal discomfort with fatigue over the past few weeks. Denies any past known history of coronary artery disease with no stenting. She denies any diabetes history and denies any nicotine abuse. Reports history of palpitations-- and reports taking a blood pressure medicine to control. She does report some intermittent chest pressure at rest over the past few weeks with her other symptoms. She denies any chest pain with exertional activities. Past Med Surg Social Fam HX - Past Medical History Attestation: Yes The following information was validated with the patient. Source: patient, old records reviewed Medical history: CHF, glaucoma, hypertension Additional medical history: brain aneurysm, gout Psychiatric history: anxiety - Past Surgical History Surgical History: no surgical history Additional surgical history: balloon repair - Social History Smoking Status: Never smoker Smokeless Tobacco Status: No Alcohol use: none Drug use: none - Family History Mother Adopted: No Living Status: Age at : 75 Cause of : Stroke Hx Family Cardiac Disorders: Yes Hx Family Respiratory Disorders: No Hx Family Cancer: No Hx Family GI Disorders: No Hx Family Genitourinary Disorders: No Hx Family Endocrine Disorder: No Hx Family Musculoskeletal Disorders: Yes (arthritis) Hx Family Neuromuscular Disorders: No Hx Family Neurologic Disorders: No Hx Family HEENT Disorders: No Hx Family Autoimmune Disorders: No Hx Family Reproductive Disorders: No Hx Family Psychosocial Disorders: No Hx Family Medical Disorders: No Father Living Status: Medications and Allergies Atenolol [Tenormin] 50 mg PO BID 05/23/16 [History] Travoprost [Travatan Z] 1 drop OP HS 05/23/16 [History] Dorzolamide/Timolol [Cosopt] 1 drop BOTH EYES BID 08/27/17 [History] Escitalopram [Lexapro] 5 mg PO DAILY 08/27/17 [History] Valsartan/Hydrochlorothiazide [Diovan Hct 320-12.5 mg Tab] 1 tab PO DAILY [History] Aspirin 81 mg PO DAILY 4 Days #4 tab.chew 09/03/17 [Rx] Omeprazole [PriLOSEC] 40 mg PO DAILY 4 Days #4 cap 09/03/17 [Rx] Potassium Chloride 40 meq PO DAILY PRN 4 Days #4 tab.er.prt 09/03/17 [Rx] amLODIPine [Norvasc] 5 mg PO DAILY 09/21/17 [History] 3 Allergy/AdvReac Type Severity Reaction Status Date / Time codeine Allergy Rash Verified 03/27/17 14:48 nitrofurantoin Allergy Rash Verified 03/27/17 14:48 [From Macrodantin] Sulfa (Sulfonamide Allergy Hives Verified 03/27/17 14:48 Antibiotics) All Systems Review: The remainder of the systems were reviewed and are negative - Constitutional Constitutional: fatigue - Cardiovascular Cardiovascular: as per HPI - Gastrointestinal Gastrointestinal: abdominal pain Physical Examination Vital Signs, Last 4 Hours Temp Pulse Resp BP Pulse Ox 09/22/17 11:11 98.7 F 69 14 115/51 96 General: Conversant, No Apparent Distress HEENT: Atraumatic, Normocephaly, Mucus Membranes Moist Neck: No JVD, Normal carotid pulses Cardiac: Reg Rate and Rhythm, Normal S1 and S2, No Murmur Lungs: Normal Breath Sounds, No Wheeze, Rales, Rhonchi Neuro: Alert and responsive, No focal deficits noted Abdomen: Soft, Non-Tender Skin: No rashes noted on visualized skin Musculoskeletal: No Chest Wall Tenderness Extremities: No Clubbing, No Cyanosis, No Edema, Normal Pulses Results 09/22/17 06:42 09/22/17 06:42 Lab Results Laboratory Tests 09/21/17 09/21/17 09/21/17 14:44 14:44 14:44 Hgb 10.6 L Hct 34.6 L Creatinine Est GFR (Non-Af Amer) AST 31 ALT 10 Troponin I < 0.03 B-Natriuretic Peptide 89 09/22/17 09/22/17 06:42 06:42 Hgb 9.1 L Hct 29.9 L Creatinine 0.81 Est GFR (Non-Af Amer) > 60 AST ALT Troponin I B-Natriuretic Peptide ITS Impressions Chest X-Ray 09/21/17 14:44 IMPRESSION: No acute cardiopulmonary process is identified. Atherosclerotic disease. D/ / Bryce Arevalo MD / Bryce Arevalo MD Interpreting Provider: Bryce Arevalo MD Active Medications Hydrocodone Bitart/Acetaminophen ([place] 5-325 Mg) 1 tab PO Q6HR PRN PRN Reason: Moderate Pain Stop: 03/23/18 21:50 Last Admin: 09/22/17 00:00 Dose: 1 tab Dorzolamide/Timolol (Cosopt) 1 drop BOTH EYES BID REID Stop: 03/24/18 09:01 Last Admin: 09/22/17 09:43 Dose: 1 drop Sodium Chloride (0.9 % Sodium Chloride) 1,000 mls @ 100 mls/hr IVC .Q10H REID Stop: 03/24/18 08:46 Last Admin: 09/22/17 09:42 Dose: 100 mls/hr Latanoprost (Xalatan) 1 drop BOTH EYES HS REID PRN Reason: Protocol Stop: 03/24/18 21:01 Naloxone HCl (Narcan) 0.4 mg IVP Q2MIN PRN PRN Reason: SEE COMMENTS Stop: 03/23/18 21:37 - Imaging and Cardiology Echo: pending - EKG Interpretation EKG results cardiology: personally reviewed, normal ECG, sinus rhythm Consult Discharge Plan - Plan Referrals: Enedina Oates MD [Primary Care Provider] - <Juno Jones - Last Filed: 09/23/17 16:44> Date of Encounter: 09/22/17 Time of Encounter: 16:35 - Attending Attestation I have personally performed a face to face evaluation on this patient. I have reviewed and agree with the care plan. History and Exam by me shows: CC: Abdominal pain Pt complains of increased abdominal pain over the last several days, starts mid epigastric, has moved to right upper quadrant and into left shoulder blade. She describes the pain as waxing and waning, 6/10 at most severe. She also complains of fatique, but cannot be more specific. She reports is not sleeping well due to abdominal pain. She denies chest pain, palpitations or shortness of breath. She denies previous history of CAD, but has been told she has had heart failure in the past. ROS: Reviewed PMH; Reviewed PE: pt seen and examined, agree with findings as documented. IMP/Plan: 1. Cholelithisis: anticipate surgical intervention in the next day or two if continues to have abdominal pain 2. CHF: very vaque history, on meds for BP control, will order echo to eval LV systolic and diastolic function, EKG is non ischemic, pt is at low cardiovascular risk for planned procedure. 3. Hypertension: adequate control on current meds. Assessment and Plan Discussion w patient/family: The assessment and plan as outlined above was discussed with the patient and/or family members who expressed understanding and agreement. All questions were answered. Thank you for involving us in the care of your patient. Please call with any questions. History of Present Illness History of present illness: Ms. Acevedo is a 81 year old female All Systems Review: The remainder of the systems were reviewed and are negative Results 09/23/17 07:00 09/23/17 07:00 Lab Results 09/23/17 09/23/17 07:00 07:00 WBC 6.4 Hgb 8.8 L Hct 29.5 L Plt Count 398 Sodium 133 L Potassium 4.1 Chloride 106 Carbon Dioxide 20 L BUN 12 Creatinine 0.65 Glucose 90 Calcium 8.7 Magnesium 2.0
[2017-09-22] MEDS: *HR* HYDROcodone/Acet 5/325 mg TABLET PO PRN ×3 (15:39→22:02)
--- NOTE | 2017-09-22 20:47 | Internal Med Progress Note ---
Date of Encounter: 09/22/17 Time of Encounter: 20:47 - Assessment and plan (1) Right upper quadrant abdominal pain Current Visit: Yes Status: Acute (2) Elevated lipase Current Visit: Yes Status: Acute (3) Anemia Current Visit: Yes Status: Chronic Qualifiers: Anemia type: unspecified type Qualified Code(s): D64.9 - Anemia, unspecified (4) HTN (hypertension) Current Visit: Yes Status: Chronic Qualifiers: Hypertension type: essential hypertension Qualified Code(s): I10 - Essential (primary) hypertension (5) GERD (gastroesophageal reflux disease) Current Visit: Yes Status: Chronic Qualifiers: Esophagitis presence: esophagitis presence not specified Qualified Code(s) : K21.9 - Gastro-esophageal reflux disease without esophagitis - Time Spent With Patient Total time spent is greater than 50% in coordination of care (as documented) at patient's floor/unit and/or counseling patient: 25 - 35 minutes - Subjective Interval history: .. The patient feels pretty good. She continues to have off and on right upper quadrant abdominal pain; occasionally with nausea (without vomiting). Denies chest pain. Denies difficulty breathing. Denies coughing and wheezing. She has normal urination. OBJECTIVE: .. Skin: Free of rash and discoloration. ENMT: Oral/pharyngeal mucosa is normal in appearance. Eyes: Sclera is white. There is no discharge from eyes. Respiratory: Normal breath sounds; no crackles or wheezes. CV: Heart is regular; no gallop or murmur. GI: Abdomen is soft and not tender. There is no palpable mass or visceromegaly. Neuro: There is no focal deficits. ASSESSMENT AND PLAN: .. Right upper quadrant abdominal pain/elevated lipase. Ultrasound of her right upper quadrant from today shows dilated gallbladder with possible sludge (about no stones). There is no thickening of the gallbladder wall. There is no evidence for biliary obstruction. Surgery is consulted. They are considering Cholecystectomy for this lady requesting cardiology clearance. Echocardiogram has been ordered. She has not had any cardiac history, other than hypertension. She is on nothing by mouth diet, as requested by the surgery. Anemia. Chronic. Normocytic. She has been suffering from that problem for years. Hypertension. She is not taking her antihypertensives. Her blood pressure is normal at this time. GERD. She was taking by mouth omeprazole at home. Will order IV Protonix. - Constitutional Vitals: Temp Pulse Resp BP Pulse Ox 98.2 F 70 14 136/68 95 09/22/17 17:38 09/22/17 17:38 09/22/17 17:38 09/22/17 17:38 09/22/17 17:38 General appearance: Present: cooperative, A&O X 3, pleasant, no acute distress, answers questions appropriately Internal Medicine: Result - Labs CBC & Chem 7: 09/24/17 09:25 09/24/17 09:25 Labs: Short CBC 09/21/17 09/22/17 Range/Units 22:08 06:42 WBC 9.3 7.8 (4.3-11.1) K/mcL Hgb 9.8 L 9.1 L (11.5-15.4) g/dL Hct 32.8 L 29.9 L (35.3-44.9) % Plt Count 500 H 423 H (140-400) K/mcL BMP 09/22/17 06:42 Sodium 136 Potassium 3.9 Chloride 107 Carbon Dioxide 20 L BUN 18 Creatinine 0.81 Glucose 97 Calcium 8.8 - Impressions Impressions Echocardiogram 09/22/17 09:47 Impressions: LVEF 60-65%. Asymmetric basal septal hypertrophy. No LVOT obstruction. Mild left ventricular diastolic dysfunction. Mild mid RV dilation. Normal function by Doppler. Severely dilated left atrium. Normal right ventricular structure and function. Mild aortic regurgitation. Mild-moderate mitral regurgitation. Mild tricuspid regurgitation. Mild pulmonary hypertension. Left Ventricular Wall Motion: Rest Echo Findings All wall segments showed normal motion. Findings: Study Quality * Technically adequate exam. ECG Findings * Normal sinus rhythm. Left Ventricle * LVEF 60-65%. * Asymmetric basal septal hypertrophy. No LVOT obstruction. * Mild left ventricular diastolic dysfunction. Right Ventricle * Mild mid RV dilation. Normal function by Doppler. Left Atrium * Severely dilated left atrium. Right Atrium * Normal right atrial size. Aortic Valve * Aortic valve not well visualized. * Mild aortic regurgitation. * No aortic stenosis. Mitral Valve * Mildly thickened mitral valve leaflets. * Moderate mitral annular calcification * Mild-moderate mitral regurgitation. * No mitral stenosis. MG 2 mmHg. Tricuspid Valve * Normal tricuspid valve structure. * Mild tricuspid regurgitation. * Estimated RA pressure is 8 mmHg. * Estimated RVSP is 43 mmHg. * Mild pulmonary hypertension. Pulmonic Valve * Pulmonic valve is not well visualized. * No pulmonic stenosis. * No pulmonic regurgitation. Pulmonary Artery * Pulmonary artery not well visualized. Aorta * Normally sized aortic root. Pericardium * There is no pericardial effusion present. Interatrial Septum * No evidence of PFO by color Doppler. IVC * The IVC is not dilated. * < 50% respiratory change. Gallbladder Ultrasound 09/22/17 15:00 IMPRESSION: 1. Trace amount of pericholecystic and perihepatic free fluid is nonspecific, and was present on recent CT examination dated 08/29/2017. 2. Distended gallbladder with a small amount of sludge. Findings are similar to previous CT examination. 3. Mildly dilated common duct measuring 8 mm. Correlate with LFTs. D/ / 09/22/2017 15:24:41 Nile Grimm MD / [facility] Interpreting Provider: Nile Grimm MD Consult Discharge Plan - Plan Referrals: Enedina Oates MD [Primary Care Provider] -
[2017-09-22] MEDS: 0.9 % Sodium Chloride w KCl 20 MEQ/1,000 ML MLS IVC SCH (22:02)
[2017-09-22] MEDS: Pantoprazole 40 MG VIAL IVP SCH (22:02)
[2017-09-22] MEDS: Latanoprost 2.5 ML BOTTLE BOTH EYES SCH (22:03)
[2017-09-23 07:23] LABS: Basophils # 0.1 K/mcL (0.0-0.2); Basophils % 1.6 %; Eosinophils # 0.3 K/mcL (0.0-0.6); Eosinophils % 4.6 %; Hematocrit 29.5 % (35.3-44.9); Hemoglobin 8.8 g/dL (11.5-15.4); Immature Granulocytes % 0.6 % (0-4); Lymphocytes # 1.5 K/mcL (0.6-4.6); Lymphocytes % 22.9 %; Mean Corpuscular HGB Conc 29.8 g/dL (31.6-35.5); Mean Corpuscular Hemoglobin 24.8 pg (28.0-33.3); Mean Corpuscular Volume 83.1 fL (83.0-100.0); Mean Platelet Volume 9.3 fL (9.4-12.4); Monocytes # 0.6 K/mcL (0.0-1.3); Monocytes % 8.6 %; Neutrophils # 3.9 K/mcL (1.6-8.9); Platelet Count 398 K/mcL (140-400); Red Blood Count 3.55 M/mcL (3.82-4.97); Red Cell Distribution Width 15.7 % (11.5-14.5); Segmented Neutrophils % 61.7 %
[2017-09-23 07:36] LABS: BUN/Creatinine Ratio 18 (6-26); Blood Urea Nitrogen 12 mg/dL (8-23); Calcium 8.7 mg/dL (8.6-10.3); Carbon Dioxide 20 mEq/L (23-29); Chloride 106 mEq/L (98-107); Glucose 90 mg/dL (70-105); Osmolality,Calculated 275 (280-300); Potassium 4.1 mEq/L (3.5-5.1); Sodium 133 mEq/L (136-145); eGFR For African Americans > 60 (> 60); eGFR For Non-African Americans > 60 (> 60)
[2017-09-23] MEDS: Dorzolamide/Timolol OPTH 10 ML BOTTLE BOTH EYES SCH ×2 (08:00→21:10)
[2017-09-23] MEDS ORDERED: Polyethylene Glycol 3350 255 GM POWDER PO ONE ×2 (08:00→09:41)
--- NOTE | 2017-09-23 08:34 | General Surgery Progress Note ---
<Jeovanny Winston W - Last Filed: 09/23/17 08:45> Date of Encounter: 09/23/17 Time of Encounter: 08:30 - Assessment and Plan (1) Right upper quadrant abdominal pain Current Visit: Yes Status: Acute RUQ US showed gallbladder sludge wth no evidence of cholelithiasis or choledocholithiasis Hepatobiliary scan with CCK ordered to determine gallbladder function and ejection fraction At this time we do not recommend urgent cholecystectomy but will continue to follow and assess clinically After scan will begin bowel prep and clear liquid diet Plan for upper EGD and colonoscopy tomorrow as part of anemia workup Nothing by mouth midnight GI/DVT prophylaxis Gallbladder US impression 1. Trace amount of pericholecystic and perihepatic free fluid is nonspecific, and was present on recent CT examination dated 08/29/2017. 2. Distended gallbladder with a small amount of sludge. Findings are similar to previous CT examination. 3. Mildly dilated common duct measuring 8 mm. Correlate with LFTs. (2) Anemia Current Visit: Yes Status: Chronic Continue supportive care per primary Plan for upper endoscopy and colonoscopy tomorrow Qualifiers: Anemia type: unspecified type Qualified Code(s): D64.9 - Anemia, unspecified (3) Diarrhea Current Visit: Yes Status: Acute Continue care per primary Stool study when able to obtain a sample Qualifiers: Qualified Code(s): R19.7 - Diarrhea, unspecified Subjective Patient reports: feels better, pain is less, flatus, no bowel movement Narrative: Patient states she is doing better today. The pain is less. She still has some tenderness in her right upper quadrant and epigastric region but is much less than yesterday. Patient states she has not had diarrhea while in the hospital. No culture has been obtained for stool study as she has not had a BM. Gallbladder US 1. Trace amount of pericholecystic and perihepatic free fluid is nonspecific, and was present on recent CT examination dated 08/29/2017. 2. Distended gallbladder with a small amount of sludge. Findings are similar to previous CT examination. 3. Mildly dilated common duct measuring 8 mm. Correlate with LFTs. Objective Vital Signs - Last 8 Hours Temp Pulse Resp BP Pulse Ox 09/23/17 07:03 98.6 F 72 15 136/69 94 09/23/17 05:16 98.3 F 74 14 116/52 94 Intake and Output 09/22/17 09/23/17 09/23/17 23:59 07:59 15:59 Intake Total 0 / 0 0 / 0 Output Total 0 / 0 400 / 400 Balance 0 / 0 -400 / -400 Intake: Oral 0 / 0 0 / 0 Output: Urine 0 / 0 400 / 400 Other: Meal NPO Percent of Meal Consumed 0% # Bowel Movements 0 Weight 70.5 kg Blood Glucose* 90 90 Patient Weight 09/23/17 23:59 Weight 70.5 kg - General physical appearance well developed, well nourished, no distress - Eyes normal ocular movement - ENT atraumatic, normocephalic, CN 2-12 grossly intact - Neck Neck exam: no masses - Respiratory normal expansion, normal respiratory effort, clear to percussion, clear to auscultation - Cardiovascular Cardiovascular exam: Present: RRR, no murmurs/rubs/gallops - Abdomen Abdomen: Present: bowel sounds present, soft, tender Abdominal Tenderness: epigastic, RUQ - Integumentary no rash, no growths, no abnormal pigmentation - Neurologic normal coordination, normal sensation - Musculoskeletal normal posture - Psychiatric speech is normal, memory intact - Labs 09/23/17 07:00 09/23/17 07:00 Diabetes panel 09/23/17 Range/Units 07:00 Sodium 133 L (136-145) mEq/L Potassium 4.1 (3.5-5.1) mEq/L Chloride 106 (98-107) mEq/L Carbon Dioxide 20 L (23-29) mEq/L BUN 12 (8-23) mg/dL Creatinine 0.65 (0.60-1.20) mg/dL Glucose 90 (70-105) mg/dL Calcium 8.7 (8.6-10.3) mg/dL Calcium panel 09/23/17 Range/Units 07:00 Calcium 8.7 (8.6-10.3) mg/dL Pituitary panel 09/23/17 Range/Units 07:00 Sodium 133 L (136-145) mEq/L Potassium 4.1 (3.5-5.1) mEq/L Chloride 106 (98-107) mEq/L Carbon Dioxide 20 L (23-29) mEq/L BUN 12 (8-23) mg/dL Creatinine 0.65 (0.60-1.20) mg/dL Glucose 90 (70-105) mg/dL Calcium 8.7 (8.6-10.3) mg/dL Adrenal panel 09/23/17 Range/Units 07:00 Sodium 133 L (136-145) mEq/L Potassium 4.1 (3.5-5.1) mEq/L Chloride 106 (98-107) mEq/L Carbon Dioxide 20 L (23-29) mEq/L BUN 12 (8-23) mg/dL Creatinine 0.65 (0.60-1.20) mg/dL Glucose 90 (70-105) mg/dL Calcium 8.7 (8.6-10.3) mg/dL Consult Discharge Plan - Plan Referrals: Enedina Oates MD [Primary Care Provider] - <Xiang Frias - Last Filed: 09/23/17 11:29> Date of Encounter: 09/23/17 Objective Vital Signs - Last 8 Hours Temp Pulse Resp BP Pulse Ox 09/23/17 10:57 97.9 F 73 16 143/77 95 09/23/17 07:03 98.6 F 72 15 136/69 94 09/23/17 05:16 98.3 F 74 14 116/52 94 Intake and Output 09/22/17 09/23/17 09/23/17 23:59 07:59 15:59 Intake Total 0 / 0 0 / 0 0 / 0 Output Total 0 / 0 400 / 400 Balance 0 / 0 -400 / -400 0 / 0 Intake: Oral 0 / 0 0 / 0 0 / 0 Output: Urine 0 / 0 400 / 400 Other: Meal NPO npo Percent of Meal Consumed 0% # Bowel Movements 0 Weight 70.5 kg Blood Glucose* 90 90 Patient Weight 09/23/17 23:59 Weight 70.5 kg - Labs 09/23/17 07:00 09/23/17 07:00 Diabetes panel 09/23/17 Range/Units 07:00 Sodium 133 L (136-145) mEq/L Potassium 4.1 (3.5-5.1) mEq/L Chloride 106 (98-107) mEq/L Carbon Dioxide 20 L (23-29) mEq/L BUN 12 (8-23) mg/dL Creatinine 0.65 (0.60-1.20) mg/dL Glucose 90 (70-105) mg/dL Calcium 8.7 (8.6-10.3) mg/dL Calcium panel 09/23/17 Range/Units 07:00 Calcium 8.7 (8.6-10.3) mg/dL Pituitary panel 09/23/17 Range/Units 07:00 Sodium 133 L (136-145) mEq/L Potassium 4.1 (3.5-5.1) mEq/L Chloride 106 (98-107) mEq/L Carbon Dioxide 20 L (23-29) mEq/L BUN 12 (8-23) mg/dL Creatinine 0.65 (0.60-1.20) mg/dL Glucose 90 (70-105) mg/dL Calcium 8.7 (8.6-10.3) mg/dL Adrenal panel 09/23/17 Range/Units 07:00 Sodium 133 L (136-145) mEq/L Potassium 4.1 (3.5-5.1) mEq/L Chloride 106 (98-107) mEq/L Carbon Dioxide 20 L (23-29) mEq/L BUN 12 (8-23) mg/dL Creatinine 0.65 (0.60-1.20) mg/dL Glucose 90 (70-105) mg/dL Calcium 8.7 (8.6-10.3) mg/dL - Attending Attestation I examined this patient and my medical decision-making was reviewed with the Resident Physician. I agree with the documented findings, disposition and treatment plan as described except to the extent set forth below. The patient is seen and evaluated on morning rounds with the resident. Her abdominal pain is improved. Ultrasound demonstrated no evidence of cholelithiasis or choledocholithiasis. Because of the mild inflammation around the gallbladder I think it is reasonable to proceed with hepatobiliary testing to rule out acute cholecystitis. We will also proceed with colonoscopy and EGD tomorrow. Colonoscopy bowel prep today. Xiang Frias MD FACS
--- NOTE | 2017-09-23 10:10 | Event Note ---
Date of Encounter: 09/23/17 Time of Encounter: 10:09 - Cardiology Event Note TTE resulted--EF 60-65%. Mild mid RV dilation with normal function. Severely dilated LA. Mild AR, mild-moderate MR, mild TR and mild phtn. Pt is acceptable intermediate risk from cardiovascular standpoint to proceed with surgery. Cardiology signing off. Reconsult PRN.
[2017-09-23] MEDS: *HR* HYDROcodone/Acet 5/325 mg TABLET PO PRN ×2 (10:25→17:14)
[2017-09-23] MEDS: Pantoprazole 40 MG VIAL IVP SCH (10:25)
[2017-09-23] MEDS: 0.9 % Sodium Chloride w KCl 20 MEQ/1,000 ML MLS IVC SCH (17:14)
[2017-09-23] MEDS: Latanoprost 2.5 ML BOTTLE BOTH EYES SCH (21:10)
--- NOTE | 2017-09-23 21:42 | Internal Med Progress Note ---
Date of Encounter: 09/23/17 Time of Encounter: 21:41 - Assessment and plan (1) Right upper quadrant abdominal pain Current Visit: Yes Status: Acute (2) Elevated lipase Current Visit: Yes Status: Acute (3) Anemia Current Visit: Yes Status: Chronic Qualifiers: Anemia type: unspecified type Qualified Code(s): D64.9 - Anemia, unspecified (4) HTN (hypertension) Current Visit: Yes Status: Chronic Qualifiers: Hypertension type: essential hypertension Qualified Code(s): I10 - Essential (primary) hypertension (5) GERD (gastroesophageal reflux disease) Current Visit: Yes Status: Chronic Qualifiers: Esophagitis presence: esophagitis presence not specified Qualified Code(s) : K21.9 - Gastro-esophageal reflux disease without esophagitis - Time Spent With Patient Total time spent is greater than 50% in coordination of care (as documented) at patient's floor/unit and/or counseling patient: 25 - 35 minutes - Subjective Interval history: .. The patient feels pretty good. She continues to have off and on mild upper quadrant abdominal pain; occasionally with nausea (without vomiting). Denies chest pain. Denies difficulty breathing. Denies coughing and wheezing. She has normal urination. OBJECTIVE: .. Skin: Free of rash and discoloration. ENMT: Oral/pharyngeal mucosa is normal in appearance. Eyes: Sclera is white. There is no discharge from eyes. Respiratory: Normal breath sounds; no crackles or wheezes. CV: Heart is regular; no gallop or murmur. GI: Abdomen is soft and not tender. There is no palpable mass or visceromegaly. Neuro: There is no focal deficits. ASSESSMENT AND PLAN: .. Right upper quadrant abdominal pain/elevated lipase. Ultrasound of her right upper quadrant from today shows dilated gallbladder with possible sludge (about no stones). There is no thickening of the gallbladder wall. There is no evidence for biliary obstruction. Surgery is consulted. They want to do upper and lower endoscopy tomorrow. Anemia. Chronic. Normocytic. She has been suffering from that problem for years. Hypertension. She is not taking her antihypertensives. Her blood pressure is normal at this time. GERD. She was taking by mouth omeprazole at home. Will order IV Protonix. She may have worsening of her GERD. - Constitutional Vitals: Temp Pulse Resp BP Pulse Ox 98.1 F 75 15 152/69 96 07/18/18 20:04 09/23/17 20:04 09/23/17 20:04 09/23/17 20:04 09/23/17 20:04 General appearance: Present: cooperative, A&O X 3, pleasant, no acute distress, answers questions appropriately Internal Medicine: Result - Labs CBC & Chem 7: 09/24/17 09:25 09/24/17 09:25 Labs: Short CBC 09/23/17 Range/Units 07:00 WBC 6.4 (4.3-11.1) K/mcL Hgb 8.8 L (11.5-15.4) g/dL Hct 29.5 L (35.3-44.9) % Plt Count 398 (140-400) K/mcL Neutrophils # 3.9 (1.6-8.9) K/mcL BMP 09/23/17 07:00 Sodium 133 L Potassium 4.1 Chloride 106 Carbon Dioxide 20 L BUN 12 Creatinine 0.65 Glucose 90 Calcium 8.7 - Impressions Impressions Bile Acid Absorption NM 09/23/17 08:13 IMPRESSION: No evidence of acute cholecystitis. D/ / Jayro Servin MD / Jayro Servin MD Interpreting Provider: Jayro Servin MD Consult Discharge Plan - Plan Referrals: Enedina Oates MD [Primary Care Provider] -
[2017-09-24] MEDS: *HR* HYDROcodone/Acet 5/325 mg TABLET PO PRN ×3 (01:05→21:02)
[2017-09-24] MEDS: 0.9 % Sodium Chloride w KCl 20 MEQ/1,000 ML MLS IVC SCH (06:05)
[2017-09-24] MEDS: Pantoprazole 40 MG VIAL IVP SCH (09:24)
[2017-09-24] MEDS: Dorzolamide/Timolol OPTH 10 ML BOTTLE BOTH EYES SCH ×2 (09:24→21:02)
[2017-09-24 09:40] LABS: Basophils # 0.1 K/mcL (0.0-0.2); Basophils % 1.5 %; Eosinophils # 0.4 K/mcL (0.0-0.6); Hematocrit 30.9 % (35.3-44.9); Hemoglobin 9.3 g/dL (11.5-15.4); Immature Granulocytes % 0.5 % (0-4); Lymphocytes # 1.4 K/mcL (0.6-4.6); Lymphocytes % 23.9 %; Mean Corpuscular HGB Conc 30.1 g/dL (31.6-35.5); Mean Corpuscular Hemoglobin 25.4 pg (28.0-33.3); Mean Corpuscular Volume 84.4 fL (83.0-100.0); Mean Platelet Volume 8.7 fL (9.4-12.4); Monocytes # 0.6 K/mcL (0.0-1.3); Monocytes % 10.3 %; Neutrophils # 3.4 K/mcL (1.6-8.9); Platelet Count 343 K/mcL (140-400); Red Blood Count 3.66 M/mcL (3.82-4.97); Red Cell Distribution Width 15.6 % (11.5-14.5); Segmented Neutrophils % 57.8 %
[2017-09-24 09:58] LABS: BUN/Creatinine Ratio 14 (6-26); Blood Urea Nitrogen 9 mg/dL (8-23); Calcium 8.7 mg/dL (8.6-10.3); Carbon Dioxide 21 mEq/L (23-29); Chloride 108 mEq/L (98-107); Glucose 97 mg/dL (70-105); Osmolality,Calculated 279 (280-300); Potassium 4.1 mEq/L (3.5-5.1); Sodium 135 mEq/L (136-145); eGFR For African Americans > 60 (> 60); eGFR For Non-African Americans > 60 (> 60)
[2017-09-24] MEDS ORDERED: *HR* Midazolam HCl 5 MG/5 ML VIAL IVP ONE ×3 (15:40→15:55)
[2017-09-24] MEDS ORDERED: *HR* FentaNYL (PF) 100 MCG/2 ML VIAL ONE (15:40)
[2017-09-24] MEDS ORDERED: Simethicone 40 MG/0.6 ML MLS IR ONE (15:47)
[2017-09-24] MEDS ORDERED: *HR* FentaNYL (PF) 100 MCG/2 ML VIAL IVP ONE (15:47)
[2017-09-24] MEDS ORDERED: Tetracaine/Benzocaine/Butamben 200MG/SPRAY (100SPY/BOT) MM ONE (15:47)
--- NOTE | 2017-09-24 15:51 | Pre-Sedation Evaluation ---
Pre-sedation evaluation - Pre-sedation checklist Date of procedure: 09/24/17 Procedure: EGD Colonoscopy Recent Vitals: Last Vital Signs Temp 97.6 F 09/24/17 15:37 Pulse 118 09/24/17 15:37 Resp 18 09/24/17 15:37 BP 162/82 09/24/17 15:37 Pulse Ox 94 09/24/17 14:37 H&P (including ROS) documented in medical record: Yes Previous reaction to sedatives/anesthetics: No Dietary Status: NPO after Midnight Airway Assessment: Patient can open mouth completely, TMJ function normal Dentition: No loose teeth or bridges Possible difficult airway: No ASA Classification *see protocol: CLASS II-Mild systemic disease Cardiac Registry (Cardio Only) - Functional Capacity - Clincal Frailty Scale Clinical Frailty Scale: Mildly Frail
[2017-09-24] MEDS ORDERED: 0.9 % Sodium Chloride 1,000 ML IVC SCH (16:00)
[2017-09-24] MEDS: Latanoprost 2.5 ML BOTTLE BOTH EYES SCH (21:02)
--- NOTE | 2017-09-24 22:50 | Internal Med Progress Note ---
Date of Encounter: 09/24/17 Time of Encounter: 22:33 - Assessment and plan (1) Right upper quadrant abdominal pain Current Visit: Yes Status: Acute (2) Elevated lipase Current Visit: Yes Status: Acute (3) Anemia Current Visit: Yes Status: Chronic Qualifiers: Anemia type: unspecified type Qualified Code(s): D64.9 - Anemia, unspecified (4) HTN (hypertension) Current Visit: Yes Status: Chronic Qualifiers: Hypertension type: essential hypertension Qualified Code(s): I10 - Essential (primary) hypertension (5) GERD (gastroesophageal reflux disease) Current Visit: Yes Status: Chronic Qualifiers: Esophagitis presence: esophagitis presence not specified Qualified Code(s) : K21.9 - Gastro-esophageal reflux disease without esophagitis - Time Spent With Patient Total time spent is greater than 50% in coordination of care (as documented) at patient's floor/unit and/or counseling patient: 25 - 35 minutes - Subjective Interval history: .. The patient feels pretty good. She continues to have off and on right upper quadrant abdominal pain; occasionally with nausea (without vomiting). She is fasting today. She is waiting for her upper and lower endoscopy. Denies chest pain. Denies difficulty breathing. Denies coughing and wheezing. She has normal urination. OBJECTIVE: .. Skin: Free of rash and discoloration. ENMT: Oral/pharyngeal mucosa is normal in appearance. Eyes: Sclera is white. There is no discharge from eyes. Respiratory: Normal breath sounds; no crackles or wheezes. CV: Heart is regular; no gallop or murmur. GI: Abdomen is soft and not tender. There is no palpable mass or visceromegaly. Neuro: There is no focal deficits. ASSESSMENT AND PLAN: .. Right upper quadrant abdominal pain/elevated lipase. Ultrasound of her right upper quadrant shows dilated gallbladder with possible sludge (about no stones) . There is no thickening of the gallbladder wall. There is no evidence for biliary obstruction. Surgery is consulted. They want to do upper and lower endoscopy today. Anemia. Chronic. Normocytic. She has been suffering from that problem for years. Hypertension. She is not taking her antihypertensives. Her blood pressure is normal at this time. GERD. She was taking by mouth omeprazole at home. I switched her from by mouth omeprazole to IV Protonix. - Constitutional Vitals: Temp Pulse Resp BP Pulse Ox 99.0 F 101 16 163/85 95 09/24/17 19:23 09/24/17 19:23 09/24/17 19:23 09/24/17 19:23 09/24/17 19:23 General appearance: Present: cooperative, A&O X 3, pleasant, no acute distress, answers questions appropriately Internal Medicine: Result - Labs CBC & Chem 7: 09/24/17 09:25 09/24/17 09:25 Labs: Short CBC 09/24/17 Range/Units 09:25 WBC 5.9 (4.3-11.1) K/mcL Hgb 9.3 L (11.5-15.4) g/dL Hct 30.9 L (35.3-44.9) % Plt Count 343 (140-400) K/mcL Neutrophils # 3.4 (1.6-8.9) K/mcL BMP 09/24/17 09:25 Sodium 135 L Potassium 4.1 Chloride 108 H Carbon Dioxide 21 L BUN 9 Creatinine 0.63 Glucose 97 Calcium 8.7 Consult Discharge Plan - Plan Referrals: Enedina Oates MD [Primary Care Provider] -
[2017-09-25] MEDS: Dorzolamide/Timolol OPTH 10 ML BOTTLE BOTH EYES SCH ×2 (09:23→21:49)
[2017-09-25] MEDS: *HR* HYDROcodone/Acet 5/325 mg TABLET PO PRN ×2 (09:27→21:51)
[2017-09-25] MEDS: Pantoprazole 40 MG VIAL IVP SCH (09:45)
[2017-09-25] MEDS: 0.9 % Sodium Chloride w KCl 20 MEQ/1,000 ML MLS IVC SCH (20:04)
[2017-09-25] MEDS: 0.9 % Sodium Chloride 1,000 ML IVC SCH (20:04)
--- NOTE | 2017-09-25 20:49 | Internal Med Progress Note ---
Date of Encounter: 09/23/17 Time of Encounter: 20:49 - Assessment and plan (1) Right upper quadrant abdominal pain Current Visit: Yes Status: Acute (2) Elevated lipase Current Visit: Yes Status: Acute (3) Anemia Current Visit: Yes Status: Chronic Qualifiers: Anemia type: unspecified type Qualified Code(s): D64.9 - Anemia, unspecified (4) HTN (hypertension) Current Visit: Yes Status: Chronic Qualifiers: Hypertension type: essential hypertension Qualified Code(s): I10 - Essential (primary) hypertension (5) GERD (gastroesophageal reflux disease) Current Visit: Yes Status: Chronic Qualifiers: Esophagitis presence: esophagitis presence not specified Qualified Code(s) : K21.9 - Gastro-esophageal reflux disease without esophagitis - Time Spent With Patient Total time spent is greater than 50% in coordination of care (as documented) at patient's floor/unit and/or counseling patient: - Subjective Interval history: .. The patient feels pretty good. She continues to have off and on right upper quadrant abdominal pain; occasionally with nausea (without vomiting). Denies chest pain. Denies difficulty breathing. Denies coughing and wheezing. She has normal urination. OBJECTIVE: .. Skin: Free of rash and discoloration. ENMT: Oral/pharyngeal mucosa is normal in appearance. Eyes: Sclera is white. There is no discharge from eyes. Respiratory: Normal breath sounds; no crackles or wheezes. CV: Heart is regular; no gallop or murmur. GI: Abdomen is soft and not tender. There is no palpable mass or visceromegaly. Neuro: There is no focal deficits. ASSESSMENT AND PLAN: .. Right upper quadrant abdominal pain/elevated lipase. Ultrasound of her right upper quadrant from today shows dilated gallbladder with possible sludge (about no stones). There is no thickening of the gallbladder wall. There is no evidence for biliary obstruction. Surgery is consulted. They are considering Cholecystectomy for this lady requesting cardiology clearance. Echocardiogram has been ordered. She has not had any cardiac history, other than hypertension. She is on nothing by mouth diet, as requested by the surgery. Anemia. Chronic. Normocytic. She has been suffering from that problem for years. Hypertension. She is not taking her antihypertensives. Her blood pressure is normal at this time. GERD. She was taking by mouth omeprazole at home. Will order IV Protonix. - Constitutional Vitals: Temp Pulse Resp BP Pulse Ox 98.2 F 96 16 148/84 99 09/25/17 19:33 09/25/17 19:33 09/25/17 19:33 09/25/17 19:33 09/25/17 19:33 General appearance: Present: cooperative, A&O X 3, pleasant, no acute distress, answers questions appropriately Internal Medicine: Result - Labs CBC & Chem 7: 09/24/17 09:25 09/24/17 09:25 - VTE Documentation of Mechanical Device: Intermittent pneumatic compression device Consult Discharge Plan - Plan Referrals: Enedina Oates MD [Primary Care Provider] -
[2017-09-25] MEDS: Latanoprost 2.5 ML BOTTLE BOTH EYES SCH (21:49)
--- NOTE | 2017-09-25 22:42 | Internal Med Progress Note ---
Date of Encounter: 09/25/17 Time of Encounter: 22:36 - Assessment and plan (1) Right upper quadrant abdominal pain Current Visit: Yes Status: Acute (2) Elevated lipase Current Visit: Yes Status: Acute (3) Anemia Current Visit: Yes Status: Chronic Qualifiers: Anemia type: unspecified type Qualified Code(s): D64.9 - Anemia, unspecified (4) HTN (hypertension) Current Visit: Yes Status: Chronic Qualifiers: Hypertension type: essential hypertension Qualified Code(s): I10 - Essential (primary) hypertension (5) GERD (gastroesophageal reflux disease) Current Visit: Yes Status: Chronic Qualifiers: Esophagitis presence: esophagitis presence not specified Qualified Code(s) : K21.9 - Gastro-esophageal reflux disease without esophagitis - Time Spent With Patient Total time spent is greater than 50% in coordination of care (as documented) at patient's floor/unit and/or counseling patient: 25 - 35 minutes - Subjective Interval history: .. The patient feels pretty good. She had upper and lower endoscopy done today. I found her sitting next to her bed. She is after eating her supper. Denies abdominal pain, nausea and vomiting. Denies chest pain. Denies difficulty breathing. Denies coughing and wheezing. She has normal urination. OBJECTIVE: .. Skin: Free of rash and discoloration. ENMT: Oral/pharyngeal mucosa is normal in appearance. Eyes: Sclera is white. There is no discharge from eyes. Respiratory: Normal breath sounds; no crackles or wheezes. CV: Heart is regular; no gallop or murmur. GI: Abdomen is soft and not tender. There is no palpable mass or visceromegaly. Neuro: There is no focal deficits. ASSESSMENT AND PLAN: .. Right upper quadrant abdominal pain/elevated lipase. Ultrasound of her right upper quadrant shows dilated gallbladder with possible sludge (about no stones) . There is no thickening of the gallbladder wall. There is no evidence for biliary obstruction. Upper endoscopy showed one 14 mm pedunculated polyp with bleeding. The polyp was removed with a hot snare. Lower endoscopy revealed multiple colonic diverticuli. Awaiting recommendations from the surgery regarding further course of treatment. Her echocardiogram did not reveal any particular abnormalities. Anemia. Chronic. Normocytic. She has been suffering from that problem for years. Hypertension. She is not taking her antihypertensives. Her blood pressure is normal at this time. GERD. She is back on by mouth omeprazole. - Constitutional Vitals: Temp Pulse Resp BP Pulse Ox 98.2 F 96 16 148/84 99 09/25/17 19:33 09/25/17 19:33 09/25/17 19:33 09/25/17 19:33 09/25/17 19:33 General appearance: Present: cooperative, A&O X 3, pleasant, no acute distress, answers questions appropriately Internal Medicine: Result - Labs CBC & Chem 7: 09/24/17 09:25 09/24/17 09:25 - VTE Documentation of Mechanical Device: Intermittent pneumatic compression device Consult Discharge Plan - Plan Referrals: Enedina Oates MD [Primary Care Provider] -
[2017-09-26 08:07] VITALS: BP 110/74
[2017-09-26] MEDS: Dorzolamide/Timolol OPTH 10 ML BOTTLE BOTH EYES SCH (08:28)
[2017-09-26] MEDS: *HR* HYDROcodone/Acet 5/325 mg TABLET PO PRN (14:17)
--- NOTE | 2017-09-26 15:23 | Discharge Summary ---
Orders not resulted at time of discharge: Pending orders 09/24/17 16:20 Surgical Pathology [PTH] Routine Date of Encounter: 09/26/17 Time of Encounter: 15:14 - Discharge Diagnosis (1) Right upper quadrant abdominal pain Priority: Primary Status: Acute (2) Elevated lipase Priority: Primary Status: Acute (3) Anemia Priority: Secondary Status: Chronic Qualifiers: Anemia type: unspecified type Qualified Code(s): D64.9 - Anemia, unspecified (4) HTN (hypertension) Priority: Secondary Status: Chronic Qualifiers: Hypertension type: essential hypertension Qualified Code(s): I10 - Essential (primary) hypertension (5) GERD (gastroesophageal reflux disease) Priority: Secondary Status: Chronic Qualifiers: Esophagitis presence: esophagitis presence not specified Qualified Code(s) : K21.9 - Gastro-esophageal reflux disease without esophagitis Hospital course: Ms. Acevedo is a 81 year old female. Her PCP called her on the day of admission requesting her to come to the emergency department. According to the patient, the PCP was concerned about her anemia. One can see that her hemoglobin was 10.6 and 9.8 on the day of admission. The patient reported to us having right upper quadrant abdominal pain at times. It was not related to meals or other factors. She did not report to us any nausea or vomiting. The patient was hospitalized here recentlyI treated for abdominal pain/VRE bacteremia. She was discharged home on 09/14/17. We presented this patient to general surgery. The patient had ultrasound of gallbladder; followed by nuclear medicine bile acid absorption. The first study showed distended gallbladder with a small amount of sludge. He did not show features of cholecystitis or biliary obstruction. The second study did not show any evidence of acute cholecystitis. The patient had CT of abdomen and pelvis that shortly before those previous 2 studies. Then, the patient had upper and lower endoscopy. One 14 mm pedunculated polyp with bleeding was found in the duodenal bulb. The polyp was removed. The patient does have diverticulosis of colon. Then, we advanced her diet to regular. She did not develop any abdominal pain, nausea or vomiting. Subsequently, we discharged her home. Condition at discharge: The patient feels good. Denies abdominal pain, nausea and vomiting. Denies chest pain. Denies difficulty breathing. No indications for any surgical interventions. Follow up with primary care physician. Her last hemoglobin was done on 09/24/17. It was 9.3. Discharge discussed with: patient, nurse - Time Spent with Patient Total time spent providing and/or coordinating discharge services: Greater than 30 minutes (40 minutes) - Discharge Medications Home Medications: Atenolol [Tenormin] 50 mg PO BID 05/23/16 [History] Travoprost [Travatan Z] 1 drop OP HS 05/23/16 [History] Dorzolamide/Timolol [Cosopt] 1 drop BOTH EYES BID 08/27/17 [History] Escitalopram [Lexapro] 5 mg PO DAILY 08/27/17 [History] Valsartan/Hydrochlorothiazide [Diovan Hct 320-12.5 mg Tab] 1 tab PO DAILY [History] Aspirin 81 mg PO DAILY 4 Days #4 tab.chew 09/03/17 [Rx] Omeprazole [PriLOSEC] 40 mg PO DAILY 4 Days #4 cap 09/03/17 [Rx] amLODIPine [Norvasc] 5 mg PO DAILY 09/21/17 [History] Allergies/Adverse Reactions: 3 Allergy/AdvReac Type Severity Reaction Status Date / Time codeine Allergy Rash Verified 03/27/17 14:48 nitrofurantoin Allergy Rash Verified 03/27/17 14:48 [From Macrodantin] Sulfa (Sulfonamide Allergy Hives Verified 03/27/17 14:48 Antibiotics) Date of admission: 09/21/17 18:53 Primary care physician: Enedina Oates MD Consults: 09/21/17 21:04 Consult to Respiratory Scientist [CONS] Routine Reason for SW Consult: Pain management 09/21/17 21:43 Consult to Surgery [CONS] Routine Consulting Provider: [facility] Reason for Consult: Consider cholecystectomy Call Completed: No 09/22/17 10:00 Consult to Cardiology [CONS] Routine Comment: Consulting Provider: [facility] [place] Reason for Consult: Cardiac risk stratification Time Notified: 10:00 Call Completed: No Discharging clinician: Eusebio Syed Anticipated date of discharge: 09/26/17 - Constitutional Vitals: Temp Pulse Resp BP Pulse Ox 98.8 F 98 14 110/74 96 09/26/17 08:06 09/26/17 08:06 09/26/17 08:06 09/26/17 08:06 07/21/18 08:06 General appearance: Present: cooperative, A&O X 3, pleasant, no acute distress, answers questions appropriately - Respiratory Respiratory exam: Present: CTAB. Absent: accessory muscle use, rales, rhonchi, wheezes - Cardiovascular Cardiovascular exam: Present: RRR, +S1, +S2. Absent: diastolic murmur, gallop, rubs, systolic murmur - GI/Abdominal GI/Abdominal exam: Present: normal bowel sounds, soft, no peritoneal signs. Absent: distended, tenderness - Patient Status Disposition: Home, Self-Care Condition: Good Overall status at discharge: patient is back to baseline - Discharge Instructions Follow Up With: Xiang Frias MD [Partnered Physician] - Enedina Oates MD [Primary Care Provider] - (Web Request was made, the office should call you thursday with appointment date and time, if they do not call them on Thursday to make appointment. @ [phone]) - Diet and Activity Activity: resume usual activities as tolerated Diet: low fat, low cholesterol - VTE Reasons for not Prescribing Prophylaxis: Treatment not Indicated - Low risk for VTE Documentation of Mechanical Device: Intermittent pneumatic compression device
== END 2017-09-26 15:40 | disposition home or self-care (01) ==
LOC: 3ANU 14:33 → EMEROO 14:33 → SUATTDRO 18:53 → 3ANU 19:52
PROVIDERS: ADMIT Internal Medicine; ATTEND Internal Medicine

== ENCOUNTER 2018-07-15 19:34 | Inpatient (IN) ==
[2018-07-15] MEDS ORDERED: Furosemide 40 MG/4 ML VIAL ONE (19:37)
[2018-07-15] MEDS ORDERED: Furosemide 40 MG/4 ML VIAL IVP ONE (19:40)
[2018-07-15] MEDS ORDERED: Nitroglycerin 25 MG/250 ML INFUS..BTL IVC ONE (19:40)
[2018-07-15] MEDS ORDERED: Nitroglycerin 0.4 MG TAB.SUBL SL ONE ×2 (19:40→19:42)
[2018-07-15] MEDS: Nitroglycerin 25 MG/250 ML INFUS..BTL IVC SCH (19:52)
[2018-07-15 20:32] LABS: Basophils # 0.1 K/mcL (0.0-0.2); Basophils % 0.7 %; Eosinophils # 0.3 K/mcL (0.0-0.6); Eosinophils % 1.5 %; Hematocrit 36.8 % (35.3-44.9); Immature Granulocytes % 0.7 % (0-4); Lymphocytes # 1.9 K/mcL (0.6-4.6); Lymphocytes % 10.2 %; Mean Corpuscular HGB Conc 29.9 g/dL (31.6-35.5); Mean Corpuscular Hemoglobin 25.4 pg (28.0-33.3); Mean Platelet Volume 10.8 fL (9.4-12.4); Monocytes # 0.8 K/mcL (0.0-1.3); Monocytes % 4.2 %; Neutrophils # 15.6 K/mcL (1.6-8.9); Platelet Count 329 K/mcL (140-400); Red Blood Count 4.33 M/mcL (3.82-4.97); Red Cell Distribution Width 16.8 % (11.5-14.5); Segmented Neutrophils % 82.7 %
[2018-07-15 20:53] LABS: BUN/Creatinine Ratio 23 (6-26); Blood Urea Nitrogen 17 mg/dL (8-23); Calcium 9.4 mg/dL (8.6-10.3); Carbon Dioxide 22 mEq/L (23-29); Chloride 105 mEq/L (98-107); Glucose 216 mg/dL (70-105); Osmolality,Calculated 300 (280-300); Potassium 3.7 mEq/L (3.5-5.1); Sodium 141 mEq/L (136-145); eGFR For Non-African Americans > 60 (> 60)
[2018-07-15 20:55] LABS: INR 1.1; Prothrombin Time 12.5 Seconds (9.4-12.1); Troponin I 1.02 ng/mL (< 0.04)
[2018-07-15 20:57] LABS: Activated Partial Thrombo Time 21.7 Seconds (26.0-36.0)
[2018-07-15] MEDS ORDERED: Aspirin 325 MG TABLET PO ONE (21:04)
[2018-07-15] MEDS ORDERED: *HR* Heparin 5,000 UNIT/ML VIAL IVP PRN ×2 (21:06)
[2018-07-15] MEDS ORDERED: *HR* Heparin 5,000 UNIT/ML VIAL IVP ONE (21:06)
[2018-07-15] MEDS ORDERED: Heparin 25,000 UNIT/250 ML D5W 25,000 UNIT/250 ML IV.SOLN IVC SCH (21:15)
[2018-07-15 21:42] LABS: Bilirubin,Urine Negative (Negative); Blood,Urine Negative (Negative); Clarity,Urine Clear (Clear); Color,Urine Yellow (Yellow); Glucose,Urine (UA) Normal (Normal); Ketones,Urine Negative (Negative); Leukocyte Esterase,Urine Moderate (Negative); Nitrite,Urine Positive (Negative); PH,Urine 5.5 pH Units (5.0-8.0); Protein,Urine Negative (Neg-Trace); Specific Gravity,Urine 1.014 (1.010-1.025); Urobilinogen,Urine Normal (Normal)
[2018-07-15 21:44] LABS: Bacteria,Urine Many per hpf (None-Few); Hyaline Casts,Urine None Seen per lpf (None-Few); Squamous Epithelial Cell,Urine Many per lpf (None-Few)
--- NOTE | 2018-07-15 22:00 | Internal Med History&Physical ---
<Kumar Carrillo - Last Filed: 07/16/18 00:09> Date of Encounter: 07/15/18 Time of Encounter: 23:40 Internal Medicine - H&P: HPI Chief complaint: Chest pain shortness of breath Admitted From: Emergency Dept Plans for Post Hospital Care: Home History of present illness: Ms. Acevedo is a 82 year old female Internal Medicine - H&P: Meds Atenolol [Tenormin] 50 mg PO BID 07/15/18 [History] DULoxetine [Cymbalta] 20 mg PO DAILY 07/15/18 [History] Dorzolamide/Timolol/Pf [Dorzolamide-Timolol 2%-0.5%] 1 drop BOTH EYES BID 07/15/18 [History] Gabapentin [Neurontin] 100 mg PO QAM 07/15/18 [History] Gabapentin [Neurontin] 300 mg PO HS 07/15/18 [History] Travoprost [Travatan Z] 1 drop BOTH EYES HS 07/15/18 [History] amLODIPine [Norvasc] 5 mg PO DAILY 07/15/18 [History] Allergy/AdvReac Type Severity Reaction Status Date / Time codeine Allergy Hives Verified 07/15/18 19:47 nitrofurantoin Allergy Hives Verified 07/15/18 20:06 [From Macrobid] Mqorpao-Lrq-Qjg Reductase Allergy See Verified 07/15/18 19:47 Inhibitor Comments [Statins] Sulfa (Sulfonamide Allergy Hives Verified 07/15/18 19:47 Antibiotics) metoclopramide [From Reglan] AdvReac Shakiness Verified 07/15/18 20:06 All Systems PM: A 10-system review of systems was performed and is negative for pertinent findings except as documented above in the HPI. - Constitutional Vitals: Temp Pulse Resp BP Pulse Ox 98.7 F 81 16 112/74 98 07/15/18 19:57 07/15/18 23:37 07/15/18 23:37 07/15/18 23:37 07/15/18 23:37 Internal Med - H&P Results - Labs CBC & Chem 7: 07/15/18 21:49 07/15/18 20:07 Labs: Short CBC 07/15/18 07/15/18 Range/Units 20:07 21:49 WBC 18.8 H 16.8 H (4.3-11.1) K/mcL Hgb 11.0 L 10.7 L (11.5-15.4) g/dL Hct 36.8 34.6 L (35.3-44.9) % Plt Count 329 333 (140-400) K/mcL Neutrophils # 15.6 H (1.6-8.9) K/mcL BMP 07/15/18 20:07 Sodium 141 Potassium 3.7 Chloride 105 Carbon Dioxide 22 L BUN 17 Creatinine 0.73 Glucose 216 H Calcium 9.4 Cardiac Enzymes 07/15/18 Range/Units 20:07 Troponin I 1.02 H* (< 0.04) ng/mL Urine 07/15/18 Range/Units 21:15 Urine Color Yellow (Yellow) Urine Clarity Clear (Clear) Urine pH 5.5 (5.0-8.0) pH Units Ur Specific Butler 1.014 (1.010-1.025) Urine Protein Negative (Neg-Trace) mg/dL Urine Glucose (UA) Normal (Normal) mg/dL - Impressions ITS Impressions Chest X-Ray 07/15/18 20:07 IMPRESSION: CHF with bilateral perihilar edema, cardiomegaly and vascular congestion. D/ / Bryce Gonzales MD / Bryce Gonzales MD Interpreting Provider: Bryce Gonzales MD - Assessment and Plan (1) NSTEMI (non-ST elevated myocardial infarction) Current Visit: Yes Status: Acute (2) Flash pulmonary edema Current Visit: Yes Status: Acute (3) Glaucoma Current Visit: No Status: Chronic Qualifiers: Glaucoma type: unspecified Qualified Code(s): H40.9 - Unspecified glaucoma (4) Hypertension Current Visit: No Status: Chronic Qualifiers: Hypertension type: essential hypertension Qualified Code(s): I10 - Essential (primary) hypertension (5) Hyperglycemia Current Visit: Yes Status: Acute (6) Depression Current Visit: No Status: Chronic Qualifiers: Depression Type: unspecified Qualified Code(s): F32.9 - Major depressive disorder, single episode, unspecified (7) Brain aneurysm Current Visit: No Status: Chronic (8) DVT prophylaxis Current Visit: Yes Status: Acute (9) Obesity (BMI 30.0-34.9) Current Visit: Yes Status: Acute (10) UTI (urinary tract infection) Current Visit: Yes Status: Acute Qualifiers: Urinary tract infection type: acute cystitis Hematuria presence: without hematuria Qualified Code(s): N30.00 - Acute cystitis without hematuria (11) Lactic acidosis Current Visit: Yes Status: Acute (12) Sepsis Current Visit: Yes Status: Acute Qualifiers: Sepsis type: sepsis due to unspecified organism Qualified Code(s): A41.9 - Sepsis, unspecified organism - Time Spent With Patient Total time spent is greater than 50% in coordination of care (as documented) at patient's floor/unit and/or counseling patient: - Attending Attestation I saw evaluated and examined this patient and my medical decision-making was reviewed with the Resident Physician, Paul Asencio. I agree with the documented findings, review of systems, past medical, surgical, social and family histories, disposition and treatment plan as described except to any changes set forth below. We independently had [id number]-[id number] contact with the patient. 82-year-old female patient with past medical history of fibromyalgia , hypertension, peripheral arterial disease, CHF, hypertension who presented to the ER with complaints of 2-3 day history of chest pain along with worsening shortness of breath. She has not had any cardiac issues in the past. She reported some substernal chest pain that was nonradiating. She took multiple doses of aspirin with some improvement in her pain. However since then she has continued to have intermittent waxing and waning chest pain that seems to be progressively increasing in severity. She again took multiple aspirin today. She was placed on nitro drip in the ER and since then her chest pain has improved. It is almost completely subsided now. General: Patient is alert, mild distress, oriented x 3 Head: atraumatic, normocephalic, ENT: Mucous membranes moist Eye: normal appearance, PERRL, no scleral icterus, no conjunctival injection Neck: normal inspection, trachea midline, full ROM, no carotid bruits Chest: normal inspection, symmetric chest rise, no chest wall tenderness Respiratory: Good respiratory effort. Normal breath sounds. No wheezing or crackles. Cardiovascular: Regular rate and rhythm. s1 and s2 normal No clicks, rubs, gallops, or murmurs. No pedal edema Abdomen: Abdomen is soft, nontender. Bowel sounds are present Musculoskeletal: Spontaneously moving all extremities Skin: warm, dry, intact. Neuro: Alert oriented x 3 normal cranial nerves, no focal deficits Psych: Patient's affect is normal EKG showed slight ST depression in lateral leads. Non-ST elevation DE: Patient has elevated troponin. Presented with chest pain and shortness of breath. Treat for non-ST elevation DE with IV heparin. Co nsult cardiology. Patient has also been placed on nitroglycerin drip. We will continue and titrate to keep blood pressure less than 140. Congestive heart failure: No prior echocardiograms to compare and evaluated. Patient does appear to have pulmonary edema. Treated with Lasix and nitroglycerin in the ER. Will continue intravenous Lasix. Obtain 2-D echocardiogram. High risk for complications. Acute urinary tract infection: Patient has leukocytosis and urine is positive for nitrates and leukocyte esterase. Will treat empirically with ceftriaxone. Essential hypertension: Blood pressure was elevated initially but has now improved since patient was placed on nitroglycerin. Continue to monitor blood pressure and resume home medications. <Paul Asencio S - Last Filed: 07/16/18 00:19> Date of Encounter: 07/16/18 Time of Encounter: 22:45 Internal Medicine - H&P: HPI History of present illness: Ms. Acevedo is a 82 year old female with PMH of glaucoma, HTN, and brain aneurysm. She is coming in with a 3 day hx of chest pain and SOB. She states that it acutely worsened today and she thought she was going to , so she came to the ER. She states she has never had cardiac stents or cardiac workup before. There are no records on file here for her. She states that she had dull, substernal chest pain with radiation to the right arm and to the back. She states it was a squeezing feeling. She had associated diaphoresis and shortness of breath. She states that she normally gets SOB during activity but that it took less for her to get SOB the last few days. Her chest pain has resolved since coming to the hospital. In the ER she was found to be in flash pulmonary edema and she was started on a nitroglycerin drip and BiPAP, to which she responded well to and was ultimately able to transfer to oxymask. She had pulmonary vascular congestion on XR chest. EKG showed ST depressions. ER attending contacted the x ray service engineer. Troponin was elevated and the pt was started on heparin drip. She will be admitted for further evaluation and treatment. Past Med Surg Social Fam HX - Past Medical History Medical history: arthritis, CHF, coronary artery disease, fibromyalgia, hyperlipidemia, hypertension, peripheral artery disease, other Additional medical history: pancreatitis/cataracts/actinic keratoses/vit D deficiency. HLD/constipation/chronic pain/polymyalgia rheumatica/subarachnoid h emorrhage/vit B12 deficiency/. lubar DDD/fatty liver/osteopenia/scoliosis of lumbar spine/DJD/tear of acetabular labrum. lumbar radiculitis. carpal tunnel Psychiatric history: anxiety - Past Surgical History Additional surgical history: carpal tunnel release/colonoscopy & EGD. back surgery/left popliteal balloon/angioplasty//cataract removal - Social History Smoking Status: Former smoker Smokeless Tobacco Status: No Alcohol use: none Drug use: none All Systems PM: A 10-system review of systems was performed and is negative for pertinent findings except as documented above in the HPI. - Constitutional Constitutional: chills, fatigue, fever(s), lethargy, malaise - EENT Eyes: blurry vision, no change in vision Ears: no tinnitus - Cardiovascular Cardiovascular ROS IM: chest pain, diaphoresis, dyspnea, dyspnea on exertion - Respiratory Respiratory: dyspnea, dyspnea on exertion, no cough, no hemoptysis, no chest congestion - Gastrointestinal Gastrointestinal: nausea, no abdominal pain, no diarrhea, no vomiting - Musculoskeletal Musculoskeletal ROS IM: arthralgias, back pain - Integumentary Integumentary IM: no rash, no skin ulcer - Neurological Neurological ROS: weakness, no numbness, no tremor(s) - Psychiatric Psychiatric: depression, no confusion - Endocrine Endocrine IM: fatigue - Hematologic/Lymphatic Hematologic/Lymphatic: no easy bleeding, no easy bruising - Constitutional Vitals: Temp Pulse Resp BP Pulse Ox 98.7 F 84 18 132/74 99 07/15/18 19:57 07/15/18 21:36 07/15/18 21:36 07/15/18 21:36 07/15/18 21:36 General appearance: Present: mild distress, A&O X 3, pleasant Exam: General - AOx3, mild distress, slightly anxious appearing, elderly female HEENT - NCAT, MMM eyes - no sceral icterus neck- no jvd cardio- rrr, s1s2, cta no mrg lungs - ctab, no wheeze/rhonchi/rales, no respiratory distress abd - obese, soft, ntnd, no peritoneal signs, no rebound or guarding extremities - moves all extremities equally, strength 5/5 UE and LE skin - warm, dry, intact neuro- no fnd, cn2-12 grossly intact, sensation intact psych - anxious appearing Internal Med - H&P Results - Labs CBC & Chem 7: 07/15/18 21:49 07/15/18 20:07 Labs: Short CBC 07/15/18 Range/Units 20:07 WBC 18.8 H (4.3-11.1) K/mcL Hgb 11.0 L (11.5-15.4) g/dL Hct 36.8 (35.3-44.9) % Plt Count 329 (140-400) K/mcL Neutrophils # 15.6 H (1.6-8.9) K/mcL BMP 07/15/18 20:07 Sodium 141 Potassium 3.7 Chloride 105 Carbon Dioxide 22 L BUN 17 Creatinine 0.73 Glucose 216 H Calcium 9.4 Cardiac Enzymes 07/15/18 Range/Units 20:07 Troponin I 1.02 H* (< 0.04) ng/mL Urine 07/15/18 Range/Units 21:15 Urine Color Yellow (Yellow) Urine Clarity Clear (Clear) Urine pH 5.5 (5.0-8.0) pH Units Ur Specific Butler 1.014 (1.010-1.025) Urine Protein Negative (Neg-Trace) mg/dL Urine Glucose (UA) Normal (Normal) mg/dL - Impressions ITS Impressions Chest X-Ray 07/15/18 20:07 IMPRESSION: CHF with bilateral perihilar edema, cardiomegaly and vascular congestion. D/ / Bryce Gonzales MD / Bryce Gonzales MD Interpreting Provider: Bryce Gonzales MD - Assessment and Plan (1) NSTEMI (non-ST elevated myocardial infarction) Current Visit: Yes Status: Acute Assessment and plan: Pt presents w/ three day hx of chest pain, increasing severly today - pt presented in respiratory distress, flash pulmonary edema, started on nitroglycerin drip and put on BiPAP - reports dull, substernal chest pain that radiated to the right arm XR chest showed CHF with bilateral perihilar edema, cardiomegaly and vascular congestion. EKG showed sinus tacycardia, ST depression in the lateral leads TALIB score of 5, would benefit from early intervention Troponin 1.02 BNP 686 Plan: - start ASA 81mg PO daily - telemetry monitoring - BiPAP prn and hs - ECHO pending - troponin x3 - nitroglycerin drip communication orders to nurse to titrate down as tolerated - continue heparin drip - lasix 40mg IVP BID - FEN: NPO - consults: cardiology, PTOT consulted - DVT prophylaxis: heparin drip - dispo: cardiology workup pending, homegoing vs SNF placement Pt is a FULL CODE and indicated that if respiratory status does decline overnight, that she would like to be intubated. Does report having hx of living will but does not know what it says nor does she have it with her. (2) Flash pulmonary edema Current Visit: Yes Status: Acute Assessment and plan: See above. Pt improved with BiPAP and nitroglycerin drip. ECHO pending as above. (3) UTI (urinary tract infection) Current Visit: Yes Status: Acute Assessment and plan: Pt denies hematuria, dysuria, increased frequency UA (+) for leukocyte esterase, nitrites, and WBC Plan: - start rocephin day 1 - urine cx pending Qualifiers: Urinary tract infection type: acute cystitis Hematuria presence: without hematuria Qualified Code(s): N30.00 - Acute cystitis without hematuria (4) Glaucoma Current Visit: No Status: Chronic Assessment and plan: Chronic, no changes in vision. Continue home rx. Qualifiers: Glaucoma type: unspecified Qualified Code(s): H40.9 - Unspecified glaucoma (5) Hypertension Current Visit: No Status: Chronic Assessment and plan: Chronic. Continue home norvasc. Qualifiers: Hypertension type: essential hypertension Qualified Code(s): I10 - Essential (primary) hypertension (6) Hyperglycemia Current Visit: Yes Status: Acute Assessment and plan: Glucose 216 on admission, no hx of T2DM. HbA1c pending. AccLELA boswell. (7) Depression Current Visit: No Status: Chronic Assessment and plan: con't cymbalta. Qualifiers: Depression Type: unspecified Qualified Code(s): F32.9 - Major depressive disorder, single episode, unspecified (8) Brain aneurysm Current Visit: No Status: Chronic Assessment and plan: Has hx of brain anueyrsm, denies any headaches at this time. Clipped 10yrs ago. (9) DVT prophylaxis Current Visit: Yes Status: Acute Assessment and plan: on heparin drip (10) Obesity (BMI 30.0-34.9) Current Visit: Yes Status: Acute Assessment and plan: BMI 30.4, chronic. Counsled. (11) Lactic acidosis Current Visit: Yes Status: Acute Assessment and plan: Lactic acid on admission 2.7, improved to 2.4 - repeat LA pending (12) Sepsis Current Visit: Yes Status: Acute Assessment and plan: Pt did meet criteria on admission for SIRS for WBC, HR, RR and lactic acid elevation. Likely this was due to acute respiratory failure and leukocytosis secondary to stress demargination, however, UA (+) for ?infxn. Will cover for rocephin as above. Tacycardia and tacypnia have resolved. LA trending down. Will continue to closely monitor the pt. Qualifiers: Sepsis type: sepsis due to unspecified organism Qualified Code(s): A41.9 - Sepsis, unspecified organism - Time Spent With Patient Total time spent is greater than 50% in coordination of care (as documented) at patient's floor/unit and/or counseling patient: 25 - 35 minutes
[2018-07-15 22:06] LABS: Hematocrit 34.6 % (35.3-44.9); Hemoglobin 10.7 g/dL (11.5-15.4); Mean Corpuscular HGB Conc 30.9 g/dL (31.6-35.5); Mean Corpuscular Hemoglobin 25.8 pg (28.0-33.3); Mean Corpuscular Volume 83.6 fL (83.0-100.0); Mean Platelet Volume 10.6 fL (9.4-12.4); Platelet Count 333 K/mcL (140-400); Red Blood Count 4.14 M/mcL (3.82-4.97); Red Cell Distribution Width 16.8 % (11.5-14.5)
[2018-07-15 22:13] LABS: Heparin anti-factor XA UFH 0.55 IU/mL (0.30-0.70)
[2018-07-15 22:14] LABS: INR 1.2; Prothrombin Time 13.2 Seconds (9.4-12.1)
[2018-07-15] MEDS ORDERED: D5% in Water 1,000 ML IVC PRN (22:39)
[2018-07-15] MEDS ORDERED: Naloxone 0.4 MG/ML INJ IVP PRN (22:39)
[2018-07-15] MEDS ORDERED: *HR* Dextrose 50 % in Water (Syg) 50 ML SYRINGE IVP PRN (22:39)
[2018-07-15] MEDS ORDERED: Dextrose Gel 15 GM/37.5 ML TUBE PO PRN ×2 (22:39)
[2018-07-15] MEDS ORDERED: Ondansetron 4 MG/2 ML VIAL IVP PRN (22:39)
--- NOTE | 2018-07-15 22:58 | Emergency Department Note ---
Disposition Clinical Impression: Acute congestive heart failure, Non-ST elevation [place] (NSTEMI) Disposition: Admitted As Inpatient Condition: Good Referrals: NONE,PCP [Primary Care Provider] - Time of Disposition: 22:58 General Adult HPI - General Chief complaint: ED Shortness of Breath/Dyspnea Stated complaint: Alonso Time Seen by Provider: 07/15/18 20:06 Source: patient, family, EMS Limitations: no limitations - History of Present Illness HPI Narrative: Chris Hernández presents to emergency department with chief complaint of shortness of breath. Patient states the last several days been having increasing shortness of breath. Patient called EMS and when EMS was called the patient was extremely Weak and noticed that she had crackles and rhonchi present bilaterally. The patient also had extremely elevated blood pressure at the same time. The patient was attempted to trial of CPAP in route to the emergency department was unable to tolerated prior to arrival. The patient reports symptoms are worse with exertion and improved with rest Pain Scale: 2 - Related Data Home Medications Medication Instructions Recorded Confirmed Atenolol [Tenormin] 50 mg PO BID 07/15/18 07/15/18 DULoxetine [Cymbalta] 20 mg PO DAILY 07/15/18 07/15/18 Dorzolamide/Timolol/Pf 1 drop BOTH EYES BID 07/15/18 07/15/18 [Dorzolamide-Timolol 2%-0.5%] Gabapentin [Neurontin] 100 mg PO QAM 07/15/18 07/15/18 Gabapentin [Neurontin] 300 mg PO HS 07/15/18 07/15/18 Travoprost [Travatan Z] 1 drop BOTH EYES HS 07/15/18 07/15/18 amLODIPine [Norvasc] 5 mg PO DAILY 07/15/18 07/15/18 Allergies Allergy/AdvReac Type Severity Reaction Status Date / Time codeine Allergy Hives Verified 07/15/18 19:47 nitrofurantoin Allergy Hives Verified 07/15/18 20:06 [From Macrobid] Fymkgnb-Izw-Pax Reductase Allergy See Verified 07/15/18 19:47 Inhibitor Comments [Statins] Sulfa (Sulfonamide Allergy Hives Verified 07/15/18 19:47 Antibiotics) metoclopramide [From Reglan] AdvReac Shakiness Verified 07/15/18 20:06 All systems ED: reviewed and negative except as stated. Past Medical History - Past Medical History Attestation: Yes The following information was validated with the patient. Medical history: Reports: arthritis, CHF, coronary artery disease, fibromyalgia, hyperlipidemia, hypertension, peripheral artery disease, other Psychiatric history: Reports: anxiety - Social History Smoking Status: Former smoker Smokeless Tobacco Status: No Alcohol use: Reports: none Drug use: Reports: none Physical Exam General: Conversant and pleasant interactive and nontoxic. Head: Normocephalic/atraumatic Eyes:PERRLA, EOMI, no conjunctivitis Nares: Without d/c. Ears: No erythema or d/c noted. 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 Cardovascular: Tachycardic rate without murmur, brisk capillary refill, no perip heral edema. Lungs: Clear to labored respiratory rate has crackles present bilaterally Abd: Soft nontender, Non Distended, no guarding, no rebound. : Defered Extremities: moves all extremities equally Neuro: AOx3, no obvious gross neuro deficit Psych: Normal Affect Derm: No rash noted - General Limitations: no limitations General appearance: alert Course Course Narrative: The patient was initially brought into the resuscitation bay patient was given sublingual nitrates and also given IV Lasix and started on a nitroglycerin drip. The patient was started on BiPAP and has had significant improvement in his been able to be weaned off BiPAP at this time. The patient's laboratory studies showed the patient have a troponin of 1.0. Patient's given aspirin prior to arrival and also the patient was started on a heparin drip. Case was discussed with the hospitalist who recommended calling cardiology for consultation by legal analyst was consulted and will be available for consult on the patient. Vital Signs Pulse Rate 103 07/15/18 19:37 Respiratory Rate 40 07/15/18 19:37 Blood Pressure 180/143 07/15/18 19:37 O2 Sat by Pulse Oximetry 100 07/15/18 19:37 Temperature 98.7 F 07/15/18 19:57 Pulse Rate 84 07/15/18 22:00 Respiratory Rate 18 07/15/18 22:00 Blood Pressure 132/74 07/15/18 22:00 O2 Sat by Pulse Oximetry 98 07/15/18 22:00 Oxygen Delivery Oxygen Delivery Simple Mask Medical Decision Making - Lab Data Result diagrams: 07/15/18 21:49 07/15/18 20:07 Lab Results 07/15/18 07/15/18 07/15/18 Range/Units 20:07 20:07 20:07 WBC 18.8 H (4.3-11.1) K/mcL RBC 4.33 (3.82-4.97) M/mcL Hgb 11.0 L (11.5-15.4) g/dL Hct 36.8 (35.3-44.9) % MCV 85.0 (83.0-100.0) fL MCH 25.4 L (28.0-33.3) pg MCHC 29.9 L (31.6-35.5) g/dL RDW 16.8 H (11.5-14.5) % Plt Count 329 (140-400) K/mcL MPV 10.8 (9.4-12.4) fL Immature Gran % 0.7 (0-4) % Seg Neutrophils % 82.7 % Lymphocytes % 10.2 % Monocytes % 4.2 % Eosinophils % 1.5 % Basophils % 0.7 % Neutrophils # 15.6 H (1.6-8.9) K/mcL Lymphocytes # 1.9 (0.6-4.6) K/mcL Monocytes # 0.8 (0.0-1.3) K/mcL Eosinophils # 0.3 (0.0-0.6) K/mcL Basophils # 0.1 (0.0-0.2) K/mcL PT 12.5 H (9.4-12.1) Seconds INR 1.1 APTT 21.7 L (26.0-36.0) Seconds Heparin Anti-Xa, Unfract (0.30-0.70) IU/mL Sodium 141 (136-145) mEq/L Potassium 3.7 (3.5-5.1) mEq/L Chloride 105 (98-107) mEq/L Carbon Dioxide 22 L (23-29) mEq/L BUN 17 (8-23) mg/dL Creatinine 0.73 (0.60-1.20) mg/dL Est GFR ( Amer) > 60 (> 60) Est GFR (Non-Af Amer) > 60 (> 60) BUN/Creatinine Ratio 23 (6-26) Glucose 216 H (70-105) mg/dL Calculated Osmolality 300 (280-300) Lactic Acid (0.5-2.2) mmol/L Calcium 9.4 (8.6-10.3) mg/dL Troponin I 1.02 H* (< 0.04) ng/mL B-Natriuretic Peptide (Less than 100) pg/mL Urine Color (Yellow) Urine Clarity (Clear) Urine pH (5.0-8.0) pH Units Ur Specific [place] (1.010-1.025) Urine Protein (Neg-Trace) mg/dL Urine Glucose (UA) (Normal) mg/dL Urine Ketones (Negative) mg/dL Urine Blood (Negative) Urine Nitrite (Negative) Urine Bilirubin (Negative) Urine Urobilinogen (Normal) mg/dL Ur Leukocyte Esterase (Negative) Urine Microscopic RBC (0-3) per hpf Urine Microscopic WBC (0-3) per hpf Ur Squamous Epith Cells (None-Few) per lpf Urine Bacteria (None-Few) per hpf Hyaline Casts (None-Few) per lpf Ur Culture Indicated? (NO) 07/15/18 07/15/18 07/15/18 Range/Units 20:07 20:21 21:15 WBC (4.3-11.1) K/mcL RBC (3.82-4.97) M/mcL Hgb (11.5-15.4) g/dL Hct (35.3-44.9) % MCV (83.0-100.0) fL MCH (28.0-33.3) pg MCHC (31.6-35.5) g/dL RDW (11.5-14.5) % Plt Count (140-400) K/mcL MPV (9.4-12.4) fL Immature Gran % (0-4) % Seg Neutrophils % % Lymphocytes % % Monocytes % % Eosinophils % % Basophils % % Neutrophils # (1.6-8.9) K/mcL Lymphocytes # (0.6-4.6) K/mcL Monocytes # (0.0-1.3) K/mcL Eosinophils # (0.0-0.6) K/mcL Basophils # (0.0-0.2) K/mcL PT (9.4-12.1) Seconds INR APTT (26.0-36.0) Seconds Heparin Anti-Xa, Unfract (0.30-0.70) IU/mL Sodium (136-145) mEq/L Potassium (3.5-5.1) mEq/L Chloride (98-107) mEq/L Carbon Dioxide (23-29) mEq/L BUN (8-23) mg/dL Creatinine (0.60-1.20) mg/dL Est GFR ( Amer) (> 60) Est GFR (Non-Af Amer) (> 60) BUN/Creatinine Ratio (6-26) Glucose (70-105) mg/dL Calculated Osmolality (280-300) Lactic Acid 2.7 H (0.5-2.2) mmol/L Calcium (8.6-10.3) mg/dL Troponin I (< 0.04) ng/mL B-Natriuretic Peptide 686 H (Less than 100) pg/mL Urine Color Yellow (Yellow) Urine Clarity Clear (Clear) Urine pH 5.5 (5.0-8.0) pH Units Ur Specific [place] 1.014 (1.010-1.025) Urine Protein Negative (Neg-Trace) mg/dL Urine Glucose (UA) Normal (Normal) mg/dL Urine Ketones Negative (Negative) mg/dL Urine Blood Negative (Negative) Urine Nitrite Positive A (Negative) Urine Bilirubin Negative (Negative) Urine Urobilinogen Normal (Normal) mg/dL Ur Leukocyte Esterase Moderate H (Negative) Urine Microscopic RBC 3-5 H (0-3) per hpf Urine Microscopic WBC 5-15 H (0-3) per hpf Ur Squamous Epith Cells Many H (None-Few) per lpf Urine Bacteria Many H (None-Few) per hpf Hyaline Casts None Seen (None-Few) per lpf Ur Culture Indicated? YES A (NO) 07/15/18 07/15/18 07/15/18 Range/Units 21:49 21:49 21:49 WBC 16.8 H (4.3-11.1) K/mcL RBC 4.14 (3.82-4.97) M/mcL Hgb 10.7 L (11.5-15.4) g/dL Hct 34.6 L (35.3-44.9) % MCV 83.6 (83.0-100.0) fL MCH 25.8 L (28.0-33.3) pg MCHC 30.9 L (31.6-35.5) g/dL RDW 16.8 H (11.5-14.5) % Plt Count 333 (140-400) K/mcL MPV 10.6 (9.4-12.4) fL Immature Gran % (0-4) % Seg Neutrophils % % Lymphocytes % % Monocytes % % Eosinophils % % Basophils % % Neutrophils # (1.6-8.9) K/mcL Lymphocytes # (0.6-4.6) K/mcL Monocytes # (0.0-1.3) K/mcL Eosinophils # (0.0-0.6) K/mcL Basophils # (0.0-0.2) K/mcL PT 13.2 H (9.4-12.1) Seconds INR 1.2 APTT (26.0-36.0) Seconds Heparin Anti-Xa, Unfract 0.55 (0.30-0.70) IU/mL Sodium (136-145) mEq/L Potassium (3.5-5.1) mEq/L Chloride (98-107) mEq/L Carbon Dioxide (23-29) mEq/L BUN (8-23) mg/dL Creatinine (0.60-1.20) mg/dL Est GFR ( Amer) (> 60) Est GFR (Non-Af Amer) (> 60) BUN/Creatinine Ratio (6-26) Glucose (70-105) mg/dL Calculated Osmolality (280-300) Lactic Acid 2.4 H (0.5-2.2) mmol/L Calcium (8.6-10.3) mg/dL Troponin I (< 0.04) ng/mL B-Natriuretic Peptide (Less than 100) pg/mL Urine Color (Yellow) Urine Clarity (Clear) Urine pH (5.0-8.0) pH Units Ur Specific [place] (1.010-1.025) Urine Protein (Neg-Trace) mg/dL Urine Glucose (UA) (Normal) mg/dL Urine Ketones (Negative) mg/dL Urine Blood (Negative) Urine Nitrite (Negative) Urine Bilirubin (Negative) Urine Urobilinogen (Normal) mg/dL Ur Leukocyte Esterase (Negative) Urine Microscopic RBC (0-3) per hpf Urine Microscopic WBC (0-3) per hpf Ur Squamous Epith Cells (None-Few) per lpf Urine Bacteria (None-Few) per hpf Hyaline Casts (None-Few) per lpf Ur Culture Indicated? (NO)
[2018-07-15] MEDS ORDERED: cefTRIAXone 2,000 MG in Water for inj. (sterile) 20 ML 20 ML IVP SCH (23:00)
[2018-07-15 23:37] LABS: Estimated Average Glucose 134 mg/dl; Hemoglobin A1C 6.3 %
[2018-07-16 00:33] LABS: Hematocrit 32.2 % (35.3-44.9); Hemoglobin 10.3 g/dL (11.5-15.4); Mean Corpuscular Hemoglobin 26.1 pg (28.0-33.3); Mean Corpuscular Volume 81.5 fL (83.0-100.0); Mean Platelet Volume 10.8 fL (9.4-12.4); Platelet Count 311 K/mcL (140-400); Red Blood Count 3.95 M/mcL (3.82-4.97); Red Cell Distribution Width 16.7 % (11.5-14.5)
[2018-07-16 00:51] LABS: BUN/Creatinine Ratio 26 (6-26); Blood Urea Nitrogen 17 mg/dL (8-23); Calcium 8.5 mg/dL (8.6-10.3); Carbon Dioxide 20 mEq/L (23-29); Chloride 108 mEq/L (98-107); Chol/HDL Ratio 6.2 (0-4.9); Cholesterol 206 mg/dL (< 200); Glucose 144 mg/dL (70-105); HDL Cholesterol 33 mg/dL (40-59); LDL Cholesterol,Calculated 148 mg/dL (0-99); Osmolality,Calculated 292 (280-300); Phosphorous 3.1 mg/dL (2.7-4.5); Potassium 3.5 mEq/L (3.5-5.1); Sodium 139 mEq/L (136-145); Triglycerides 123 mg/dL (< 150); eGFR For Non-African Americans > 60 (> 60)
[2018-07-16] MEDS: Insulin LISPRO 300 UNITS/3 ML VIAL SQ SCH ×6 (01:52→22:43)
[2018-07-16] MEDS ORDERED: traMADol 50 MG TABLET PO PRN (01:53)
[2018-07-16] MEDS: cefTRIAXone 1,000 MG in Water for inj. (sterile) 20 ML 10 ML IVP SCH (01:56)
[2018-07-16] MEDS ORDERED: *HR* OxyCODONE Immed Rel 5 MG TABLET PO ONE (02:11)
--- NOTE | 2018-07-16 08:36 | Cardiology Consult Note ---
Date of Encounter: 07/16/18 Time of Encounter: 08:10 Assessment and Plan (1) NSTEMI (non-ST elevated myocardial infarction) Current Visit: Yes Status: Acute - Patient presented to the ED with 3 days of worsening retrosternal chest pain. -She does not have any history of any cardiac problems. - EKG was positive for slight ST depression in lateral leads. She also had elevated troponins at 1.02, 2.43, 3.59 -Patient has risk factor that predisposes her to ACS like essential hypertension. -She was on nitroglycerin drip in the ED which helped to improve her chest pain. -chest x-ray was also positive for pulmonary vascular congestion -Current telemetry is negative for any ST-T changes, heart strain /block. Patient endorses her chest pain is better than when she came to the ED. -Patient recalls having a stress test many years ago [facility] was not able to find any records in the system. - Echo from 09/22/2017 showed LVEF: 60-65%, with severely dilated left atrium, mild aortic regur, mild-moderate mitral regurg, tricuspid regur, mild Pulm HTN PLAN: - Repeat Echocardiogram pending. -On heparin drip and titrate down nitroglycerin as tolerated -Will wean O2 as tolerated to Plan for [facility] later today. -She'll be put on Toprol 25mg PO Daily. (2) Pulmonary edema Current Visit: Yes Status: Acute -Likely due to new onset congestive heart failure. -Continue BNP was elevated in the ED at 686. -On physical exam there is no S3 sound, no JVD or pitting edema in the ext remities. -Strict Is/Os, weight checks , and cardiac diet -Currently on lasix PO 20 mg - Echo pending Qualifiers: Qualified Code(s): J81.0 - Acute pulmonary edema Discussion w patient/family: The assessment and plan as outlined above was discussed with the patient and/or family members who expressed understanding and agreement. All questions were answered. Thank you for involving us in the care of your patient. Please call with any questions. History of Present Illness Consult date: 07/16/18 History of present illness: Ms. Acevedo is a 82 year old female with fibromyalgia, brain aneurysms who presents to the ED because of chest pain that began 3 days ago. Patient endorses that she was doing her daily chores when no she had the sharp retrosternal chest pain radiating to her bilateral arms without any nausea, vomiting or diaphoresis. Patient took some aspirin at home and the chest pain got better and she was able to sleep. however the next day the pain continued and the day after the pain was severe that she was gasping for air and she had to call the squad. Patient tells me that she took multiple aspirins to get relief from a chest pain. She tells me that in the past she has taken multiple aspirins because she thinks it helps with her fibromyalgia. Patient has no significant cardiac history , he is to be on a statin 25 years ago but then had to discontinue the medicine because it would make her fibromyalgia pain worse. She does have essential hypertension which can potentially predispose her to ACS. Initial workup in the ED showed that patient had elevated troponins 1.02, 2.43, 3.59, EKG was positive for ST depression in the lateral leads . She also had an elevated BNP of 686, chest x-ray showed evidence of flash pulmonary edema and cardiomegaly. patient was given IV Lasix and a nitroglycerin drip. Owing to dyspnea she was put on BiPAP . The nitro drip helped with the chest pain. She was put on a Heparin gtt and admitted to the floor for further management of her new onset chest pain . Patient was on 9 L of oxygen I saw her. She endorsed her chest pain is better now Past Med Surg Social Fam HX - Past Medical History Medical history: arthritis, CHF, coronary artery disease, fibromyalgia, hyperlipidemia, hypertension, peripheral artery disease, other Additional medical history: pancreatitis/cataracts/actinic keratoses/vit D d eficiency. HLD/constipation/chronic pain/polymyalgia rheumatica/subarachnoid hemorrhage/vit B12 deficiency/. lubar DDD/fatty liver/osteopenia/scoliosis of lumbar spine/DJD/tear of acetabular labrum. lumbar radiculitis. carpal tunnel Psychiatric history: anxiety - Past Surgical History Additional surgical history: carpal tunnel release/colonoscopy & EGD. back surgery/left popliteal balloon/angioplasty//cataract removal - Social History Smoking Status: Former smoker Smokeless Tobacco Status: No Alcohol use: none Drug use: none - Family History Mother Hx Family Cardiac Disorders: Yes (Heart attack, stroke) Hx Family Respiratory Disorders: Yes (COPD) Hx Family Cancer: Yes (Eshphegeal) Hx Family GI Disorders: No Hx Family Genitourinary Disorders: No Hx Family Endocrine Disorder: No Hx Family Musculoskeletal Disorders: No Hx Family Neuromuscular Disorders: No Hx Family Neurologic Disorders: No Hx Family HEENT Disorders: Yes (brother had bad ears) Hx Family Autoimmune Disorders: No Hx Family Reproductive Disorders: No Hx Family Psychosocial Disorders: No Hx Family Medical Disorders: No Father Living Status: Medications and Allergies Atenolol [Tenormin] 50 mg PO BID 05/23/16 [History] Travoprost [Travatan Z] 1 drop OP HS 05/23/16 [History] Dorzolamide/Timolol [Cosopt] 1 drop BOTH EYES BID 08/27/17 [History] Escitalopram [Lexapro] 5 mg PO DAILY 08/27/17 [History] Valsartan/Hydrochlorothiazide [Diovan Hct 320-12.5 mg Tab] 1 tab PO DAILY [History] Aspirin 81 mg PO DAILY 4 Days #4 tab.chew 09/03/17 [Rx] Omeprazole [PriLOSEC] 40 mg PO DAILY 4 Days #4 cap 09/03/17 [Rx] amLODIPine [Norvasc] 5 mg PO DAILY 09/21/17 [History] Atenolol [Tenormin] 50 mg PO BID 07/15/18 [History] DULoxetine [Cymbalta] 20 mg PO DAILY 07/15/18 [History] Dorzolamide/Timolol/Pf [Dorzolamide-Timolol 2%-0.5%] 1 drop BOTH EYES BID 07/15/18 [History] Gabapentin [Neurontin] 100 mg PO QAM 07/15/18 [History] Gabapentin [Neurontin] 300 mg PO HS 07/15/18 [History] Travoprost [Travatan Z] 1 drop BOTH EYES HS 07/15/18 [History] amLODIPine [Norvasc] 5 mg PO DAILY 07/15/18 [History] Allergy/AdvReac Type Severity Reaction Status Date / Time codeine Allergy Rash Verified 07/16/18 09:30 nitrofurantoin Allergy Rash Verified 07/16/18 09:30 [From Macrodantin] Cryfsft-Vng-Xdn Reductase Allergy See Verified 07/16/18 09:30 Inhibitor Comments [Statins] Sulfa (Sulfonamide Allergy Hives Verified 07/16/18 09:30 Antibiotics) tramadol [From Ultram] Allergy Headache Verified 07/16/18 09:30 metoclopramide [From Reglan] AdvReac Shakiness Verified 07/16/18 09:30 All Systems Review: The remainder of the systems were reviewed and are negative Physical Examination Vital Signs, Last 4 Hours Temp Pulse Resp BP Pulse Ox 07/16/18 07:33 97.8 F 88 18 118/71 98 07/16/18 06:00 103/47 07/16/18 05:20 97.7 F 72 16 98/52 Other: Gen.: Vitals noted. No acute distress. Alert, awake and oriented * 3 , well developed, well-nourished resting comfortably in bed. HEENT: oropharynx clear, Normocephalic, atraumatic, MMM Neck: supple, no JVD, no lymphadenopathy, no carotid bruit. Cardiac: RRR, +S1/S2, No BLE edema, PMI non-displaced Pulmonary: decreased breath sounds, no rales/ rhonchi or wheezing, equal chest expansion, unlabored breathing Abdomen: non-tender, non-distended, no guarding. No organomegaly, no pulsatile masses, Skin: warm and dry, no visible lesions. Feels warm, clammy, no rashes, no lesions, no erythema MSK: no joint swelling noted, gait not assessed while in bed. Non tender calf or clubbing, no cyanosis/clubbing/ or edema Neuro: A&O, moves all extremities, no focal deficits, sensation intact. Psych: good mentation Results 07/16/18 00:21 07/16/18 00:21 Lab Results 07/15/18 07/15/18 07/15/18 20:07 20:07 20:07 WBC 18.8 H Hgb 11.0 L Hct 36.8 Plt Count 329 INR 1.1 APTT 21.7 L Sodium 141 Potassium 3.7 Chloride 105 Carbon Dioxide 22 L BUN 17 Creatinine 0.73 Glucose 216 H Calcium 9.4 Magnesium Troponin I 1.02 H* B-Natriuretic Peptide 07/15/18 07/15/18 07/15/18 20:07 21:49 21:49 WBC 16.8 H Hgb 10.7 L Hct 34.6 L Plt Count 333 INR 1.2 APTT Sodium Potassium Chloride Carbon Dioxide BUN Creatinine Glucose Calcium Magnesium Troponin I B-Natriuretic Peptide 686 H 07/15/18 07/16/18 07/16/18 23:06 00:21 00:21 WBC 14.3 H Hgb 10.3 L Hct 32.2 L Plt Count 311 INR APTT Sodium 139 Potassium 3.5 Chloride 108 H Carbon Dioxide 20 L BUN 17 Creatinine 0.66 Glucose 144 H Calcium 8.5 L Magnesium 2.0 Troponin I 2.43 H* B-Natriuretic Peptide 07/16/18 04:12 WBC Hgb Hct Plt Count INR APTT Sodium Potassium Chloride Carbon Dioxide BUN Creatinine Glucose Calcium Magnesium Troponin I 3.59 H* B-Natriuretic Peptide Consult Discharge Plan - Plan Referrals: NONE,PCP [Primary Care Provider] -
[2018-07-16] MEDS ORDERED: amLODIPine 5 MG TABLET PO SCH (09:00)
[2018-07-16] MEDS ORDERED: Gabapentin 100 MG CAPSULE PO SCH (09:00)
[2018-07-16] MEDS: Furosemide 40 MG/4 ML VIAL IVP SCH ×2 (09:20→22:44)
[2018-07-16] MEDS: Aspirin 81 MG TAB.CHEW PO SCH (09:20)
[2018-07-16] MEDS: Dorzolamide/Timolol OPTH 10 ML BOTTLE BOTH EYES SCH ×2 (10:29→20:47)
--- NOTE | 2018-07-16 10:50 | Electrocardiograph Report ---
[address] [place], [place] [address] Test Date: 2018-07-15 Pat Name: Ghada Acevedo Department: [id number] Room: 2NE25 Gender: F Medical Care Administrator: : [id number] Requested By: German Berry Order Number: [id number] Reading MD: Adam Grant Measurements Intervals [place] Rate: 105 P: 70 ID: [id number] QRS: -49 QRSD: 95 T: 71 QT: 346 QTc: 458 Interpretive Statements Sinus tachycardia Left anterior fascicular block Low voltage, precordial leads Consider anterior infarct Minimal ST depression, lateral leads Electronically Signed On 07-16-2018 10:48:57 EDT by Adam Grant
[2018-07-16] MEDS: Metoprolol XL (24 HR) Succ 25 MG TAB.ER.24H PO SCH (12:21)
[2018-07-16] MEDS ORDERED: 0.9 % Sodium Chloride 1,000 ML ONE ×2 (12:57→12:58)
[2018-07-16] MEDS ORDERED: Nitroglycerin 1,000 MCG/10 ML VIAL IV ONE (12:57)
[2018-07-16] MEDS ORDERED: Heparin 1,000 UNITS/500 mL 500 ML ONE (12:57)
[2018-07-16] MEDS ORDERED: ISOVUE-370 200 ML INFUS..BTL ONE ×3 (12:57→15:46)
[2018-07-16] MEDS ORDERED: *HR* Heparin 10,000 UNIT/10 ML VIAL ONE ×2 (12:57→15:31)
[2018-07-16] MEDS ORDERED: *HR* Midazolam HCl 2 MG/2 ML VIAL ONE (15:04)
[2018-07-16] MEDS ORDERED: *HR* FentaNYL (PF) 100 MCG/2 ML VIAL ONE (15:04)
--- NOTE | 2018-07-16 15:16 | Pre-Sedation Evaluation ---
Pre-sedation evaluation - Pre-sedation checklist Date of procedure: 07/16/18 Procedure: Cath Recent Vitals: Last Vital Signs Temp 97.5 F L 07/16/18 11:53 Pulse 83 07/16/18 11:53 Resp 15 07/16/18 11:53 BP 117/49 07/16/18 11:53 Pulse Ox 94 07/16/18 11:53 H&P (including ROS) documented in medical record: Yes Previous reaction to sedatives/anesthetics: No Dietary Status: NPO after Midnight Dentition: dentures removed ASA Classification *see protocol: CLASS II-Mild systemic disease Cardiac Registry (Cardio Only) - Functional Capacity Functional Capacity: >=4 METS with symptoms - Clincal Frailty Scale Clinical Frailty Scale: Managing Well
[2018-07-16] MEDS ORDERED: Ondansetron 4 MG/2 ML VIAL ONE (15:30)
[2018-07-16] MEDS ORDERED: Tirofiban 12.5 MG/250ML 12.5 MG/250 ML BAG ONE (15:31)
[2018-07-16] MEDS ORDERED: Furosemide 40 MG/4 ML VIAL ONE (15:53)
--- NOTE | 2018-07-16 15:56 | Internal Med Progress Note ---
Hospitalist Progress Note - Encounter Date of Encounter: 07/16/18 Time of Encounter: 11:50 - Subjective Interval History: Better shortness of breath and chest pain. Nursing staff at bedside. Review the lab. Denies fever chills nausea vomiting headache dizziness abdominal pain diarrhea - Exam Vitals: Temp Pulse Resp BP Pulse Ox 97.5 F L 83 15 117/49 94 07/16/18 11:53 07/16/18 11:53 07/16/18 11:53 07/16/18 11:53 07/16/18 11:53 Exam: General - AOx3, no acute distress, slightly anxious appearing, elderly female, 2 L oxygen by nasal cannula HEENT - PERRLA EOMI eyes - no sceral icterus neck- no jvd cardio- rrr, s1s2, cta no mrg lungs - decreased breath sound bilaterally with questionable bibasilar crackles abd - obese, soft, ntnd, no peritoneal signs, no rebound or guarding extremities - moves all extremities equally, strength 5/5 UE and LE, skin - warm, dry, intact neuro- no focal neurological deficit. - Summary of Assessment and Plan Summary of Assessment and Plan: Non-ST elevation ID: Patient has elevated troponin. Presented with chest pain and shortness of breath. Started heparin drip and consulted cardiology. Nitro drip was restarted due to chest pain. Continue aspirin beta destini statin. Fa sting lipid profile ordered. Echocardiogram ordered . Plan for heart catheterization today. Congestive heart failure: Newly diagnosed. No prior echocardiograms to compare and evaluated. Patient does appear to have pulmonary edema. Treated with Lasix and nitroglycerin in the ER. Will continue intravenous Lasix cautiously. Daily weight, a strict I&O's. Monitor BMP Obtain 2-D echocardiogram. High risk for complications. leucocytosis-trending down white count. Abnormal urine analysis. Urine culture report awaited. Continue Rocephin. Monitor CBC. No fever at this time. No blood culture ordered in the ER. Chest x-ray with bilateral perihilar edema more likely vascular congestion. Could be underlying pneumonia as well , Rocephin will cover pneumonia as well. Acute urinary tract infection: Patient has leukocytosis and urine is positive for nitrates and leukocyte esterase. Will treat empirically with ceftriaxone. Essential hypertension: Blood pressure was elevated initially but has now improved since patient was placed on nitroglycerin. Continue to monitor blood pressure and resume home medications. DVT prophylaxis-on heparin drip now - Time Spent with Patient Total time spent is greater than 50% in coordination of care (as documented) at patient's floor/unit and/or counseling patient: 25 - 35 minutes Plan of Care Discussed with: patient Internal Medicine: Result - Labs CBC & Chem 7: 07/16/18 00:21 07/16/18 00:21 Labs: Short CBC 07/15/18 07/15/18 07/16/18 Range/Units 20:07 21:49 00:21 WBC 18.8 H 16.8 H 14.3 H (4.3-11.1) K/mcL Hgb 11.0 L 10.7 L 10.3 L (11.5-15.4) g/dL Hct 36.8 34.6 L 32.2 L (35.3-44.9) % Plt Count 329 333 311 (140-400) K/mcL Neutrophils # 15.6 H (1.6-8.9) K/mcL BMP 07/15/18 07/16/18 20:07 00:21 Sodium 141 139 Potassium 3.7 3.5 Chloride 105 108 H Carbon Dioxide 22 L 20 L BUN 17 17 Creatinine 0.73 0.66 Glucose 216 H 144 H Calcium 9.4 8.5 L Cardiac Enzymes 07/15/18 07/15/18 07/16/18 Range/Units 20:07 23:06 04:12 Troponin I 1.02 H* 2.43 H* 3.59 H* (< 0.04) ng/mL 07/16/18 Range/Units 10:21 Troponin I 2.76 H* (< 0.04) ng/mL Urine 07/15/18 Range/Units 21:15 Urine Color Yellow (Yellow) Urine Clarity Clear (Clear) Urine pH 5.5 (5.0-8.0) pH Units Ur Specific [place] 1.014 (1.010-1.025) Urine Protein Negative (Neg-Trace) mg/dL Urine Glucose (UA) Normal (Normal) mg/dL - ABG Interpretation ABG results: PT/INR, D-dimer PT 13.2 Seconds (9.4-12.1) H 07/15/18 21:49 - Impressions Impressions Chest X-Ray 05/09/19 20:07 IMPRESSION: CHF with bilateral perihilar edema, cardiomegaly and vascular congestion. D/ / Bryce Gonzales MD / Bryce Gonzales MD Interpreting Provider: Bryce Gonzales MD Consult Discharge Plan - Plan Referrals: NONE,PCP [Primary Care Provider] -
[2018-07-16] MEDS ORDERED: *HR* Promethazine 25 MG/ML VIAL ONE (16:04)
[2018-07-16] MEDS ORDERED: Tirofiban 12.5 MG/250ML 12.5 MG/250 ML BAG IVC SCH ×2 (16:15→23:45)
--- NOTE | 2018-07-16 16:30 | Invasive Diagnostic Lab Proc ---
Name: Ghada Acevedo Date of Study: 07/16/2018 Date: 1935 Ht: 61.8in Medical Record#: [id number] Age: 82 Wt: 160.94lb Gender: Female BSA: 1.74 Order #: [id number] BMI: 29.62 Physicians Procedure Physician: Kalli Harrington MD Referring MD: Referring MD: Staff Name Position Time In Pratima Daniels RN Monitor 03:03 PM Jesse Zamudio RT (R) Scrub 03:03 PM Homar Segundo RN Securities Counselor 03:03 PM Procedures Performed Procedure L HRT ARTERY/VENTRICLE ANGIO PRQ CARD ISHAN STENT W/ANGIO 1 VSL Pre-Procedure Checklist Informed consent is complete signed and on chart. H&P is on chart. ID band is on and ID verified with patient. Patient NPO for procedure The procedure was described for the patient and questions were answered. Blood Pressure: 117/49 ECG is on chart. Plan of Care Patient will tolerate the procedure without complications. Adequate level of comfort will be maintained. Hemodynamics will remain stable Patient will recover from procedure without complications. Respiratory function will be maintained. Cardiac rhythm will remain stable. Patient temperature will be maintained. Patient and/or family have verbalized understanding of the procedure. Patient Education Chief Complaint/Reason for Test: Cardiac Cath Developmental Category: Geriatric (65+ years) Developmentally Appropriate for Age: Yes Learning Barriers: None Education Needs: Procedure Education Method: Verbal Information Taught: Cardiac Cath Educational Evaluation: Able to repeat information Intravenous Access Time IV Size Location DC'd Fluid/Drip Rate Units RN 12:40 PM 22g 1" Patent On Arrival 0.9NaCl 25 ml/hr Allergies SULFA (sulfonamide) codeine nitrofurantoin Vital Signs Time BP (mmHg) HR (bpm) O2 Sat. RR (bpm) LOC 12:41 PM 117 / 49 83 94 % 15 03:05 PM / % 5 = Fully awake and oriented or at pre-proc level 03:15 PM / % 4 = Oriented but drowsy 03:09 PM 129 / 72 91 91 % 23 03:14 PM 126 / 75 87 88 % 19 03:19 PM 126 / 66 83 92 % 19 03:24 PM 123 / 73 82 92 % 18 03:30 PM 126 / 74 94 91 % 24 03:34 PM 114 / 70 87 91 % 28 03:39 PM 106 / 59 86 89 % 03:44 PM 129 / 73 93 89 % 21 03:49 PM 117 / 59 89 87 % 12 03:54 PM 130 / 80 93 89 % 27 03:59 PM 122 / 61 88 89 % 16 Procedural Medications Time Medication Dose Units Method Given By 03:05 PM Oxygen 2 L/min nasal cannula Homar Segundo RN 03:15 PM Versed 1 mg Intravenous Homar Segundo RN 03:15 PM Fentanyl 50 mcg Intravenous Homar Segundo RN 03:21 PM Lidocaine 2% 19 ml Subcutaneous Kalli Harrington MD 03:30 PM Zofran 4 mg Intravenous Ottoniel Fairchild RN 03:30 PM Heparin 3500 units Intravenous Ottoniel Fairchild RN 03:32 PM Aggrastat Bolus: 37.5 ml Intravenous Homar Segundo RN 03:32 PM Aggrastat 12.5mg/250ml 13.5 ml Intravenous Homar Segundo RN 03:54 PM Lasix 40 mg Intravenous Ottoniel Fairchild RN 04:05 PM Phenergan 25 mg Intravenous Homar Segundo RN ASA Classification: CLASS III- Severe systemic disease (i.e. prior AMI, diabetes with vascular complications, morbid obesity) Adrienne Score Preprocedure Postprocedure Activity 2- Moves 4 extremities sustained head lift Activity 2- Moves 4 extremities sustained head lift Circulation 2- SBP +/= 20 points of pre-anesthetic level Circulation 2- SBP +/= 20 points of pre-anesthetic level Consciousness 2- Awake and alert oriented x 3 Consciousness 2- Awake and alert oriented x 3 O2 Saturation 2- Able to maintain O2 satruation of 92% on room air O2 Saturation 2- Able to maintain O2 satruation of 92% on room air Respiratory 2- Able to deep breathe and cough well Respiratory 2- Able to deep breathe and cough well Total Score 10 Total Score 10 Contrast Agent: Isovue Diagnostic Contrast: 176 ml Total Contrast: 176 ml Fluoro Dose: 55 mGy Activated Clotting Time Time Seconds to Clot 03:27 PM 123 Procedure Log Time Note Enter By 03:02 PM CathStat 03:03 PM Pt arrived to mobile home laborer 2 at 15:03 [email or web address] 03:03 PM Pratima Daniels RN Position: Monitor Time in: 15:03 tsites 03:03 PM Jesse Zamudio RT (R) Position: Scrub Time in: 15:03 tsites 03:03 PM Homar Segundo RN Position: Securities Counselor Time in: 15:03 tsites 03:04 PM Patient charges- Angio tray pack, Navilyst 3mm J, Pulse Oximetry and ACIST tubing and transducer tsites 03:04 PM Case Delayed No tsites 03:04 PM Physician arrived 15: tsites 03:04 PM Meet and greet completed tsites 03:04 PM Sign in performed according to hospital policy. Informed consent was obtained. [email or web address] 03:04 PM Procedure start 15: tsites 03:04 PM Case Start 03:04 PM [ Start or Stop Vital ] 03:05 PM Time: 15:05 Oxygen on at 2 L/min per nasal cannula by Homar Segundo RN tsites 03:05 PM Time: 15:05 Patient comfortable and pain free: Yes [email or web address] 03:05 PM Time: 15:05LOC: 5 = Fully awake and oriented or at pre-proc level tsites 03:06 PM Vitals capture started with the following parameters, Patient=Adult, Interval=5 min, Initial Bbbpngzq=999 mmHg, Deflation Rate=5 mmHg, Cuff placed on Left Arm 03:07 PM Hair removed from procedure site in procedure lab using clippers. Bilateral groin prepped with Chloraprep by Jesse Zamudio (R), then patient was draped. Skin intact. [email or web address] 03:08 PM Vitals capture started with the following parameters, Patient=Adult, Interval=5 min, Initial Qlyhujky=399 mmHg, Deflation Rate=5 mmHg, Cuff placed on Left Arm 03:09 PM HR=91 bpm, TZOA=288/72 mmhg, SpO2=91.0 %, Resp=23 B/min 03:12 PM Recorded ECG: HR=89 Condition=Condition 1 03:14 PM HR=87 bpm, EQUI=313/75 mmhg, SpO2=88.0 %, Resp=19 B/min, Comment=NSR 03:14 PM ASA Class CLASS III- Severe systemic disease (i.e. prior AMI, diabetes with vascular complications, morbid obesity) [email or web address] 03:15 PM Time: 15:15 Versed 1 mg Intravenous Given by Homar Segundo RN [email or web address] 03:15 PM Time: 15:15 Fentanyl 50 mcg Intravenous Given by Homar Segundo RN [email or web address] 03:15 PM Time: 15:15 Patient comfortable and pain free: Yes [email or web address] 03:15 PM Time: 15:15LOC: 4 = Oriented but drowsy [email or web address] 03:15 PM Pressure channel 1 zeroed. 03:19 PM HR=83 bpm, FDQR=666/66 mmhg, SpO2=92.0 %, Resp=19 B/min, EtCO2=30 mmHg, Comment=NSR 03:21 PM Time out was performed according to hospital policy. Conscious sedation and anesthesia was achieved (see medication log with in this report above) [email or web address] 03:21 PM Time: 15:21 19 ml Lidocaine 2% to right groin Subcutaneous Given by Kalli Harrington MD [email or web address] 03:22 PM Micro-Introducer Kit utilized for sheath placement [email or web address] 03:22 PM 3 mls contrast injected into Rt groin. [email or web address] 03:22 PM Access obtained by percutaneous puncture. 6Fr 10cm Terumo [place] sheath placed in right Femoral artery. [id number] [email or web address] 03:23 PM 0.035 145cm Navilyst 3mmJ wire [id number] [email or web address] 03:23 PM 5Fr FR 4 catheter inserted over the wire DN [email or web address] 03:24 PM HR=82 bpm, LFTV=206/73 mmhg, SpO2=92.0 %, Resp=18 B/min, Comment=NSR 03:25 PM Recorded Pressure: Ao, HR=82, Condition=Condition 1 (Aorta) Ao 113/71/91 03:26 PM RCA angiography performed in multiple views. [email or web address] 03:26 PM Coronary Dominance: right [email or web address] 03:26 PM Lesion found in Mid RCA. Pre Stenosis: 50 Pre TALIB Flow: 3: Complete and Brisk Flow/Perfusion [email or web address] 03:26 PM Lesion found in Distal RCA. Pre Stenosis: 50 Pre TALIB Flow: 3: Complete and Brisk Flow/Perfusion [email or web address] 03:26 PM Catheter removed [email or web address] 03:26 PM 5Fr FL 4 catheter inserted over the wire DN [email or web address] 03:27 PM LCA angiography performed in multiple views. [email or web address] 03:28 PM Recorded Pressure: Ao, HR=80, Condition=Condition 1 (Aorta) Ao 103/39/67 03:29 PM Catheter removed [email or web address] 03:29 PM 5Fr Pigtail catheter inserted over the wire DN [email or web address] 03:30 PM HR=94 bpm, ZHTP=964/74 mmhg, SpO2=91.0 %, Resp=24 B/min, EtCO2=33 mmHg, Comment=NSR 03:30 PM Time: 15:30 Zofran 4 mg Intravenous Given by Ottoniel Fairchild RN [email or web address] 03:30 PM Time: 15:30 Heparin 3500 units Intravenous Given by Ottoniel Fairchild [email or web address] 03:31 PM Recorded Pressure: LV, HR=91, Condition=Condition 1 (Left Ventricle) LV 128/20/19 03:32 PM Catheter crossed the aortic valve and was selectively placed in the left ventricle. Pressures recorded on pullback for left heart catheterization. [email or web address] 03:32 PM Bolus angiogram of left Ventricle complete: 8 ml/sec for a total of 24 mls [email or web address] 03:32 PM Recorded Pressure: LV, HR=89, Condition=Condition 1 (Left Ventricle) LV 129/0/24 03:32 PM Time: 15:32 Aggrastat Bolus: 37.5 ml Intravenous Given by Homar Segundo RN [place] pump [email or web address] 03:32 PM Time: 15:32 Aggrastat 12.5mg/250ml 13.5 ml Intravenous Given by Homar Segundo RN [place] pump [email or web address] 03:33 PM Recorded Pressure: LV, Ao, HR=88, Condition=Condition 1 (Left Ventricle) LV 100/33/33, (Aorta) Ao 102/44/72 03:33 PM Catheter removed [email or web address] 03:34 PM 6Fr XB LAD 3.5 [place] Bright-Tip guide catheter was used to cannulate the PCI vessel successfully. reused? No [email or web address] 03:34 PM HR=87 bpm, MXXB=531/70 mmhg, SpO2=91.0 %, Resp=28 B/min, EtCO2=30 mmHg, Comment=NSR 03:34 PM .014 [employer] [place]il 190cm guide wire across target lesion- successful. reused? No [email or web address] 03:34 PM Inflation device was opened. [email or web address] 03:35 PM 2.0 mm x 12 mm Emerge Monorail balloon across target lesion- successful. reused? No [email or web address] 03:35 PM Lesion found in Mid LAD. Pre Stenosis: 99 Pre TALIB Flow: 2: Partial Flow/Perfusion (> 1 but < 3) [email or web address] 03:39 PM HR=86 bpm, POLD=716/59 mmhg, SpO2=89.0 %, EtCO2=30 mmHg, Comment=NSR 03:40 PM Wire removed [email or web address] 03:41 PM .014 [place] 190cm guide wire across target lesion- successful. reused? No [email or web address] 03:44 PM HR=93 bpm, DVFY=014/73 mmhg, SpO2=89.0 %, Resp=21 B/min, Comment=NSR 03:46 PM Balloon inflated @ 6 jada for 7 seconds [email or web address] 03:47 PM Balloon inflated @ 10 jada for 9 seconds [email or web address] 03:49 PM Balloon catheter removed intact. [email or web address] 03:49 PM HR=89 bpm, WRET=362/59 mmhg, SpO2=87.0 %, Resp=12 B/min, Comment=NSR 03:49 PM Recorded Pressure: Ao, HR=89, Condition=Condition 1 (Aorta) Ao 122/65/90 03:50 PM 3.0mm x 24mm Synergy drug-eluting stent across target lesion- successful Lot #[id number] [email or web address] 03:51 PM Stent deployed @ 9 jada for 6 seconds [email or web address] 03:51 PM Stent balloon reinflated @ 12 jada for 4 seconds [email or web address] 03:52 PM Stent delivery system removed intact. [email or web address] 03:54 PM Time: 15:54 Lasix 40 mg Intravenous Given by Ottoniel Fairchild RN [email or web address] 03:54 PM HR=93 bpm, WIEG=433/80 mmhg, SpO2=89.0 %, Resp=27 B/min, EtCO2=32 mmHg, Comment=NSR 03:54 PM Guide wire removed intact. [email or web address] 03:54 PM Guide catheter removed intact. [email or web address] 03:54 PM Procedure completed at 15:54 07/16/2018 [email or web address] 03:55 PM Did you address TALIB flow and Dominance? YesCoronary Dominance: right [email or web address] 03:55 PM Sign out completed: Radiation Dose 577.30 mGy, 55.0 Gy/cm2 Fluoro Time: Isovue 370 - 200ml contrast 176 ml given by Kalli Harrington MD. Complications: None. The patient was discharged out of the lab manager in stable condition. Sedation minutes 40. Cardiac Rehab Consult needed: Yes. Confirmed administered medications: Yes [email or web address] 03:55 PM Isovue 370 - 200ml,1 Bottle(s) used. [email or web address] 03:55 PM Arterial sheath pulled, Angio-seal closure device used and was Successful S/N. [email or web address] 03:55 PM Estimated Blood Loss: minimal [email or web address] 03:55 PM Post ECG NSR [email or web address] 03:56 PM Post Blood Pressure 130/80 [email or web address] 03:56 PM Information taught Cardiac Cath, PCI, and Angioseal [email or web address] 03:56 PM Education needs Procedure, Plan of Care, and Disease Process [email or web address] 03:57 PM Time: 15:57 Plavix 600 mg Orally Given by Homar Segundo RN [email or web address] 03:58 PM 15:58 Post Pulses Bilateral DP & PT 1+ [email or web address] 03:58 PM Information taught Cardiac Cath, PCI, and Angioseal [email or web address] 03:58 PM Learning barriers :None [email or web address] 03:58 PM Education Methods Verbal [email or web address] 03:58 PM Education evaluation Able to repeat information [email or web address] 03:59 PM Site status No bleeding/hematoma - Rt Groin as reported by Sites, Savi RT (R) at 15:59 [email or web address] 03:59 PM Opsite applied [email or web address] 03:59 PM Delay to floor No [email or web address] 03:59 PM Family placed in consult room. [email or web address] 03:59 PM Complications: None [email or web address] 03:59 PM HR=88 bpm, POCL=848/61 mmhg, SpO2=89.0 %, Resp=16 B/min, EtCO2=30 mmHg, Comment=NSR 04:01 PM Lesion found in Proximal Circumflex. Pre Stenosis: 50 Pre TALIB Flow: 3: Complete and Brisk Flow/Perfusion [email or web address] 04:01 PM Lesion found in 1st Marginal. Pre Stenosis: 50 Pre TALIB Flow: 3: Complete and Brisk Flow/Perfusion [email or web address] 04:05 PM Time: 16:05 Phenergan 25 mg Intravenous Given by Homar Segundo RN [email or web address] 04:09 PM Report given to RN Pt taken to E Room #25. 16:09 [email or web address] 04:15 PM Plavix to be given by floor nurse at [address] Harrington. [email or web address] 04:18 PM Patient out of room: 16:18 [email or web address] Complications Complication None None Hemodynamics Pressures Site Systolic/A Wave Diastolic/V Wave Mean AO 113 71 91 AO 103 39 67 LV 128 20 19 LV 129 0 24 LV 100 33 33 AO 102 44 72 AO 122 65 90 Post Procedure Information Blood Pressure: 130/80 mmHg Rhythm: NSR Post procedural instructions were given Closure Device Time Device Success/Fail 07/16/2018 3:58:00 PM Angio-Seal VIP yes Site Checks Time Location Status Staff Sheath In? Note 03:58 PM 03:59 PM Rt Groin No bleeding/hematoma Sites, Savi RT (R) Pulses Time Site Pre-Procedure Post-Procedure Note 07/16/2018 12:41:00 PM Bilateral DP & PT 2+ 07/16/2018 12:41:00 PM Bilateral radial 2+ 3:58:00 PM Bilateral DP & PT 1+ Updated by Elke Craig, RT(R) on 07/16/2018 4:20:36 PM electronically signed on 07/16/2018 4:21:04 PM with status of Final
[2018-07-16 17:21] LABS: Basophils # 0.1 K/mcL (0.0-0.2); Basophils % 0.7 %; Eosinophils # 0.4 K/mcL (0.0-0.6); Eosinophils % 1.8 %; Hemoglobin 10.9 g/dL (11.5-15.4); Immature Granulocytes % 0.8 % (0-4); Lymphocytes # 2.3 K/mcL (0.6-4.6); Lymphocytes % 11.6 %; Mean Corpuscular HGB Conc 30.3 g/dL (31.6-35.5); Mean Corpuscular Hemoglobin 25.2 pg (28.0-33.3); Mean Corpuscular Volume 83.3 fL (83.0-100.0); Mean Platelet Volume 10.9 fL (9.4-12.4); Monocytes # 1.2 K/mcL (0.0-1.3); Monocytes % 6.2 %; Neutrophils # 15.3 K/mcL (1.6-8.9); Platelet Count 371 K/mcL (140-400); Red Blood Count 4.32 M/mcL (3.82-4.97); Red Cell Distribution Width 16.7 % (11.5-14.5); Segmented Neutrophils % 78.9 %
[2018-07-16] MEDS: Nitroglycerin 25 MG/250 ML INFUS..BTL IVC SCH (19:50)
[2018-07-16] MEDS: Latanoprost 2.5 ML BOTTLE BOTH EYES SCH (22:42)
[2018-07-16] MEDS: Gabapentin 300 MG CAPSULE PO SCH (22:50)
[2018-07-17] MEDS: cefTRIAXone 1,000 MG in Water for inj. (sterile) 20 ML 10 ML IVP SCH (00:31)
[2018-07-17] MEDS: Insulin LISPRO 300 UNITS/3 ML VIAL SQ SCH ×3 (09:57→21:52)
[2018-07-17] MEDS: Dorzolamide/Timolol OPTH 10 ML BOTTLE BOTH EYES SCH ×2 (09:58→21:52)
[2018-07-17] MEDS: Metoprolol XL (24 HR) Succ 25 MG TAB.ER.24H PO SCH (09:59)
[2018-07-17] MEDS: Furosemide 40 MG/4 ML VIAL IVP SCH (09:59)
[2018-07-17] MEDS: Aspirin 81 MG TAB.CHEW PO SCH (09:59)
--- NOTE | 2018-07-17 10:40 | Internal Med Progress Note ---
Hospitalist Progress Note - Encounter Date of Encounter: 07/17/18 Time of Encounter: 10:40 - Subjective Interval History: Feeling better and shortness of breath with no chest pain. Had heart catheterization yesterday. Review the lab Denies fever chills nausea vomiting headache dizziness chest pain abdominal pain diarrhea - Exam Vitals: Temp Pulse Resp BP Pulse Ox 98.9 F 82 18 107/74 98 07/17/18 07:34 07/17/18 07:34 07/17/18 07:34 07/17/18 07:34 07/17/18 07:34 Exam: General - AOx3, no acute distress. Nasal cannula 3 L HEENT - PERRLA EOMI eyes - no sceral icterus neck- no jvd, questionable carotid bruit bilateral cardio- A. fib with RVR, s1s2, no mrg lungs - decreased breath sound bilaterally with basilar crackles- better abd - obese, soft, ntnd, no peritoneal signs, no rebound or guarding extremities - moves all extremities equally, strength 5/5 UE and LE, skin - warm, dry, intact neuro- no focal neurological deficit. - Summary of Assessment and Plan Summary of Assessment and Plan: A. fib with RVR-new onset. Metoprolol 2.5 mg IV 1 given. Talk to retail special event associate who advised to his start heparin drip without bolus and see the response of metoprolol IV in if she does not respond then will restart Cardizem drip. Continue Toprol-XL Non-ST elevation WI: Patient has elevated troponin. Presented with chest pain and shortness of breath. stopped heparin drip on 07/16/2018 . On board cardiology. Nitro drip was stopped on 07/16/2018. Continue aspirin beta destini statin. Fasting lipid profile with high LDL, low HDL. Echocardiogram Impressions: Technically sub-optimal due to poor echocardiographic windows. LVEF 40-45%. Normal LV chamber size. Mild asymmetric hypertrophy of the basal septum. Segmental left ventricular systolic dysfunction. Mild left ventricular diastolic dysfunction. Normal right ventricular structure and function. Mild aortic regurgitation. Moderate pulmonary hypertension. Estimated RVSP is 50 mmHg. Left Ventricular Wall Motion: Rest Echo Findings The apex, apical septal, mid inferior septal and mid anterior septal chan were hypokinetic. All other wall segments showed normal motion. Plan for heart catheterization today. Congestive heart failure: Newly diagnosed. No prior echocardiograms to compare and evaluated. Patient does appear to have pulmonary edema. Treated with Lasix and nitroglycerin in the ER. Is better lung sound therefore decreasing Lasix 40 mg IV daily, continue Daily weight, a strict I&O's. Monitor BMP. High risk for complications. leucocytosis-trending up white count. No fever. Abnormal urine analysis. Urine culture with gram-negative collin but final sensitivity report awaited. Continue Rocephin for now. Monitor CBC. No blood culture ordered in the ER. Pulmonary edema -Chest x-ray with bilateral perihilar edema more likely vascular congestion. Could be underlying pneumonia as well , Rocephin will cover pneumonia as well. Continue IV Lasix. Repeat chest x-ray tomorrow, strict I& O's. Acute urinary tract infection: Patient has leukocytosis and urine is positive for nitrates and leukocyte esterase. As above Essential hypertension: Blood pressure was elevated initially but has now improved . Continue beta destini. Continue to monitor blood pressure and resume home medications. Carotid bruit-carotid ultrasound bilateral ordered DVT prophylaxis-on heparin drip now Skin more than 35 minute inpatient care and communication with patient, family, nursing staff, windows consultant - Time Spent with Patient Total time spent is greater than 50% in coordination of care (as documented) at patient's floor/unit and/or counseling patient: Greater than 35 minutes Plan of Care Discussed with: patient Internal Medicine: Result - Labs CBC & Chem 7: 07/16/18 16:52 07/16/18 00:21 Labs: Short CBC 07/16/18 Range/Units 16:52 WBC 19.4 H (4.3-11.1) K/mcL Hgb 10.9 L (11.5-15.4) g/dL Hct 36.0 (35.3-44.9) % Plt Count 371 (140-400) K/mcL Neutrophils # 15.3 H (1.6-8.9) K/mcL Cardiac Enzymes 07/16/18 Range/Units 10:21 Troponin I 2.76 H* (< 0.04) ng/mL - ABG Interpretation ABG results: PT/INR, D-dimer PT 13.2 Seconds (9.4-12.1) H 07/15/18 21:49 Consult Discharge Plan - Plan Referrals: NONE,PCP [Primary Care Provider] -
--- NOTE | 2018-07-17 11:32 | Cardiology Progress Note ---
Date of Encounter: 07/17/18 Time of Encounter: 11:30 Assessment and Plan (1) Non-ST elevation [place] (NSTEMI) Current Visit: Yes Status: Acute Patient presented with chest pain and found to have elevated troponin up to 3.59. [facility] completed yesterday and patient received PCI with drug-eluting stent to the LAD. There was moderate nonobstructive disease remaining. Full report is pending. Echocardiogram shows EF 40-44%, there is segmental wall motion abnor malities noted. Mild aortic regurgitation. Moderate pulmonary hypertension. Patient denies recurrent chest pain or shortness of breath. Importance of DAPT with aspirin and Plavix uninterrupted for 1 year reviewed with patient and granddaughter. They voiced understanding. Continue beta destini. Patient noted allergy to statin. Recommend continuing maintenance dose of Lasix. Outpatient follow-up will be coordinated by [place] [facility]. Please call with questions. RISK FACTORS: STOP SMOKING: If you smoke, STOP. Smoking or tobacco use significantly increases your risk of heart disease because nicotine causes the arteries to narrow or constrict. It also causes fats to stick to the artery. Your chances of having a heart attack are greatly increased if you continue to smoke. For more information, call the education line for smoking cessation 7-005-PPRIVPP EAT A LOW FAT/CHOLESTEROL/SODIUM DIET: This diet may help reduce your chances of having a heart attack. LIFTING: Avoid lifting anything more than 10 pounds for 5-7 days Prior to straining, laughing, sneezing and/or coughing, apply manual pressure directly over insertion site. ACTIVITY: You may walk or climb stairs as tolerated You can resume sexual activity as tolerated In general, you are encouraged to engage in a minimum of 30 minutes or more of moderate intensity physical activity, such as brisk walking, daily or at least 3-4 times weekly BATHING Do not submerge the site into water (bath tub, hot tub, swimming pool) for 1 week. This can be a source for infection into the blood stream. You may shower after 24 hours SITE CARE: After 24 hours, you may remove the dressing and leave the site open to air. Keep the site clean and dry. Clean gently and pat dry. You can expect bruising and tenderness that gradually resolve within a week or two. Return to work as instructed per your physician Resume driving as instructed per physician Keep all scheduled follow up appointments Resume medications as instructed IMPORTANT: If prescribed a Platelet Aggregation Inhibitor such as, Plavix, Brilinta or Effient: Duration of therapy is minimum one year These medications are often used in combination with Aspirin in prevention of future heart attacks Never discontinue unless consult with your Salesperson [employer] STROKE (CVA) Risk factors for a stroke are: Age, cigarette smoking, diabetes, excessive alcohol consumption, family history, high blood pressure, overweight, physical inactivity, prior stroke, heart attack, diagnosis of carotid artery stenosis or other artery disease. Warning signs: Sudden numbness or weakness of the face, arm or leg; especially on one side of the body, sudden confusion, trouble speaking or understanding, sudden trouble seeing in one or both eyes, sudden trouble walking, dizziness, loss of balance or coordination, sudden severe headache with no cause. Call 911 or go to the Emergency Room. CONGESTIVE HEART FAILURE: If you have been diagnosed with Congestive Heart Failure (CHF) and your symptoms return, make an appointment with your physician Weigh yourself daily. Notify your physician if you have a weight gain of two or more pounds in one day or five or more pounds in one week. If you experience any difficulty breathing, please call 911 BLEEDING: Although the risk of bleeding is minimal, it can happen. If you have any bleeding from the site, apply firm pressure above the puncture site for 10-15 minutes. If the bleeding does not stop, continue manual pressure and call 911 Contact your physician if: You develop a fever greater than 101 degrees Fahrenheit Your site becomes reddened or has any drainage You have an increase in pain or burning at the site or if a large knot forms at the site. If you experience chest pain, shortness of breath, dizziness, or extreme tiredness, stop the activity and rest. Please notify your physicians office if you experience any of these symptoms and they are not relieved by rest please call 911! (2) Acute congestive heart failure Current Visit: Yes Status: Acute Patient presented with acute systolic CHF. She was given IV diuretic. Denies shortness of breath today or significant lower extremity edema. BNP 686 on admission. Echocardiogram shows EF mildly reduced at 40-45%. Continue beta destini. Recommend changing metoprolol titrate to metoprolol succinate. Consider adding RAMYA inhibitor in the future if blood pressure allows. Start maintenance Lasix at 20 mg daily. CHF education. Low-sodium diet reviewed with patient and granddaughter. Qualifiers: Heart failure type: systolic Qualified Code(s): I50.21 - Acute systolic (congestive) heart failure Discussion w patient/family: The assessment and plan as outlined above was discussed with the patient and/or family members who expressed understanding and agreement. All questions were answered. Thank you for involving us in the care of your patient. Please call with any questions. Subjective Principal diagnosis: NSTEMI Interval history: Ms. Acevedo is sitting on side of bed. No complaints. Denies chest pain or SOB. Objective Vital Signs, Last 4 Hours Temp Pulse Resp BP Pulse Ox 07/17/18 10:55 98.6 F 83 16 117/81 90 07/17/18 07:34 98.9 F 82 18 107/74 98 General: Conversant, No Apparent Distress HEENT: Atraumatic, Normocephaly, Mucus Membranes Moist Neck: No JVD, Normal carotid pulses Cardiac: Reg Rate and Rhythm, Normal S1 and S2, No Murmur Lungs: Normal Breath Sounds, No Wheeze, Rales, Rhonchi Neuro: Alert and responsive, No focal deficits noted Abdomen: Soft, Non-Tender Skin: No rashes noted on visualized skin Musculoskeletal: No Chest Wall Tenderness Extremities: No Clubbing, No Cyanosis, No Edema, Normal Pulses, Other (Right femoral access without hemtoma) Results 07/16/18 16:52 07/16/18 00:21 Lab Results 07/16/18 16:52 WBC 19.4 H Hgb 10.9 L Hct 36.0 Plt Count 371 - Imaging and Cardiology Echo: report reviewed Cardiac cath: report reviewed - EKG Interpretation EKG results cardiology: personally reviewed Consult Discharge Plan - Plan Referrals: NONE,PCP [Primary Care Provider] -
[2018-07-17] MEDS ORDERED: *HR* Heparin 5,000 UNIT/ML VIAL IVP PRN ×2 (14:39)
[2018-07-17] MEDS ORDERED: *HR* Metoprolol 5 MG/5 ML VIAL IVP ONE ×2 (14:45→14:46)
[2018-07-17] MEDS ORDERED: Heparin 25,000 UNIT/250 ML D5W 25,000 UNIT/250 ML IV.SOLN IVC SCH (14:45)
[2018-07-17 16:12] LABS: Hematocrit 31.3 % (35.3-44.9); Hemoglobin 9.7 g/dL (11.5-15.4); Mean Corpuscular Hemoglobin 25.6 pg (28.0-33.3); Mean Corpuscular Volume 82.6 fL (83.0-100.0); Mean Platelet Volume 10.4 fL (9.4-12.4); Platelet Count 361 K/mcL (140-400); Red Blood Count 3.79 M/mcL (3.82-4.97); Red Cell Distribution Width 16.8 % (11.5-14.5)
[2018-07-17] MEDS: *HR* Heparin 5,000 UNIT/ML VIAL SQ SCH ×2 (16:16→21:52)
[2018-07-17 16:19] LABS: Heparin anti-factor XA UFH 0.02 IU/mL (0.30-0.70); INR 1.2; Prothrombin Time 13.4 Seconds (9.4-12.1)
[2018-07-17] MEDS: Latanoprost 2.5 ML BOTTLE BOTH EYES SCH (21:50)
[2018-07-18] MEDS: cefTRIAXone 1,000 MG in Water for inj. (sterile) 20 ML 10 ML IVP SCH (00:23)
[2018-07-18] MEDS: Insulin LISPRO 300 UNITS/3 ML VIAL SQ SCH ×5 (02:43→21:50)
[2018-07-18] MEDS: *HR* Heparin 5,000 UNIT/ML VIAL SQ SCH ×3 (05:25→21:36)
[2018-07-18 07:19] LABS: Basophils # 0.1 K/mcL (0.0-0.2); Basophils % 0.8 %; Eosinophils # 0.4 K/mcL (0.0-0.6); Eosinophils % 3.9 %; Hematocrit 29.4 % (35.3-44.9); Hemoglobin 9.2 g/dL (11.5-15.4); Immature Granulocytes % 0.6 % (0-4); Lymphocytes # 1.9 K/mcL (0.6-4.6); Lymphocytes % 20.2 %; Mean Corpuscular HGB Conc 31.3 g/dL (31.6-35.5); Mean Corpuscular Hemoglobin 25.7 pg (28.0-33.3); Mean Corpuscular Volume 82.1 fL (83.0-100.0); Mean Platelet Volume 10.6 fL (9.4-12.4); Monocytes % 10.5 %; Neutrophils # 5.9 K/mcL (1.6-8.9); Platelet Count 327 K/mcL (140-400); Red Blood Count 3.58 M/mcL (3.82-4.97); Red Cell Distribution Width 16.3 % (11.5-14.5)
[2018-07-18 07:39] LABS: BUN/Creatinine Ratio 30 (6-26); Blood Urea Nitrogen 19 mg/dL (8-23); Carbon Dioxide 28 mEq/L (23-29); Chloride 100 mEq/L (98-107); Glucose 109 mg/dL (70-105); Osmolality,Calculated 287 (280-300); Potassium 2.8 mEq/L (3.5-5.1); Sodium 137 mEq/L (136-145); eGFR For Non-African Americans > 60 (> 60)
[2018-07-18] MEDS: Metoprolol XL (24 HR) Succ 25 MG TAB.ER.24H PO SCH (08:58)
[2018-07-18] MEDS: Furosemide 20 MG TABLET PO SCH (08:58)
[2018-07-18] MEDS: Dorzolamide/Timolol OPTH 10 ML BOTTLE BOTH EYES SCH ×2 (08:59→21:36)
[2018-07-18] MEDS: Aspirin 81 MG TAB.CHEW PO SCH (08:59)
[2018-07-18] MEDS ORDERED: Furosemide 40 MG/4 ML VIAL IVP SCH (09:00)
--- NOTE | 2018-07-18 10:37 | Cardiology Progress Note ---
Date of Encounter: 07/18/18 Time of Encounter: 10:35 Assessment and Plan (1) Atrial fibrillation Current Visit: Yes Status: Acute Cardiology called back to see patient due to occurrence of atrial fibrillation with RVR. Patient had atrial fibrillation for about one hour yesterday. She converted back to normal sinus rhythm while being giving metoprolol IV dose. She was placed on heparin drip. This morning she remains in normal sinus rhythm. She notes having a nosebleed. She is aCHADS VASc 6. Ideally anticoagulation would be recommended. Due to cardiac stent this admission she is requiring aspirin and Plavix. She also describes a history of GI bleed one year ago due to bleeding polyps. Patient with nosebleed this morning. We do not feel she would tolerate triple therapy. Recommend continuing dual antiplatelet therapy. Patient agrees with plan. Due to low blood pressure we will not titrate beta destini further. Continue to monitor. Cardiology outpatient follow-up is being coordinated. Qualifiers: Atrial fibrillation type: paroxysmal Qualified Code(s): I48.0 - Paroxysmal atrial fibrillation (2) Non-ST elevation [place] (NSTEMI) Current Visit: Yes Status: Acute Patient presented with chest pain and found to have elevated troponin up to 3.59. [facility] completed yesterday and patient received PCI with drug-eluting stent to the LAD. There was moderate nonobstructive disease remaining. Full report is pend ing. Echocardiogram shows EF 40-44%, there is segmental wall motion abnormalities noted. Mild aortic regurgitation. Moderate pulmonary hypertension. Patient denies recurrent chest pain or shortness of breath. Importance of DAPT with aspirin and Plavix uninterrupted for 1 year reviewed with patient and granddaughter. They voiced understanding. Continue beta destini. Patient noted allergy to statin. Recommend continuing maintenance dose of Lasix. Outpatient follow-up will be coordinated by [place] [facility]. Please call with questions. RISK FACTORS: STOP SMOKING: If you smoke, STOP. Smoking or tobacco use significantly increases your risk of heart disease because nicotine causes the arteries to narrow or constrict. It also causes fats to stick to the artery. Your chances of having a heart attack are greatly increased if you continue to smoke. For more information, call the education line for smoking cessation 6-797-BMAMWJK EAT A LOW FAT/CHOLESTEROL/SODIUM DIET: This diet may help reduce your chances of having a heart attack. LIFTING: Avoid lifting anything more than 10 pounds for 5-7 days Prior to straining, laughing, sneezing and/or coughing, apply manual pressure directly over insertion site. ACTIVITY: You may walk or climb stairs as tolerated You can resume sexual activity as tolerated In general, you are encouraged to engage in a minimum of 30 minutes or more of moderate intensity physical activity, such as brisk walking, daily or at least 3-4 times weekly BATHING Do not submerge the site into water (bath tub, hot tub, swimming pool) for 1 week. This can be a source for infection into the blood stream. You may shower after 24 hours SITE CARE: After 24 hours, you may remove the dressing and leave the site open to air. Keep the site clean and dry. Clean gently and pat dry. You can expect bruising and tenderness that gradually resolve within a week or two. Return to work as instructed per your physician Resume driving as instructed per physician Keep all scheduled follow up appointments Resume medications as instructed IMPORTANT: If prescribed a Platelet Aggregation Inhibitor such as, Plavix, Brilinta or Effient: Duration of therapy is minimum one year These medications are often used in combination with Aspirin in prevention of future heart attacks Never discontinue unless consult with your Entry Level [employer] STROKE (CVA) Risk factors for a stroke are: Age, cigarette smoking, diabetes, excessive alcohol consumption, family history, high blood pressure, overweight, physical inactivity, prior stroke, heart attack, diagnosis of carotid artery stenosis or other artery disease. Warning signs: Sudden numbness or weakness of the face, arm or leg; especially on one side of the body, sudden confusion, trouble speaking or understanding, sudden trouble seeing in one or both eyes, sudden trouble walking, dizziness, loss of balance or coordination, sudden severe headache with no cause. Call 911 or go to the Emergency Room. CONGESTIVE HEART FAILURE: If you have been diagnosed with Congestive Heart Failure (CHF) and your symptoms return, make an appointment with your physician Weigh yourself daily. Notify your physician if you have a weight gain of two or more pounds in one day or five or more pounds in one week. If you experience any difficulty breathing, please call 911 BLEEDING: Although the risk of bleeding is minimal, it can happen. If you have any bleeding from the site, apply firm pressure above the puncture site for 10-15 minutes. If the bleeding does not stop, continue manual pressure and call 911 Contact your physician if: You develop a fever greater than 101 degrees Fahrenheit Your site becomes reddened or has any drainage You have an increase in pain or burning at the site or if a large knot forms at the site. If you experience chest pain, shortness of breath, dizziness, or extreme tiredness, stop the activity and rest. Please notify your physicians office if you experience any of these symptoms and they are not relieved by rest please call 911! (3) Acute congestive heart failure Current Visit: Yes Status: Acute Patient presented with acute systolic CHF. She was given IV diuretic. Denies shortness of breath today or significant lower extremity edema. BNP 686 on admission. Echocardiogram shows EF mildly reduced at 40-45%. Continue beta destini. Recommend changing metoprolol titrate to metoprolol succinate. Consider adding RAMYA inhibitor in the future if blood pressure allows. Start maintenance Lasix at 20 mg daily. CHF education. Low-sodium d iet reviewed with patient and granddaughter. Qualifiers: Heart failure type: systolic Qualified Code(s): I50.21 - Acute systolic (congestive) heart failure Discussion w patient/family: The assessment and plan as outlined above was discussed with the patient and/or family members who expressed understanding and agreement. All questions were answered. Thank you for involving us in the care of your patient. Please call with any questions. Subjective Principal diagnosis: NSTEMI Interval history: Ms. Acevedo is sitting on side of bed. No complaints. Denies chest pain or SOB. Notes nosebleeding this morning Objective Vital Signs, Last 4 Hours Temp Pulse Resp BP Pulse Ox 07/18/18 07:56 98.6 F 67 14 107/64 97 General: Conversant, No Apparent Distress HEENT: Atraumatic, Normocephaly, Mucus Membranes Moist Neck: No JVD, Normal carotid pulses Cardiac: Reg Rate and Rhythm, Normal S1 and S2, No Murmur Lungs: Normal Breath Sounds, No Wheeze, Rales, Rhonchi Neuro: Alert and responsive, No focal deficits noted Abdomen: Soft, Non-Tender Skin: No rashes noted on visualized skin Musculoskeletal: No Chest Wall Tenderness Extremities: No Clubbing, No Cyanosis, No Edema, Normal Pulses Results 07/18/18 06:19 07/18/18 06:19 Lab Results 07/17/18 07/17/18 07/18/18 15:48 15:48 06:19 WBC 12.2 H 9.3 Hgb 9.7 L 9.2 L Hct 31.3 L 29.4 L Plt Count 361 327 INR 1.2 Sodium Potassium Chloride Carbon Dioxide BUN Creatinine Glucose Calcium 07/18/18 06:19 WBC Hgb Hct Plt Count INR Sodium 137 Potassium 2.8 L Chloride 100 Carbon Dioxide 28 BUN 19 Creatinine 0.64 Glucose 109 H Calcium 9.0 - Imaging and Cardiology Echo: report reviewed Cardiac cath: report reviewed - EKG Interpretation EKG results cardiology: personally reviewed Consult Discharge Plan - Plan Referrals: NONE,PCP [Primary Care Provider] -
--- NOTE | 2018-07-18 13:46 | Internal Med Progress Note ---
Hospitalist Progress Note - Encounter Date of Encounter: 07/18/18 Time of Encounter: 11:42 - Subjective Interval History: Patient had one episode of A. fib with RVR or almost 1 hour yesterday but resolved while pushing metoprolol IV and did not recur since then and patient has been in normal sinus rhythm. Heparin drip was restarted. Patient had episode of nosebleed this morning. Feeling better inshortness of breath with no chest pain. Reviewed the lab with low potassium. Urine culture with gram- negative bacteria but no further sensitivity Denies fever chills nausea vomiting headache dizziness chest pain abdominal pain diarrhea - Exam Vitals: Temp Pulse Resp BP Pulse Ox 98.6 F 67 14 107/64 97 07/18/18 07:56 07/18/18 07:56 07/18/18 07:56 07/18/18 07:56 07/18/18 07:56 Exam: General - AOx3, no acute distress. Nasal cannula 3 L HEENT - PERRLA EOMI eyes - no sceral icterus neck- no jvd, carotid bruit bilateral cardio- A. fib with RVR, s1s2, no mrg lungs - decreased breath sound bilaterally with basilar crackles- better abd - obese, soft, ntnd, no peritoneal signs, no rebound or guarding extremities - moves all extremities equally, strength 5/5 UE and LE, skin - warm, dry, intact neuro- no focal neurological deficit. - Summary of Assessment and Plan Summary of Assessment and Plan: A. fib with RVR-new onset. Metoprolol 2.5 mg IV 1 given. Talked to school library media specialist who advised to start heparin drip without bolus and see the response of metoprolol IV in if she does not respond then will start Cardizem drip. Resolved A. fib with RVR and patient remained in sinus rhythm. Heparin drip discontinued as patient had nosebleed. Reviewed medical cost consultant note. Of note,She is aCHADS VASc 6. Ideally anticoagulation would be recommended. Due to cardiac stent this admission she is requiring aspirin and Plavix. She also describes a history of GI bleed one year ago due to bleeding polyps. Patient with nosebleed this morning. We do not feel she would tolerate triple therapy. Recommend continuing dual antiplatelet therapy.Due to low blood pressure we will not titrate beta destini further. Cardiology outpatient follow-up is being coordinated. Non-ST elevation [place]: Patient has elevated troponin. Presented with chest pain and shortness of breath. Nitro drip was stopped on 07/16/2018. Continue aspirin beta destini statin. Fasting lipid profile with high LDL, low HDL. [facility] completed and patient received PCI with drug-eluting stent to the LAD. 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 Echocardiogram Impressions: Technically sub-optimal due to poor echocardiographic windows. LVEF 40-45%. Normal LV chamber size. Mild asymmetric hypertrophy of the basal septum. Segmental left ventricular systolic dysfunction. Mild left ventricular diastolic dysfunction. Normal right ventricular structure and function. Mild aortic regurgitation. Moderate pulmonary hypertension. Estimated RVSP is 50 mmHg. Left Ventricular Wall Motion: Rest Echo Findings The apex, apical septal, mid inferior septal and mid anterior septal chan were hypokinetic. All other wall segments showed normal motion. Plan for heart catheterization today. Congestive heart failure: Newly diagnosed. No prior echocardiograms to compare and evaluated. Patient does appear to have pulmonary edema. Treated with Lasix and nitroglycerin in the ER. Is better lung sound therefore will stop IV Lasix and his start oral Lasix 20 mg by mouth daily. continue Daily weight, a strict I&O's. Monitor BMP. High risk for complications. leucocytosis-normal white count. No fever. Abnormal urine analysis. Urine culture with gram-negative collin but final sensitivity report still awaited. Continue Rocephin for now. Monitor CBC. No blood culture ordered in the ER. Pulmonary edema -Chest x-ray with bilateral perihilar edema more likely vascular congestion. Could be underlying pneumonia as well , Rocephin will cover pneumonia as well. Continue diuresis. Repeat chest x-ray revealed XR/XR chest 2V IMPRESSION: Improving chest suggesting resolving pulmonary edema. Acute urinary tract infection: Patient has leukocytosis and urine is positive for nitrates and leukocyte esterase. As above Essential hypertension: Blood pressure was elevated initially but low normal now. Continue low-dose beta destini as further titration not done due to low blood pressure. Carotid bruit-carotid ultrasound bilateral report elevated DVT subcutaneous heparin. - Time Spent with Patient Total time spent is greater than 50% in coordination of care (as documented) at patient's floor/unit and/or counseling patient: 25 - 35 minutes Plan of Care Discussed with: patient Internal Medicine: Result - Labs CBC & Chem 7: 07/18/18 06:19 07/18/18 06:19 Labs: Short CBC 07/17/18 07/18/18 Range/Units 15:48 06:19 WBC 12.2 H 9.3 (4.3-11.1) K/mcL Hgb 9.7 L 9.2 L (11.5-15.4) g/dL Hct 31.3 L 29.4 L (35.3-44.9) % Plt Count 361 327 (140-400) K/mcL Neutrophils # 5.9 (1.6-8.9) K/mcL BMP 07/18/18 06:19 Sodium 137 Potassium 2.8 L Chloride 100 Carbon Dioxide 28 BUN 19 Creatinine 0.64 Glucose 109 H Calcium 9.0 - ABG Interpretation ABG results: PT/INR, D-dimer PT 13.4 Seconds (9.4-12.1) H 07/17/18 15:48 - Impressions Impressions Chest X-Ray 07/18/18 00:00 IMPRESSION: Improving chest suggesting resolving pulmonary edema. D/ / 07/18/2018 12:08:01 Chad Mcdaniel MD / [email or web address] Interpreting Provider: Chad Mcdaniel MD Consult Discharge Plan - Plan Referrals: NONE,PCP [Primary Care Provider] -
[2018-07-18] MEDS: Latanoprost 2.5 ML BOTTLE BOTH EYES SCH (21:36)
[2018-07-18] MEDS: Gabapentin 300 MG CAPSULE PO SCH (21:36)
[2018-07-19] MEDS: cefTRIAXone 1,000 MG in Water for inj. (sterile) 20 ML 10 ML IVP SCH (00:47)
[2018-07-19] MEDS: *HR* Heparin 5,000 UNIT/ML VIAL SQ SCH ×2 (05:58→13:58)
[2018-07-19] MEDS: Insulin LISPRO 300 UNITS/3 ML VIAL SQ SCH ×2 (08:11→13:56)
[2018-07-19 08:25] LABS: Basophils # 0.1 K/mcL (0.0-0.2); Basophils % 0.9 %; Eosinophils # 0.4 K/mcL (0.0-0.6); Immature Granulocytes % 0.6 % (0-4); Lymphocytes # 1.9 K/mcL (0.6-4.6); Lymphocytes % 23.8 %; Mean Corpuscular Hemoglobin 24.7 pg (28.0-33.3); Mean Corpuscular Volume 82.2 fL (83.0-100.0); Mean Platelet Volume 10.5 fL (9.4-12.4); Monocytes # 0.8 K/mcL (0.0-1.3); Monocytes % 9.8 %; Neutrophils # 4.8 K/mcL (1.6-8.9); Platelet Count 333 K/mcL (140-400); Red Blood Count 3.65 M/mcL (3.82-4.97); Red Cell Distribution Width 15.9 % (11.5-14.5); Segmented Neutrophils % 59.9 %
[2018-07-19 09:06] LABS: BUN/Creatinine Ratio 25 (6-26); Blood Urea Nitrogen 15 mg/dL (8-23); Calcium 9.1 mg/dL (8.6-10.3); Carbon Dioxide 28 mEq/L (23-29); Chloride 100 mEq/L (98-107); Glucose 105 mg/dL (70-105); Osmolality,Calculated 285 (280-300); Sodium 137 mEq/L (136-145); eGFR For Non-African Americans > 60 (> 60)
[2018-07-19] MEDS: Aspirin 81 MG TAB.CHEW PO SCH (09:12)
[2018-07-19] MEDS: Furosemide 20 MG TABLET PO SCH (09:12)
[2018-07-19] MEDS: Metoprolol XL (24 HR) Succ 25 MG TAB.ER.24H PO SCH (09:13)
[2018-07-19] MEDS: Dorzolamide/Timolol OPTH 10 ML BOTTLE BOTH EYES SCH (09:20)
[2018-07-19 10:39] VITALS: BP 116/63
--- NOTE | 2018-07-19 13:01 | Discharge Summary ---
- NOTES TO OUTPATIENT PROVIDER Notes to Outpatient Provider: Follow with PCP in 2-3 days. Need follow-up ultrasound of carotid versus vascular referral as per PCP advice. Follow with cardiology in 1 week. Outpatient PTOT. Continue home oxygen 2 L Orders not resulted at time of discharge: Pending orders 07/16/18 12:29 CL Cardiac Catheterization [CL] Routine 07/16/18 16:06 ECG 12 lead ECG [ECG] Stat 07/20/18 04:00 BMP [Basic Metabolic Panel] AM 0400 Complete Blood Count [HEME] AM 0400 Date of Encounter: 07/19/18 Time of Encounter: 12:56 - Discharge Diagnosis (1) Carotid bruit Priority: Primary Status: Acute Assessment and Plan: carotid ultrasound bilateral report with bilaterally stenosis-needs to be seen by vascular surgeon on OPD basis with the help of PCP Qualifiers: Laterality: bilateral Qualified Code(s): R09.89 - Other specified symptoms and signs involving the circulatory and respiratory systems (2) Acute congestive heart failure Priority: Primary Status: Acute Assessment and Plan: Newly diagnosed. No prior echocardiograms to compare and evaluated. Patient does appear to have pulmonary edema. Treated with Lasix and nitroglycerin in the ER. Is better lung sound therefore will stop IV Lasix and his start oral Lasix 20 mg by mouth daily. continue Daily weight, a strict I&O's. Monitor BMP. High risk for complications. Qualifiers: Heart failure type: systolic Qualified Code(s): I50.21 - Acute systolic (congestive) heart failure (3) Atrial fibrillation Priority: Primary Status: Acute Assessment and Plan: new onset. Metoprolol 2.5 mg IV 1 given. Talked to customer leader who advised to start heparin drip without bolus and see the response of metoprolol IV in if she does not respond then will start Cardizem drip. Resolved A. fib with RVR and patient remained in sinus rhythm. Heparin drip discontinued as patient had nosebleed. Reviewed oracle consultant note. Of note,She is aCHADS VASc 6. Ideally anticoagulation would be recommended. Due to cardiac stent this admission she is requiring aspirin and Plavix. She also describes a history of GI bleed one year ago due to bleeding polyps. Patient with nosebleed this morning. We do not feel she would tolerate triple therapy. Recommend continuing dual antiplatelet therapy.Due to low blood pressure we will not titrate beta destini further. Cardiology outpatient follow-up is being coordinated. Qualifiers: Atrial fibrillation type: paroxysmal Qualified Code(s): I48.0 - Paroxysmal atrial fibrillation (4) Flash pulmonary edema Priority: Primary Status: Acute Assessment and Plan: Chest x-ray with bilateral perihilar edema more likely vascular congestion. Improving. Will send patient on oral diuretic (5) NSTEMI (non-ST elevated myocardial infarction) Priority: Primary Status: Acute Assessment and Plan: Patient has elevated troponin. Presented with chest pain and shortness of breath. Nitro drip was stopped on 07/16/2018. Continue aspirin beta destini statin. Fasting lipid profile with high LDL, low HDL. LHC completed and patient received PCI with drug-eluting stent to the LAD. 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 Echocardiogram Impressions: Technically sub-optimal due to poor echocardiographic windows. LVEF 40-45%. Normal LV chamber size. Mild asymmetric hypertrophy of the basal septum. Segmental left ventricular systolic dysfunction. Mild left ventricular diastolic dysfunction. Normal right ventricular structure and function. Mild aortic regurgitation. Moderate pulmonary hypertension. Estimated RVSP is 50 mmHg. Left Ventricular Wall Motion: Rest Echo Findings The apex, apical septal, mid inferior septal and mid anterior septal chan were hypokinetic. All other wall segments showed normal motion. (6) Hypokalemia Priority: Primary Status: Acute Assessment and Plan: Replaced. Will discharge patient on 10 mEq KCl as patient will be on Lasix. Potassium rich diet. Monitor BMP with PCP into 3 days (7) Weakness generalized Priority: Primary Status: Acute Assessment and Plan: PTOT was consulted and recommended for swing bed but patient wanted to go home with outpatient PTOT (8) Hypoxia Priority: Primary Status: Acute Assessment and Plan: Patient was hypoxic on arrival to ER and needed continuous BiPAP and eventually needed high flow oxygen. 6. Walk test done and oxygen dropped to 83% therefore qualified 2 L home oxygen (9) UTI (urinary tract infection) Priority: Primary Status: Acute Assessment and Plan: Urine culture with Escherichia coli. Will discharge patient on ciprofloxacin 500 mg by mouth daily for 10 days Qualifiers: Urinary tract infection type: acute cystitis Hematuria presence: without hematuria Qualified Code(s): N30.00 - Acute cystitis without hematuria Hospital course: Ms. Acevedo is a 82 year old female patient got admitted with shortness of breath hypoxia and diagnosed NST [place] status post heart catheterization. Patient also had UTI. PTOT consulted. Please see details in diagnosis section of discharge summary. At the time of discharge patient clinically hemodynamically stable requiring 2 L oxygen by nasal cannula. Patient is being discharged home with outpatient PTOT. Discharge discussed with: patient, nurse, social work, case management, oracle consultant - Time Spent with Patient Total time spent providing and/or coordinating discharge services: - Discharge Medications Prescriptions: No Action Escitalopram [Lexapro] 5 mg PO DAILY Valsartan/Hydrochlorothiazide [Diovan Hct 320-12.5 mg Tab] 1 tab PO DAILY Aspirin 81 mg PO DAILY 4 Days #4 tab.chew Omeprazole [PriLOSEC] 40 mg PO DAILY 4 Days #4 cap DULoxetine [Cymbalta] 20 mg PO DAILY Atenolol [Tenormin] 50 mg PO BID amLODIPine [Norvasc] 5 mg PO DAILY Travoprost [Travatan Z] 1 drop BOTH EYES HS Gabapentin [Neurontin] 100 mg PO QAM Gabapentin [Neurontin] 300 mg PO HS Dorzolamide/Timolol/Pf [Dorzolamide-Timolol 2%-0.5%] 1 drop BOTH EYES BID Home Medications: Escitalopram [Lexapro] 5 mg PO DAILY 08/27/17 [History] Valsartan/Hydrochlorothiazide [Diovan Hct 320-12.5 mg Tab] 1 tab PO DAILY 08/27/17 [History] Aspirin 81 mg PO DAILY 4 Days #4 tab.chew 09/03/17 [Rx] Omeprazole [PriLOSEC] 40 mg PO DAILY 4 Days #4 cap 09/03/17 [Rx] Atenolol [Tenormin] 50 mg PO BID 07/15/18 [History] DULoxetine [Cymbalta] 20 mg PO DAILY 07/15/18 [History] Dorzolamide/Timolol/Pf [Dorzolamide-Timolol 2%-0.5%] 1 drop BOTH EYES BID 07/15/18 [History] Gabapentin [Neurontin] 100 mg PO QAM 07/15/18 [History] Gabapentin [Neurontin] 300 mg PO HS 07/15/18 [History] Travoprost [Travatan Z] 1 drop BOTH EYES HS 07/15/18 [History] amLODIPine [Norvasc] 5 mg PO DAILY 07/15/18 [History] Allergies/Adverse Reactions: Allergy/AdvReac Type Severity Reaction Status Date / Time codeine Allergy Rash Verified 07/16/18 09:30 nitrofurantoin Allergy Rash Verified 07/16/18 09:30 [From Macrodantin] Zrneten-Ygk-Thl Reductase Allergy See Verified 07/16/18 09:30 Inhibitor Comments [Statins] Sulfa (Sulfonamide Allergy Hives Verified 07/16/18 09:30 Antibiotics) tramadol [From Ultram] Allergy Headache Verified 07/16/18 09:30 metoclopramide [From Reglan] AdvReac Shakiness Verified 07/16/18 09:30 Date of admission: 07/15/18 23:50 Primary care physician: PCP NONE Consults: 07/15/18 22:39 Consult to Cardiology [CONS] Stat Comment: Consulting Provider: Cardiology Wanda Reason for Consult: nstemi, elevated troponin, ekg changes Call Completed: Yes 07/15/18 22:44 Consult to Occupational Therapy [CONS] Stat Comment: Evaluate, develop and implement POC Reason for Consult: ptot eval Does patient have active BEDREST order?: No Is patient medically & hemodynamically stable?: Yes Patient assessed for mobility or mobilized this visit?: No Consult to Physical Therapy [CONS] Stat Comment: Evaluate, develop and implement POC Reason for Consult: ptot eval Does patient have active BEDREST order?: No Is patient medically & hemodynamically stable?: Yes Patient assessed for mobility or mobilized this visit?: No 07/16/18 16:06 Consult to Cardiac Rehabilitation-Phase1 [CONS] Routine Comment: Reason for Consult: AMI Call Completed: Yes Consult to Nurse Navigator [CONS] Routine Comment: - Constitutional Vitals: Temp Pulse Resp BP Pulse Ox 97.8 F 91 17 116/63 96 07/19/18 10:38 07/19/18 10:38 07/19/18 10:38 07/19/18 10:38 07/19/18 07:59 General appearance: Present: A&O X 3, pleasant Exam: General - AOx3, no acute distress. HEENT - PERRLA EOMI eyes - no sceral icterus neck- no jvd, carotid bruit bilateral cardio- A. fib with RVR, s1s2, no mrg lungs - decreased breath sound bilaterally with basilar crackles- improving significantly abd - obese, soft, ntnd, no peritoneal signs, no rebound or guarding extremities - moves all extremities equally, strength 5/5 UE and LE, skin - warm, dry, intact neuro- no focal neurological deficit. - Patient Status Disposition: Home, Self-Care Condition: Fair Overall status at discharge: patient is progressing back to baseline - Discharge Instructions Follow Up With: NONE,PCP [Primary Care Provider] - - Diet and Activity Activity: as per physical therapy Diet: low fat, low cholesterol, low salt diet
--- NOTE | 2018-07-20 15:47 | Electrocardiograph Report ---
[place] [id number] Test Date: 2018-07-17 Pat Name: Ghada Aceevdo Department: 111 Room: 2NE25 Gender: F Tobacco Roller: : 1935 Requested By: Chel Bates Order Number: [id number] Reading MD: Blane Ortega Measurements Intervals [place]: 117 P: CO: 0 QRS: -28 QRSD: 94 T: -42 QT: 339 QTc: 408 Interpretive Statements ATRIAL FIBRILLATION WITH RAPID VENTRICULAR RESPONSE POSSIBLE ANTERIOR MYOCARDIAL INFARCTION [30 ms Q WAVE IN V3/V4, OR R < 0.2 mV IN V4], OF INDETERMINATE AGE INFERIOR MYOCARDIAL INFARCTION [40+ ms Q WAVE AND/OR ST/T ABNORMALITY IN II/aVF], OF INDETERMINATE AGE MODERATE T-WAVE ABNORMALITY, CONSIDER LATERAL ISCHEMIA [-0.1+ mV T WAVE IN I/aVL/V5/V6] Electronically Signed On 07-20-2018 15:46:08 EDT by Blane Ortega
--- NOTE | 2018-07-20 15:47 | Electrocardiograph Report ---
[place] [id number] Test Date: 2018-07-17 Pat Name: Ghada Acevedo Department: 111 Room: 2NE25 Gender: F Training Development Specialist: : 1935 Requested By: Kalli Harrington Order Number: [id number] Reading MD: Bony Armas Measurements Intervals [place] Rate: 119 P: CO: 0 QRS: -32 QRSD: 99 T: 110 QT: 280 QTc: 351 Interpretive Statements ATRIAL FIBRILLATION WITH RAPID VENTRICULAR RESPONSE POSSIBLE ANTERIOR MYOCARDIAL INFARCTION, PROBABLY OLD INFERIOR MYOCARDIAL INFARCTION , PROBABLY OLD Electronically Signed On 07-20-2018 15:46:02 EDT by Bony Armas
== END 2018-07-19 19:35 | disposition home or self-care (01) | DRG 853 ==
LOC: EMEROOARM 19:34 → 2NENU 19:34 → MERGE 23:50 → 2NENU 07-16 00:54
PROVIDERS: ADMIT Internal Medicine; ATTEND Internal Medicine

== ENCOUNTER 2020-11-03 08:11 | Inpatient (IN) ==
[2020-11-03] MEDS: Nitroglycerin 0.4 MG TAB.SUBL SL SCH ×3 (08:46→08:54)
[2020-11-03 08:51] LABS: Basophils # 0.1 K/mcL (0.0-0.2); Basophils % 0.8 %; Eosinophils # 0.2 K/mcL (0.0-0.6); Eosinophils % 1.7 %; Hematocrit 35.7 % (35.3-44.9); Hemoglobin 10.9 g/dL (11.5-15.4); Immature Granulocytes % 0.7 % (0-4); Lymphocytes # 1.8 K/mcL (0.6-4.6); Lymphocytes % 14.6 %; Mean Corpuscular HGB Conc 30.5 g/dL (31.6-35.5); Mean Corpuscular Hemoglobin 26.1 pg (28.0-33.3); Mean Corpuscular Volume 85.4 fL (83.0-100.0); Mean Platelet Volume 10.2 fL (9.4-12.4); Monocytes # 0.9 K/mcL (0.0-1.3); Monocytes % 7.4 %; Platelet Count 347 K/mcL (140-400); Red Blood Count 4.18 M/mcL (3.82-4.97); Red Cell Distribution Width 15.5 % (11.5-14.5); Segmented Neutrophils % 74.8 %
[2020-11-03 09:16] LABS: Alanine Aminotransferase 8 Units/L (7-52); Albumin 3.6 g/dL (3.5-5.7); Albumin/Globulin Ratio 1.4 (1.1-2.2); Alkaline Phosphatase 74 Units/L (34-104); Aspartate Amino Transferase 14 Units/L (13-39); BUN/Creatinine Ratio 17 (6-26); Bilirubin,Total 0.3 mg/dL (0.3-1.0); Blood Urea Nitrogen 14 mg/dL (8-23); Calcium 8.2 mg/dL (8.6-10.3); Carbon Dioxide 22 mEq/L (23-29); Chloride 108 mEq/L (98-107); Globulin 2.6 g/dL (2.4-3.5); Glucose 125 mg/dL (70-105); Osmolality,Calculated 288 (280-300); Potassium 3.5 mEq/L (3.5-5.1); Sodium 138 mEq/L (136-145); Total Protein 6.2 g/dL (6.4-8.9); eGFR For African Americans > 60 (> 60); eGFR For Non-African Americans > 60 (> 60)
[2020-11-03 09:27] LABS: Troponin I 0.24 ng/mL (< 0.04)
[2020-11-03] MEDS ORDERED: *HR* Heparin 5,000 UNIT/ML VIAL IVP ONE (09:39)
[2020-11-03] MEDS ORDERED: *HR* Heparin 5,000 UNIT/ML VIAL IVP PRN ×2 (09:39)
[2020-11-03] MEDS ORDERED: Perflutren Lipid Microsphere 1.3 ML in 0.9 % Sodium Chloride 8.7 ML IVP PRN (10:00)
[2020-11-03 10:04] LABS: INR 1.1; Prothrombin Time 13.2 Seconds (9.4-12.1)
[2020-11-03] MEDS: Heparin 25,000UNIT/250ML 1/2NS 25,000 UNIT/250 ML IV.SOLN IVC SCH (10:08)
[2020-11-03 10:11] LABS: Hematocrit 32.9 % (35.3-44.9); Hemoglobin 10.5 g/dL (11.5-15.4); Mean Corpuscular HGB Conc 31.9 g/dL (31.6-35.5); Mean Corpuscular Hemoglobin 27.1 pg (28.0-33.3); Mean Corpuscular Volume 84.8 fL (83.0-100.0); Mean Platelet Volume 9.9 fL (9.4-12.4); Platelet Count 344 K/mcL (140-400); Red Blood Count 3.88 M/mcL (3.82-4.97); Red Cell Distribution Width 15.4 % (11.5-14.5); White Blood Count 13.9 K/mcL (4.3-11.1)
[2020-11-03] MEDS ORDERED: Melatonin 3 MG TABLET PO PRN (10:12)
[2020-11-03] MEDS ORDERED: Naloxone 0.4 MG/ML INJ IVP PRN (10:12)
[2020-11-03] MEDS ORDERED: Ondansetron 4 MG/2 ML VIAL IVP PRN (10:12)
[2020-11-03 11:24] LABS: Adenovirus Not Detected (Not Detect); Bordetella Pertussis Not Detected (Not Detect); Chlamydophila pneumoniae Not Detected (Not Detect); Coronavirus 229E Not Detected (Not Detect); Coronavirus HKU1 Not Detected (Not Detect); Coronavirus NL63 Not Detected (Not Detect); Coronavirus OC43 Not Detected (Not Detect); Human Metapneumovirus Not Detected (Not Detect); Human Rhinovirus/Enterovirus Not Detected (Not Detect); Influenza A Subtype 2009 H1 Not Detected (Not Detect); Influenza B Not Detected (Not Detect); Mycoplasma pneumoniae Not Detected (Not Detect); Parainfluenza Virus 1 Not Detected (Not Detect); Parainfluenza Virus 2 Not Detected (Not Detect); Parainfluenza Virus 3 Not Detected (Not Detect); Parainfluenza Virus 4 Not Detected (Not Detect); Respiratory Syncytial Virus Not Detected (Not Detect); SARS-CoV-2 Not Detected (Not Detect)
[2020-11-04 01:57] LABS: Basophils # 0.1 K/mcL (0.0-0.2); Eosinophils # 0.2 K/mcL (0.0-0.6); Eosinophils % 1.8 %; Hematocrit 31.5 % (35.3-44.9); Immature Granulocytes % 0.5 % (0-4); Lymphocytes # 1.7 K/mcL (0.6-4.6); Lymphocytes % 15.9 %; Mean Corpuscular HGB Conc 31.7 g/dL (31.6-35.5); Mean Corpuscular Hemoglobin 26.8 pg (28.0-33.3); Mean Corpuscular Volume 84.5 fL (83.0-100.0); Mean Platelet Volume 9.9 fL (9.4-12.4); Monocytes # 0.8 K/mcL (0.0-1.3); Monocytes % 7.9 %; Neutrophils # 7.7 K/mcL (1.6-8.9); Platelet Count 324 K/mcL (140-400); Red Blood Count 3.73 M/mcL (3.82-4.97); Red Cell Distribution Width 15.3 % (11.5-14.5); Segmented Neutrophils % 72.9 %; White Blood Count 10.6 K/mcL (4.3-11.1)
[2020-11-04 02:09] LABS: INR 1.2; Prothrombin Time 13.7 Seconds (9.4-12.1)
[2020-11-04 02:22] LABS: BUN/Creatinine Ratio 20 (6-26); Blood Urea Nitrogen 14 mg/dL (8-23); Calcium 8.4 mg/dL (8.6-10.3); Carbon Dioxide 22 mEq/L (23-29); Chloride 107 mEq/L (98-107); Chol/HDL Ratio 5.5 (0-4.9); Cholesterol 171 mg/dL (< 200); Glucose 126 mg/dL (70-105); HDL Cholesterol 31 mg/dL (40-59); LDL Cholesterol,Calculated 114 mg/dL (< 100); Osmolality,Calculated 288 (280-300); Potassium 3.6 mEq/L (3.5-5.1); Sodium 138 mEq/L (136-145); Triglycerides 132 mg/dL (< 150); eGFR For African Americans > 60 (> 60); eGFR For Non-African Americans > 60 (> 60)
[2020-11-04] MEDS ORDERED: Acetaminophen 325 MG TABLET PO PRN (09:39)
[2020-11-04] MEDS: Furosemide 20 MG TABLET PO SCH (12:40)
[2020-11-04] MEDS: Aspirin 81 MG TAB.CHEW PO SCH (12:40)
[2020-11-04] MEDS: Gabapentin 300 MG CAPSULE PO SCH ×2 (12:40→19:35)
[2020-11-04] MEDS ORDERED: Water for inj. (sterile) 10 ML ONE (13:35)
[2020-11-04] MEDS: cefTRIAXone 1,000 MG in Water for inj. (sterile) 10 ML IVP SCH (13:35)
[2020-11-04] MEDS: Isosorbide MONOnitrate (24 HR) 30 MG TAB.ER.24H PO SCH (13:38)
[2020-11-04] MEDS: Azithromycin 500 MG in 0.9 % Sodium Chloride 250 ML IVPB SCH (13:52)
[2020-11-04] MEDS: Heparin 25,000UNIT/250ML 1/2NS 25,000 UNIT/250 ML IV.SOLN IVC SCH (14:17)
[2020-11-04] MEDS ORDERED: Dorzolamide/Timolol OPTH 10 ML BOTTLE BOTH EYES SCH (21:00)
[2020-11-04] MEDS ORDERED: Latanoprost 2.5 ML BOTTLE BOTH EYES SCH (21:00)
[2020-11-05 03:05] LABS: BUN/Creatinine Ratio 18 (6-26); Blood Urea Nitrogen 13 mg/dL (8-23); Calcium 8.2 mg/dL (8.6-10.3); Carbon Dioxide 22 mEq/L (23-29); Chloride 105 mEq/L (98-107); Glucose 108 mg/dL (70-105); Osmolality,Calculated 283 (280-300); Phosphorous 2.5 mg/dL (2.7-4.5); Potassium 3.6 mEq/L (3.5-5.1); Sodium 136 mEq/L (136-145); eGFR For African Americans > 60 (> 60); eGFR For Non-African Americans > 60 (> 60)
[2020-11-05] MEDS: Aspirin 81 MG TAB.CHEW PO SCH (08:09)
[2020-11-05] MEDS: Furosemide 20 MG TABLET PO SCH (08:11)
[2020-11-05] MEDS: Gabapentin 300 MG CAPSULE PO SCH (08:12)
[2020-11-05] MEDS: Isosorbide MONOnitrate (24 HR) 30 MG TAB.ER.24H PO SCH (08:14)
[2020-11-05 08:50] LABS: Basophils # 0.1 K/mcL (0.0-0.2); Basophils % 1.1 %; Eosinophils # 0.3 K/mcL (0.0-0.6); Eosinophils % 3.2 %; Hematocrit 29.1 % (35.3-44.9); Hemoglobin 9.1 g/dL (11.5-15.4); Immature Granulocytes % 0.6 % (0-4); Lymphocytes # 2.2 K/mcL (0.6-4.6); Lymphocytes % 22.3 %; Mean Corpuscular HGB Conc 31.3 g/dL (31.6-35.5); Mean Corpuscular Hemoglobin 26.8 pg (28.0-33.3); Mean Corpuscular Volume 85.6 fL (83.0-100.0); Mean Platelet Volume 10.7 fL (9.4-12.4); Monocytes # 0.8 K/mcL (0.0-1.3); Monocytes % 8.6 %; Neutrophils # 6.3 K/mcL (1.6-8.9); Platelet Count 330 K/mcL (140-400); Red Cell Distribution Width 15.3 % (11.5-14.5); Segmented Neutrophils % 64.2 %; White Blood Count 9.8 K/mcL (4.3-11.1)
[2020-11-05] MEDS: cefTRIAXone 1,000 MG in Water for inj. (sterile) 10 ML IVP SCH (12:38)
[2020-11-05] MEDS: Azithromycin 500 MG in 0.9 % Sodium Chloride 250 ML IVPB SCH (12:38)
[2020-11-05] MEDS: Heparin 25,000UNIT/250ML 1/2NS 25,000 UNIT/250 ML IV.SOLN IVC SCH (14:31)
[2020-11-05 16:46] VITALS: BP 138/64; PULSE 84; TEMP 97.5; O2SAT 95
== END 2020-11-05 20:51 | disposition home or self-care (01) | DRG 280 ==
LOC: EMEROOARM 08:11 → 2ANU 08:11 → SUATTDRO 10:52 → 2ANU 11:13
PROVIDERS: ADMIT Internal Medicine; ATTEND Internal Medicine

== ENCOUNTER 2020-12-08 15:14 | Inpatient (IN) ==
[2020-12-08] MEDS ORDERED: Isovue-370 500 ML BOTTLE IVP ONE ×4 (15:40→17:06)
[2020-12-08 16:06] LABS: Basophils # 0.1 K/mcL (0.0-0.2); Eosinophils # 0.1 K/mcL (0.0-0.6); Hematocrit 39.8 % (35.3-44.9); Immature Granulocytes % 0.3 % (0-4); Lymphocytes # 0.9 K/mcL (0.6-4.6); Lymphocytes % 9.4 %; Mean Corpuscular HGB Conc 30.2 g/dL (31.6-35.5); Mean Corpuscular Hemoglobin 25.8 pg (28.0-33.3); Mean Corpuscular Volume 85.6 fL (83.0-100.0); Mean Platelet Volume 10.4 fL (9.4-12.4); Monocytes # 0.6 K/mcL (0.0-1.3); Monocytes % 6.3 %; Neutrophils # 7.5 K/mcL (1.6-8.9); Platelet Count 296 K/mcL (140-400); Red Blood Count 4.65 M/mcL (3.82-4.97); White Blood Count 9.2 K/mcL (4.3-11.1)
[2020-12-08 16:28] LABS: Alanine Aminotransferase 13 Units/L (7-52); Albumin 4.5 g/dL (3.5-5.7); Albumin/Globulin Ratio 1.6 (1.1-2.2); Alkaline Phosphatase 93 Units/L (34-104); Aspartate Amino Transferase 19 Units/L (13-39); BUN/Creatinine Ratio 13 (6-26); Bilirubin,Total 0.5 mg/dL (0.3-1.0); Blood Urea Nitrogen 13 mg/dL (8-23); Calcium 9.3 mg/dL (8.6-10.3); Carbon Dioxide 22 mEq/L (23-29); Chloride 104 mEq/L (98-107); Globulin 2.9 g/dL (2.4-3.5); Glucose 101 mg/dL (70-105); Osmolality,Calculated 284 (280-300); Potassium 3.8 mEq/L (3.5-5.1); Sodium 137 mEq/L (136-145); Total Protein 7.4 g/dL (6.4-8.9); Troponin I < 0.03 ng/mL (< 0.04); eGFR For African Americans > 60 (> 60); eGFR For Non-African Americans 51 (> 60)
[2020-12-08 16:59] LABS: Bilirubin,Urine Negative (Negative); Blood,Urine Negative (Negative); Clarity,Urine Clear (Clear); Color,Urine Colorless (Yellow); Glucose,Urine (UA) Normal (Normal); Ketones,Urine Negative (Negative); Leukocyte Esterase,Urine Negative (Negative); Nitrite,Urine Negative (Negative); PH,Urine 5.5 pH Units (5.0-8.0); Protein,Urine Negative (Neg-Trace); Specific Gravity,Urine 1.014 (1.010-1.025); Urobilinogen,Urine Normal (Normal)
[2020-12-08] MEDS ORDERED: *HR* Heparin 5,000 UNIT/ML VIAL IVP PRN ×2 (20:47)
[2020-12-08] MEDS ORDERED: *HR* Heparin 5,000 UNIT/ML VIAL IVP ONE (20:47)
[2020-12-08] MEDS ORDERED: *HR* LORazepam 0.5 MG TABLET PO ONE (20:55)
[2020-12-08] MEDS ORDERED: Heparin 25,000UNIT/250ML 1/2NS 25,000 UNIT/250 ML IV.SOLN IVC SCH (21:00)
[2020-12-08] MEDS ORDERED: *HR* Metoprolol 5 MG/5 ML VIAL IVP PRN (21:31)
[2020-12-08 22:40] LABS: Heparin anti-factor XA UFH < 0.04 IU/mL (0.30-0.70); INR 1.1; Prothrombin Time 12.8 Seconds (9.4-12.1)
[2020-12-09] MEDS ORDERED: Ketorolac 15 MG/ML VIAL IVP ONE (02:40)
[2020-12-09 05:20] LABS: Hematocrit 34.4 % (35.3-44.9); Hemoglobin 10.5 g/dL (11.5-15.4); Mean Corpuscular HGB Conc 30.5 g/dL (31.6-35.5); Mean Corpuscular Hemoglobin 25.7 pg (28.0-33.3); Mean Corpuscular Volume 84.1 fL (83.0-100.0); Mean Platelet Volume 10.2 fL (9.4-12.4); Platelet Count 232 K/mcL (140-400); Red Blood Count 4.09 M/mcL (3.82-4.97); Red Cell Distribution Width 15.9 % (11.5-14.5)
[2020-12-09 05:41] LABS: Alanine Aminotransferase 9 Units/L (7-52); Albumin 3.7 g/dL (3.5-5.7); Albumin/Globulin Ratio 1.6 (1.1-2.2); Alkaline Phosphatase 71 Units/L (34-104); Aspartate Amino Transferase 14 Units/L (13-39); BUN/Creatinine Ratio 17 (6-26); Bilirubin,Total 0.4 mg/dL (0.3-1.0); Blood Urea Nitrogen 16 mg/dL (8-23); Calcium 8.6 mg/dL (8.6-10.3); Carbon Dioxide 20 mEq/L (23-29); Chloride 108 mEq/L (98-107); Chol/HDL Ratio 5.8 (0-4.9); Cholesterol 192 mg/dL (< 200); Globulin 2.3 g/dL (2.4-3.5); Glucose 98 mg/dL (70-105); HDL Cholesterol 33 mg/dL (40-59); LDL Cholesterol,Calculated 125 mg/dL (< 100); Osmolality,Calculated 285 (280-300); Potassium 3.4 mEq/L (3.5-5.1); Sodium 137 mEq/L (136-145); Triglycerides 170 mg/dL (< 150); Troponin I < 0.03 ng/mL (< 0.04); eGFR For African Americans > 60 (> 60); eGFR For Non-African Americans 57 (> 60)
[2020-12-09 06:18] LABS: Estimated Average Glucose 140 mg/dl; Hemoglobin A1C 6.5 %
[2020-12-09] MEDS: Furosemide 20 MG TABLET PO SCH (07:49)
[2020-12-09] MEDS: Aspirin 81 MG TAB.CHEW PO SCH (11:35)
[2020-12-09] MEDS: Gabapentin 300 MG CAPSULE PO SCH (20:24)
[2020-12-09] MEDS ORDERED: Latanoprost 2.5 ML BOTTLE BOTH EYES SCH (21:00)
[2020-12-09] MEDS ORDERED: Acetaminophen 325 MG TABLET PO PRN (23:32)
[2020-12-10] MEDS ORDERED: Metoprolol XL (24 HR) Succ 25 MG TAB.ER.24H PO SCH (09:00)
[2020-12-10] MEDS: Furosemide 20 MG TABLET PO SCH (09:46)
[2020-12-10] MEDS: Aspirin 81 MG TAB.CHEW PO SCH (09:46)
[2020-12-10] MEDS: Gabapentin 300 MG CAPSULE PO SCH (09:46)
[2020-12-10 11:23] VITALS: O2SAT 94
[2020-12-10 15:57] VITALS: BP 114/69; PULSE 48; TEMP 97.7
== END 2020-12-10 16:17 | disposition home or self-care (01) | DRG 65 ==
LOC: EMEROOARM 15:14 → 3BNU 15:14 → SUATTDRO 20:23 → 3BNU 21:45
PROVIDERS: ADMIT Internal Medicine; ATTEND Internal Medicine

== ENCOUNTER 2021-09-25 22:20 | Observation (INO) ==
[2021-09-26] MEDS ORDERED: Melatonin 3 MG TABLET PO PRN (01:41)
[2021-09-26] MEDS ORDERED: Ondansetron 4 MG/2 ML VIAL IVP PRN (01:41)
[2021-09-26] MEDS ORDERED: Naloxone 0.4 MG/ML INJ IVP PRN (01:41)
[2021-09-26] MEDS ORDERED: Aspirin 325 MG TABLET PO ONE (04:00)
[2021-09-26] MEDS ORDERED: Aspirin 81 MG TAB.CHEW PO SCH (04:00)
[2021-09-26 05:44] LABS: Basophils # 0.1 K/mcL (0.0-0.2); Eosinophils # 0.2 K/mcL (0.0-0.6); Eosinophils % 2.2 %; Hemoglobin 10.7 g/dL (11.5-15.4); Immature Granulocytes % 0.5 % (0-4); Lymphocytes # 1.5 K/mcL (0.6-4.6); Lymphocytes % 13.3 %; Mean Corpuscular HGB Conc 30.6 g/dL (31.6-35.5); Mean Corpuscular Hemoglobin 25.7 pg (28.0-33.3); Mean Corpuscular Volume 84.1 fL (83.0-100.0); Mean Platelet Volume 10.4 fL (9.4-12.4); Monocytes # 0.6 K/mcL (0.0-1.3); Monocytes % 5.6 %; Neutrophils # 8.6 K/mcL (1.6-8.9); Platelet Count 345 K/mcL (140-400); Red Blood Count 4.16 M/mcL (3.82-4.97); Red Cell Distribution Width 15.9 % (11.5-14.5); Segmented Neutrophils % 77.4 %; White Blood Count 11.1 K/mcL (4.3-11.1)
[2021-09-26] MEDS ORDERED: Perflutren Lipid Microsphere 1.3 ML in 0.9 % Sodium Chloride 8.7 ML IVP PRN (06:56)
[2021-09-26 07:16] LABS: INR 1.1; Prothrombin Time 12.2 Seconds (9.4-12.1)
[2021-09-26 08:04] LABS: Troponin I 0.07 ng/mL (< 0.04)
[2021-09-26 08:18] LABS: Bilirubin,Urine Negative (Negative); Blood,Urine Negative (Negative); Clarity,Urine Clear (Clear); Color,Urine Light-Yellow (Yellow); Glucose,Urine (UA) Normal (Normal); Ketones,Urine Negative (Negative); Leukocyte Esterase,Urine Trace (Negative); Mucus,Urine Few per lpf (None-Few); Nitrite,Urine Positive (Negative); PH,Urine 6.5 pH Units (5.0-8.0); Protein,Urine Negative (Neg-Trace); RBC,Urine 0-3 per hpf (0-3); Specific Gravity,Urine > 1.030 (1.010-1.025); Squamous Epithelial Cell,Urine Few per hpf (None-Few); Urobilinogen,Urine Normal (Normal)
[2021-09-26 08:31] LABS: Chol/HDL Ratio 6.6 (0-4.9)
[2021-09-26 09:26] LABS: Alanine Aminotransferase 13 Units/L (7-52); Albumin 3.9 g/dL (3.5-5.7); Albumin/Globulin Ratio 1.5 (1.1-2.2); Alkaline Phosphatase 80 Units/L (34-104); Aspartate Amino Transferase 22 Units/L (13-39); BUN/Creatinine Ratio 20 (6-26); Bilirubin,Total 0.3 mg/dL (0.3-1.0); Blood Urea Nitrogen 18 mg/dL (8-23); Carbon Dioxide 20 mEq/L (23-29); Chloride 104 mEq/L (98-107); Globulin 2.6 g/dL (2.4-3.5); Glucose 226 mg/dL (70-105); Magnesium 2.1 mg/dL (1.6-2.6); Osmolality,Calculated 291 (280-300); Phosphorous 3.5 mg/dL (2.7-4.5); Potassium 3.6 mEq/L (3.5-5.1); Sodium 136 mEq/L (136-145); Total Protein 6.5 g/dL (6.4-8.9); eGFR For African Americans > 60 (> 60); eGFR For Non-African Americans > 60 (> 60)
[2021-09-26] MEDS ORDERED: *HR* Dextrose 50 % in Water (Syg) 50 ML SYRINGE IVP PRN (11:54)
[2021-09-26] MEDS ORDERED: Dextrose Gel 15 GM/37.5 ML TUBE PO PRN ×2 (11:54)
[2021-09-26] MEDS ORDERED: D5% in Water 1,000 ML IVC PRN (11:54)
[2021-09-26 12:02] LABS: Estimated Average Glucose 137 mg/dl; Hemoglobin A1C 6.4 %
[2021-09-26] MEDS: Insulin LISPRO 300 UNITS/3 ML VIAL SUBQ SCH ×2 (13:02→16:59)
[2021-09-26 13:05] LABS: Estimated Average Glucose 140 mg/dl; Hemoglobin A1C 6.5 %
[2021-09-26] MEDS: cefTRIAXone 1,000 MG in 0.9 % Sodium Chloride 10 ML IVP SCH (14:00)
[2021-09-26] MEDS: Acetaminophen 325 MG TABLET PO PRN (16:59)
[2021-09-27 01:53] LABS: BUN/Creatinine Ratio 19 (6-26); Blood Urea Nitrogen 14 mg/dL (8-23); Carbon Dioxide 23 mEq/L (23-29); Chloride 107 mEq/L (98-107); Glucose 116 mg/dL (70-105); Magnesium 2.2 mg/dL (1.6-2.6); Osmolality,Calculated 287 (280-300); Phosphorous 3.4 mg/dL (2.7-4.5); Potassium 3.6 mEq/L (3.5-5.1); Sodium 138 mEq/L (136-145); eGFR For African Americans > 60 (> 60); eGFR For Non-African Americans > 60 (> 60)
[2021-09-27 06:40] VITALS: BP 155/72; PULSE 85; TEMP 98.1; O2SAT 94
[2021-09-27] MEDS: Insulin LISPRO 300 UNITS/3 ML VIAL SUBQ SCH (06:55)
[2021-09-27] MEDS ORDERED: Aspirin 81 MG TAB.CHEW PO SCH (09:00)
[2021-09-27] MEDS ORDERED: amLODIPine 5 MG TABLET PO SCH (09:15)
[2021-09-27] MEDS ORDERED: Metoprolol XL (24 HR) Succ 25 MG TAB.ER.24H PO SCH (09:15)
[2021-09-27] MEDS ORDERED: allopurinoL 100 MG TABLET PO SCH (09:15)
[2021-09-27] MEDS ORDERED: Gabapentin 300 MG CAPSULE PO SCH (09:15)
[2021-09-27] MEDS: Acetaminophen 325 MG TABLET PO PRN (10:08)
[2021-09-27] MEDS: cefTRIAXone 1,000 MG in 0.9 % Sodium Chloride 10 ML IVP SCH (10:10)
== END 2021-09-27 13:10 | disposition home health service (06) ==
LOC: 3BNU → SUATTDRO 09-26 01:02
PROVIDERS: ADMIT Internal Medicine; ATTEND Internal Medicine